=== PATIENT | female | born 1950 | race Caucasian/White ===

== ENCOUNTER 2020-01-09 07:08 | Outpatient (REF) | payer MEDICARE, SELFPAY ==
[2020-01-09 07:55] LABS: MANUAL DIFF FLAG NO
[2020-01-09 07:58] LABS: Basophils Percent Auto 0.4 % (0-2); Eosinophils Percent Auto 0.7 % (0-4); Hematocrit 35.3 % (37-47); Hemoglobin 10.6 g/dl (12.0-16.0); Imm Gran Abs Auto 0.02 X10*3/uL (0.00-0.03); Imm Gran Pct Auto 0.4 % (0.0-0.4); Lymphocytes Absolute Auto 1.2 X10*3/uL (1.2-4.9); Lymphocytes Percent Auto 21.4 % (20-40); Mean Corpuscular Hemoglobin 24.6 pg (27.0-33.0); Mean Corpuscular Volume 81.9 fL (80-98); Mean Platelet Volume 10.1 fL (9.4-12.3); Monocytes Absolute Auto 0.4 X10*3/uL (0.1-1.2); Monocytes Percent Auto 6.7 % (2-11); Neutrophils Percent Auto 70.4 % (45-73); Platelet Count 292 X10*3/uL (160-400); Red Blood Count 4.31 X10*6/uL (4.20-5.50); Red Cell Distribution Width 15.3 % (11.0-16.0); White Blood Count 5.7 X10*3/uL (4.8-10.8)
[2020-01-09 08:26] LABS: Alanine Aminotransferase 14 U/L (0-31); Albumin Level 4.2 g/dL (3.5-5.0); Alkaline Phosphatase 95 U/L (39-117); Anion Gap 11 (12-20); Aspartate Amino Transferase 17 U/L (5-31); Bilirubin Total 0.4 mg/dL (0.0-1.0); Blood Urea Nitrogen 19 mg/dL (9-16); Calcium 8.7 mg/dL (8.4-10.2); Carbon Dioxide 27 mmol/L (22-29); Chloride 107 mmol/L (96-108); Cholesterol 142 mg/dL; Estimated Glomerular Filt Rate > 60; Glucose Fasting 96 mg/dL (60-99); HDL Cholesterol 53 mg/dL; LDL Cholesterol Calculated 64 mg/dl; Potassium 4.6 mmol/l (3.3-5.1); Sodium 140 mmol/L (135-145); Total Protein 6.8 g/dL (6.5-8.0); Triglycerides 129 mg/dL
[2020-01-09 08:50] LABS: Thyroid Stimulating Hormone 3.03 uIU/mL (0.32-4.0); Vitamin D 25-OH Total 27.3 ng/mL (>30)
== END 2020-01-09 07:09 | disposition home or self-care (01) ==
LOC: HO.LAB 07:08
PROVIDERS: PCP Internal Medicine; Visit Provider Internal Medicine
DX: E78.5 Hyperlipidemia, unspecified (principal)
CPT/HCPCS: 36415; 80053; 80061; 82306; 84443; 85025

== ENCOUNTER → 2020-01-16 10:14 | Outpatient (BNVA) | payer MEDICARE, SELFPAY | PROVIDERS: PCP Internal Medicine; Referring Provider Internal Medicine; Visit Provider Internal Medicine Cardiovascular Disease | DX: I25.10 Atherosclerotic heart disease of native coronary artery without angina pectoris (principal); T82.09XD Other mechanical complication of heart valve prosthesis, subsequent encounter; Z79.82 Long term (current) use of aspirin; Z79.899 Other long term (current) drug therapy; Z95.1 Presence of aortocoronary bypass graft | CPT/HCPCS: 99212 ==

== ENCOUNTER 2020-04-16 06:50 | Outpatient (REF) | payer MEDICARE, SELFPAY ==
[2020-04-16 07:49] LABS: Cholesterol 139 mg/dL; HDL Cholesterol 50 mg/dL; LDL Cholesterol Calculated 64 mg/dl; Triglycerides 127 mg/dL
== END 2020-04-16 06:51 | disposition home or self-care (01) ==
LOC: HO.LAB 06:50
PROVIDERS: PCP Internal Medicine; Visit Provider Internal Medicine
DX: E11.9 Type 2 diabetes mellitus without complications (principal)
CPT/HCPCS: 36415; 80061

== ENCOUNTER 2020-05-06 09:34 | Outpatient (REF) | payer MEDICARE, SELFPAY ==
--- NOTE | ~2020-05-06 | XR_ITS ---
EXAMINATION: XR SHOULDER, RIGHT CLINICAL INFORMATION: Right shoulder pain. COMPARISON: None TECHNIQUE: AP external rotation, Grashey, scapular Y, and axillary views of the right shoulder. FINDINGS: There is loss of joint space right AC joint and glenohumeral joint with moderate periarticular spurring. No visible acute fracture or dislocation seen. The soft tissues are normal. XR/XR shoulder RT min 2V IMPRESSION: Moderate degenerative changes glenohumeral joint and right AC joint.
== END 2020-05-06 09:35 | disposition home or self-care (01) ==
LOC: HO.XRAY 09:34
PROVIDERS: PCP Internal Medicine; Visit Provider Internal Medicine
DX: M25.519 Pain in unspecified shoulder (principal)
CPT/HCPCS: 73030

== ENCOUNTER → 2020-07-02 08:19 | Outpatient (BNVA) | payer MEDICARE, SELFPAY | PROVIDERS: PCP Internal Medicine; Referring Provider Family Medicine Adult Medicine; Visit Provider Internal Medicine Cardiovascular Disease | DX: I25.10 Atherosclerotic heart disease of native coronary artery without angina pectoris (principal); Z95.2 Presence of prosthetic heart valve | CPT/HCPCS: 93005; 99212 ==

== ENCOUNTER 2020-07-20 09:42 | Day surgery (SDC) | payer MEDICARE, SELFPAY ==
[2020-07-13 13:50] VITALS: BMI 31.1
--- NOTE | 2020-07-16 08:48 | MHC.SHP ---
Pre-Procedural Eval Section A The patient is an INPATIENT: No The History & Physical has been completed within 30 days and I have reviewed it.: Yes Section B Chief Complaint: Cataract Left Eye Allergies: Allergies Allergy/AdvReac Type Severity Reaction Status Date / Time nitrofurantoin [Macrobid] Allergy Unknown headache Verified 07/15/20 14:29 Plan Diagnosis/Plan: Unchanged I have reviewed the history and physical and performed a pertinent physical examination on my patient. No changes have occurred unless specified.
--- NOTE | 2020-07-17 09:39 | HO.ANESPROP2 ---
Documented by User: Ella Reddyney 07/17/20 09:42 HPI - Anesthesia Eval Consult details Narrative: 70yo F for Left Cataract Extraction IOL Insertion PCP cleared No prev cataract on record [facility] Active Problems Active Problems: All Active Problems (Updated 07/15/20 @ 14:45 by Maximilian Bay MD) Preop exam for internal medicine (Acute) Shoulder pain, right (Acute) CAD (coronary artery disease) (Acute) S/P AVR (Acute) Prosthetic valve dysfunction (Acute) PVD (peripheral vascular disease) (Acute) HTN (hypertension) (Acute) Hyperlipidemia (Acute) Past Medical History Medical History Anemia Atherosclerotic heart disease CAD (coronary artery disease) Depression HTN (hypertension) Hyperlipidemia On beta tony at home Prosthetic valve dysfunction PVD (peripheral vascular disease) Family History Family History Father Depression Mother Depression Heart disease CHF (congestive heart failure) Paternal Grandmother Cancer Surgical History Surgical History H/O left wrist surgery Hx of CABG Hx of colonoscopy Hx of endoscopy S/P AVR Social History Social History Alcohol intake: never Smoking Status: Former smoker Tobacco Type: Cigarette Smoking Quit Date: 2007 Use of substances other than those prescribed or required for medical reasons: No Have you been hit, kicked, punched, or otherwise hurt by someone within the past year? If so, by whom?: No Are you DNR?: No Advance Directives: No Advance Directives Information Provided: No Advance Directives on File: No Recently lost weight without trying: No Eating poorly because of decreased appetite: No Nutrition Risks: No Nutritional Risk Meds Allergies Allergy/AdvReac Type Severity Reaction Status Date / Time nitrofurantoin [Macrobid] Allergy Unknown headache Verified 07/15/20 14:29 Home Medications Medication Instructions Recorded Confirmed Last Taken Type cyanocobalamin (vitamin B-12) 1,000 mcg PO DAILY 01/14/20 07/15/20 07/20/20 History 1,000 mcg sublingual tablet ezetimibe 10 mg tablet 10 mg PO DAILY 01/14/20 07/15/20 07/20/20 History metoprolol tartrate 50 mg tablet 50 mg PO BID 01/14/20 07/15/20 07/20/20 History aspirin 81 mg tablet,delayed 81 mg PO DAILY 01/16/20 07/15/20 07/20/20 History release Exam Exam Date and Time: July 17, 2020 0939 Height,Weight and Vital Signs: Height 5 ft 1 in Weight 74.843 kg Narrative Narrative: Per 06/2020 cardiology Prior history of bioprosthetic aortic valve with 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 Patient has done well. No interventions required. Will continue to monitor by echocardiogram on annual basis. Next echocardiogram in 5 months time. Continue low-dose aspirin therapy. Continue aggressive vascular risk factor modification. No interventions required. SBE prophylaxis as per ACC/aha guidelines. Assessment and Plan Assessment Anesthesia Assessment: Chart Reviewed Documented by User: Dorinda Rollins 07/20/20 10:59 [facility] Past Medical History Medical History Anemia Atherosclerotic heart disease CAD (coronary artery disease) Depression HTN (hypertension) Hyperlipidemia On beta tony at home Prosthetic valve dysfunction PVD (peripheral vascular disease) Family History Family History Father Depression Mother Depression Heart disease CHF (congestive heart failure) Paternal Grandmother Cancer Surgical History Surgical History H/O left wrist surgery Hx of CABG Hx of colonoscopy Hx of endoscopy S/P AVR Social History Social History Alcohol intake: never Smoking Status: Former smoker Tobacco Type: Cigarette Smoking Quit Date: 2007 Use of substances other than those prescribed or required for medical reasons: No Have you been hit, kicked, punched, or otherwise hurt by someone within the past year? If so, by whom?: No Are you DNR?: No Advance Directives: No Advance Directives Information Provided: No Advance Directives on File: No Recently lost weight without trying: No Eating poorly because of decreased appetite: No Nutrition Risks: No Nutritional Risk Meds Allergies Allergy/AdvReac Type Severity Reaction Status Date / Time nitrofurantoin [Macrobid] Allergy Unknown headache Verified 07/15/20 14:29 Home Medications Medication Instructions Recorded Confirmed Last Taken Type cyanocobalamin (vitamin B-12) 1,000 mcg PO DAILY 01/14/20 07/15/20 07/20/20 History 1,000 mcg sublingual tablet ezetimibe 10 mg tablet 10 mg PO DAILY 01/14/20 07/15/20 07/20/20 History metoprolol tartrate 50 mg tablet 50 mg PO BID 01/14/20 07/15/20 07/20/20 History aspirin 81 mg tablet,delayed 81 mg PO DAILY 01/16/20 07/15/20 07/20/20 History release Exam Airway Mallampati Class: II TM Dist: >3cm Neck ROM: Full Heart: RRR Lungs: CTA Assessment and Plan Assessment Anesthesia Assessment: Anesthesia Plan Discussed and Chart Reviewed Final Anesthetic Review NPO: Yes ASA Class: III Final Preanesthetic Review: Meds/Allgs Chart Reviewed, Consent Obtained/Reviewed and Anes Risks/Benef Reviewed Patient Risk: Intermediate Procedure Risk: Low Anesthetic Plan Anesthetic Plan: MAC: Disposition: Standard PACU
[2020-07-20 10:47] VITALS: BP 139/56; PULSE 66; RESP 18; TEMP 36.5; O2SAT 97
[2020-07-20] MEDS: Tetracaine HCl/PF 0.5% Oph Sol 4 ML DROPS 1 DROP EYE-LEFT (10:49)
[2020-07-20] MEDS: Lactated Ringers 500 ML 50 ML IV (10:49)
[2020-07-20] MEDS: Tropicamide 1 % Ophth Sol 3 ML BTL 1 DROP EYE-LEFT ×3 (10:50→10:58)
[2020-07-20] MEDS: Phenylephrine HCL 2.5% Oph SoL 2 ML BOTTLE 1 DROP EYE-LEFT ×3 (10:54→10:59)
--- NOTE | 2020-07-20 11:44 | HO.PNOPHT ---
Ophthalmology Procedure Procedure Date of Service: 07/20/20 Ophthalmology Viscoelastic: Healon Duet Dual Pack Pro Ophthalmology Lenses: TECNIS [id number] (20.5) Procedure Notes: PREOPERATIVE DIAGNOSIS: Decreased visual acuity left eye secondary to cataract POSTOPERATIVE DIAGNOSIS: Same PROCEDURE: Left cataract extraction with intraocular lens insertion SURGEON: Silvino Hutchinson M.D. ANESTHESIA: Topical/MAC ESTIMATED BLOOD LOSS: None COMPLICATIONS: None After obtaining informed consent, the patient was brought to the operation room suite and placed in the supine position. After adequate sedation per anesthesia, topical drops of Tetracaine were given to the left eye. The eye was then prepped and draped in the usual sterile fashion. The operating room microscope was then positioned over the operative eye and a lid speculum placed. A paracentesis was created. Viscoelastic was then instilled into the anterior chamber. A three plane incision was then created temporally, utilizing a 2.85 mm keratome. Capsulotomy forceps were then utilized to create a circular tear capsulotomy. Hydrodissection and hydrodelineation were carried out until adequate mobilization of the nucleus occurred. Phacoemulsification was then utilized to remove the dense central nucleus followed by removal of the cortical material utilizing the automated aspiration irrigation unit. Viscoat elastic was instilled into the posterior capsular bag followed by placement of a posterior chamber intraocular lens without difficulty. The residual Viscoat elastic was then removed utilizing the automated IA machine. The wound was check and found to be watertight. The patient tolerated the procedure well and the lid speculum was removed. Intracameral injection of Vigamox 0.1 mL followed by a subtenon injection of Kenalog-40 0.2 mL were administered. The patient will be seen in the a.m.
[2020-07-20 12:03] VITALS: BP 128/51; PULSE 67; RESP 16; TEMP 36.1; O2SAT 96
== END 2020-07-20 12:28 | disposition home or self-care (01) ==
LOC: HO.SSS 09:42
PROVIDERS: PCP Internal Medicine; Visit Provider Ophthalmology
PROC: (CPT 66985; principal; 2020-07-20 12:30)
DX: H25.12 Age-related nuclear cataract, left eye (principal); H54.7 Unspecified visual loss; H35.033 Hypertensive retinopathy, bilateral; D64.9 Anemia, unspecified; I25.10 Atherosclerotic heart disease of native coronary artery without angina pectoris; I10 Essential (primary) hypertension; Z79.899 Other long term (current) drug therapy; Z95.1 Presence of aortocoronary bypass graft; Z95.2 Presence of prosthetic heart valve; Z79.82 Long term (current) use of aspirin; Z87.891 Personal history of nicotine dependence
CPT/HCPCS: 66984; J2250; J3010; J3300; V2632

== ENCOUNTER 2020-08-03 08:41 | Day surgery (SDC) | payer MEDICARE, SELFPAY ==
[2020-07-13 13:57] VITALS: BMI 31.1
--- NOTE | 2020-07-29 16:21 | MHC.SHP ---
Pre-Procedural Eval Section A The patient is an INPATIENT: No The History & Physical has been completed within 30 days and I have reviewed it.: Yes Section B Chief Complaint: Right Eye Cataract Allergies: Allergies Allergy/AdvReac Type Severity Reaction Status Date / Time nitrofurantoin [Macrobid] Allergy Unknown headache Verified 07/15/20 14:29 Plan Diagnosis/Plan: Unchanged I have reviewed the history and physical and performed a pertinent physical examination on my patient. No changes have occurred unless specified.
--- NOTE | 2020-07-31 09:49 | P.CONAN_ITS ---
Documented by User: Ella Stephanie 07/31/20 09:50 HPI - Anesthesia Eval Consult details Narrative: 70yo F for Right Cataract Extraction IOL Insertion PCP Cleared Left eye 07/20: Fent 50, Midaz 2 PMFSH Active Problems Active Problems: All Active Problems (Updated 07/15/20 @ 14:45 by Maximilian Bay MD) Shoulder pain, right (Acute) Preop exam for internal medicine (Acute) CAD (coronary artery disease) (Acute) S/P AVR (Acute) Prosthetic valve dysfunction (Acute) PVD (peripheral vascular disease) (Acute) HTN (hypertension) (Acute) Hyperlipidemia (Acute) Past Medical History Medical History Anemia Atherosclerotic heart disease CAD (coronary artery disease) Depression HTN (hypertension) Hyperlipidemia On beta tony at home Prosthetic valve dysfunction PVD (peripheral vascular disease) Family History Family History Father Depression Mother Depression Heart disease CHF (congestive heart failure) Paternal Grandmother Cancer Surgical History Surgical History (Updated 07/30/20 @ 08:29 by More Baig) H/O left wrist surgery History of cataract extraction Hx of CABG Hx of colonoscopy Hx of endoscopy S/P AVR Social History Social History Alcohol intake: never Use of substances other than those prescribed or required for medical reasons: No Have you been hit, kicked, punched, or otherwise hurt by someone within the past year? If so, by whom?: No Are you DNR?: No Advance Directives: No Advance Directives Information Provided: No Advance Directives on File: No Recently lost weight without trying: No Eating poorly because of decreased appetite: No Nutrition Risks: No Nutritional Risk Meds Allergies Allergy/AdvReac Type Severity Reaction Status Date / Time nitrofurantoin [Macrobid] Allergy Unknown headache Verified 07/15/20 14:29 Home Medications Medication Instructions Recorded Confirmed Last Taken Type cyanocobalamin (vitamin B-12) 1,000 mcg PO DAILY 01/14/20 07/15/20 07/20/20 History 1,000 mcg sublingual tablet ezetimibe 10 mg tablet 10 mg PO DAILY 01/14/20 07/15/20 07/20/20 History metoprolol tartrate 50 mg tablet 50 mg PO BID 01/14/20 07/15/20 07/20/20 History aspirin 81 mg tablet,delayed 81 mg PO DAILY 01/16/20 07/15/20 07/20/20 History release Exam Exam Date and Time: July 31, 2020 0949 Height,Weight and Vital Signs: Height 5 ft 1 in Weight 74.843 kg Narrative Narrative: Per 06/2020 cardiology Prior history of bioprosthetic aortic valve with 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 Patient has done well. No interventions required. Will continue to monitor by echocardiogram on annual basis. Next echocardiogram in 5 months time. Continue low-dose aspirin therapy. Continue aggressive vascular risk factor modification. No interventions required. SBE prophylaxis as per ACC/aha guidelines. Assessment and Plan Assessment Anesthesia Assessment: Chart Reviewed Documented by User: Ashlyn Cutler 08/03/20 09:59 [facility] Past Medical History Medical History Anemia Atherosclerotic heart disease CAD (coronary artery disease) Depression HTN (hypertension) Hyperlipidemia On beta tony at home Prosthetic valve dysfunction PVD (peripheral vascular disease) Family History Family History Father Depression Mother Depression Heart disease CHF (congestive heart failure) Paternal Grandmother Cancer Surgical History Surgical History (Updated 07/30/20 @ 08:29 by More Baig) H/O left wrist surgery History of cataract extraction Hx of CABG Hx of colonoscopy Hx of endoscopy S/P AVR Social History Social History Alcohol intake: never Use of substances other than those prescribed or required for medical reasons: No Have you been hit, kicked, punched, or otherwise hurt by someone within the past year? If so, by whom?: No Are you DNR?: No Advance Directives: No Advance Directives Information Provided: No Advance Directives on File: No Recently lost weight without trying: No Eating poorly because of decreased appetite: No Nutrition Risks: No Nutritional Risk Meds Allergies Allergy/AdvReac Type Severity Reaction Status Date / Time nitrofurantoin [Macrobid] Allergy Unknown headache Verified 07/15/20 14:29 Home Medications Medication Instructions Recorded Confirmed Last Taken Type cyanocobalamin (vitamin B-12) 1,000 mcg PO DAILY 01/14/20 07/15/20 07/20/20 History 1,000 mcg sublingual tablet ezetimibe 10 mg tablet 10 mg PO DAILY 01/14/20 07/15/20 07/20/20 History metoprolol tartrate 50 mg tablet 50 mg PO BID 01/14/20 07/15/20 07/20/20 History aspirin 81 mg tablet,delayed 81 mg PO DAILY 01/16/20 07/15/20 07/20/20 History release Exam Airway Mallampati Class: II TM Dist: >3cm Neck ROM: Full Partial: Upper Heart: RRR Lungs: CTA Assessment and Plan Assessment Anesthesia Assessment: Anesthesia Plan Discussed and Chart Reviewed Final Anesthetic Review NPO: Yes ASA Class: II Final Preanesthetic Review: No Changes in Pt Med Stat and Consent Obtained/Reviewed Patient Risk: Intermediate Procedure Risk: Intermediate Anesthetic Plan Anesthetic Plan: MAC: Disposition: Standard PACU
[2020-08-03 09:04] VITALS: BP 128/49; PULSE 57; RESP 18; TEMP 36.6; O2SAT 96
[2020-08-03] MEDS: Tropicamide 1 % Ophth Sol 3 ML BTL 1 DROP EYE-RIGHT ×3 (09:08→09:09)
[2020-08-03] MEDS: Tetracaine HCl/PF 0.5% Oph Sol 4 ML DROPS 1 DROP EYE-RIGHT (09:08)
[2020-08-03] MEDS: Lactated Ringers 500 ML 50 ML IV (09:08)
[2020-08-03] MEDS: Phenylephrine HCL 2.5% Oph SoL 2 ML BOTTLE 1 DROP EYE-RIGHT ×3 (09:08→09:09)
--- NOTE | 2020-08-03 10:32 | HO.PNOPHT ---
Ophthalmology Procedure Procedure Date of Service: 08/03/20 Ophthalmology Viscoelastic: Healon Duet Dual Pack Pro Ophthalmology Lenses: TECNIS [id number] (20.5) Procedure Notes: PREOPERATIVE DIAGNOSIS: Decreased visual acuity right eye secondary to cataract POSTOPERATIVE DIAGNOSIS: Same PROCEDURE: Right cataract extraction with intraocular lens insertion SURGEON: Silvino Hutchinson M.D. ANESTHESIA: Topical/MAC ESTIMATED BLOOD LOSS: None COMPLICATIONS: None After obtaining informed consent, the patient was brought to the operating room suite and placed in the supine position. After adequate sedation per anesthesia, topical drops of Tetracaine were given to the right eye. The eye was then prepped and draped in the usual sterile fashion. The operating room microscope was then positioned over the operative eye and a lid speculum placed. A paracentesis was created. Viscoelastic was then instilled into the anterior chamber. A three plane incision was then created temporally, utilizing a 2.85 mm keratome. Capsulotomy forceps were then utilized to create a circular tear capsulotomy. Hydrodissection and hydrodelineation were carried out until adequate mobilization of the nucleus occurred. Phacoemulsification was then utilized to remove the dense central nucleus followed by removal of the cortical material utilizing the automated aspiration irrigation unit. Viscoelastic was instilled into the posterior capsular bag followed by placement of a posterior chamber intraocular lens without difficulty. The residual Viscoelastic was then removed utilizing the automated IA machine. The wound was checked and found to be watertight. The patient tolerated the procedure well and the lid speculum was removed. Intracameral injection of Vigamox 0.1 mL followed by a subtenon injection of Kenalog-40 0.2 mL were administered. The patient will be seen in the a.m.
[2020-08-03 10:50] VITALS: BP 107/38; PULSE 58; RESP 18; TEMP 36.2; O2SAT 96
== END 2020-08-03 10:59 | disposition home or self-care (01) ==
PROVIDERS: PCP Internal Medicine; Visit Provider Ophthalmology
PROC: (CPT 66985; principal; 2020-08-03 10:50)
DX: H25.11 Age-related nuclear cataract, right eye (principal); H35.033 Hypertensive retinopathy, bilateral; D64.9 Anemia, unspecified; I25.10 Atherosclerotic heart disease of native coronary artery without angina pectoris; I10 Essential (primary) hypertension; Z95.1 Presence of aortocoronary bypass graft; Z95.2 Presence of prosthetic heart valve; Z87.891 Personal history of nicotine dependence; Z79.82 Long term (current) use of aspirin; Z79.899 Other long term (current) drug therapy
CPT/HCPCS: 66984; J2250; J3010; J3300; V2632

== ENCOUNTER 2020-09-03 08:38 | Outpatient (REF) | payer MEDICARE, SELFPAY ==
--- NOTE | ~2020-09-03 | MM_ITS ---
EXAMINATION: MM SCREENING DIGITAL BREAST TOMOSYNTHESIS, BILATERAL CLINICAL INFORMATION: Screening. Asymptomatic. The lifetime risk of breast cancer based on the Tyrer-Cuzick Model is 3.4%. COMPARISON: Mammography: August 28, 2019 and studies dating back to June 20, 2009 TECHNIQUE: Digital breast tomosynthesis is performed in both the craniocaudal and mediolateral oblique views along with computer-aided detection (CAD). Synthesized 2D images are generated from the tomosynthesis. FINDINGS: There are scattered areas of fibroglandular density (ACR BI-RADS breast composition Category b). There are no significant masses, abnormal calcifications, or other abnormalities. MM/MM tomosynthesis screening BI IMPRESSION: There are no significant changes from prior study. ASSESSMENT: BI-RADS 1: Negative RECOMMENDATION: Routine annual mammography screening. This patient's information was entered into a reminder system with a target due date for their next mammogram.
== END 2020-09-03 08:39 | disposition home or self-care (01) ==
LOC: HO.MAMMO 08:38
PROVIDERS: Visit Provider Internal Medicine
DX: Z12.31 Encounter for screening mammogram for malignant neoplasm of breast (principal)
CPT/HCPCS: 77063; 77067

== ENCOUNTER 2020-10-26 14:11 | Outpatient (REF) | payer MEDICARE, SELFPAY ==
--- NOTE | ~2020-10-26 | US_ITS ---
EXAMINATION: NONINVASIVE ASSESSMENT OF THE ARTERIES OF BOTH LOWER EXTREMITIES INCLUDING PVR EXAM AND BILATERAL LOWER EXTREMITY DUPLEX CLINICAL INFORMATION: Peripheral vascular disease COMPARISON: Noninvasive evaluation 10/14/2019 TECHNIQUE: Ankle pressure measurements and ankle brachial indices were obtained of the lower extremity arterial system bilaterally in addition to duplex Doppler techniques with wave form analysis and measurement of velocities in the common femoral, profunda femoral, superficial femoral, popliteal, tibial and peroneal arteries. The study was performed only at rest. FINDINGS: RIGHT LEG 1. Right Ankle-Brachial Index: 1.12 >0.97-1.25 = normal - no significant arterial disease 0.75-0.96 = mild peripheral arterial disease 0.5-0.74 = moderate peripheral arterial disease <0.50 = severe peripheral arterial disease <0.30 = critical arterial disease 2. Segmental Pressures (mmHg): Ankle: PT 181, DP 157 3. PVR waveforms: Ankle: Normal 4. Direct Duplex: Common femoral artery: 183 cm/s, Multiphasic Profunda femoris artery: 361 cm/s, Multiphasic Superficial femoral artery (proximal): 172 cm/s, Multiphasic Superficial femoral artery (mid): 170 cm/s, Multiphasic Superficial femoral artery (distal): 163 cm/s, Multiphasic Popliteal artery: 126 cm/s, Multiphasic Mid posterior tibial artery: 121 cm/s, Multiphasic Peroneal artery: 61.7 cm/s, Multiphasic LEFT LE. Left Ankle-Brachial Index: 0.95 (higher of the DP/PT) >0.97-1.25 = normal - no significant arterial disease 0.75-0.96 = mild peripheral arterial disease 0.5-0.74 = moderate peripheral arterial disease <0.50 = severe peripheral arterial disease <0.30 = critical arterial disease 2. Segmental Pressures: Ankle: PT 154, DP 146 3. PVR waveforms: Ankle: Normal 4. Direct Duplex: Common femoral artery: 152 cm/s, Multiphasic Profunda femoris artery: 136 cm/s, Multiphasic Superficial femoral artery (proximal): 137 cm/s, Multiphasic Superficial femoral artery (mid): 111 cm/s, Multiphasic Superficial femoral artery (distal): 118 cm/s, Multiphasic Popliteal artery: 119 cm/s, Multiphasic Mid posterior tibial artery: 129 cm/s, Multiphasic Peroneal artery: 33.8 cm/s, Multiphasic US/US arterial duplex LE BI IMPRESSION: Normal ankle brachial indices, 1.12 on the right and 0.95 on the left. Normal PVR waveforms at the level the ankle bilaterally. Increased peak systolic velocity within the right profunda femoris artery suggesting moderate to severe stenosis. There is otherwise normal multiphasic flow throughout the visualized bilateral lower extremity arterial vasculature.
== END 2020-10-26 14:12 | disposition home or self-care (01) ==
LOC: HO.US 14:11
PROVIDERS: Visit Provider Surgery Vascular Surgery
DX: I73.9 Peripheral vascular disease, unspecified (principal)
CPT/HCPCS: 93923; 93925

== ENCOUNTER → 2020-11-10 14:02 | Outpatient (BNVA) | payer MEDICARE, SELFPAY | PROVIDERS: PCP Internal Medicine; Visit Provider Surgery Vascular Surgery | DX: I73.9 Peripheral vascular disease, unspecified (principal) | CPT/HCPCS: 99212 ==

== ENCOUNTER → 2020-12-01 08:29 | Outpatient (REF) | payer MEDICARE, SELFPAY ==
--- NOTE | 2020-12-01 08:34 | CA_ITS ---
Transthoracic Echocardiogram Patient (Last, First, Middle): Gloria Mustafa L Gender: Female Date of : 1950 Age: 70 Procedure Date: 12/01/2020 Procedure Type: Transthoracic Echocardiogram Location: OP Height: 157.48 cm Weight: 72.58 kg BSA: 1.74 m2 Heart Rate: bpm BP: 158 / 76 mmHg Strap Maker: CHANDRAKANT Referring MD: Sammy Paredes MD Symptoms: T82.09XA - Other mechanical complication of heart valve p... Study Quality: Fair ECG Rhythm: Sinus Conclusions: - The left ventricular systolic function is normal. The calculated ejection fraction is 60% by biplane method. - Probable patient-prosthesis mismatch of bioprosthetic aortic valve. - There is mild mitral annular calcification. Findings Left Ventricle Normal left ventricular cavity size. The left ventricular systolic function is normal. The calculated ejection fraction is 60% by biplane method. There is no evidence of regional wall motion abnormalities. E/E prime ratio is >15, consistent with elevated filling pressures. Evidence suggests grade I (mild) diastolic dysfunction. There is mild septal asymmetric hypertrophy. Right Ventricle Normal right ventricular cavity size and systolic function. Atria Both atria are normal in size. Aortic Valve The aortic valve was not well visualized. The peak aortic velocity is 2.96 m/s with a calculated peak gradient of 35 mmHg. The mean gradient is 19 mmHg. The aortic valve area is 1.62 cm2. There is no aortic valve regurgitation. By history, bioprosthetic aortic valve. Acceleration time 94ms. Overall, probable patient-prosthesis mismatch. Mitral Valve There is mild mitral annular calcification. There is mild mitral valve regurgitation. There is no mitral valve stenosis. Pulmonic Valve The pulmonic valve was not well visualized. Tricuspid Valve The tricuspid valve was not well visualized. There is mild tricuspid valve regurgitation. The pulmonary artery systolic pressure is normal. Great Vessels The asc aorta is normal in size. Venous The inferior vena cava is normal in size and collapses greater than 50% with inspiration. Pericardium/Pleural There is no evidence of pericardial effusion. Prior Study Comparison No significant change compared to prior study dated: 10/03/2019. Measurements 2D Linear Measurements IVSd: 1.30 0.6-0.9/0.6-1.0 cm LVIDd: 3.48 3.9-5.3/4.2-5.9 cm LVIDd Index: 2.00 2.4-3.2/2.2-3.1 cm/m2 LVIDs: 2.50 2.0-3.6 cm LVPWd: 1.03 0.7-1.1 cm LA Diam: 4.10 2.7-3.8/3.0-4.0 cm LAIDs Index: 2.36 1.5-2.3 cm/m2 LV Mass: 160.14 67-162/88-224 g LV Mass Index: 92.03 43-95/49-115 g/m2 LVOT Diam: 1.80 3.0+(-)1.3 cm 2D Systolic Function EF 4C: 58.80 >55% EF 2C: 59.10 >55% EF BiP: 60.30 >55% Mitral Valve MV Pk E: 1.04 MV PK A: 1.33 MV Decel Time: 335.00 E/A: 0.80 E'Lateral: 6.31 E'Medial: 4.79 E/E' Med: 21.70 E/E' Lat: 16.50 PHT: 98.00 MVA PHT: 2.24 Decel [place]: 3.09 Aortic Valve AoV Pk Uziel: 2.96 AoV Mn Uziel: 2.00 AoV VTI: 0.69 AoV Pk Grad: 35.00 Aov Mn Grad: 19.00 CATE Cont.VTI: 1.62 LVOT LVOT Pk Uziel: 1.90 LVOT Mn Uziel: 1.25 LVOT VTI: 0.44 LVOT Pk Grad: 14.00 LVOT Mn Grad: 8.00 LVOT Diam: 1.80 LVOT Area: 2.54 Diastolic Function MV Pk E: 1.04 MV Pk A: 1.33 E/A: 0.80 E'Medial: 4.79 E/E' Med: 21.70 E' Laterial: 6.31 E/E' Lat: 16.50 Right Ventricle TAPSE (mm): 1.94 Tricuspid Valve TR Pk Uziel: 2.43 TR Pk Grad: 24.00 RA Press: 3.00 RVSP: 27.00 Great Vessels Aorta Ao Asc: 3.00 2.1-3.4 cm Updated in Other Vendor System with Status of Final Tristan Gomez MD electronically signed on 12/03/2020 12:40:16 PM with status of Final
== END ==
LOC: HO.CARD 08:29
PROVIDERS: PCP Internal Medicine; Visit Provider Internal Medicine Cardiovascular Disease
DX: T82.09XD Other mechanical complication of heart valve prosthesis, subsequent encounter (principal)
CPT/HCPCS: 93306

== ENCOUNTER → 2020-12-29 12:38 | Outpatient (BNVA) | payer MEDICARE, SELFPAY | PROVIDERS: PCP Internal Medicine; Referring Provider Internal Medicine; Visit Provider Internal Medicine Cardiovascular Disease | DX: I25.10 Atherosclerotic heart disease of native coronary artery without angina pectoris (principal); T82.09XD Other mechanical complication of heart valve prosthesis, subsequent encounter; Z79.82 Long term (current) use of aspirin | CPT/HCPCS: 99212 ==

== ENCOUNTER 2021-08-24 11:07 | Outpatient (REF) | payer MEDICARE, SELFPAY ==
--- NOTE | ~2021-08-24 | XR_ITS ---
EXAMINATION: KNEE X-RAY CLINICAL INFORMATION: Pain COMPARISON: None TECHNIQUE: 2 views of each knee FINDINGS: Right: Bone alignment is normal. No fracture or dislocation is seen. There is a small sclerotic density in the medial tibial metaphysis. This may represent a bone island. The joint spaces are normal. There is a small osteophyte at the quadriceps tendon insertion to the patella. There is no joint effusion. There is evidence of atherosclerotic disease. Left: Bone alignment is normal. No fracture or dislocation is seen. The joint spaces are normal. There is no joint effusion. There is evidence of atherosclerotic disease. XR/XR knee LT 2V IMPRESSION: No significant arthritis. No joint effusion. Atherosclerotic disease.
--- NOTE | ~2021-08-24 | XR_ITS ---
EXAMINATION: KNEE X-RAY CLINICAL INFORMATION: Pain COMPARISON: None TECHNIQUE: 2 views of each knee FINDINGS: Right: Bone alignment is normal. No fracture or dislocation is seen. There is a small sclerotic density in the medial tibial metaphysis. This may represent a bone island. The joint spaces are normal. There is a small osteophyte at the quadriceps tendon insertion to the patella. There is no joint effusion. There is evidence of atherosclerotic disease. Left: Bone alignment is normal. No fracture or dislocation is seen. The joint spaces are normal. There is no joint effusion. There is evidence of atherosclerotic disease. XR/XR knee RT 2V IMPRESSION: No significant arthritis. No joint effusion. Atherosclerotic disease.
== END 2021-08-24 11:08 | disposition home or self-care (01) ==
LOC: HO.XRAY 11:07
PROVIDERS: Visit Provider Internal Medicine
DX: M25.561 Pain in right knee (principal); M25.562 Pain in left knee
CPT/HCPCS: 73560

== ENCOUNTER 2021-09-06 08:47 | Outpatient (REF) | payer MEDICARE, SELFPAY ==
--- NOTE | ~2021-09-06 | MM_ITS ---
EXAMINATION: MM SCREENING DIGITAL BREAST TOMOSYNTHESIS, BILATERAL CLINICAL INFORMATION: Screening. Asymptomatic. The lifetime risk of breast cancer based on the Tyrer-Cuzick Model is 3%. COMPARISON: Mammography: 09/03/2020, 08/28/2019, 06/09/2018, 05/27/2016 TECHNIQUE: Digital breast tomosynthesis is performed in both the craniocaudal and mediolateral oblique views along with computer-aided detection (CAD). Synthesized 2D images are generated from the tomosynthesis. Additional left view is provided. FINDINGS: There are scattered areas of fibroglandular density (ACR BI-RADS breast composition Category b). There are no significant masses, abnormal calcifications, or other abnormalities. Incidental low right axillary tail node again seen similar to 2017. The breast parenchymal pattern is similar to prior studies. MM/MM tomosynthesis screening BI IMPRESSION: No mammographic evidence of malignancy. ASSESSMENT: BI-RADS 2: Benign RECOMMENDATION: Routine annual mammography screening. This patient's information was entered into a reminder system with a target due date for their next mammogram.
== END 2021-09-06 08:48 | disposition home or self-care (01) ==
LOC: HO.MAMMO 08:47
PROVIDERS: PCP Internal Medicine; Visit Provider Internal Medicine
DX: Z12.31 Encounter for screening mammogram for malignant neoplasm of breast (principal)
CPT/HCPCS: 77063; 77067

== ENCOUNTER 2021-11-25 13:18 | Outpatient (REF) | payer MEDICARE, SELFPAY ==
--- NOTE | ~2021-11-25 | US_ITS ---
EXAMINATION: ANKLE-BRACHIAL INDICES SINGLE LEVEL PULSE VOLUME RECORDING ARTERIAL DUPLEX BILATERAL LEGS CLINICAL INFORMATION: Peripheral vascular disease COMPARISON: 10/26/2020 TECHNIQUE: Ankle-brachial indices and PVR at the ankle were obtained. Duplex Doppler of the bilateral lower extremity arterial systems was performed. FINDINGS: RIGHT: Ankle-brachial index: 1.18 PVR: Normal Common femoral: PSV 247 cm/s. Triphasic waveform. Deep femoral: PSV 258 cm/s. Biphasic waveform. Proximal superficial femoral: PSV 147 cm/s. Biphasic waveform. Mid superficial femoral: PSV 131 cm/s. Triphasic waveform. Distal superficial femoral: PSV 97 cm/s. Triphasic waveform. Popliteal: PSV 108 cm/s. Triphasic waveform. Posterior tibial: PSV 138 cm/s. Triphasic waveform. Peroneal: PSV 50 cm/s. Biphasic waveform. LEFT: Ankle-brachial index: 1.09 PVR: Normal Common femoral: PSV 172 cm/s. Triphasic waveform. Deep femoral: PSV 98 cm/s. Biphasic waveform. Proximal superficial femoral: PSV 156 cm/s. Triphasic waveform. Mid superficial femoral: PSV 119 cm/s. Triphasic waveform. Distal superficial femoral: PSV 105 cm/s. Triphasic waveform. Popliteal: PSV 96 cm/s. Triphasic waveform. Posterior tibial: PSV 116 cm/s. Triphasic waveform. Peroneal: PSV 56 cm/s. Biphasic waveform. US/US PRISCA complete IMPRESSION: No evidence of hemodynamically significant peripheral arterial disease by PRISCA and PVR criteria. On Doppler exam there is likely moderate disease involving the right common femoral, right deep femoral, and left deep femoral arteries.
--- NOTE | ~2021-11-25 | US_ITS ---
EXAMINATION: ANKLE-BRACHIAL INDICES SINGLE LEVEL PULSE VOLUME RECORDING ARTERIAL DUPLEX BILATERAL LEGS CLINICAL INFORMATION: Peripheral vascular disease COMPARISON: 10/26/2020 TECHNIQUE: Ankle-brachial indices and PVR at the ankle were obtained. Duplex Doppler of the bilateral lower extremity arterial systems was performed. FINDINGS: RIGHT: Ankle-brachial index: 1.18 PVR: Normal Common femoral: PSV 247 cm/s. Triphasic waveform. Deep femoral: PSV 258 cm/s. Biphasic waveform. Proximal superficial femoral: PSV 147 cm/s. Biphasic waveform. Mid superficial femoral: PSV 131 cm/s. Triphasic waveform. Distal superficial femoral: PSV 97 cm/s. Triphasic waveform. Popliteal: PSV 108 cm/s. Triphasic waveform. Posterior tibial: PSV 138 cm/s. Triphasic waveform. Peroneal: PSV 50 cm/s. Biphasic waveform. LEFT: Ankle-brachial index: 1.09 PVR: Normal Common femoral: PSV 172 cm/s. Triphasic waveform. Deep femoral: PSV 98 cm/s. Biphasic waveform. Proximal superficial femoral: PSV 156 cm/s. Triphasic waveform. Mid superficial femoral: PSV 119 cm/s. Triphasic waveform. Distal superficial femoral: PSV 105 cm/s. Triphasic waveform. Popliteal: PSV 96 cm/s. Triphasic waveform. Posterior tibial: PSV 116 cm/s. Triphasic waveform. Peroneal: PSV 56 cm/s. Biphasic waveform. US/US arterial duplex LE BI IMPRESSION: No evidence of hemodynamically significant peripheral arterial disease by PRISCA and PVR criteria. On Doppler exam there is likely moderate disease involving the right common femoral, right deep femoral, and left deep femoral arteries.
== END 2021-11-25 13:19 | disposition home or self-care (01) ==
LOC: HO.US 13:18
PROVIDERS: Visit Provider Surgery Vascular Surgery
DX: I73.9 Peripheral vascular disease, unspecified (principal)
CPT/HCPCS: 93923; 93925

== ENCOUNTER 2021-12-04 07:03 | Outpatient (REF) | payer MEDICARE, SELFPAY ==
[2021-12-04 07:24] LABS: MANUAL DIFF FLAG NO
[2021-12-04 08:25] LABS: Basophils Percent Auto 0.6 % (0-2); Eosinophils Absolute Auto 0.1 X10*3/uL (0.0-0.4); Eosinophils Percent Auto 1.4 % (0-4); Hematocrit 42.3 % (37.0-47.0); Hemoglobin 13.8 g/dl (12.0-16.0); Imm Gran Abs Auto 0.02 X10*3/uL (0.00-0.03); Imm Gran Pct Auto 0.3 % (0.0-0.4); Lymphocytes Absolute Auto 1.3 X10*3/uL (1.2-4.9); Lymphocytes Percent Auto 19.7 % (20-40); Mean Corpuscular HGB Conc 32.6 g/dl (31.0-35.0); Mean Corpuscular Hemoglobin 29.8 pg (27.0-33.0); Mean Corpuscular Volume 91.4 fL (80.0-98.0); Mean Platelet Volume 9.7 fL (9.4-12.3); Monocytes Absolute Auto 0.4 X10*3/uL (0.1-1.2); Monocytes Percent Auto 6.6 % (2-11); Neutrophils Absolute Auto 4.6 x10*3/uL (2.0-8.3); Neutrophils Percent Auto 71.4 % (45-73); Platelet Count 233 X10*3/uL (160-400); Red Blood Count 4.63 X10*6/uL (4.20-5.50); Red Cell Distribution Width 12.8 % (11.0-16.0); White Blood Count 6.5 X10*3/uL (4.8-10.8)
[2021-12-04 09:06] LABS: Alanine Aminotransferase 17 U/L (0-31); Albumin Level 4.2 g/dL (3.5-5.0); Alkaline Phosphatase 95 U/L (39-117); Anion Gap 14 (12-20); Aspartate Amino Transferase 18 U/L (5-31); Bilirubin Total 0.5 mg/dL (0.0-1.0); Blood Urea Nitrogen 28 mg/dL (9-16); Calcium 9.6 mg/dL (8.4-10.2); Carbon Dioxide 27 mmol/L (22-29); Chloride 106 mmol/L (96-108); Cholesterol 144 mg/dL; Estimated Glomerular Filt Rate > 60; Glucose Fasting 98 mg/dL (60-99); HDL Cholesterol 53 mg/dL; LDL Cholesterol Calculated 65 mg/dl; Potassium 4.6 mmol/L (3.3-5.1); Sodium 142 mmol/L (135-145); Total Protein 6.8 g/dL (6.5-8.0); Triglycerides 134 mg/dL
[2021-12-04 09:31] LABS: Thyroid Stimulating Hormone 3.32 uIU/mL (0.32-4.0)
== END 2021-12-04 07:04 | disposition home or self-care (01) ==
LOC: HO.LAB 07:03
PROVIDERS: Visit Provider Internal Medicine
DX: Z00.00 Encounter for general adult medical examination without abnormal findings (principal)
CPT/HCPCS: 36415; 80053; 80061; 84443; 85025

== ENCOUNTER → 2021-12-23 08:15 | Outpatient (REF) | payer MEDICARE, SELFPAY ==
--- NOTE | 2021-12-23 08:17 | CA_ITS ---
Transthoracic Echocardiogram Patient (Last, First, Middle): Gloria Mustafa L Gender: Female Date of : 1950 Age: 71 Procedure Date: 12/23/2021 Procedure Type: Transthoracic Echocardiogram Location: OP Height: 157.48 cm Weight: 72.58 kg BSA: 1.74 m2 Heart Rate: 57 bpm BP: 124 / 64 mmHg Backwinder: ESTHER Referring MD: Sammy Paredes MD Daub Color Mixer: Sammy Paredes MD Symptoms: T82.09XA - Other mechanical complication of heart valve p... Study Quality: Fair ECG Rhythm: Bradycardia Conclusions: - 1. Normal LV systolic function with impaired relaxation filling pattern next 2. Moderately dilated left atrium 3. 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 Severe mitral and calcification with mild mitral regurgitation 5. Normal RV systolic pressure 6. No gross pericardial effusion Findings Left Ventricle Normal left ventricular size, thickness, and systolic function. The visually estimated ejection fraction is between 60-65%. Spectral Doppler is indicative of an impaired relaxation filling pattern. There is mild septal asymmetric hypertrophy. Right Ventricle Normal right ventricular cavity size. There is mild to moderately decreased right ventricular systolic function. Atria The left atrium is moderately dilated. Interatrial shunt cannot be excluded. The right atrium is normal in size. Aortic Valve A bioprosthetic aortic valve is present. The mean gradient is 15 mmHg. Increased gradient across the bioprosthetic valve was suggestive of patient prosthesis mismatch. Unchanged from before Mitral Valve There is mild anterior and severe posterior mitral leaflet thickening. There is severe mitral annular calcification. There is mild mitral valve regurgitation. There is no mitral valve stenosis. Pulmonic Valve The pulmonic valve was not well visualized. Tricuspid Valve Likely normal tricuspid valve structure and function. There is mild tricuspid valve regurgitation. The right ventricular systolic pressure is normal. The right ventricular systolic pressure is 27 mmHg. Normal right atrial pressure. There is no evidence of pulmonary hypertension. Great Vessels All visible segments of the aorta are normal in size. The pulmonary artery was not well visualized. Venous The inferior vena cava is normal in size and collapses greater than 50% with inspiration. Pericardium/Pleural There is no evidence of pericardial effusion. Prior Study Comparison No significant change compared to prior study dated: 12/01/2020. Measurements 2D Linear Measurements IVSd: 1.32 0.6-0.9/0.6-1.0 cm LVIDd: 5.16 3.9-5.3/4.2-5.9 cm LVIDd Index: 2.97 2.4-3.2/2.2-3.1 cm/m2 LVIDs: 3.55 2.0-3.6 cm LVPWd: 0.80 0.7-1.1 cm LA Diam: 4.50 2.7-3.8/3.0-4.0 cm LAIDs Index: 2.59 1.5-2.3 cm/m2 LV Mass: 258.87 67-162/88-224 g LV Mass Index: 148.78 43-95/49-115 g/m2 LVOT Diam: 1.90 3.0+(-)1.3 cm 2D Systolic Function EF 4C: 62.10 >55% EF 2C: 66.30 >55% EF BiP: 65.50 >55% Mitral Valve MV VTI: 0.52 MV Pk Uziel: 1.58 MV Mn Uziel: 0.84 MV Pk Grad: 10.00 MV Mn Grad: 3.00 MV Pk E: 1.19 MV PK A: 1.35 MV Decel Time: 406.00 E/A: 0.90 E'Lateral: 4.20 E'Medial: 5.18 E/E' Med: 23.00 E/E' Lat: 28.30 PHT: 119.00 MVA PHT: 1.85 MVA Continuity: 1.83 Decel [place]: 2.92 Aortic Valve AoV Pk Uziel: 2.63 AoV Mn Uziel: 1.84 AoV VTI: 0.64 AoV Pk Grad: 28.00 Aov Mn Grad: 15.00 CATE Cont.VTI: 1.48 LVOT LVOT Pk Uziel: 1.24 LVOT Mn Uziel: 0.99 LVOT VTI: 0.33 LVOT Pk Grad: 6.00 LVOT Mn Grad: 4.00 LVOT Diam: 1.90 LVOT Area: 2.84 Diastolic Function MV Pk E: 1.19 MV Pk A: 1.35 E/A: 0.90 E'Medial: 5.18 E/E' Med: 23.00 E' Laterial: 4.20 E/E' Lat: 28.30 Right Ventricle TAPSE (mm): 12.10 TVS' Uziel: 6.80 Tricuspid Valve TR Pk Uziel: 2.46 TR Pk Grad: 24.00 RA Press: 3.00 RVSP: 27.00 Pulmonary Valve PV Pk Uziel: 1.07 Peak PV Grad: 5.00 Updated in Other Vendor System with Status of Final Sammy Paredes MD electronically signed on 12/24/2021 11:34:44 AM with status of Final
== END ==
LOC: HO.CARD 08:15
PROVIDERS: PCP Internal Medicine; Visit Provider Internal Medicine Cardiovascular Disease
DX: T82.09XA Other mechanical complication of heart valve prosthesis, initial encounter (principal)
CPT/HCPCS: 93306

== ENCOUNTER → 2022-01-03 09:01 | Outpatient (BNVA) | payer MEDICARE, SELFPAY | PROVIDERS: PCP Internal Medicine; Visit Provider Surgery Vascular Surgery | DX: I73.9 Peripheral vascular disease, unspecified (principal) | CPT/HCPCS: 99212 ==

== ENCOUNTER → 2022-01-04 08:23 | Outpatient (BNVA) | payer MEDICARE, SELFPAY | PROVIDERS: PCP Internal Medicine; Referring Provider Internal Medicine; Visit Provider Internal Medicine Cardiovascular Disease | DX: I25.10 Atherosclerotic heart disease of native coronary artery without angina pectoris (principal); T82.09XD Other mechanical complication of heart valve prosthesis, subsequent encounter | CPT/HCPCS: 93005; 99212 ==

== ENCOUNTER → 2022-02-10 10:20 | Outpatient (REF) | payer MEDICARE, SELFPAY ==
--- NOTE | ~2022-02-10 | NM_ITS ---
Lexiscan Myocardial perfusion study Indication: Coronary disease, assess for ischemia Technique: The patient was brought in for a Lexiscan perfusion study on 02/10/2022 and was injected 0.4 mg of Lexiscan intravenously. Within a minute of this injection 25 mCi of sestamibi was given intravenously. Images were obtained using the SPECT gamma camera interlaced with the gating device. Images were obtained in supine position. Resting perfusion study was performed on 02/14/2022. Patient was administered 25 mCi of sestamibi intravenously at rest. Images were then obtained in supine position. Images were processed with the software and compared side to side in short axis, horizontal long axis and vertical long axis views. Total DLP 82mGy-cm. Findings: Raw acquisition reviewed. The stress perfusion study showed no significant perfusion abnormality. Both uncorrected as well as CT attenuation corrected images were reviewed. The gated study shows normal LV systolic function with calculated LVEF of 58%. LV cavity is normal in size. The gated study shows normal wall thickening and contraction of segments. Resting study shows no significant perfusion abnormality. Gating at rest reveals normal wall motion with ejection fraction at 59%. The findings are consistent with no clear reversible or fixed perfusion defects. NM/NM parveen perf SPECT rest & str Impression: 1. Myocardial perfusion imaging study shows likely normal myocardial perfusion. 2. Gated LVEF is 58% during stress and 59% during rest. 3. Transient ischemic dilatation not present. EKG component of the test reported separately.
--- NOTE | 2022-02-10 10:23 | CA_ITS ---
Acquisition Time: 2022-02-10 12:10:59 Total Exercise Time: 00:03:01 Test Indications: Medications: Protocol: VENICE Max HR: 096 BPM 64% of Pred: 148 BPM Max BP: 182/082 mmHG Max Work Load: 4.6 METS Exercise stress test with exercise 3 min 1 sec of [place] protocol, with request to stop due to fatigue and moderate sob. Pt assisted to sitting position at her request. Once breathing improved, testing changed to a pharmacological stress test with Lexiscan injection, while kicking her legs, without anginal symptoms, with isolated PVCs, with normotensive response to injection, with EKG changes post injection that meet criteria for ischemia. In recovery she was treated with Aminophylline 75mg IVP to reverse Lexiscan. Nuclear images pending. Test reviewed with Dr Gomez Referred By: Sammy Paredes Overread By: AVELINO CARNEY
== END ==
LOC: HO.CARD 10:20
PROVIDERS: Visit Provider Internal Medicine Cardiovascular Disease
DX: I25.10 Atherosclerotic heart disease of native coronary artery without angina pectoris (principal)
CPT/HCPCS: 78452; 93017; A9500; J0280; J2785

== ENCOUNTER 2022-09-12 09:17 | Outpatient (REF) | payer MEDICARE, SELFPAY ==
--- NOTE | ~2022-09-12 | MM_ITS ---
EXAMINATION: MM SCREENING DIGITAL BREAST TOMOSYNTHESIS, BILATERAL CLINICAL INFORMATION: Screening. Asymptomatic. The lifetime risk of breast cancer based on the Tyrer-Cuzick Model is 2.9%. COMPARISON: Mammography: This study is compared with prior exams dating back to 2018. TECHNIQUE: Digital breast tomosynthesis is performed in both the craniocaudal and mediolateral oblique views along with computer-aided detection (CAD). Synthesized 2D images are generated from the tomosynthesis. FINDINGS: There are scattered areas of fibroglandular density (ACR BI-RADS breast composition Category b). There are no significant masses, abnormal calcifications, or other abnormalities. MM/MM tomosynthesis screening BI IMPRESSION: No mammographic evidence of malignancy. ASSESSMENT: BI-RADS BI-RADS 1 - Negative RECOMMENDATION: Routine annual mammography screening. 1 year F/U This examination should not preclude the clinical evaluation of a suspicious palpable abnormality. This patient's information was entered into a reminder system with a target due date for their next mammogram.
== END 2022-09-12 09:18 | disposition home or self-care (01) ==
LOC: HO.MAMMO 09:17
PROVIDERS: PCP Internal Medicine; Visit Provider Internal Medicine
DX: Z12.31 Encounter for screening mammogram for malignant neoplasm of breast (principal)
CPT/HCPCS: 77063; 77067

== ENCOUNTER → 2022-09-12 09:30 | Outpatient (BNV) | payer MEDICARE, SELFPAY | PROVIDERS: PCP Internal Medicine; Visit Provider Radiology Diagnostic Radiology | DX: Z12.31 Encounter for screening mammogram for malignant neoplasm of breast (principal) | CPT/HCPCS: 77063; 77067 ==

== ENCOUNTER 2022-11-15 08:48 | Outpatient (REF) | payer MEDICARE, SELFPAY ==
--- NOTE | ~2022-11-15 | US_ITS ---
EXAMINATION: ANKLE-BRACHIAL INDICES SINGLE LEVEL PULSE VOLUME RECORDING ARTERIAL DUPLEX BILATERAL LEGS CLINICAL INFORMATION: Peripheral vascular disease. COMPARISON: 11/25/2021. TECHNIQUE: Ankle-brachial indices and PVR at the ankle were obtained. Duplex Doppler of the bilateral lower extremity arterial systems was performed. FINDINGS: RIGHT: Ankle-brachial index: 1.08 PVR: Mildly abnormal Common femoral: PSV 175 cm/s. Triphasic waveform. Deep femoral: PSV 75 cm/s. Biphasic waveform. Proximal superficial femoral: PSV 140 cm/s. Biphasic waveform. Mid superficial femoral: PSV 120 cm/s. Biphasic waveform. Distal superficial femoral: PSV 98 cm/s. Biphasic waveform. Popliteal: PSV 113 cm/s. Triphasic waveform. Posterior tibial: PSV 122 cm/s. Biphasic waveform. Peroneal: PSV 62 cm/s. Biphasic waveform. LEFT: Ankle-brachial index: 1.05 PVR: Mildly abnormal Common femoral: PSV 137 cm/s. Biphasic waveform. Deep femoral: PSV 79 cm/s. Biphasic waveform. Proximal superficial femoral: PSV 122 cm/s. Biphasic waveform. Mid superficial femoral: PSV 82 cm/s. Biphasic waveform. Distal superficial femoral: PSV 118 cm/s. Biphasic waveform. Popliteal: PSV 111 cm/s. Triphasic waveform. Posterior tibial: PSV 101 cm/s. Triphasic waveform. Peroneal: PSV 64 cm/s. Biphasic waveform. US/US PRISCA complete IMPRESSION: No evidence of hemodynamically significant peripheral arterial disease.
--- NOTE | ~2022-11-15 | US_ITS ---
EXAMINATION: ANKLE-BRACHIAL INDICES SINGLE LEVEL PULSE VOLUME RECORDING ARTERIAL DUPLEX BILATERAL LEGS CLINICAL INFORMATION: Peripheral vascular disease. COMPARISON: 11/25/2021. TECHNIQUE: Ankle-brachial indices and PVR at the ankle were obtained. Duplex Doppler of the bilateral lower extremity arterial systems was performed. FINDINGS: RIGHT: Ankle-brachial index: 1.08 PVR: Mildly abnormal Common femoral: PSV 175 cm/s. Triphasic waveform. Deep femoral: PSV 75 cm/s. Biphasic waveform. Proximal superficial femoral: PSV 140 cm/s. Biphasic waveform. Mid superficial femoral: PSV 120 cm/s. Biphasic waveform. Distal superficial femoral: PSV 98 cm/s. Biphasic waveform. Popliteal: PSV 113 cm/s. Triphasic waveform. Posterior tibial: PSV 122 cm/s. Biphasic waveform. Peroneal: PSV 62 cm/s. Biphasic waveform. LEFT: Ankle-brachial index: 1.05 PVR: Mildly abnormal Common femoral: PSV 137 cm/s. Biphasic waveform. Deep femoral: PSV 79 cm/s. Biphasic waveform. Proximal superficial femoral: PSV 122 cm/s. Biphasic waveform. Mid superficial femoral: PSV 82 cm/s. Biphasic waveform. Distal superficial femoral: PSV 118 cm/s. Biphasic waveform. Popliteal: PSV 111 cm/s. Triphasic waveform. Posterior tibial: PSV 101 cm/s. Triphasic waveform. Peroneal: PSV 64 cm/s. Biphasic waveform. US/US arterial duplex LE BI IMPRESSION: No evidence of hemodynamically significant peripheral arterial disease.
== END 2022-11-15 08:49 | disposition home or self-care (01) ==
LOC: HO.US 08:48
PROVIDERS: PCP Internal Medicine; Visit Provider Surgery Vascular Surgery
DX: I70.213 Atherosclerosis of native arteries of extremities with intermittent claudication, bilateral legs (principal)
CPT/HCPCS: 93923; 93925

== ENCOUNTER → 2023-01-02 07:53 | Outpatient (REF) | payer MEDICARE, SELFPAY ==
--- NOTE | 2023-01-02 07:55 | CA_ITS ---
Transthoracic Echocardiogram Patient (Last, First, Middle): Gloria Mustafa L Gender: Female Date of : 1950 Age: 72 Procedure Date: 01/02/2023 Procedure Type: Transthoracic Echocardiogram Location: OP Height: 157.48 cm Weight: 68.04 kg BSA: 1.69 m2 Heart Rate: bpm BP: 131 / 70 mmHg Surface Supervisor: MIRTA Referring MD: Sammy Paredes MD Carpenter Assistant: Sammy Paredes MD Symptoms: T82.09XA - Other mechanical complication of heart valve prosthesis, init... Study Quality: Fair ECG Rhythm: normal sinus rhythm with PVCs Conclusions: - 1. Normal LV ejection fraction 60 65% with mild LVH with restrictive filling pattern 2. Moderately dilated left atrium 3. Severe mitral calcification with at least moderate mitral regurgitation next 4. Bioprosthetic aortic valve present with mean gradient of 15 mmHg suggestive mild patient prosthesis mismatch 5. Upper limits of normal RV systolic pressure 6. No gross pericardial effusion Findings Left Ventricle Normal left ventricular size and systolic function. There is mildly increased left ventricular wall thickness. The visually estimated ejection fraction is between 60-65%. Spectral Doppler is indicative of a restrictive filling pattern. Right Ventricle Normal right ventricular cavity size and systolic function. Atria The left atrium is moderately dilated. There is lipomatous hypertrophy of the interatrial septum. There is no evidence of interatrial shunt. The right atrium is mildly dilated. Aortic Valve A bioprosthetic aortic valve is present. The aortic valve was not well visualized. The mean gradient is 15 mmHg. There is no aortic valve regurgitation. the bioprosthetic valve is well seated without any abnormal rocking motion. Slightly elevated gradient suggestive patient prosthesis mismatch, unchanged from before Mitral Valve There is mild anterior and severe posterior mitral leaflet thickening. There is severe mitral annular calcification. There is moderate mitral valve regurgitation. There is no mitral valve stenosis. Pulmonic Valve The pulmonic valve is likely normal. Tricuspid Valve Normal tricuspid valve structure. There is mild tricuspid valve regurgitation. The right ventricular systolic pressure is 35 mmHg. Normal right atrial pressure. There is no evidence of pulmonary hypertension. Great Vessels The aorta was not well visualized. The pulmonary artery was not well visualized. Venous The inferior vena cava is normal in size and collapses greater than 50% with inspiration. Pericardium/Pleural There is no evidence of pericardial effusion. Measurements 2D Linear Measurements IVSd: 1.31 0.6-0.9/0.6-1.0 cm LVIDd: 3.61 3.9-5.3/4.2-5.9 cm LVIDd Index: 2.14 2.4-3.2/2.2-3.1 cm/m2 LVIDs: 2.59 2.0-3.6 cm LVPWd: 1.03 0.7-1.1 cm LA Diam: 4.10 2.7-3.8/3.0-4.0 cm LAIDs Index: 2.43 1.5-2.3 cm/m2 LV Mass: 170.14 67-162/88-224 g LV Mass Index: 100.68 43-95/49-115 g/m2 LVOT Diam: 1.90 3.0+(-)1.3 cm Mitral Valve MV VTI: 0.56 MV Pk Uziel: 2.03 MV Mn Uziel: 0.98 MV Pk Grad: 16.00 MV Mn Grad: 5.00 MV Pk E: 1.91 MV PK A: 1.33 MV Decel Time: 282.00 E/A: 1.40 E'Lateral: 5.55 E'Medial: 6.01 E/E' Med: 31.80 E/E' Lat: 34.40 PHT: 82.00 MVA PHT: 2.68 MVA Continuity: 1.52 Decel [place]: 6.85 Aortic Valve AoV Pk [place]: 2.54 AoV Mn Uziel: 1.75 AoV VTI: 0.53 AoV Pk Grad: 26.00 Aov Mn Grad: 15.00 CATE Cont.VTI: 1.59 LVOT LVOT Pk Uziel: 1.31 LVOT Mn Uziel: 0.95 LVOT VTI: 0.30 LVOT Pk Grad: 7.00 LVOT Mn Grad: 4.00 LVOT Diam: 1.90 LVOT Area: 2.84 Diastolic Function MV Pk E: 1.91 MV Pk A: 1.33 E/A: 1.40 E'Medial: 6.01 E/E' Med: 31.80 E' Laterial: 5.55 E/E' Lat: 34.40 Right Ventricle TAPSE (mm): 14.50 TVS' Uziel: 9.16 Tricuspid Valve TR Pk Uziel: 2.81 TR Pk Grad: 32.00 RA Press: 3.00 RVSP: 35.00 Updated in Other Vendor System with Status of Final Sammy Paredes MD electronically signed on 01/03/2023 11:57:39 AM with status of Final
== END ==
LOC: HO.CARD 07:53
PROVIDERS: PCP Internal Medicine; Visit Provider Internal Medicine Cardiovascular Disease
DX: T82.09XA Other mechanical complication of heart valve prosthesis, initial encounter (principal)
CPT/HCPCS: 93306

== ENCOUNTER 2023-01-05 08:47 | Outpatient (AMB) | payer MEDICARE, SELFPAY ==
[2023-01-05 09:06] VITALS: BMI 29.9
--- NOTE | 2023-01-05 09:06 | MHC.OFFVIS ---
Intake Vital Signs 01/05/23 09:06 Height 5 ft 1 in Weight 158 lb BMI 29.9 Intake Visit Reasons: fu arterial us Intake Note: 1 yr follow up s/p ARterial US 11/15/2022. Pt has Hx of Left Iliac stent 11/07/2018. Pt states she has bilateral LE cramping but the right LE is worse than the left, pt states its when shes off her feet. Pt states that she gets cramping during the night that wakes her out of her sleep and she has to get up and move around. Accompanied by: Self / Same As Patient Allergies nitrofurantoin [Macrobid] Allergy (Unknown, Verified 01/05/23 09:12) headache HPI fu arterial us HPI Details Very pleasant 72-year-old female presents for follow-up regarding peripheral vascular disease. She has had prior left iliac stenting back in October of 2018. She has since retired as a [employer] employee. She continues to be busy with her grand children. She reports that she has occasional cramping that occurs at night. She has no issues in terms of walking and reports that she can go easily 2-3 blocks with no difficulty. She now presents for follow-up with noninvasive arterial testing. Of note she is being followed by Cardiology and most recently has undergone an echo. REPLACED BY [facility] Medical History S/P angiogram of extremity (11/15/18) Anemia Depression Atherosclerotic heart disease On beta tony at home PVD (peripheral vascular disease) HTN (hypertension) CAD (coronary artery disease) Prosthetic valve dysfunction Hyperlipidemia Surgical History History of cataract extraction Hx of endoscopy Hx of colonoscopy S/P AVR Hx of CABG H/O left wrist surgery Family History Father Depression Mother Depression Heart disease CHF (congestive heart failure) Paternal Grandmother Cancer Social History Housing: House Alcohol intake: never Patient Tobacco Use Status: Former Tobacco user e-Cigarette/Vaping Use: Never Used Second Hand Smoke Exposure: Yes service: No Current occupational status: retired Cognitive needs: No Hearing needs: No Vision needs: Yes (Reading glasses) Review of Systems Const All systems reviewed & are unremarkable except as noted in HPI and below Reports no additional complaints ENT Reports Normal hearing present Card Denies chest pain, Denies chest pain at rest, Denies chest pain with activity and Denies pedal edema Resp Denies cough GI Denies abdominal pain Musc Denies abnormal gait, Denies muscle cramps and Denies radiating pain into limb Skin/Breast Denies skin ulcer and Denies wounds Neuro Reports Normal hearing present and Denies abnormal gait Psych Reports no additional complaints Physical Exam Vital Signs: BMI result Body Mass Index 29.9 Const General: cooperative, healthy appearing and comfortable Orientation/consciousness: oriented to person, oriented to place and oriented to time HEENT Head: Yes normal to inspection Neck Neck: Yes normal visual inspection Carotids: no bruits Chest Chest palpation & inspection: normal inspection of the chest Resp Effort & Inspection: normal respiratory effort and able to speak in complete sentences Auscultation: clear to auscultation bilaterally, no crackles, no rales, no rhonchi and no wheezes Cardio Other: Bilateral DP signals Rate: regular rate Rhythm: regular rhythm Heart sounds: S1 normal heart sound present and S2 normal heart sound present Bruits: no carotid bruits Peripheral pulses: Peripheral pulses 2+ throughout GI Inspection: Yes normal to inspection Skin Wounds: no wounds Hair: normal Neuro General: oriented to person, oriented to place and oriented to time Cranial nerves: Yes CN's II-XII intact bilaterally and Yes Normal hearing present Cognition (Neuro): normal cognition Motor exam (neuro): 5/5 motor strength present throughout Extrem Other: venous exam: No significant superficial varicosities or spider telangiectasias, minimal edema General: No clubbing, No cyanosis and No edema Psych Appearance: grossly normal Mental Status: mental status grossly normal Speech and movement: Normal speech and movement present Results Reviewed Results Reviewed: Noninvasive testing dated 11/15/2022 demonstrates PRISCA on the right of 1.08 and on the left of 1.05. No evidence of significant hemodynamic stenosis. Written report and images were reviewed. Assessment & Plan Assessment & Plan (1) PVD (peripheral vascular disease): Comment: 11/07/2018 - left iliac stent Code(s): I73.9 - Peripheral vascular disease, unspecified Plan: In short patient has stable claudication. I do believe the cramping may be more musculoskeletal in nature. I did review the pathophysiology of peripheral vascular disease with the patient. In addition we did discuss routine conservative measures including a healthy diet and the importance of exercise and ambulation. We did discuss risk factor modification. The patient will continue to to follow-up with surveillance follow-up in approximately 1 year. Thank you for allowing us to participate in this patient's care. If there are any questions or concerns please do not hesitate to contact us. Orders: Orders US arterial duplex LE BI 364 Days I73.9 - Peripheral vascular disease, unspecified Coding Level of Care Code Est Pt Level 4 (17642) Diagnoses PVD (peripheral vascular disease) I73.9
== END 2023-01-05 09:40 | disposition home or self-care (01) ==
PROVIDERS: PCP Internal Medicine; Visit Provider Surgery Vascular Surgery
DX: I73.9 Peripheral vascular disease, unspecified (principal)
CPT/HCPCS: 99213

== ENCOUNTER → 2023-01-05 08:47 | Outpatient (BNVA) | payer MEDICARE, SELFPAY | PROVIDERS: PCP Internal Medicine; Visit Provider Surgery Vascular Surgery | DX: I73.9 Peripheral vascular disease, unspecified (principal) | CPT/HCPCS: 99212 ==

== ENCOUNTER 2023-01-12 08:22 | Outpatient (AMB) | payer MEDICARE, SELFPAY ==
[2023-01-12 08:28] VITALS: BP 120/82; PULSE 63; BMI 29.6
--- NOTE | 2023-01-12 08:28 | MHC.OFFVIS ---
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 Patient says over the last couple weeks she has been having increasing symptoms of palpitations. She says when she exerts herself she feels rapid heart rate and some shortness of breath. However she also last night fell symptoms of rapid palpitations when she was laying down. She denies skipped heartbeats. However EKG today shows frequent PVCs in a trigeminal pattern, unifocal. Patient denies any exertional chest pain. No lightheadedness, syncope. No clear orthopnea, PND, leg edema. She is taking all her medications. Recent echocardiogram shows normal LV systolic function with severe mitral calcification with moderate mitral regurgitation and mild stenosis with patient prosthesis mismatch of the bioprosthetic aortic valve [facility] Medical History (Updated 01/12/23 @ 08:58 by Sammy Paredes MD) Mitral regurgitation S/P angiogram of extremity (11/15/18) Anemia Depression Atherosclerotic heart disease On beta tony at home PVD (peripheral vascular disease) HTN (hypertension) CAD (coronary artery disease) Prosthetic valve dysfunction Hyperlipidemia Surgical History History of cataract extraction Hx of endoscopy Hx of colonoscopy S/P AVR Hx of CABG H/O left wrist surgery Family History Father Depression Mother Depression Heart disease CHF (congestive heart failure) Paternal Grandmother Cancer Social History Housing: House Alcohol intake: never Patient Tobacco Use Status: Former Tobacco user e-Cigarette/Vaping Use: Never Used Second Hand Smoke Exposure: Yes service: No Current occupational status: retired Cognitive needs: No Hearing needs: No Vision needs: Yes (Reading glasses) Review of Systems Const Denies chills, Denies fatigue, Denies fever(s), Denies frequent falls, Denies weakness, Denies weight gain and Denies weight loss ENT Denies dizziness Card Denies chest pain, Denies leg edema, Denies lightheadedness, Denies palpitations, Denies dyspnea, Denies dyspnea on exertion, Denies orthopnea and Denies other (loss of consciousness) Resp Denies cough, Denies dyspnea and Denies dyspnea on exertion GI Denies hematochezia and Denies change in stool character Musc Denies abnormal gait, Denies muscle weakness, Denies numbness, Denies radiating pain into limb and Denies tingling Neuro Denies abnormal gait, Denies dizziness, Denies frequent falls, Denies numbness, Denies tingling and Denies weakness Endo Denies fatigue and Denies palpitations Physical Exam Vital Signs: Last Vital Signs Pulse 63 01/12/23 08:28 BP 120/82 01/12/23 08:28 BMI result Body Mass Index 29.6 Const General: cooperative, comfortable, no acute distress, alert and awake Nutritional Appearance: average body habitus Orientation/consciousness: patient oriented x3 Limitations: no limitations Neck Neck: Yes trachea midline, Yes supple and Yes no JVD Carotids: normal carotid upstroke and other (Transmitted murmur) Chest Chest palpation & inspection: normal inspection of the chest and other (Well-healed sternotomy scar) Resp Effort & Inspection: normal respiratory effort Auscultation: clear to auscultation bilaterally Cardio Jugular venous distension: no JVD Palpation: normal PMI Rate: regular rate Rhythm: regular rhythm Heart sounds: S1 normal heart sound present, S2 normal heart sound present and Murmur heart sound present systolic mid, decrescendo and crescendo GI Auscultation: normal bowel sounds Skin General skin exam: no rashes or lesions noted Neuro General: patient oriented x3 and no focal motor deficits Extrem General: Yes no clubbing, cyanosis or edema Psych Appearance: grossly normal Office Procedures EKG Details: EKG shows normal sinus rhythm with LVH with repolarization abnormality with frequent PVCs in a trigeminal pattern [id number], Complete Assessment & Plan Assessment & Plan (1) PVC (premature ventricular contraction): Code(s): I49.3 - Ventricular premature depolarization Plan: Patient noted to have frequent PVCs on today's EKG. However this should not give a symptoms of rapid palpitation. Concern would be presence of atrial fibrillation given underlying structural heart issues. Would suggest a 7 day Holter monitor to further assess for the same. If this shows suggests isolated PVCs but no significant high-frequency, would probably continue to treated with metoprolol. Will also suggest a test for myocardial ischemia given recent onset PVCs to make sure there is no issues with graft closure. This was discussed with her. Continue current medical therapy. Further treatment based on the finding. Should check for lipid panel as well as electrolytes and BNP (2) CAD (coronary artery disease): Code(s): I25.10 - Atherosclerotic heart disease of [place] coronary artery without angina pectoris Plan: CAD status post coronary artery bypass grafting. Continue current medical therapy including aspirin and high-intensity statin therapy. Continue aggressive blood pressure control. Continue ezetimibe therapy as well. Target goal LDL closer to 60 mg/dL. Continue maintain exercise as tolerated. Workup for myocardial ischemia as above given her recent symptoms (3) S/P AVR: Comment: 19 mm bioprosthetic aortic valve replacement with Trifecta bioprosthesis. Immediate postoperative mean gradient of 30 mm Hg consistent with patient prosthesis mismatch Code(s): Z95.2 - Presence of prosthetic heart valve Plan: Patient with bioprosthetic aortic valve replacement with patient prosthesis mismatch. Clinically has remained stable. Continue aspirin therapy for now. Continue aggressive vascular risk factor modifications above. Will follow annually by echocardiogram. SBE prophylaxis as per ACC/[place] guidelines. (4) Mitral regurgitation: Code(s): I34.0 - Nonrheumatic mitral (valve) insufficiency Plan: Patient significant mitral annular calcification and as a result secondary mitral regurgitation which appears to be only moderate. However she continues to have progressive symptoms may require further evaluation of the mitral valve and may require BUTCH. This was discussed with her. Follow up in the clinic in 6 months time, sooner p.r.n.. Thank you for allowing me to partake in the care Orders: Orders CA stress test Today I25.10 - Atherosclerotic heart disease of [place] coronary artery without angina pectoris, R06.02 - Shortness of breath ECG 7 day holter monitor Today I49.3 - Ventricular premature depolarization, R00.2 - Palpitations NM cardiolite stress test 2 Weeks I25.10 - Atherosclerotic heart disease of [place] coronary artery without angina pectoris, R07.9 - Chest pain, unspecified Coding Level of Care Code Est Pt Level 4 (62626) Diagnoses PVC (premature ventricular contraction) I49.3 CAD (coronary artery disease) I25.10 S/P AVR Z95.2 Mitral regurgitation I34.0 CPT Codes EKG - CPT: 50172-[id number], Complete ([id number])
== END 2023-01-12 09:01 | disposition home or self-care (01) ==
PROVIDERS: Visit Provider Internal Medicine Cardiovascular Disease
DX: I49.3 Ventricular premature depolarization (principal); I25.10 Atherosclerotic heart disease of native coronary artery without angina pectoris; Z95.2 Presence of prosthetic heart valve; I34.0 Nonrheumatic mitral (valve) insufficiency
CPT/HCPCS: 93010; 99214

== ENCOUNTER → 2023-01-12 08:22 | Outpatient (BNVA) | payer MEDICARE, SELFPAY | PROVIDERS: Visit Provider Internal Medicine Cardiovascular Disease | DX: I49.3 Ventricular premature depolarization (principal); I25.10 Atherosclerotic heart disease of native coronary artery without angina pectoris; I34.0 Nonrheumatic mitral (valve) insufficiency; Z95.2 Presence of prosthetic heart valve | CPT/HCPCS: 93005; 99212 ==

== ENCOUNTER 2023-01-18 08:32 | Outpatient (AMB) | payer MEDICARE, SELFPAY ==
[2023-01-18 08:42] VITALS: BP 140/80; PULSE 56; O2SAT 95; BMI 29.5
--- NOTE | 2023-01-18 08:42 | A.OFFPC_ITS ---
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 Marketing: Not Required per policy Accompanied by: Self / Same As Patient Allergies nitrofurantoin [Macrobid] Allergy (Unknown, Verified 01/18/23 08:42) headache Medication List - Last Reconciled 01/18/23 by Maximilian Bay MD aspirin (Adult Low Dose Aspirin) 81 mg PO DAILY atorvastatin 80 mg PO DAILY cyanocobalamin (vitamin B-12) 1,000 mcg PO DAILY ezetimibe 10 mg PO DAILY losartan 100 mg PO DAILY meloxicam 15 mg PO DAILY metoprolol tartrate 50 mg PO BID 90 days venlafaxine ER 150 mg PO DAILY 90 days Tobacco use date assessed: 01/18/23 Fall risk assessment: No Falls in past year Last assessed Fall Risk: 01/18/23 Dental Screening Dental Screen Date: 01/18/23 Did you have a dental visit in the last 12 months?: Yes Did you have a dental problem in the last 6 months where you did not have access to dental care?: No Was dental information given to patient?: Patient has dentist HPI PE HPI Details hyperlip and HTN; prosthetic heart vlve; sees cardiology [facility] Medical History Mitral regurgitation S/P angiogram of extremity (11/15/18) Anemia Depression Atherosclerotic heart disease On beta tony at home PVD (peripheral vascular disease) HTN (hypertension) CAD (coronary artery disease) Prosthetic valve dysfunction Hyperlipidemia Surgical History History of cataract extraction Hx of endoscopy Hx of colonoscopy S/P AVR Hx of CABG H/O left wrist surgery Family History Father Depression Mother Depression Heart disease CHF (congestive heart failure) Paternal Grandmother Cancer Housing: House Alcohol intake: never Patient Tobacco Use Status: Former Tobacco user e-Cigarette/Vaping Use: Never Used Second Hand Smoke Exposure: Yes service: No Current occupational status: retired Cognitive needs: No Hearing needs: No Vision needs: Yes (Reading glasses) Questionnaire PHQ-9 Over the last 2 weeks, how often have you been bothered by any of the following problems? 1. Little interest or pleasure in doing things: not at all 2. Feeling down, depressed, or hopeless: not at all 3. Trouble falling or staying asleep, or sleeping too much: not at all 4. Feeling tired or having little energy: not at all 5. Poor appetite or overeating: not at all 6. Feeling bad about yourself - or that you are a failure or have let yourself or your family down: not at all 7. Trouble concentrating on things, such as reading the newspaper or watching television: not at all 8. Moving or speaking so slowly that other people could have noticed. Or the opposite - being so fidgety or restless that you have been moving around a lot more than usual: not at all 9. Thoughts that you would be better off or of hurting yourself in some way: not at all Total score: 0 Depression Screening Interpretation: Negative Depression Screening Done: Yes 78668 - PHQ-9 Billing: Yes Source: Developed by Drs. Dwayne Damon, Anna Austin, Master Wilson and colleagues, with an educational wil from [employer]. Thrive Questionnaire Date Thrive assessed: 01/18/23 I am a: Patient What is your living situation today?: I have a steady place to live Within the past 12 months, did the food you bought not last and you didn't have the money to get more?: Never true Within the past 12 months, did you worry whether your food would run out before you got money to buy more?: Never true Do you have trouble paying for medicines?: No Do you have trouble getting transportation to medical appointments?: No Do you have trouble paying your heating and electricity bill?: No Do you have trouble taking care of your child, family member or friend?: No Do you have trouble with day-to-day activities such as bathing, preparing meals, shopping, managing finances, etc.?: No Are you currently unemployed and looking for a job?: No Are you interested in more education?: No Please select the resources that you would like help with: None AUDIT C Alcohol Use Questionnaire (AUDIT-C) 1. How often do you have a drink containing alcohol?: Never Total Score: 0 Score Reviewed/Action Taken: Yes JOSE D-7 AMB Questionnaire JOSE D-7 Date JOSE D - 7 assessed: 01/18/23 Feeling nervous, anxious, or on edge: 0 = Not at all Not being able to stop or control worryin = Not at all Worrying too much about different things: 0 = Not at all Trouble relaxin = Not at all Being so restless that it is hard to sit still: 0 = Not at all Becoming easily annoyed or irritable: 0 = Not at all Feeling afraid as if something awful might happen: 0 = Not at all Total JOSE D-7 score (0-4 normal; 5-9 mild; 10-14 moderate; 15-21 severe): 0 Source: Developed by Drs. Dwayne Damon, Anna Austin, Master Wilson and colleagues, with an educational wil from [employer]. JOSE D-7 Assessment Billing JOSE D-7 Assessment Tool: JOSE D-7 Assessment 79907 Review of Systems Const Denies chills, Denies fatigue, Denies headache(s) and Denies weight loss Eyes Denies change in vision, Denies diplopia and Denies eye pain ENT Denies vertigo, Denies dizziness, Denies headache(s) and Denies nasal discharge Card Denies chest pain, Denies rapid heart rate and Denies dyspnea on exertion Resp Denies chest congestion, Denies cough, Denies pain with cough and Denies dyspnea on exertion GI Denies abdominal pain, Denies hematochezia and Denies change in bowel habits Musc Denies myalgias, Denies arthralgias and Denies joint swelling Skin/Breast Denies lesions and Denies unusual bruising Neuro Denies vertigo, Denies dizziness, Denies headache(s) and Denies focal weakness Endo Denies fatigue Physical exam (Primary Care) Vital Signs: Last Vital Signs Pulse 56 01/18/23 08:42 BP 140/80 H 01/18/23 08:42 Pulse Ox 95 01/18/23 08:42 Oxygen Delivery Method Room Air 01/18/23 08:42 BMI result Body Mass Index 29.5 Tobacco/Smoking Status: Tobacco use Status Tobacco use date assessed 01/18/23 01/18/23 08:47 Patient Tobacco Use Status Former Tobacco user 01/18/23 08:47 e-Cigarette/Vaping Use Never Used 01/18/23 08:47 PHQ-9: PHQ-9 Score PHQ-9: Total score 0 01/18/23 08:47 Depression Screening Interpretation: Negative Thrive Assessment: Date of Thrive Assessment Date Thrive assessed 01/18/23 01/18/23 08:47 Advance Care Planning discussion: On file, no changes Forms completed: Health Care Proxy Const General: cooperative, healthy appearing and no acute distress Orientation/consciousness: oriented to person, oriented to place and oriented to time HENMT Head: Yes normal to inspection, Yes normocephalic and Yes atraumatic Mouth: Normal oral and palatal mucosa present and tongue normal Throat: Yes posterior oropharynx normal and Yes uvula midline Eyes General: appearance normal, both eyes and all related structures Neck Neck: Yes normal visual inspection, Yes full ROM and Yes no lymphadenopathy Thyroid: Thyroid normal Carotids: normal carotid upstroke Chest Chest palpation & inspection: normal inspection of the chest Resp Effort & Inspection: normal respiratory effort and able to speak in complete sentences Auscultation: clear to auscultation bilaterally Cardio Jugular venous distension: no JVD Palpation: normal PMI Rate: regular rate Rhythm: regular rhythm Heart sounds: S1 normal heart sound present and S2 normal heart sound present GI Inspection: Yes normal to inspection Palpation (GI): Soft to palpation and No hepatosplenomegaly present Auscultation: normal bowel sounds General: Yes no CVA tenderness Back/Spine/Pelvis Back: no CVA tenderness Skin General skin exam: no rashes or lesions noted Neuro General: oriented to person, oriented to place and oriented to time Extrem General: Yes normal to inspection and Yes full ROM Assessment and Plan Assessment & Plan (1) Physical exam: Code(s): Z00.00 - Encounter for general adult medical examination without abnormal findings Plan: stable (2) HTN (hypertension): Code(s): I10 - Essential (primary) hypertension Plan: stable; same rx (3) Hyperlipidemia: Code(s): E78.5 - Hyperlipidemia, unspecified Plan: stable; same rx Coding Level of Care Code Est Pt Prev Care >65y(75547) Diagnoses Physical exam Z00.00 HTN (hypertension) I10 Hyperlipidemia E78.5 Additional Codes JOSE D-7 Assessment Billing - JOSE D-7 Assessment Tool: JOSE D-7 Assessment 90544 ([id number]) Vital Signs *Quality* - Advance Care Planning discussion: On file, no changes ([id number])
== END 2023-01-18 09:09 | disposition home or self-care (01) ==
PROVIDERS: Visit Provider Internal Medicine
DX: Z00.00 Encounter for general adult medical examination without abnormal findings (principal); I10 Essential (primary) hypertension; E78.5 Hyperlipidemia, unspecified
CPT/HCPCS: 1123F; 99397

== ENCOUNTER 2023-01-24 06:57 | Outpatient (REF) | payer MEDICARE, SELFPAY ==
[2023-01-24 07:11] LABS: MANUAL DIFF FLAG NO
[2023-01-24 07:35] LABS: Basophils Absolute Auto 0.1 X10*3/uL (0.0-0.2); Basophils Percent Auto 0.6 % (0-2); Eosinophils Absolute Auto 0.2 X10*3/uL (0.0-0.4); Eosinophils Percent Auto 1.5 % (0-4); Hematocrit 42.3 % (37.0-47.0); Hemoglobin 13.1 g/dl (12.0-16.0); Imm Gran Abs Auto 0.04 X10*3/uL (0.00-0.03); Imm Gran Pct Auto 0.4 % (0.0-0.4); Lymphocytes Absolute Auto 1.2 X10*3/uL (1.2-4.9); Lymphocytes Percent Auto 12.2 % (20-40); Mean Corpuscular Hemoglobin 27.8 pg (27.0-33.0); Mean Corpuscular Volume 89.6 fL (80.0-98.0); Mean Platelet Volume 10.1 fL (9.4-12.3); Monocytes Absolute Auto 0.7 X10*3/uL (0.1-1.2); Monocytes Percent Auto 7.1 % (2-11); Neutrophils Absolute Auto 7.6 x10*3/uL (2.0-8.3); Neutrophils Percent Auto 78.2 % (45-73); Platelet Count 266 X10*3/uL (160-400); Red Blood Count 4.72 X10*6/uL (4.20-5.50); Red Cell Distribution Width 14.5 % (11.0-16.0); White Blood Count 9.7 X10*3/uL (4.8-10.8)
[2023-01-24 08:19] LABS: Alanine Aminotransferase 18 U/L (0-31); Albumin Level 4.1 g/dL (3.5-5.0); Alkaline Phosphatase 90 U/L (39-117); Aspartate Amino Transferase 19 U/L (5-31); Bilirubin Total 0.6 mg/dL (0.0-1.0); Blood Urea Nitrogen 25 mg/dL (9-16); Calcium 9.5 mg/dL (8.4-10.2); Cholesterol 116 mg/dL (<200); Estimated Glomerular Filt Rate > 60; Glucose Fasting 121 mg/dL (60-99); HDL Cholesterol 46 mg/dL (>40); LDL Cholesterol Calculated 53 mg/dL (<100); Total Protein 7.1 g/dL (6.5-8.0); Triglycerides 87 mg/dL (<150)
[2023-01-24 08:35] LABS: Thyroid Stimulating Hormone 2.72 uIU/mL (0.32-4.0)
[2023-01-24 08:46] LABS: Anion Gap 10 (12-20); Carbon Dioxide 27 mmol/L (22-29); Chloride 107 mmol/L (96-108); Potassium 4.7 mmol/L (3.3-5.1); Sodium 139 mmol/L (135-145)
== END 2023-01-24 06:58 | disposition home or self-care (01) ==
LOC: HO.LAB 06:57
PROVIDERS: PCP Internal Medicine; Visit Provider Internal Medicine
DX: E03.9 Hypothyroidism, unspecified (principal); N28.9 Disorder of kidney and ureter, unspecified; D64.9 Anemia, unspecified; E78.5 Hyperlipidemia, unspecified
CPT/HCPCS: 36415; 80053; 80061; 84443; 85025

== ENCOUNTER → 2023-03-03 08:56 | Outpatient (REF) | payer MEDICARE, SELFPAY ==
--- NOTE | ~2023-03-03 | NM_ITS ---
Lexiscan Myocardial perfusion study Indication: Chest pain, assess for coronary disease and ischemia Technique: The patient was brought in for a Lexiscan perfusion study on 03/03/2023 and was injected 0.4 mg of Lexiscan intravenously. Within a minute of this injection 25 mCi of sestamibi was given intravenously. Images were obtained using the SPECT gamma camera interlaced with the gating device. Images were obtained in supine position. Resting perfusion study was performed on 03/07/2023. Patient was administered 25 mCi of sestamibi intravenously at rest. Images were then obtained in supine position. Images were processed with the software and compared side to side in short axis, horizontal long axis and vertical long axis views. Total DLP 85mGy-cm. Findings: Raw acquisition reviewed. The stress perfusion study showed no significant perfusion abnormality. Both uncorrected as well as CT attenuation corrected images were reviewed. The gated study shows normal LV systolic function with calculated LVEF of 71%. LV cavity is normal in size. The gated study shows normal wall thickening and contraction of segments. Resting study shows no significant perfusion abnormality. Gating not performed due to PVCs. The findings are consistent with no clear reversible or fixed perfusion defects. NM/NM cardiolite stress test Impression: 1. Myocardial perfusion imaging study shows probably normal myocardial perfusion. 2. Gated LVEF is 71% during stress. EKG component of the test reported separately.
== END ==
LOC: HO.CARD 08:56
PROVIDERS: PCP Internal Medicine; Visit Provider Internal Medicine Cardiovascular Disease
DX: R07.9 Chest pain, unspecified (principal); R06.02 Shortness of breath; I25.10 Atherosclerotic heart disease of native coronary artery without angina pectoris
CPT/HCPCS: 78452; 93017; A9500; J0280; J2785

== ENCOUNTER → 2023-03-03 12:22 | Outpatient (BNV) | payer MEDICARE, SELFPAY | PROVIDERS: PCP Internal Medicine; Visit Provider Nurse Practitioner | DX: R07.9 Chest pain, unspecified (principal); R06.02 Shortness of breath | CPT/HCPCS: 78452; 93016; 93018 ==

== ENCOUNTER → 2023-03-07 08:33 | Outpatient (REF) | payer MEDICARE, SELFPAY ==
--- NOTE | 2023-03-07 08:35 | HM_ITS ---
Conclusion: 1. Patient was monitored for total period of 7 days 2. Baseline was normal sinus rhythm with average heart of 77 beats per minute 3. Very frequent PVCs noted with total burden of 37% 4. Frequent PACs noted with total burden of 1.6% with frequent SVT runs, longest lasting 21 beats and the fastest 158 beats per minute 5. No patient reported events MTDD
== END ==
LOC: HO.CARD 08:33
PROVIDERS: PCP Internal Medicine; Visit Provider Internal Medicine Cardiovascular Disease
DX: R00.2 Palpitations (principal); I49.3 Ventricular premature depolarization
CPT/HCPCS: 93242

== ENCOUNTER → 2023-03-07 08:35 | Outpatient (BNV) | payer MEDICARE, SELFPAY | PROVIDERS: PCP Internal Medicine; Visit Provider Internal Medicine Cardiovascular Disease | DX: I49.3 Ventricular premature depolarization (principal) | CPT/HCPCS: 93244 ==

== ENCOUNTER 2023-04-26 10:23 | Outpatient (AMB) | payer MEDICARE, SELFPAY ==
--- NOTE | 2023-04-26 10:27 | MHC.OFFWIV ---
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 Required: No Accompanied by: Self / Same As Patient Allergies nitrofurantoin [Macrobid] Allergy (Unknown, Verified 04/26/23 10:38) headache Medication List - Last Reconciled 04/26/23 by Magi Ho, LOCKSTITCH SLEEVE MAKER- aspirin (Adult Low Dose Aspirin) 81 mg PO DAILY atorvastatin 80 mg PO DAILY cyanocobalamin (vitamin B-12) 1,000 mcg PO DAILY ezetimibe 10 mg PO DAILY losartan 100 mg PO DAILY meloxicam 15 mg PO DAILY metoprolol tartrate 50 mg PO BID 90 days venlafaxine ER 150 mg PO DAILY Do you need a note to return to daycare/school/sports/work: No HPI HPI Comments History of Present Illness Details Sick with cold like sx for 1-2 weeks cough bad at night sore throat hoarse voice + runny nose mild L ear pain Denies fever, chills, travel UTD on flu vaccine Tried mucinex and Advil w/ mild relief. Short lived. FORMERLY [facility], [facility] Medical History Mitral regurgitation S/P angiogram of extremity (11/15/18) Anemia Depression Atherosclerotic heart disease On beta tony at home PVD (peripheral vascular disease) HTN (hypertension) CAD (coronary artery disease) Prosthetic valve dysfunction Hyperlipidemia Surgical History History of cataract extraction Hx of endoscopy Hx of colonoscopy S/P AVR Hx of CABG H/O left wrist surgery Family History Father Depression Mother Depression Heart disease CHF (congestive heart failure) Paternal Grandmother Cancer Social History Housing: House Alcohol intake: never Patient Tobacco Use Status: Former Tobacco user e-Cigarette/Vaping Use: Never Used Second Hand Smoke Exposure: Yes service: No Current occupational status: retired Cognitive needs: No Hearing needs: No Vision needs: Yes (Reading glasses) Review of Systems Const All systems reviewed & are unremarkable except as noted in HPI and below Physical Exam Const Other: Awake alert NAD Sclera and conjunctiva clear bilat TM intact mucoid effusion w bulging on L, similar on R but not as bad nares w/ thick mucoid dc bilat L>R, turbinates pale, + left max sinus tenderness w palp MMM, pharynx + PND , voice hoarse RRR, 2/6 systolic murmur (reports chronic) LS CTAB Assessment & Plan Assessment & Plan (1) Acute bacterial sinusitis: Code(s): J01.90 - Acute sinusitis, unspecified; B96.89 - Other specified bacterial agents as the cause of diseases classified elsewhere Plan: . Medications: New amoxicillin-pot clavulanate 875-125 mg 1 tab PO BID 7 days 14 tabs 0RF benzonatate 100 mg PO TID 10 days PRN 30 caps 1RF cough fluticasone propionate 50 mcg/actuation administer into each nostril 1 spray intranasal BID 16 grams 0RF Coding Level of Care Code Est Pt Level 3 (49648) Diagnoses Acute bacterial sinusitis J01.90; B96.89
[2023-04-26 10:28] VITALS: BP 154/92; PULSE 103; RESP 13; TEMP 36.2; O2SAT 97; BMI 29.9
[2023-04-26 10:42] VITALS: BP 136/72; PULSE 70
== END 2023-04-26 10:46 | disposition home or self-care (01) ==
PROVIDERS: PCP Internal Medicine; Visit Provider Nurse Practitioner Family
DX: J01.90 Acute sinusitis, unspecified (principal); B96.89 Other specified bacterial agents as the cause of diseases classified elsewhere
CPT/HCPCS: 99213

== ENCOUNTER 2023-05-03 09:38 | Outpatient (AMB) | payer MEDICARE, SELFPAY ==
--- NOTE | 2023-05-03 09:58 | AM.OFFWIN_ITS ---
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 All of her previously reported symptoms have improved with the exception of her ear complaint. PFSH Medical History Mitral regurgitation S/P angiogram of extremity (11/15/18) Anemia Depression Atherosclerotic heart disease On beta tony at home PVD (peripheral vascular disease) HTN (hypertension) CAD (coronary artery disease) Prosthetic valve dysfunction Hyperlipidemia Surgical History History of cataract extraction Hx of endoscopy Hx of colonoscopy S/P AVR Hx of CABG H/O left wrist surgery Family History Father Depression Mother Depression Heart disease CHF (congestive heart failure) Paternal Grandmother Cancer Social History Housing: House Alcohol intake: never Patient Tobacco Use Status: Former Tobacco user e-Cigarette/Vaping Use: Never Used Second Hand Smoke Exposure: Yes service: No Current occupational status: retired Cognitive needs: No Hearing needs: No Vision needs: Yes (Reading glasses) Physical Exam Vital Signs: Last Vital Signs Temp 97.3 F 05/03/23 09:59 Pulse 71 05/03/23 09:59 Resp 13 05/03/23 09:59 BP 138/64 05/03/23 09:59 Pulse Ox 95 05/03/23 09:59 Oxygen Delivery Method Room Air 05/03/23 09:59 BMI result Body Mass Index 30.0 Const Other: Review of Systems Const All systems reviewed & are unremarkable except as noted in HPI and below Physical Exam Const Other: Awake alert NAD Sclera and conjunctiva clear bilat TM intact bulging on R, mild bulging on left with resolving mucoid effusion nares clear MMM, pharynx within normal limits RRR, 2/6 systolic murmur (reports chronic) LS CTAB Assessment & Plan Assessment & Plan (1) Acute bacterial sinusitis: Code(s): J01.90 - Acute sinusitis, unspecified; B96.89 - Other specified bacterial agents as the cause of diseases classified elsewhere Plan: . (2) Eustachian tube dysfunction: Code(s): H69.90 - Unspecified Eustachian tube disorder, unspecified ear Qualifiers: Laterality: bilateral Qualified Code(s): H69.93 - Unspecified Eustachian tube disorder, bilateral Plan: . Plan THIS NOTE IS CONSTRUCTED USING VOICE RECOGNITION SOFTWARE. WHILE EVERY EFFORT HAS BEEN MADE TO ENSURE ACCURACY IN FEATHER TRIMMER, STILL ERRORS MAY HAVE BEEN INCLUDED SOMETIMES, THESE ERRORS MAY AFFECT THE CONTENT OR MEANING OF THE GIVEN SENTENCE . TOTAL TIME SPENT CARING FOR THE PATIENT TODAY WAS 30 MINUTES. THIS INCLUDES TIME SPENT BEFORE THE VISIT REVIEWING THE CHART, TIME SPENT DURING THE VISIT, AND TIME SPENT AFTER THE VISIT ON DOCUMENTATION Medications: New amoxicillin-pot clavulanate 875-125 mg 1 tab PO BID 6 tabs 0RF 3 days Patient Instructions: Cont to use flonase as directed 3 day course of antibiotic Do self insufflation several times per day to help your ear symptoms Educated on chronicity of ETD Coding Level of Care Code Est Pt Level 4 (92851) Diagnoses Acute bacterial sinusitis J01.90; B96.89 Dysfunction of both eustachian tubes H69.93 Laterality: bilateral
[2023-05-03 09:59] VITALS: BP 138/64; PULSE 71; RESP 13; TEMP 36.3; O2SAT 95
== END 2023-05-03 10:55 | disposition home or self-care (01) ==
PROVIDERS: PCP Internal Medicine; Visit Provider Nurse Practitioner Family
DX: J01.90 Acute sinusitis, unspecified (principal); B96.89 Other specified bacterial agents as the cause of diseases classified elsewhere; H69.93 Unspecified Eustachian tube disorder, bilateral
CPT/HCPCS: 99214

== ENCOUNTER 2023-07-01 09:34 | Emergency (ER) | payer MEDICARE, SELFPAY ==
--- NOTE | ~2023-07-01 | XR_ITS ---
EXAMINATION: XR SHOULDER, RIGHT CLINICAL INFORMATION: Pain COMPARISON: Previous x-ray from 2020 TECHNIQUE: Three views of the right shoulder. FINDINGS: Bone alignment is normal. No fracture or dislocation. Severe arthritis at the glenohumeral and acromioclavicular joints. Degenerative changes at the greater tuberosity. Cystic or erosive changes in the greater tuberosity new from prior exam. Soft tissues are unremarkable. XR/XR shoulder RT min 2V IMPRESSION: Severe degenerative changes. New cystic or erosive changes in the greater tuberosity compared to prior exam.
[2023-07-01 09:39] VITALS: BP 152/85; PULSE 76; RESP 18; TEMP 36.6; O2SAT 98; BMI 28.3
--- NOTE | 2023-07-01 09:43 | ED.EXTPRO ---
HPI - Extremity Problem General Chief complaint: Extremity Injury, Upper Stated complaint: R shoulder pain Time Seen by Provider: 07/01/23 09:42 Source: patient Mode of arrival: ambulatory Limitations: no limitations History of Present Illness HPI Narrative: 73 yo female with history of HTN, HLD, CAD, s/p aortic valve replacement, PVD who presents to the ER for evaluation of right shoulder pain that started yesterday after lifting trash bags of clothing into a donation bin. She reports the pain is in the entire shoulder and radiates to the upper arm. it is worse with movement of the RUE. she took tylenol at 3 am with improvement. no chest pain, abdominal pain, headache or neck pain. no numbness or tingling. MD Complaint: joint pain Onset (ago): day(s) (1) Pain Consistency: constant Location: right and upper extremity Severity scale (1-10): 6 Quality: aching and sharp Radiation: distal Relieving factors: immobilization and rest Exacerbating factors: range of motion and palpation Associated symptoms: denies other symptoms Related Data Home Medications ?Medication ?Instructions ?Recorded ?Confirmed cyanocobalamin (vitamin B-12) 1,000 mcg PO DAILY 01/14/20 01/18/23 1,000 mcg sublingual tablet aspirin 81 mg tablet,delayed 81 mg PO DAILY 01/16/20 01/18/23 release (Adult Low Dose Aspirin) Previous Rx's ?Medication ?Instructions ?Recorded ezetimibe 10 mg tablet 10 mg PO DAILY #90 tabs 11/23/22 meloxicam 15 mg tablet 15 mg PO DAILY #90 tabs 04/07/23 venlafaxine 150 mg 150 mg PO DAILY #90 caps 04/12/23 capsule,extended release 24 hr benzonatate 100 mg capsule 100 mg PO TID PRN cough 10 days 04/26/23 #30 caps fluticasone propionate 50 1 spray intranasal BID #16 grams 04/26/23 mcg/actuation nasal spray,suspension amoxicillin 875 mg-potassium 1 tab PO BID 3 days #6 tabs 05/03/23 clavulanate 125 mg tablet metoprolol tartrate 50 mg tablet 50 mg PO BID #180 tabs 05/19/23 atorvastatin 80 mg tablet 80 mg PO DAILY #90 tabs 06/08/23 losartan 100 mg tablet 100 mg PO DAILY #90 tabs 06/08/23 lidocaine 5 % topical patch 1 patch topical DAILY #15 ea 07/01/23 Allergies Allergy/AdvReac Type Severity Reaction Status Date / Time nitrofurantoin [Macrobid] Allergy Unknown headache Verified 07/01/23 09:40 Review of Systems Review of Systems: Yes all other systems are reviewed and are negative [facility] Past Medical History Medical History Mitral regurgitation S/P angiogram of extremity (11/15/18) Anemia Depression Atherosclerotic heart disease On beta tony at home PVD (peripheral vascular disease) HTN (hypertension) CAD (coronary artery disease) Prosthetic valve dysfunction Hyperlipidemia Surgical History History of cataract extraction Hx of endoscopy Hx of colonoscopy S/P AVR Hx of CABG H/O left wrist surgery Family History Family History Father Depression Mother Depression Heart disease CHF (congestive heart failure) Paternal Grandmother Cancer Social History Social History Housing: House Alcohol intake: never Patient Tobacco Use Status: Former Tobacco user Smoked in Last 30 Days: No e-Cigarette/Vaping Use: Never Used Second Hand Smoke Exposure: Yes Use of substances other than those prescribed or required for medical reasons: No Advance Directives: No Advance Directives Information Provided: Yes service: No Current occupational status: retired Cognitive needs: No Hearing needs: No Vision needs: Yes (Reading glasses) Physical Exam Vital Signs: Vital Signs: Last Vital Signs Temp 98 F 07/01/23 09:39 Pulse 76 07/01/23 09:39 Resp 18 07/01/23 09:39 BP 152/85 H 07/01/23 09:39 Pulse Ox 98 07/01/23 09:39 O2 Del Method Room Air 07/01/23 09:39 BMI result Body Mass Index 28.3 Appearance: Alert. Oriented X3. No acute distress. HEENT: normal inspection CVS: Normal heart rate and rhythm. Pulses normal. Respiratory: No respiratory distress. Skin: Skin warm and dry. Normal skin color. Normal skin turgor. No rashes. Extremities: normal inspection of the right shoulder. normal passive ROM with limited active ROM due to pain. +empty can test. tenderness of the AC joint. normal inspection and palpation of the right elbow, wrist. NV Intact distally. Neuro: Oriented X 3. No motor deficit. No sensory deficit. Medications Administered Discontinued Medications Generic Name Dose Route Start Last Admin Trade Name Hussain PRN Reason Stop Dose Admin Acetaminophen 975 mg 07/01/23 10:00 07/01/23 10:08 Acetaminophen 325 Mg Tablet PO 07/01/23 10:01 975 mg ONCE ONE Administration Medical Decision Making Medical Decision Making MDM Narrative: 73 yo female presenting for right shoulder pain after lifting a bag of clothing up over her head yesterday. normal passive ROM on exam. no deformity XR showing severe degenerative changes given tylenol discussed results and management - recommending ortho follow up. stable for d/c home Differential Diagnosis Differential Diagnoses: The differential diagnosis associated with the presentation includes osteoarthritis, bursitis, cervical radiculopathy, inflammatory arthritis, ligamentous injury Independent Interpretation I performed an independent interpretation of an: Plain X-Ray Interpretation: no acute fracture. agree w/ radiology read Radiology Impression Discussion of test interpretation with radiology: I have reviewed the radiologist's reading. Radiologist Impression: EXAMINATION: XR SHOULDER, RIGHT CLINICAL INFORMATION: Pain COMPARISON: Previous x-ray from 2020 TECHNIQUE: Three views of the right shoulder. FINDINGS: Bone alignment is normal. No fracture or dislocation. Severe arthritis at the glenohumeral and acromioclavicular joints. Degenerative changes at the greater tuberosity. Cystic or erosive changes in the greater tuberosity new from prior exam. Soft tissues are unremarkable. XR/XR shoulder RT min 2V IMPRESSION: Severe degenerative changes. New cystic or erosive changes in the greater tuberosity compared to prior exam. External Record Review External record reviewed: Outpatient record, Prior outpatient labs and Prior outpatient radiology Prescription Management I considered prescription management with: Pain Medication Chronic Conditions Patient?s care impacted by: Hypertension asymptomatic, elevated BP likely due to pain Critical Care Time Critical Care Time Critical Care Time: No Discharge Plan Discharge Clinical Impression: Right shoulder strain Qualifiers: Encounter type: initial encounter Qualified Code(s): S46.911A - Strain of unspecified muscle, fascia and tendon at shoulder and upper arm level, right arm, initial encounter Patient Disposition: Home, Self-Care Instructions: Shoulder Pain (ED) Additional Instructions: use ice to the area several times per day take tylenol every 6-8 hours continue your meloxicam use the prescribed patches as needed recommend following up with orthopedics if you have ongoing pain EXAMINATION: XR SHOULDER, RIGHT CLINICAL INFORMATION: Pain COMPARISON: Previous x-ray from 2020 TECHNIQUE: Three views of the right shoulder. FINDINGS: Bone alignment is normal. No fracture or dislocation. Severe arthritis at the glenohumeral and acromioclavicular joints. Degenerative changes at the greater tuberosity. Cystic or erosive changes in the greater tuberosity new from prior exam. Soft tissues are unremarkable. XR/XR shoulder RT min 2V IMPRESSION: Severe degenerative changes. New cystic or erosive changes in the greater tuberosity compared to prior exam. Prescriptions: New lidocaine 5 % adhesive patch,medicated 1 patch topical DAILY Qty: 15 0RF Rx Instructions: leave on most painful area for up to 12 hrs No Action ezetimibe 10 mg tablet 10 mg PO DAILY Qty: 90 3RF meloxicam 15 mg tablet 15 mg PO DAILY Qty: 90 8RF venlafaxine 150 mg capsule,extended release 24hr 150 mg PO DAILY Qty: 90 3RF metoprolol tartrate 50 mg tablet 50 mg PO BID Qty: 180 3RF atorvastatin 80 mg tablet 80 mg PO DAILY Qty: 90 8RF losartan 100 mg tablet 100 mg PO DAILY Qty: 90 8RF cyanocobalamin (vitamin B-12) 1,000 mcg tablet, sublingual 1,000 mcg PO DAILY amoxicillin-pot clavulanate 875-125 mg tablet 1 tab PO BID 3 Days Qty: 6 0RF benzonatate 100 mg capsule 100 mg PO TID PRN (Reason: cough) 10 Days Qty: 30 1RF fluticasone propionate 50 mcg/actuation spray,suspension 1 spray intranasal BID Qty: 16 0RF Rx Instructions: administer into each nostril aspirin [Adult Low Dose Aspirin] 81 mg tablet,delayed release (DR/EC) 81 mg PO DAILY Referrals: [facility] [Provider Group] (right shoulder OA) Maximilian Bay MD [Primary Care Provider] - Interventions: ED Discharge Assessment Last Done: 07/01/23 11:46 Print Language: Kazakh
[2023-07-01] MEDS: Acetaminophen 325 MG TABLET 975 MG PO (10:08)
[2023-07-01 11:46] VITALS: BP 175/73; PULSE 71; RESP 18; TEMP 36.2; O2SAT 97
== END 2023-07-01 11:47 | disposition home or self-care (01) ==
PROVIDERS: Emergency Provider Emergency Medicine; PCP Internal Medicine
DX: S46.911A Strain of unspecified muscle, fascia and tendon at shoulder and upper arm level, right arm, initial encounter (principal); X50.0XXA Overexertion from strenuous movement or load, initial encounter; I10 Essential (primary) hypertension; E78.5 Hyperlipidemia, unspecified; Z87.891 Personal history of nicotine dependence; Y93.E9 Activity, other interior property and clothing maintenance; Y92.89 Other specified places as the place of occurrence of the external cause; Y99.9 Unspecified external cause status
CPT/HCPCS: 73030; 99283; 99284

== ENCOUNTER 2023-07-05 09:25 | Outpatient (AMB) | payer MEDICARE, SELFPAY ==
[2023-07-05 09:37] VITALS: BP 120/80; PULSE 72; BMI 28.2
--- NOTE | 2023-07-05 09:37 | MHC.OFFVIS ---
Vital Signs 07/05/23 09:37 Height 5 ft 2 in Weight 154 lb 5.177 oz BMI 28.2 BP 120/80 Blood Pressure Location Lt brachial Position Sitting Pulse 72 Intake Visit Reasons: 6 mth fu Intake Note: 6 month follow-up with ekg feeling ok Tailing Hand Required: No Allergies nitrofurantoin [Macrobid] Allergy (Unknown, Verified 07/01/23 09:40) headache Medication List - Last Reconciled 07/05/23 by Sammy Paredes MD aspirin (Adult Low Dose Aspirin) 81 mg PO DAILY atorvastatin 80 mg PO DAILY benzonatate 100 mg PO TID PRN 10 days cyanocobalamin (vitamin B-12) 1,000 mcg PO DAILY ezetimibe 10 mg PO DAILY fluticasone propionate 50 mcg/actuation 1 spray intranasal BID lidocaine 5% 1 patch topical DAILY losartan 100 mg PO DAILY meloxicam 15 mg PO DAILY metoprolol tartrate 50 mg PO BID venlafaxine ER 150 mg PO DAILY HPI Comments Details: Gloria comes for follow-up. She has been doing well from cardiac perspective. Denies any cardiac symptoms. Denies any worsening shortness of breath, orthopnea, PND, leg edema. Denies any lightheadedness, syncope. No prolonged palpitation irregular heartbeat. No fluttering in her chest. No exertional chest pain. Takes all her medications regularly. [facility] Medical History Mitral regurgitation S/P angiogram of extremity (11/15/18) Anemia Depression Atherosclerotic heart disease On beta tony at home PVD (peripheral vascular disease) HTN (hypertension) CAD (coronary artery disease) Prosthetic valve dysfunction Hyperlipidemia Surgical History History of cataract extraction Hx of endoscopy Hx of colonoscopy S/P AVR Hx of CABG H/O left wrist surgery Family History Father Depression Mother Depression Heart disease CHF (congestive heart failure) Paternal Grandmother Cancer Social History Housing: House Alcohol intake: never Patient Tobacco Use Status: Former Tobacco user e-Cigarette/Vaping Use: Never Used Second Hand Smoke Exposure: Yes service: No Current occupational status: retired Cognitive needs: No Hearing needs: No Vision needs: Yes (Reading glasses) Review of Systems Const Denies chills, Denies fatigue, Denies fever(s), Denies frequent falls, Denies weakness, Denies weight gain and Denies weight loss ENT Denies dizziness Card Denies chest pain, Denies leg edema, Denies lightheadedness, Denies palpitations, Denies dyspnea, Denies dyspnea on exertion, Denies orthopnea and Denies other (loss of consciousness) Resp Denies cough, Denies dyspnea and Denies dyspnea on exertion GI Denies hematochezia and Denies change in stool character Musc Denies abnormal gait, Denies muscle weakness, Denies numbness, Denies radiating pain into limb and Denies tingling Neuro Denies abnormal gait, Denies dizziness, Denies frequent falls, Denies numbness, Denies tingling and Denies weakness Endo Denies fatigue and Denies palpitations Physical Exam Vital Signs: Last Vital Signs Pulse 72 07/05/23 09:37 BP 120/80 07/05/23 09:37 BMI result Body Mass Index 28.2 Const General: cooperative, comfortable, no acute distress, alert and awake Nutritional Appearance: average body habitus Orientation/consciousness: patient oriented x3 Limitations: no limitations Neck Neck: Yes trachea midline, Yes supple and Yes no JVD Carotids: normal carotid upstroke and other (Transmitted murmur) Chest Chest palpation & inspection: normal inspection of the chest and other (Well-healed sternotomy scar) Resp Effort & Inspection: normal respiratory effort Auscultation: clear to auscultation bilaterally Cardio Jugular venous distension: no JVD Palpation: normal PMI Rate: regular rate Rhythm: regular rhythm Heart sounds: S1 normal heart sound present, S2 normal heart sound present and Murmur heart sound present systolic mid, decrescendo and crescendo GI Auscultation: normal bowel sounds Skin General skin exam: no rashes or lesions noted Neuro General: patient oriented x3 and no focal motor deficits Extrem General: Yes no clubbing, cyanosis or edema Psych Appearance: grossly normal Office Procedures EKG Details: EKG shows normal sinus rhythm with voltage criteria for LVH otherwise normal EKG [id number], Complete Assessment & Plan Assessment & Plan (1) CAD (coronary artery disease): Code(s): I25.10 - Atherosclerotic heart disease of [place] coronary artery without angina pectoris Category: Medical Plan: CAD status post coronary artery bypass grafting in 2017 with myocardial perfusion imaging within normal limits. She has no significant symptoms at current point time. Continue low-dose aspirin therapy for life. Continue aggressive risk factor modification. Blood pressure is currently well optimized. Advised to monitor blood pressure at home maintain a log. Goal blood pressure less than 130/84. Continue aggressive lipid modification, currently on high-intensity statin and ezetimibe therapy. Target goal LDL closer to 60 mg/dL. Advised to maintain activity level as tolerated. Currently she says she is limited by left hip pain. Advised to consider consultation with orthopedic (2) S/P AVR: Comment: 19 mm bioprosthetic aortic valve replacement with Trifecta bioprosthesis. Immediate postoperative mean gradient of 30 mm Hg consistent with patient prosthesis mismatch Code(s): Z95.2 - Presence of prosthetic heart valve Category: Surgical Plan: Status post bioprosthetic aortic valve replacement with mild stenosis with patient prosthesis mismatch. Patient takes aspirin. SBE prophylaxis as per ACC/[place] guidelines. Continue aggressive vascular risk factor modification. Follow-up echocardiogram 6 months time. (3) Mitral regurgitation: Code(s): I34.0 - Nonrheumatic mitral (valve) insufficiency Category: Medical Plan: Mitral regurgitation related to calcific mitral valve disease. Will continue monitor by echocardiogram. No interventions required per se for the same. (4) Cardiac arrhythmia: Code(s): I49.9 - Cardiac arrhythmia, unspecified Category: Medical Plan: Frequent PVCs and PACs which are asymptomatic. No episodes of atrial fibrillation. Continue to monitor clinically. Currently on metoprolol therapy will be continue the same. Avoidance of stimulants was discussed. Follow up in the clinic in 6 months after echocardiogram. Thank you for allowing me to partake in her care Orders: Orders CA echo transthoracic complete 6 Months Z95.2 - Presence of prosthetic heart valve Coding Level of Care Code Est Pt Level 4 (45951) Diagnoses CAD (coronary artery disease) I25.10 S/P AVR Z95.2 Mitral regurgitation I34.0 Cardiac arrhythmia I49.9 CPT Codes EKG - CPT: [id number], Complete ([id number])
== END 2023-07-05 10:08 | disposition home or self-care (01) ==
PROVIDERS: PCP Internal Medicine; Visit Provider Internal Medicine Cardiovascular Disease
DX: I25.10 Atherosclerotic heart disease of native coronary artery without angina pectoris (principal); Z95.2 Presence of prosthetic heart valve; I34.0 Nonrheumatic mitral (valve) insufficiency; I49.9 Cardiac arrhythmia, unspecified
CPT/HCPCS: 93010; 99214

== ENCOUNTER → 2023-07-05 09:25 | Outpatient (BNVA) | payer MEDICARE, SELFPAY | PROVIDERS: PCP Internal Medicine; Visit Provider Internal Medicine Cardiovascular Disease | DX: I25.10 Atherosclerotic heart disease of native coronary artery without angina pectoris (principal); I34.0 Nonrheumatic mitral (valve) insufficiency; I49.9 Cardiac arrhythmia, unspecified; Z95.2 Presence of prosthetic heart valve | CPT/HCPCS: 93005; 99212 ==

== ENCOUNTER 2023-07-14 07:08 | Outpatient (REF) | payer MEDICARE, SELFPAY ==
[2023-07-14 08:38] LABS: Anion Gap 12 (12-20); Blood Urea Nitrogen 28 mg/dL (9-16); Calcium 9.9 mg/dL (8.4-10.2); Carbon Dioxide 27 mmol/L (22-29); Chloride 107 mmol/L (96-108); Cholesterol 144 mg/dL (<200); Estimated Glomerular Filt Rate > 60; Glucose Random 117 mg/dL (60-115); HDL Cholesterol 50 mg/dL (>40); LDL Cholesterol Calculated 67 mg/dL (<100); Potassium 4.3 mmol/L (3.3-5.1); Sodium 142 mmol/L (135-145); Triglycerides 135 mg/dL (<150)
== END 2023-07-14 07:09 | disposition home or self-care (01) ==
LOC: HO.LAB 07:08
PROVIDERS: Absent Provider Internal Medicine; PCP Internal Medicine; Visit Provider Internal Medicine Cardiovascular Disease
DX: I25.10 Atherosclerotic heart disease of native coronary artery without angina pectoris (principal); I49.3 Ventricular premature depolarization
CPT/HCPCS: 36415; 80048; 80061; 83735

== ENCOUNTER 2023-07-17 08:46 | Outpatient (REF) | payer MEDICARE, SELFPAY | END 2023-07-17 08:47 | disposition home or self-care (01) | LOC: HO.LAB 08:46 | PROVIDERS: PCP Internal Medicine; Visit Provider Urology | DX: R32 Unspecified urinary incontinence (principal); R39.15 Urgency of urination | CPT/HCPCS: 81003; 87086; 99202 ==

== ENCOUNTER 2023-07-17 08:46 | Outpatient (AMB) | payer MEDICARE, SELFPAY ==
--- NOTE | 2023-07-17 08:57 | A.OFFVIS_ITS ---
Intake Visit Reasons: Urgency of urination Intake Note: NEW Patient presents today to established treatment for Urgency of Urination: Meds- None Allergies to Antibiotic- Macrobid(nitrofurantoin) Blood Thinner- Aspirin Post Void Residual: 0mL Access Database Developer Required: No Accompanied by: Self / Same As Patient Allergies nitrofurantoin [Macrobid] Allergy (Unknown, Verified 07/17/23 08:59) headache Medication List - Last Reconciled 07/17/23 by Baltazar Chang MD aspirin (Adult Low Dose Aspirin) 81 mg PO DAILY atorvastatin 80 mg PO DAILY cyanocobalamin (vitamin B-12) 1,000 mcg PO DAILY ezetimibe 10 mg PO DAILY losartan 100 mg PO DAILY meloxicam 15 mg PO DAILY metoprolol tartrate 50 mg PO BID HPI Comments Details: Gloria is a 73-year-old female who is here as a new patient evaluation for lower urinary tract symptoms of urinary incontinence and urgency. The patient states that she has had occasional stress urinary incontinence associated with coughing for many years. However about 3-4 months ago she had an episode of urgency associated with urinary leakage. Since that episode she has had feeling of urgency as well as leakage not associated with a specific activity. She denies dysuria. I have discussed urinalysis is negative for leukocytes or blood. Protein is noted on today's urine specimen. I discussed surveillance urine culture. I have discussed trial of anticholinergic. Will prescribe VESIcare 5 mg daily. I have discussed evaluation with renal and bladder ultrasound. On follow-up if urinalysis notes persistent protein I will refer her to Nephrology. [facility] Medical History Mitral regurgitation S/P angiogram of extremity (11/15/18) Anemia Depression Atherosclerotic heart disease On beta tony at home PVD (peripheral vascular disease) HTN (hypertension) CAD (coronary artery disease) Prosthetic valve dysfunction Hyperlipidemia Surgical History History of cataract extraction Hx of endoscopy Hx of colonoscopy S/P AVR Hx of CABG H/O left wrist surgery Family History Father Depression Mother Depression Heart disease CHF (congestive heart failure) Paternal Grandmother Cancer Social History Housing: House Alcohol intake: never Patient Tobacco Use Status: Former Tobacco user e-Cigarette/Vaping Use: Never Used Second Hand Smoke Exposure: Yes service: No Current occupational status: retired Cognitive needs: No Hearing needs: No Vision needs: Yes (Reading glasses) Review of Systems Const All systems reviewed & are unremarkable except as noted in HPI and below Reports no additional complaints Eyes Reports no additional complaints ENT Reports no additional complaints Card Reports no additional complaints Resp Reports no additional complaints GI Reports no additional complaints Reports as per HPI Musc Reports no additional complaints Skin/Breast Reports system reviewed and no additional complaints, except as documented Neuro Reports no additional complaints Psych Reports no additional complaints Endo Reports no additional complaints Avtar/Lymph Reports no additional complaints Aller/Immun Reports no additional complaints Physical Exam Const General: cooperative, healthy appearing and no acute distress Orientation/consciousness: patient oriented x3 HEENT Head: Yes normal to inspection, Yes normocephalic and Yes atraumatic Eyes Conjunctivae: conjunctivae normal Neck Neck: Yes normal visual inspection and Yes trachea midline Chest Chest palpation & inspection: normal inspection of the chest Resp Effort & Inspection: normal respiratory effort Cardio Rate: regular rate GI Inspection: Yes normal to inspection Skin General skin exam: no rashes or lesions noted Neuro General: patient oriented x3 Extrem General: No edema Psych Appearance: grossly normal Results AMB Urinalysis, Automated UA Leukoctes 0 Jaime/uL Last Edit by NICOLLE Patterson on 07/17/23 09:25 UA Nitrite Negative Last Edit by NICOLLE Patterson on 07/17/23 09:25 UA Urobilinogen 0.2 mg/dL Last Edit by NICOLLE Patterson on 07/17/23 09:2 5 UA Protein 30 mg/dL Last Edit by NICOLLE Patterson on 07/17/23 09:25 1+ Grisel Enrique 07/17/23 09:25 UA pH 6.0 Last Edit by NICOLLE Patterson on 07/17/23 09:25 UA Blood 0 Jose J/uL Last Edit by NICOLLE Patterson on 07/17/23 09:25 UA Specific [place] 0 Last Edit by NICOLLE Patterson on 07/17/23 09:25 UA Ketone Negative Last Edit by NICOLLE Patterson on 07/17/23 09:25 UA Bilirubin 0 mg/dL Last Edit by NICOLLE Patterson on 07/17/23 09:25 UA Glucose 0 mg/dL Last Edit by NICOLLE Patterson on 07/17/23 09:25 Results Reviewed Results Reviewed: Laboratory Last Values Urine pH (Auto) 6.0 07/17/23 09:24 Specific [place] (Auto) 0 07/17/23 09:24 Urine Protein (Auto) 30 mg/dL 07/17/23 09:24 Glucose (UA)(Auto) 0 mg/dL 07/17/23 09:24 Urine Ketones (Auto) Negative 07/17/23 09:24 Urine Blood (Auto) 0 Jose J/uL 07/17/23 09:24 Urine Nitrite (Auto) Negative 07/17/23 09:24 Urine Bilirubin (Auto) 0 mg/dL 07/17/23 09:24 Urine Urobilinogen (Auto) 0.2 mg/dL 07/17/23 09:24 Leukocyte Esterase (Auto) 0 Jaime/uL 07/17/23 09:24 Assessment & Plan Assessment & Plan (1) Urinary incontinence: Code(s): R32 - Unspecified urinary incontinence Category: Medical (2) Urinary urgency: Code(s): R39.15 - Urgency of urination Category: Medical Plan Urine culture. Kidney and bladder ultrasound. VESIcare 5 mg daily. Follow-up in 10-12 weeks. Orders: Orders AMB Urinalysis Automated Today Z13.9 - Encounter for screening, unspecified AMB Post Void Residual by ultrasound Today N39.8 - Other specified disorders of urinary system US retroperitoneal comp Today R32 - Unspecified urinary incontinence, R39.15 - Urgency of urination Medications: New solifenacin (Vesicare) 5 mg PO DAILY 30 tabs 1RF Patient Instructions: The patient had an opportunity to ask questions regarding treatment plan. The patient expressed understanding and agreement with the above treatment plan. The patient is aware they should contact our office by phone for worsening of their current condition or the appearance of new symptoms. Compliance is encouraged with any medications and followup testing that is ordered. It is a privilege to be allowed the opportunity to participate in the urologic care of your patient. If you have any questions or concerns regarding treatment for the above conditions please do not hesitate to contact me. The office telephone contact is [phone]. This note is constructed in part using voice recognition software. While every effort has been made to ensure accuracy insurance processor errors may have been included. Yours sincerely, Baltazar Chang MD Coding Level of Care Code New Pt Level 4 (92777) Diagnoses Urinary incontinence R32 Urinary urgency R39.15
== END 2023-07-17 09:56 | disposition home or self-care (01) ==
PROVIDERS: PCP Internal Medicine; Visit Provider Urology
DX: R32 Unspecified urinary incontinence (principal); R39.15 Urgency of urination; Z13.9 Encounter for screening, unspecified
CPT/HCPCS: 99204

== ENCOUNTER 2023-07-19 08:20 | Outpatient (AMB) | payer MEDICARE, SELFPAY ==
--- NOTE | 2023-07-19 08:31 | MHC.PC.OV ---
Vital Signs 07/19/23 08:34 Height 5 ft 2 in Weight 156 lb 0.4 oz BMI 28.5 BP 148/72 H Blood Pressure Location Lt brachial Position Sitting Pulse 69 Pulse Source Pulse Oximeter Pulse Oximetry (%) 97 Oxygen Delivery Method Room Air Intake Visit Reasons: 6mth f/u Intake Note: Patient is here to follow up on CAD, HTN, HLD. Hardening Machine Operator Required: No Social Work Coordinator: Not Required per policy Accompanied by: Self / Same As Patient Allergies nitrofurantoin [Macrobid] Allergy (Unknown, Verified 07/19/23 08:33) headache Medication List - Last Reconciled 07/19/23 by Maximilian Bay MD aspirin (Adult Low Dose Aspirin) 81 mg PO DAILY atorvastatin 80 mg PO DAILY cyanocobalamin (vitamin B-12) 1,000 mcg PO DAILY ezetimibe 10 mg PO DAILY losartan 100 mg PO DAILY meloxicam 15 mg PO DAILY metoprolol tartrate 50 mg PO BID solifenacin (Vesicare) 5 mg PO DAILY Tobacco use date assessed: 07/19/23 Fall risk assessment: No Falls in past year Last assessed Fall Risk: 07/19/23 Dental Screening Dental Screen Date: 07/19/23 Did you have a dental visit in the last 12 months?: Yes Did you have a dental problem in the last 6 months where you did not have access to dental care?: No Was dental information given to patient?: Patient has dentist HPI 6mth f/u HPI Details HTN hyperlipidemia and right shoulder pain; pain worsel=; time for pt; has oa on xr PFSH Medical History Mitral regurgitation S/P angiogram of extremity (11/15/18) Anemia Depression Atherosclerotic heart disease On beta tony at home PVD (peripheral vascular disease) HTN (hypertension) CAD (coronary artery disease) Prosthetic valve dysfunction Hyperlipidemia Surgical History History of cataract extraction Hx of endoscopy Hx of colonoscopy S/P AVR Hx of CABG H/O left wrist surgery Family History (Updated 07/19/23 @ 08:31 by NICOLLE Fernandez) Father Depression Mother Depression Heart disease CHF (congestive heart failure) Paternal Grandmother Cancer Other Mental health disorder Social History Housing: House Alcohol intake: never Patient Tobacco Use Status: Former Tobacco user e-Cigarette/Vaping Use: Never Used Second Hand Smoke Exposure: Yes service: No Current occupational status: retired Cognitive needs: No Hearing needs: No Vision needs: Yes (Reading glasses) Questionnaire PHQ-9 Over the last 2 weeks, how often have you been bothered by any of the following problems? 1. Little interest or pleasure in doing things: not at all 2. Feeling down, depressed, or hopeless: not at all 3. Trouble falling or staying asleep, or sleeping too much: not at all 4. Feeling tired or having little energy: not at all 5. Poor appetite or overeating: not at all 6. Feeling bad about yourself - or that you are a failure or have let yourself or your family down: not at all 7. Trouble concentrating on things, such as reading the newspaper or watching television: not at all 8. Moving or speaking so slowly that other people could have noticed. Or the opposite - being so fidgety or restless that you have been moving around a lot more than usual: not at all 9. Thoughts that you would be better off or of hurting yourself in some way: not at all Total score: 0 Depression Screening Interpretation: Negative Depression Screening Done: Yes Source: Developed by Drs. Dwayne Damon, Anna Austin, Master Wilson and colleagues, with an educational wil from [employer]. Thrive Questionnaire Date Thrive assessed: 07/19/23 I am a: Patient What is your living situation today?: I have a steady place to live Within the past 12 months, did the food you bought not last and you didn't have the money to get more?: Never true Within the past 12 months, did you worry whether your food would run out before you got money to buy more?: Never true Do you have trouble paying for medicines?: No Do you have trouble getting transportation to medical appointments?: No Do you have trouble paying your heating and electricity bill?: No Do you have trouble taking care of your child, family member or friend?: No Do you have trouble with day-to-day activities such as bathing, preparing meals, shopping, managing finances, etc.?: No Are you currently unemployed and looking for a job?: No Are you interested in more education?: No Currently or been in a relationship where the following occur: no concerns reported THRIVE Score: 0 AUDIT C Alcohol Use Questionnaire (AUDIT-C) 1. How often do you have a drink containing alcohol?: Never Total Score: 0 JOSE D-7 AMB Questionnaire JOSE D-7 Date JOSE D - 7 assessed: 07/19/23 Feeling nervous, anxious, or on edge: 0 = Not at all Not being able to stop or control worryin = Not at all Worrying too much about different things: 0 = Not at all Trouble relaxin = Not at all Being so restless that it is hard to sit still: 0 = Not at all Becoming easily annoyed or irritable: 0 = Not at all Feeling afraid as if something awful might happen: 0 = Not at all Total JOSE D-7 score (0-4 normal; 5-9 mild; 10-14 moderate; 15-21 severe): 0 Source: Developed by Drs. Dwayne Damon, Anna Austin, Master Wilson and colleagues, with an educational wil from [employer]. Review of Systems Const Denies chills, Denies headache(s) and Denies weight loss ENT Denies headache(s) Card Denies chest pain, Denies syncope, Denies irregular heart rhythm and Denies dyspnea Resp Denies chest congestion, Denies cough and Denies dyspnea GI Denies abdominal pain, Denies change in stool character, Denies nausea and Denies vomiting Musc Denies deformity and Denies joint swelling Neuro Denies syncope and Denies headache(s) Physical exam (Primary Care) Vital Signs: Last Vital Signs Pulse 69 07/19/23 08:34 BP 148/72 H 07/19/23 08:34 Pulse Ox 97 07/19/23 08:34 Oxygen Delivery Method Room Air 07/19/23 08:34 BMI result Body Mass Index 28.5 Tobacco/Smoking Status: Tobacco use Status Tobacco use date assessed 07/19/23 07/19/23 08:34 Patient Tobacco Use Status Former Tobacco user 07/19/23 08:34 e-Cigarette/Vaping Use Never Used 07/19/23 08:34 PHQ-9: PHQ-9 Score PHQ-9: Total score 0 07/19/23 08:38 Depression Screening Interpretation: Negative Thrive Assessment: Date of Thrive Assessment Date Thrive assessed 07/19/23 07/19/23 08:34 Currently or been in a relationship where the following occur: no concerns reported Const General: cooperative, comfortable, no acute distress and alert Neck Neck: Yes no lymphadenopathy Thyroid: Thyroid normal Resp Effort & Inspection: normal respiratory effort Auscultation: clear to auscultation bilaterally Percussion: percussion normal Cardio Jugular venous distension: no JVD Palpation: normal PMI Rate: regular rate Rhythm: regular rhythm Heart sounds: S1 normal heart sound present and S2 normal heart sound present GI Inspection: Yes normal to inspection Palpation (GI): No hepatosplenomegaly present Skin General skin exam: no rashes or lesions noted Extrem General: Yes no clubbing, cyanosis or edema Assessment and Plan Assessment & Plan (1) HTN (hypertension): Code(s): I10 - Essential (primary) hypertension Plan: stable; same rx (2) Hyperlipidemia: Code(s): E78.5 - Hyperlipidemia, unspecified Plan: stable; same rx (3) Shoulder pain, right: Comment: 20 min reviewing chart evaluating patient and documenting Code(s): M25.511 - Pain in right shoulder Plan: pt Orders: Orders PT Evaluation and Treatment Today M25.511 - Pain in right shoulder Coding Level of Care Code Est Pt Level 4 (10385) Diagnoses HTN (hypertension) I10 Hyperlipidemia E78.5 Shoulder pain, right M25.511
[2023-07-19 08:34] VITALS: BP 148/72; PULSE 69; O2SAT 97; BMI 28.5
== END 2023-07-19 08:52 | disposition home or self-care (01) ==
PROVIDERS: PCP Internal Medicine; Visit Provider Internal Medicine
DX: I10 Essential (primary) hypertension (principal); E78.5 Hyperlipidemia, unspecified; M25.511 Pain in right shoulder
CPT/HCPCS: 99214

== ENCOUNTER 2023-08-09 10:38 | Outpatient (RCR) | payer MEDICARE, SELFPAY ==
--- NOTE | 2023-08-09 12:24 | MHC.PT.EP ---
[facility] [place] Office [place] [facility] [place] Office [address] Elida Amin [address] [phone] F: [phone] F: [phone] F: [phone] F: [phone] Physical Therapy Plan of Care Date of Evaluation: 08/09/23 Date of Surgery: N/A Diagnosis: right shoulder pain (RL) Assessment: pt is a 73 y/o female presenting to physical therapy w/ referring diagnosis of right shoulder pain. pt does have a localized bump to the anterior humerus. It is dense and does not seem consistent w/ bursitis. It seems more consistent w/ a cyst. Her range and strength have been slightly impacted on the R side. I do not feel PT will make any significant impacts on her bump but we can improve her function. Impairments include pain, decreased range of motion, decreased strength, impaired functional mobility, impaired postural awareness, and altered ambulation mechanics. pt is a good candidate for skilled PT due to age, potential remediation of impairments, typical disease/condition progression and prognosis, comorbidities, and motivation. pt would benefit from skilled PT intervention to provide a tailored strengthening and stretching exercise program, functional training, gait training, postural re-training, neuromuscular re-education, modalities as needed for pain, equipment safety demonstration. Frequency and Duration: The patient will be seen 1x/wk for 3 wks Short Term Goals: pt will be I w/ HEP to promote self-management of condition. Imaging Scheduler Goals: pt will improve R shoulder flexion and abduction AROM by 10 degrees to promote ease in reaching. pt will improve R shoulder internal and external strength by 1 MMT to promote ease in upper body ADLs. Treatment Plan: Modalities to reduce pain, spasms and effusion. Manual therapy to restore motion and function. Therapeutic exercise to improve strength and flexibility. Neuromuscular re-education for posture and balance. Therapeutic activities to return to functional activities of daily living. Electronically signed by: Ashlyn Oliva PT, DPT Please sign and return to therapist. Thank you for your referral.
--- NOTE | 2023-08-25 09:44 | MHC.PT.DC ---
[facility] [place] Office [place] Office [place] Office [address] Elida Amin 140 [facility] [phone] F: [phone] F: [phone] F: [phone] F: [phone] Physical Therapy Discharge Report Diagnosis: right shoulder pain (RL) Date of Surgery: N/A Date of Evaluation: 08/09/23 Date of Discharge: 08/25/23 Treatments to Date: 1 Cancellations to Date: 2 No Shows to Date: 0 Discharge Status: Patient Elected to Stop Visit Non-compliance Discharge Summary: By the time the patient was able to attend her physical therapy evaluation she was already noticing improvement in her pain. She did present with a bump localized to her superior shoulder that she felt has increased in size since she saw her referring provider. I encouraged her to follow-up to get that bump checked out. She cancelled the two follow-ups she scheduled and is being discharged at this time. Electronically signed by: Ashlyn Oliva PT, DPT Please sign and return to therapist. Thank you for your referral.
== END 2023-08-25 09:45 | disposition home or self-care (01) ==
LOC: HO.PT 10:38
PROVIDERS: PCP Internal Medicine; Visit Provider Internal Medicine
DX: M25.511 Pain in right shoulder (principal)
CPT/HCPCS: 97110; 97162

== ENCOUNTER 2023-08-25 10:11 | Outpatient (AMB) | payer MEDICARE, SELFPAY ==
[2023-08-25 10:15] VITALS: BP 140/68; PULSE 68; O2SAT 97; BMI 28.9
--- NOTE | 2023-08-25 10:15 | A.OFFPC_ITS ---
Vital Signs 08/25/23 10:15 Height 5 ft 2 in Weight 158 lb BMI 28.9 BP 140/68 H Blood Pressure Location Lt brachial Position Sitting Pulse 68 Pulse Source Pulse Oximeter Pulse Oximetry (%) 97 Oxygen Delivery Method Room Air Intake Visit Reasons: Shoulder Pain Chiller Technician Required: No Educational Recruiter: Not Required per policy Accompanied by: Self / Same As Patient Allergies nitrofurantoin [Macrobid] Allergy (Unknown, Verified 08/25/23 10:15) headache Medication List - Last Reconciled 08/25/23 by Maximilian Bay MD aspirin (Adult Low Dose Aspirin) 81 mg PO DAILY atorvastatin 80 mg PO DAILY cyanocobalamin (vitamin B-12) 1,000 mcg PO DAILY ezetimibe 10 mg PO DAILY losartan 100 mg PO DAILY meloxicam 15 mg PO DAILY metoprolol tartrate 50 mg PO BID solifenacin (Vesicare) 5 mg PO DAILY Tobacco use date assessed: 07/19/23 Fall risk assessment: No Falls in past year Last assessed Fall Risk: 08/25/23 Dental Screening Dental Screen Date: 07/19/23 HPI Shoulder Pain HPI Details severe OA right shoulder; pt w/o effect PFSH Medical History Mitral regurgitation S/P angiogram of extremity (11/15/18) Anemia Depression Atherosclerotic heart disease On beta tony at home PVD (peripheral vascular disease) HTN (hypertension) CAD (coronary artery disease) Prosthetic valve dysfunction Hyperlipidemia Surgical History History of cataract extraction Hx of endoscopy Hx of colonoscopy S/P AVR Hx of CABG H/O left wrist surgery Family History (Updated 07/19/23 @ 08:31 by NICOLLE Fernandez) Father Depression Mother Depression Heart disease CHF (congestive heart failure) Paternal Grandmother Cancer Other Mental health disorder Social History Housing: House Alcohol intake: never Patient Tobacco Use Status: Former Tobacco user e-Cigarette/Vaping Use: Never Used Second Hand Smoke Exposure: Yes service: No Current occupational status: retired Cognitive needs: No Hearing needs: No Vision needs: Yes (Reading glasses) Questionnaire Thrive Questionnaire Date Thrive assessed: 07/19/23 JOSE D-7 AMB Questionnaire JOSE D-7 Date JOSE D - 7 assessed: 07/19/23 Source: Developed by Drs. Dwayne Damon, Anna Austin, Master Wilson and colleagues, with an educational wil from [employer]. Review of Systems Const Denies chills, Denies headache(s) and Denies weight loss ENT Denies headache(s) Card Denies chest pain, Denies syncope, Denies irregular heart rhythm and Denies dyspnea Resp Denies chest congestion, Denies cough and Denies dyspnea GI Denies abdominal pain, Denies change in stool character, Denies nausea and Denies vomiting Musc Denies deformity and Denies joint swelling Neuro Denies syncope and Denies headache(s) Physical exam (Primary Care) Vital Signs: Last Vital Signs Pulse 68 08/25/23 10:15 BP 140/68 H 08/25/23 10:15 Pulse Ox 97 08/25/23 10:15 Oxygen Delivery Method Room Air 08/25/23 10:15 BMI result Body Mass Index 28.9 Tobacco/Smoking Status: Tobacco use Status Tobacco use date assessed 07/19/23 08/25/23 10:19 Patient Tobacco Use Status Former Tobacco user 08/25/23 10:19 e-Cigarette/Vaping Use Never Used 08/25/23 10:19 Thrive Assessment: Date of Thrive Assessment Date Thrive assessed 07/19/23 08/25/23 10:19 Const General: cooperative, comfortable, no acute distress and alert Neck Neck: Yes no lymphadenopathy Thyroid: Thyroid normal Resp Effort & Inspection: normal respiratory effort Auscultation: clear to auscultation bilaterally Percussion: percussion normal Cardio Jugular venous distension: no JVD Palpation: normal PMI Rate: regular rate Rhythm: regular rhythm Heart sounds: S1 normal heart sound present and S2 normal heart sound present GI Inspection: Yes normal to inspection Palpation (GI): No hepatosplenomegaly present Skin General skin exam: no rashes or lesions noted Extrem General: Yes no clubbing, cyanosis or edema Assessment and Plan Assessment & Plan (1) Shoulder arthritis: Code(s): M19.019 - Primary osteoarthritis, unspecified shoulder Plan: referred to ortho Orders: Referrals Orthopedics Referral M19.019 - Primary osteoarthritis, unspecified shoulder Coding Level of Care Code Est Pt Level 3 (81044) Diagnoses Shoulder arthritis M19.019
== END 2023-08-25 13:50 | disposition home or self-care (01) ==
PROVIDERS: PCP Internal Medicine; Visit Provider Internal Medicine
DX: M19.019 Primary osteoarthritis, unspecified shoulder (principal)
CPT/HCPCS: 99213

== ENCOUNTER 2023-09-07 09:00 | Outpatient (AMB) | payer MEDICARE, SELFPAY ==
--- NOTE | 2023-09-07 09:28 | MHC.PC.OV ---
Vital Signs 09/07/23 09:33 Weight 159 lb BP 152/64 H Blood Pressure Location Lt brachial Position Sitting Respiration 16 Pulse 71 Pulse Source Pulse Oximeter Temp 97.8 F Temp Source Temporal Artery Scan Pulse Oximetry (%) 97 Oxygen Delivery Method Room Air Intake Visit Reasons: Est / Left side head / ear stuffy Intake Note: patient here c/o stuffy head and ears and pain on her left side of the face. Lawn Specialist Required: No Is last menstrual period known: No Post menopausal: No Patient : No Allergies nitrofurantoin [Macrobid] Allergy (Unknown, Verified 09/07/23 09:44) headache Medication List - Last Reconciled 09/07/23 by Magi Ho, COMMERCIAL ACCOUNT EXECUTIVE- aspirin (Adult Low Dose Aspirin) 81 mg PO DAILY atorvastatin 80 mg PO DAILY cyanocobalamin (vitamin B-12) 1,000 mcg PO DAILY ezetimibe 10 mg PO DAILY losartan 100 mg PO DAILY meloxicam 15 mg PO DAILY metoprolol tartrate 50 mg PO BID Tobacco use date assessed: 07/19/23 Dental Screening Dental Screen Date: 07/19/23 HPI HPI Comments History of Present Illness Details Here today for complaints the left side of her face feeling clogged up. She reports that her left ear feels clogged and she feels like she has sinus congestion on the left side. This started about 1 week ago. denies allergy sx or URI sx prior to this Last AB for sinusitis was March - Augmentin. We will she reports that her symptoms improved she does admit that the hearing has not returned to normal since this time. She denies a history of recurrent sinusitis. Awake alert NAD Sclera and conjunctiva clear bilat Nares patent, turbinates within normal limits, no sinus tenderness with palpation bilat TM intact bilat, trace fluid behind R TM, Left TM bulging w/ loss of landmarks, cloudy, no erythema MMM, pharynx WNL This note is constructed using voice recognition software. While every effort has been made to ensure accuracy in truck driver rubbish collector, still errors may have been included Sometimes, these errors may affect the content or meaning of the given sentence . [facility] Medical History Mitral regurgitation S/P angiogram of extremity (11/15/18) Anemia Depression Atherosclerotic heart disease On beta tony at home PVD (peripheral vascular disease) HTN (hypertension) CAD (coronary artery disease) Prosthetic valve dysfunction Hyperlipidemia Surgical History History of cataract extraction Hx of endoscopy Hx of colonoscopy S/P AVR Hx of CABG H/O left wrist surgery Family History (Updated 07/19/23 @ 08:31 by NICOLLE Fernandez) Father Depression Mother Depression Heart disease CHF (congestive heart failure) Paternal Grandmother Cancer Other Mental health disorder Social History Housing: House Alcohol intake: never Patient Tobacco Use Status: Former Tobacco user e-Cigarette/Vaping Use: Never Used Second Hand Smoke Exposure: Yes Patient : No service: No Current occupational status: retired Cognitive needs: No Hearing needs: No Vision needs: Yes (Reading glasses) Questionnaire Thrive Questionnaire Date Thrive assessed: 07/19/23 JOSE D-7 AMB Questionnaire JOSE D-7 Date JOSE D - 7 assessed: 07/19/23 Source: Developed by Drs. Dwayne Damon, Anna Austin, Master Wilson and colleagues, with an educational wil from [employer]. Physical exam (Primary Care) Vital Signs: Last Vital Signs Temp 97.8 F 09/07/23 09:33 Pulse 71 09/07/23 09:33 Resp 16 09/07/23 09:33 BP 152/64 H 09/07/23 09:33 Pulse Ox 97 09/07/23 09:33 Oxygen Delivery Method Room Air 09/07/23 09:33 Tobacco/Smoking Status: Tobacco use Status Tobacco use date assessed 07/19/23 09/07/23 09:30 Patient Tobacco Use Status Former Tobacco user 09/07/23 09:30 e-Cigarette/Vaping Use Never Used 09/07/23 09:30 Thrive Assessment: Date of Thrive Assessment Date Thrive assessed 07/19/23 09/07/23 09:30 Assessment and Plan Assessment & Plan (1) Eustachian tube dysfunction: Code(s): H69.90 - Unspecified Eustachian tube disorder, unspecified ear Qualifiers: Laterality: left Qualified Code(s): H69.92 - Unspecified Eustachian tube disorder, left ear Medications: New fluticasone propionate 50 mcg/actuation administer into each nostril 1 spray intranasal BID 16 grams 3RF Patient Instructions: Conservative management. Offered and declined a referral to ear nose and throat today. Use nasal spray as directed in one week try self insufflation if pressure on left side of face does not improve, if you have worsening pain in the left ear, fever or chills please return as at that time you may brittani antibiotics. Coding Level of Care Code Est Pt Level 3 (91055) Diagnoses Dysfunction of left eustachian tube H69.92 Laterality: left
[2023-09-07 09:33] VITALS: BP 152/64; PULSE 71; RESP 16; TEMP 36.6; O2SAT 97
== END 2023-09-07 09:57 | disposition home or self-care (01) ==
PROVIDERS: PCP Internal Medicine; Visit Provider Nurse Practitioner Family
DX: H69.92 Unspecified Eustachian tube disorder, left ear (principal)
CPT/HCPCS: 99213

== ENCOUNTER 2023-09-18 07:29 | Outpatient (REF) | payer MEDICARE, SELFPAY | END 2023-09-18 07:30 | disposition home or self-care (01) | LOC: HO.MAMMO 07:29 | PROVIDERS: PCP Internal Medicine; Visit Provider Internal Medicine | DX: Z12.31 Encounter for screening mammogram for malignant neoplasm of breast (principal) | CPT/HCPCS: 77063; 77067 ==

== ENCOUNTER → 2023-09-18 07:45 | Outpatient (BNV) | payer MEDICARE, SELFPAY | PROVIDERS: PCP Internal Medicine; Visit Provider Radiology Diagnostic Radiology | DX: Z12.31 Encounter for screening mammogram for malignant neoplasm of breast (principal) | CPT/HCPCS: 77063; 77067 ==

== ENCOUNTER 2023-09-21 09:50 | Outpatient (REF) | payer MEDICARE, SELFPAY ==
--- NOTE | ~2023-09-21 | US_ITS ---
EXAMINATION: US RETROPERITONEAL COMPLETE (RENAL) CLINICAL INFORMATION: Unspecified urinary incontinence. COMPARISON: Ultrasound abdomen complete 05/15/2019. CT abdomen pelvis 02/25/2019. TECHNIQUE: Real-time imaging of the kidneys and bladder. FINDINGS: RIGHT KIDNEY: 10.4 x 4.6 x 3.6 cm (SAG x AP x TRV). The kidney is normal in size, contour, and echogenicity. Renal cortical thickness is normal. No hydronephrosis. Right renal cystic focus measuring up to 1.0 cm, simple appearing, not requiring follow-up. Right renal calculi measuring up to 3 mm. Mild right renal pelvic fullness. LEFT KIDNEY: 8.9 x 4.4 x 3.5 cm (SAG x AP x TRV). The kidney is normal in size, contour, and echogenicity. Renal cortical thickness is normal. No renal calculi or hydronephrosis. Left renal cystic focus with septations in the lower pole measuring up to 9 mm. Mild left renal pelvic fullness. BLADDER: Well distended and normal. Bilateral ureteral jets are demonstrated. Prevoid bladder volume is 215.1 mL. Postvoid bladder not visualized. US/US retroperitoneal comp IMPRESSION: 1. Right-sided nephrolithiasis measuring up to 3 mm with mild right renal pelvic fullness. 2. Right renal cystic focus measuring up to 1.0 cm, simple appearing, not requiring follow-up. 3. Left renal cystic focus with septations in the lower pole measuring up to 9 mm. 4. Mild left renal pelvic fullness. 5. Postvoid bladder volume not visualized with visualization of the bilateral ureteral jets.
== END 2023-09-21 09:51 | disposition home or self-care (01) ==
LOC: HO.US 09:50
PROVIDERS: PCP Internal Medicine; Visit Provider Urology
DX: R32 Unspecified urinary incontinence (principal); R39.15 Urgency of urination
CPT/HCPCS: 76770

== ENCOUNTER 2023-09-25 08:51 | Outpatient (AMB) | payer MEDICARE, SELFPAY ==
--- NOTE | 2023-09-25 08:57 | MHC.OFFVIS ---
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 Patient reports that she has had ongoing right shoulder pain for about 3-4 months now. She explains that she went to throw some bags of clothing into the donation bins and later that night her pain onset in the shoulder. Pain is felt all the time, worsening with above the head movements, reaching and lifting. Denies numbness and tingling. No previous treatments. At this time she is taking Tylenol and Topical application of Aspercreme which both help but only temporarily. 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 Patient reports that she has had ongoing right shoulder pain for about 3-4 months now. She explains that she went to throw some bags of clothing into the donation bins and later that night her pain onset in the shoulder. Pain is felt all the time, worsening with above the head movements, reaching and lifting. Denies numbness and tingling. No previous treatments. At this time she is taking Tylenol and Topical application of Aspercreme which both help but only temporarily. She states prior to this injury she had no pain. She does feel it is improving however and the pain is tolerable at this point. [facility] Medical History Mitral regurgitation S/P angiogram of extremity (11/15/18) Anemia Depression Atherosclerotic heart disease On beta tony at home PVD (peripheral vascular disease) HTN (hypertension) CAD (coronary artery disease) Prosthetic valve dysfunction Hyperlipidemia Surgical History History of cataract extraction Hx of endoscopy Hx of colonoscopy S/P AVR Hx of CABG H/O left wrist surgery Family History Father Depression Mother Depression Heart disease CHF (congestive heart failure) Paternal Grandmother Cancer Other Mental health disorder Social History Housing: House Alcohol intake: never Patient Tobacco Use Status: Former Tobacco user e-Cigarette/Vaping Use: Never Used Second Hand Smoke Exposure: Yes service: No Current occupational status: retired Cognitive needs: No Hearing needs: No Vision needs: Yes (Reading glasses) Physical Exam Vital Signs: BMI result Body Mass Index 28.9 Extrem Other: 4-/5 empty can Positive lift-off Full passive and active range of motion Negative impingement Assessment & Plan Assessment & Plan (1) Internal derangement of right shoulder: Code(s): M24.811 - Other specific joint derangements of right shoulder, not elsewhere classified Category: Medical Plan: This is a 73-year-old woman with internal derangement of the right shoulder. She was active and healthy prior to her lifting injury. She did do physical therapy which was not helpful. I recommend MRI to assess. We did discuss the surgical options. She is uninterested in arthroplasty and I suspect that this is a acute on chronic injury. She is amenable to getting an MRI but pretty apprehensive about surgery. We will continue this conversation after the MRI. Coding Level of Care Code New Pt Level 4 (62745) Diagnoses Internal derangement of right shoulder M24.811
[2023-09-25 08:58] VITALS: BMI 28.9
== END 2023-09-25 11:10 | disposition home or self-care (01) ==
PROVIDERS: PCP Internal Medicine; Visit Provider Orthopaedic Surgery
DX: M24.811 Other specific joint derangements of right shoulder, not elsewhere classified (principal)
CPT/HCPCS: 99203

== ENCOUNTER → 2023-09-25 08:51 | Outpatient (BNVA) | payer MEDICARE, SELFPAY | PROVIDERS: PCP Internal Medicine; Visit Provider Orthopaedic Surgery | DX: M19.011 Primary osteoarthritis, right shoulder (principal); M24.811 Other specific joint derangements of right shoulder, not elsewhere classified | CPT/HCPCS: 99202 ==

== ENCOUNTER 2023-10-02 09:08 | Outpatient (AMB) | payer MEDICARE, SELFPAY ==
--- NOTE | 2023-10-02 09:12 | A.OFFVIS_ITS ---
Intake Visit Reasons: 10w/US(US 09/20) Intake Note: Patient presents today to FOR 10W/US Meds- VITAMIN B-12 Allergies to Antibiotic- Macrobid(nitrofurantoin) Blood Thinner- Aspirin Post Void Residual: 0mL TODAY'S PVR: 0ML'S Reliability Technician Required: No Accompanied by: Self / Same As Patient Allergies nitrofurantoin [Macrobid] Allergy (Unknown, Verified 10/02/23 09:15) headache Medication List - Last Reconciled 10/02/23 by Baltazar Chang MD aspirin (Adult Low Dose Aspirin) 81 mg PO DAILY atorvastatin 80 mg PO DAILY cyanocobalamin (vitamin B-12) 1,000 mcg PO DAILY ezetimibe 10 mg PO DAILY fluticasone propionate 50 mcg/actuation 1 spray intranasal BID losartan 100 mg PO DAILY meloxicam 15 mg PO DAILY metoprolol tartrate 50 mg PO BID solifenacin (Vesicare) 5 mg PO DAILY HPI Comments Details: 10/02/23--Gloria is a 73-year-old female who is here in FU for lower urinary tract symptoms of urinary incontinence and urgency. States vesicare is helping. Reviewed renal US 09/21/23--Right- renal stone 3 mm. Right renal cystic focus measuring up to 1.0 cm, simple appearing, Left renal cystic focus with septations in the lower pole -9 mm. Monitor kidneys, right renal stone, left septated cyst. UA-proteinuria. Review of chart: 07/17/23--Gloria is a 73-year-old female who is here as a new patient evaluation for lower urinary tract symptoms of urinary incontinence and urgency. The patient states that she has had occasional stress urinary incontinence associated with coughing for many years. However about 3-4 months ago she had an episode of urgency associated with urinary leakage. Since that episode she has had feeling of urgency as well as leakage not associated with a specific activity. She denies dysuria. I have discussed urinalysis is negative for leukocytes or blood. Protein is noted on today's urine specimen. I discussed surveillance urine culture. I have discussed trial of anticholinergic. Will prescribe VESIcare 5 mg daily. I have discussed evaluation with renal and bladder ultrasound. On follow-up if urinalysis notes persistent protein I will refer her to Nephrology. PFS Medical History Mitral regurgitation S/P angiogram of extremity (11/15/18) Anemia Depression Atherosclerotic heart disease On beta tony at home PVD (peripheral vascular disease) HTN (hypertension) CAD (coronary artery disease) Prosthetic valve dysfunction Hyperlipidemia Surgical History History of cataract extraction Hx of endoscopy Hx of colonoscopy S/P AVR Hx of CABG H/O left wrist surgery Family History Father Depression Mother Depression Heart disease CHF (congestive heart failure) Paternal Grandmother Cancer Other Mental health disorder Social History Housing: House Alcohol intake: never Patient Tobacco Use Status: Former Tobacco user e-Cigarette/Vaping Use: Never Used Second Hand Smoke Exposure: Yes service: No Current occupational status: retired Cognitive needs: No Hearing needs: No Vision needs: Yes (Reading glasses) Review of Systems Const All systems reviewed & are unremarkable except as noted in HPI and below Reports no additional complaints Eyes Reports no additional complaints ENT Reports no additional complaints Card Reports no additional complaints Resp Reports no additional complaints GI Reports no additional complaints Reports as per HPI Musc Reports no additional complaints Skin/Breast Reports system reviewed and no additional complaints, except as documented Neuro Reports no additional complaints Psych Reports no additional complaints Endo Reports no additional complaints Avtar/Lymph Reports no additional complaints Aller/Immun Reports no additional complaints Office Procedures Post Void Residual Post Residual Void Post Void Residual (PVR): 0 [id number] Void Residual by ultrasound Results AMB Urinalysis, Automated UA Leukoctes 70 Jaime/uL Last Edit by LAURA Rudd on 10/02/23 09:48 UA Nitrite Negative Last Edit by LAURA Rudd on 10/02/23 09:48 UA Urobilinogen 0.2 mg/dL Last Edit by LAURA Rudd on 10/02/23 09:4 8 UA Protein 15 mg/dL Last Edit by LAURA Rudd on 10/02/23 09:48 UA pH 6.0 Last Edit by LAURA Rudd on 10/02/23 09:48 UA Blood 0 Jose J/uL Last Edit by LAURA Rudd on 10/02/23 09:48 UA Specific [place] 1.015 Last Edit by LAURA Rudd on 10/02/23 09: 48 UA Ketone Negative Last Edit by LAURA Rudd on 10/02/23 09:48 UA Bilirubin 0 mg/dL Last Edit by LAURA Rudd on 10/02/23 09:48 UA Glucose 0 mg/dL Last Edit by LAURA Rudd on 10/02/23 09:48 Results Reviewed Results Reviewed: Laboratory Last Values Urine pH (Auto) 6.0 10/02/23 09:47 Specific [place] (Auto) 1.015 10/02/23 09:47 Urine Protein (Auto) 15 mg/dL 10/02/23 09:47 Glucose (UA)(Auto) 0 mg/dL 10/02/23 09:47 Urine Ketones (Auto) Negative 10/02/23 09:47 Urine Blood (Auto) 0 Jose J/uL 10/02/23 09:47 Urine Nitrite (Auto) Negative 10/02/23 09:47 Urine Bilirubin (Auto) 0 mg/dL 10/02/23 09:47 Urine Urobilinogen (Auto) 0.2 mg/dL 10/02/23 09:47 Leukocyte Esterase (Auto) 70 Jaime/uL 10/02/23 09:47 Date of Service: 09/21/23 US RETROPERITONEAL COMPLETE (RENAL) CLINICAL INFORMATION: Unspecified urinary incontinence. COMPARISON: Ultrasound abdomen complete 05/15/2019. CT abdomen pelvis 02/25/2019. TECHNIQUE: Real-time imaging of the kidneys and bladder. FINDINGS: RIGHT KIDNEY: 10.4 x 4.6 x 3.6 cm (SAG x AP x TRV). The kidney is normal in size, contour, and echogenicity. Renal cortical thickness is normal. No hydronephrosis. Right renal cystic focus measuring up to 1.0 cm, simple appearing, not requiring follow-up. Right renal calculi measuring up to 3 mm. Mild right renal pelvic fullness. LEFT KIDNEY: 8.9 x 4.4 x 3.5 cm (SAG x AP x TRV). The kidney is normal in size, contour, and echogenicity. Renal cortical thickness is normal. No renal calculi or hydronephrosis. Left renal cystic focus with septations in the lower pole measuring up to 9 mm. Mild left renal pelvic fullness. BLADDER: Well distended and normal. Bilateral ureteral jets are demonstrated. Prevoid bladder volume is 215.1 mL. Postvoid bladder not visualized. IMPRESSION: 1. Right-sided nephrolithiasis measuring up to 3 mm with mild right renal pelvic fullness. 2. Right renal cystic focus measuring up to 1.0 cm, simple appearing, not requiring follow-up. 3. Left renal cystic focus with septations in the lower pole measuring up to 9 mm. 4. Mild left renal pelvic fullness. 5. Postvoid bladder volume not visualized with visualization of the bilateral ureteral jets. Assessment & Plan Assessment & Plan (1) Urinary incontinence: Code(s): R32 - Unspecified urinary incontinence Category: Medical (2) Urinary urgency: Code(s): R39.15 - Urgency of urination Category: Medical (3) Proteinuria: Code(s): R80.9 - Proteinuria, unspecified Category: Medical (4) OAB (overactive bladder): Code(s): N32.81 - Overactive bladder Category: Medical Plan Monitor kidneys, right renal stone, left septated cyst. proteinuria - refer to nephrology cont vesicare Orders: Orders AMB Urinalysis Automated 10/02/23 Z13.9 - Encounter for screening, unspecified Referrals Nephrology Referral R80.9 - Proteinuria, unspecified Medications: Refilled solifenacin (Vesicare) 5 mg PO DAILY 90 tabs 3RF Patient Instructions: The patient had an opportunity to ask questions regarding treatment plan. The patient expressed understanding and agreement with the above treatment plan. The patient is aware they should contact our office by phone for worsening of their current condition or the appearance of new symptoms. Compliance is encouraged with any medications and followup testing that is ordered. It is a privilege to be allowed the opportunity to participate in the urologic care of your patient. If you have any questions or concerns regarding treatment for the above conditions please do not hesitate to contact me. The office telephone contact is [phone]. This note is constructed in part using voice recognition software. While every effort has been made to ensure accuracy knurling machine operator errors may have been included. Yours sincerely, Baltazar Chang MD Coding Level of Care Code Est Pt Level 4 (21862) Diagnoses Urinary incontinence R32 Urinary urgency R39.15 Proteinuria R80.9 OAB (overactive bladder) N32.81 CPT Codes Post Residual Void - PVR CPT Code: 91809-[id number] Void Residual by ultrasound ([id number])
== END 2023-10-02 10:21 | disposition home or self-care (01) ==
PROVIDERS: PCP Internal Medicine; Visit Provider Urology
DX: R32 Unspecified urinary incontinence (principal); R39.15 Urgency of urination; R80.9 Proteinuria, unspecified; N32.81 Overactive bladder
CPT/HCPCS: 99214

== ENCOUNTER → 2023-10-02 09:08 | Outpatient (BNVA) | payer MEDICARE, SELFPAY | PROVIDERS: PCP Internal Medicine; Visit Provider Urology | DX: R32 Unspecified urinary incontinence (principal); R39.15 Urgency of urination; R80.9 Proteinuria, unspecified; N32.81 Overactive bladder | CPT/HCPCS: 51798; 81003; 99212 ==

== ENCOUNTER 2023-11-05 08:40 | Outpatient (REF) | payer MEDICARE, SELFPAY ==
--- NOTE | ~2023-11-05 | MR_ITS ---
EXAMINATION: MR SHOULDER WITHOUT CONTRAST, RIGHT CLINICAL INFORMATION: Right shoulder pain with right hand numbness. COMPARISON: Right shoulder radiographs dated 07/01/2023. TECHNIQUE: MRI of the shoulder without contrast was performed on a high-field scanner. FINDINGS: Evaluation limited secondary to patient motion. ROTATOR CUFF: Complete, full-thickness tear of the supraspinatus tendon extending through the majority of the infraspinatus tendon. There are a few irregular posterior infraspinatus tendon fibers remaining intact. Overall tearing measures up to 4.2 x 4.9 cm (AP x ML) with the torn tendon fibers retracted to the glenohumeral articulation. Severe subscapularis tendinosis with a near-complete full-thickness tear measuring up to 3.4 cm in ML dimension. There are a few thin, irregular inferior tendon fibers remaining intact. Moderate supraspinatus, infraspinatus, and subscapularis muscle atrophy. BICEPS: Absence of the proximal long head biceps tendon, likely indicating a complete tear and tendon retraction. CORACOACROMIAL ARCH: The undersurface of the acromion is curved with subacromial spurring. Severe acromioclavicular osteoarthritis with prominent bony remodeling and subchondral cystic change. Large, complex synovial recess versus ganglion cyst superior to the acromioclavicular joint measuring up to 3.4 x 2.9 x 3.1 cm. LABRUM/CAPSULE: Diffuse heterogeneity throughout the superior and posterosuperior labrum, consistent with complex tearing. Intact inferior joint capsule. GLENOHUMERAL JOINT/MARROW: Superior subluxation of the humeral head related to the rotator cuff tendon tears. Diffuse glenohumeral articular cartilage signal heterogeneity and surface irregularity with marginal osteophytes. [id number] joint effusion. MR/MR shoulder RT wo con IMPRESSION: 1. Complete, full-thickness tear of the supraspinatus tendon extending through the majority of the infraspinatus tendon with a few irregular posterior infraspinatus tendon fibers remaining intact. The torn tendon fibers are retracted to the glenohumeral articulation. Severe subscapularis tendinosis with a near-complete full-thickness tear measuring 3.4 cm in ML dimension. Moderate supraspinatus, infraspinatus, and subscapularis muscle atrophy. 2. Complete tear and retraction of the proximal long head biceps tendon. 3. Severe acromioclavicular osteoarthritis with prominent bony remodeling and subchondral cystic change. Large, complex synovial recess versus ganglion cyst superior to the joint measuring up to 3.4 cm. 4. Superior subluxation of the humeral head related to the rotator cuff tendon tears. Moderate glenohumeral osteoarthritis and [id number] joint effusion. 5. Diffuse complex tearing of the superior and posterosuperior labrum. Electronically signed by: Barney Arnett MD 11/07/2023 03:10 PM EDT
== END 2023-11-05 08:41 | disposition home or self-care (01) ==
LOC: HO.MRI 08:40
PROVIDERS: PCP Internal Medicine; Visit Provider Orthopaedic Surgery
DX: M24.811 Other specific joint derangements of right shoulder, not elsewhere classified (principal)
CPT/HCPCS: 73221

== ENCOUNTER 2023-11-20 08:32 | Outpatient (AMB) | payer MEDICARE, SELFPAY ==
--- NOTE | 2023-11-20 08:46 | A.OFFVIS_ITS ---
Intake Visit Reasons: OV- MRI review Intake Note: Gloria is a 73 year old right hand dominant female who presents today for an MRI follow up of her right shoulder. Patient reports that she is feeling ok, some days are good some are more painful . IMPRESSION: 1. Complete, full-thickness tear of the supraspinatus tendon extending through the majority of the infraspinatus tendon with a few irregular posterior infraspinatus tendon fibers remaining intact. The torn tendon fibers are retracted to the glenohumeral articulation. Severe subscapularis tendinosis with a near-complete full-thickness tear measuring 3.4 cm in ML dimension. Moderate supraspinatus, infraspinatus, and subscapularis muscle atrophy. 2. Complete tear and retraction of the proximal long head biceps tendon. 3. Severe acromioclavicular osteoarthritis with prominent bony remodeling and subchondral cystic change. Large, complex synovial recess versus ganglion cyst superior to the joint measuring up to 3.4 cm. 4. Superior subluxation of the humeral head related to the rotator cuff tendon tears. Moderate glenohumeral osteoarthritis and [id number] joint effusion. 5. Diffuse complex tearing of the superior and posterosuperior labrum. Allergies nitrofurantoin [Macrobid] Allergy (Unknown, Verified 10/02/23 09:15) headache HPI HPI OV- MRI review: Details: Gloria is a 73 year old right hand dominant female who presents today for an MRI follow up of her right shoulder. Patient reports that she is feeling ok, some days are good some are more painful . She feels that most of the time her pain is minimal. [facility] Medical History Mitral regurgitation S/P angiogram of extremity (11/15/18) Anemia Depression Atherosclerotic heart disease On beta tony at home PVD (peripheral vascular disease) HTN (hypertension) CAD (coronary artery disease) Prosthetic valve dysfunction Hyperlipidemia Surgical History History of cataract extraction Hx of endoscopy Hx of colonoscopy S/P AVR Hx of CABG H/O left wrist surgery Family History Father Depression Mother Depression Heart disease CHF (congestive heart failure) Paternal Grandmother Cancer Other Mental health disorder Social History Housing: House Alcohol intake: never Patient Tobacco Use Status: Former Tobacco user e-Cigarette/Vaping Use: Never Used Second Hand Smoke Exposure: Yes service: No Current occupational status: retired Cognitive needs: No Hearing needs: No Vision needs: Yes (Reading glasses) Physical Exam Extrem Other: She is able to get her hand to the back of her head comfortably. She has full overhead glenohumeral combined abduction. External rotation to 20 degrees. Positive lift-off. Results Reviewed Results Reviewed: IMPRESSION: 1. Complete, full-thickness tear of the supraspinatus tendon extending through the majority of the infraspinatus tendon with a few irregular posterior infraspinatus tendon fibers remaining intact. The torn tendon fibers are retracted to the glenohumeral articulation. Severe subscapularis tendinosis with a near-complete full-thickness tear measuring 3.4 cm in ML dimension. Moderate supraspinatus, infraspinatus, and subscapularis muscle atrophy. 2. Complete tear and retraction of the proximal long head biceps tendon. 3. Severe acromioclavicular osteoarthritis with prominent bony remodeling and subchondral cystic change. Large, complex synovial recess versus ganglion cyst superior to the joint measuring up to 3.4 cm. 4. Superior subluxation of the humeral head related to the rotator cuff tendon tears. Moderate glenohumeral osteoarthritis and [id number] joint effusion. 5. Diffuse complex tearing of the superior and posterosuperior labrum. Assessment & Plan Assessment & Plan (1) Rotator cuff arthropathy of right shoulder: Code(s): M12.811 - Other specific arthropathies, not elsewhere classified, right shoulder Category: Medical Plan: This is a 73-year-old woman with right rotator cuff arthropathy. Overall she is only mildly affected. Her motion is good. She does not do any heavy lifting. We did discuss treatment options. Given her medical comorbidities and her lack of pain I do not recommend surgery at this time. I suspect it is unlikely that she will ever be a surgical candidate given her coronary artery disease and status post aortic valve replacement with peripheral vascular disease. If her pain worsens she will return to see me for injections. (2) CAD (coronary artery disease): Code(s): I25.10 - Atherosclerotic heart disease of [place] coronary artery without angina pectoris Category: Medical Plan: (3) S/P AVR: Comment: 19 mm bioprosthetic aortic valve replacement with Trifecta bioprosthesis. Immediate postoperative mean gradient of 30 mm Hg consistent with patient prosthesis mismatch Code(s): Z95.2 - Presence of prosthetic heart valve Category: Surgical Plan: Coding Level of Care Code Est Pt Level 4 (25775) Diagnoses Rotator cuff arthropathy of right shoulder M12.811 CAD (coronary artery disease) I25.10 S/P AVR Z95.2
== END 2023-11-20 10:51 | disposition home or self-care (01) ==
PROVIDERS: PCP Internal Medicine; Visit Provider Orthopaedic Surgery
DX: M12.811 Other specific arthropathies, not elsewhere classified, right shoulder (principal); I25.10 Atherosclerotic heart disease of native coronary artery without angina pectoris; Z95.2 Presence of prosthetic heart valve
CPT/HCPCS: 99213

== ENCOUNTER → 2023-11-20 08:32 | Outpatient (BNVA) | payer MEDICARE, SELFPAY | PROVIDERS: PCP Internal Medicine; Visit Provider Orthopaedic Surgery | DX: M12.811 Other specific arthropathies, not elsewhere classified, right shoulder (principal); I25.10 Atherosclerotic heart disease of native coronary artery without angina pectoris; I10 Essential (primary) hypertension; Z95.2 Presence of prosthetic heart valve | CPT/HCPCS: 99212 ==

== ENCOUNTER → 2024-01-05 08:03 | Outpatient (REF) | payer MEDICARE, SELFPAY ==
--- NOTE | 2024-01-05 08:05 | CA_ITS ---
Transthoracic Echocardiogram Patient (Last, First, Middle): Gloria Mustafa L Gender: Female Date of : 1950 Age: 73 Procedure Date: 01/05/2024 Procedure Type: Transthoracic Echocardiogram Location: OP Height: 157.48 cm Weight: 70.31 kg BSA: 1.72 m2 Heart Rate: bpm BP: 150 / 70 mmHg Commercial Portfolio Manager: TO Referring MD: Sammy Paredes MD Symptoms: Z95.2 - Presence of prosthetic heart valve Study Quality: Fair Conclusions: - 1.Severe stenosis of bioprosthetic aortic valve 2. Normal LV ejection fraction with LVEF of 60-65% with moderate LVH with severe asymmetric basal septal hypertrophy with impaired relaxation filling pattern next 3. Moderately dilated left atrium 4. Calcific mitral valve changes noted with mild mitral regurgitation 5. Normal RV systolic pressure 6. No gross pericardial effusion Findings Left Ventricle Normal left ventricular size and systolic function. There is moderately increased left ventricular wall thickness. The visually estimated ejection fraction is between 60-65%. Spectral Doppler is indicative of an impaired relaxation filling pattern. There is severe septal asymmetric hypertrophy. Right Ventricle Normal right ventricular cavity size and systolic function. Atria The left atrium is moderately dilated. There is no evidence of interatrial shunt. The right atrium is normal in size. Aortic Valve A bioprosthetic aortic valve is present. The prosthetic aortic valve appears to be functioning abnormally. Echo findings are consistent with stenosis of the aortic valve prosthesis. The aortic valve was not well visualized. The peak aortic gradient is 74 mmHg.The mean gradient is 42 mmHg. The aortic valve area is 0.94 cm2. There is no aortic valve regurgitation. Mitral Valve There is moderate anterior and severe posterior mitral leaflet thickening. There is moderate mitral annular calcification. There is mild mitral valve regurgitation. Pulmonic Valve The pulmonic valve is likely normal. There is trace pulmonic valve regurgitation. Tricuspid Valve Normal tricuspid valve structure. There is mild tricuspid valve regurgitation. The right ventricular systolic pressure is normal. The right ventricular systolic pressure is 19 mmHg. Normal right atrial pressure. There is no evidence of pulmonary hypertension. Great Vessels All visible segments of the aorta are normal in size. The pulmonary artery was not well visualized. There is no dilatation of the ascending aorta measuring 2.90 cm. Venous The inferior vena cava is normal in size and collapses greater than 50% with inspiration. Pericardium/Pleural There is no evidence of pericardial effusion. Prior Study Comparison Significant changes compared to prior study dated: 01/05/2024. severe stenosis of bioprosthetic valve noted Measurements 2D Linear Measurements IVSd: 1.87 0.6-0.9/0.6-1.0 cm LVIDd: 3.19 3.9-5.3/4.2-5.9 cm LVIDd Index: 1.85 2.4-3.2/2.2-3.1 cm/m2 LVIDs: 2.27 2.0-3.6 cm LVPWd: 0.92 0.7-1.1 cm LA Diam: 4.00 2.7-3.8/3.0-4.0 cm LAIDs Index: 2.33 1.5-2.3 cm/m2 LV Mass: 188.53 67-162/88-224 g LV Mass Index: 109.61 43-95/49-115 g/m2 LVOT Diam: 1.80 3.0+(-)1.3 cm Mitral Valve MV VTI: 0.54 MV Pk Uziel: 1.56 MV Mn Uziel: 0.88 MV Pk Grad: 10.00 MV Mn Grad: 4.00 MV Pk E: 1.28 MV PK A: 1.43 MV Decel Time: 378.00 E/A: 0.90 E'Lateral: 3.26 E'Medial: 2.94 E/E' Med: 43.50 E/E' Lat: 39.30 PHT: 111.00 MVA PHT: 1.98 MVA Continuity: 1.76 Decel [place]: 3.39 Aortic Valve AoV Pk Uziel: 4.29 AoV Mn Uziel: 3.02 AoV VTI: 1.00 AoV Pk Grad: 74.00 Aov Mn Grad: 42.00 CATE Cont.VTI: 0.94 LVOT LVOT Pk Uziel: 1.44 LVOT Mn Uziel: 0.99 LVOT VTI: 0.37 LVOT Pk Grad: 8.00 LVOT Mn Grad: 5.00 LVOT Diam: 1.80 LVOT Area: 2.54 Diastolic Function MV Pk E: 1.28 MV Pk A: 1.43 E/A: 0.90 E'Medial: 2.94 E/E' Med: 43.50 E' Laterial: 3.26 E/E' Lat: 39.30 Right Ventricle TAPSE (mm): 16.50 TVS' Uziel: 7.02 Tricuspid Valve TR Pk Uziel: 2.00 TR Pk Grad: 16.00 RA Press: 3.00 RVSP: 19.00 Great Vessels Aorta Ao Asc: 2.90 2.1-3.4 cm Updated in Other Vendor System with Status of Final Sammy Paredse MD electronically signed on 01/06/2024 11:33:32 AM with status of Final
== END ==
LOC: HO.CARD 08:03
PROVIDERS: PCP Internal Medicine; Visit Provider Internal Medicine Cardiovascular Disease
DX: Z95.2 Presence of prosthetic heart valve (principal)
CPT/HCPCS: 93306

== ENCOUNTER → 2024-01-05 08:05 | Outpatient (BNV) | payer MEDICARE, SELFPAY | PROVIDERS: PCP Internal Medicine; Visit Provider Internal Medicine Cardiovascular Disease | DX: T82.857A Stenosis of other cardiac prosthetic devices, implants and grafts, initial encounter (principal); I34.0 Nonrheumatic mitral (valve) insufficiency; I34.81 Nonrheumatic mitral (valve) annulus calcification; I36.1 Nonrheumatic tricuspid (valve) insufficiency | CPT/HCPCS: 93306 ==

== ENCOUNTER 2024-01-19 08:19 | Outpatient (AMB) | payer MEDICARE, SELFPAY ==
--- NOTE | 2024-01-19 08:23 | MHC.PC.OV ---
Vital Signs 01/19/24 08:24 Height 5 ft 2 in Weight 160 lb BMI 29.3 BP 112/62 Blood Pressure Location Lt brachial Position Sitting Pulse 56 Pulse Source Pulse Oximeter Pulse Oximetry (%) 98 Oxygen Delivery Method Room Air Intake Visit Reasons: 6 mo f/u Intake Note: Patient is here to follow up on CAD, HTN, HLD. Front Window Cashier Required: No Home Health Billing Specialist: Not Required per policy Accompanied by: Self / Same As Patient Allergies nitrofurantoin [Macrobid] Allergy (Unknown, Verified 01/19/24 08:24) headache Medication List - Last Reconciled 01/19/24 by Maximilian Bay MD aspirin (Adult Low Dose Aspirin) 81 mg PO DAILY atorvastatin 80 mg PO DAILY cyanocobalamin (vitamin B-12) 1,000 mcg PO DAILY ezetimibe 10 mg PO DAILY fluticasone propionate 50 mcg/actuation 1 spray intranasal BID losartan 100 mg PO DAILY meloxicam 15 mg PO DAILY metoprolol tartrate 50 mg PO BID solifenacin (Vesicare) 5 mg PO DAILY Tobacco use date assessed: 01/19/24 Fall risk assessment: No Falls in past year Last assessed Fall Risk: 01/19/24 Dental Screening Dental Screen Date: 07/19/23 HPI 6 mo f/u HPI Details hyperlipidemia on rx; doing well; due for labs [facility] Medical History Mitral regurgitation S/P angiogram of extremity (11/15/18) Anemia Depression Atherosclerotic heart disease On beta tony at home PVD (peripheral vascular disease) HTN (hypertension) CAD (coronary artery disease) Prosthetic valve dysfunction Hyperlipidemia Surgical History History of cataract extraction Hx of endoscopy Hx of colonoscopy S/P AVR Hx of CABG H/O left wrist surgery Family History Father Depression Mother Depression Heart disease CHF (congestive heart failure) Paternal Grandmother Cancer Other Mental health disorder Social History Housing: House Alcohol intake: never Patient Tobacco Use Status: Former Tobacco user e-Cigarette/Vaping Use: Never Used Second Hand Smoke Exposure: Yes service: No Current occupational status: retired Cognitive needs: No Hearing needs: No Vision needs: Yes (Reading glasses) Questionnaire Thrive Questionnaire Date Thrive assessed: 07/19/23 JOSE D-7 AMB Questionnaire JOSE D-7 Date JOSE D - 7 assessed: 07/19/23 Source: Developed by Drs. Dwayne Damon, Anna Austin, Master Wilson and colleagues, with an educational wil from [employer]. Review of Systems Const Denies chills, Denies headache(s) and Denies weight loss ENT Denies headache(s) Card Denies chest pain, Denies syncope, Denies irregular heart rhythm and Denies dyspnea Resp Denies chest congestion, Denies cough and Denies dyspnea GI Denies abdominal pain, Denies change in stool character, Denies nausea and Denies vomiting Musc Denies deformity and Denies joint swelling Neuro Denies syncope and Denies headache(s) Physical exam (Primary Care) Vital Signs: Last Vital Signs Pulse 56 01/19/24 08:24 BP 112/62 01/19/24 08:24 Pulse Ox 98 01/19/24 08:24 Oxygen Delivery Method Room Air 01/19/24 08:24 BMI result Body Mass Index 29.3 Tobacco/Smoking Status: Tobacco use Status Tobacco use date assessed 01/19/24 01/19/24 08:28 Patient Tobacco Use Status Former Tobacco user 01/19/24 08:28 e-Cigarette/Vaping Use Never Used 01/19/24 08:28 Thrive Assessment: Date of Thrive Assessment Date Thrive assessed 07/19/23 01/19/24 08:28 Const General: cooperative, comfortable, no acute distress and alert Neck Neck: Yes no lymphadenopathy Thyroid: Thyroid normal Resp Effort & Inspection: normal respiratory effort Auscultation: clear to auscultation bilaterally Percussion: percussion normal Cardio Jugular venous distension: no JVD Palpation: normal PMI Rate: regular rate Rhythm: regular rhythm Heart sounds: S1 normal heart sound present and S2 normal heart sound present GI Inspection: Yes normal to inspection Palpation (GI): No hepatosplenomegaly present Skin General skin exam: no rashes or lesions noted Extrem General: Yes no clubbing, cyanosis or edema Coding Level of Care Code Est Pt Level 3 (92222) Diagnoses Hyperlipidemia E78.5 Assessment & Plan Assessment & Plan (1) Hyperlipidemia: Code(s): E78.5 - Hyperlipidemia, unspecified Category: Medical Plan: stable; do labs; same rx Orders: Orders Comprehensive [place]. Panel Fast Today Z13.9 - Encounter for screening, unspecified Lipid Panel Today Z13.220 - Encounter for screening for lipoid disorders Thyroid Stimulating Hormone Today Z13.29 - Encounter for screening for other suspected endocrine disorder Complete Blood Count Auto Diff Today Z13.0 - Encounter for screening for diseases of the blood and blood-forming organs and certain disorders involving the immune mechanism
[2024-01-19 08:24] VITALS: BP 112/62; PULSE 56; O2SAT 98; BMI 29.3
== END 2024-01-19 14:01 | disposition home or self-care (01) ==
PROVIDERS: PCP Internal Medicine; Visit Provider Internal Medicine
DX: E78.5 Hyperlipidemia, unspecified (principal)

== ENCOUNTER → 2024-01-19 08:19 | Outpatient (BNVA) | payer MEDICARE, SELFPAY | PROVIDERS: PCP Internal Medicine; Visit Provider Internal Medicine | DX: E78.5 Hyperlipidemia, unspecified (principal) | CPT/HCPCS: 99212 ==

== ENCOUNTER 2024-01-23 08:20 | Outpatient (AMB) | payer MEDICARE, SELFPAY ==
[2024-01-23 08:29] VITALS: BP 120/80; PULSE 56; BMI 28.6
--- NOTE | 2024-01-23 08:29 | MHC.OFFVIS ---
Vital Signs 01/23/24 08:29 Height 5 ft 2 in Weight 156 lb 8.451 oz BMI 28.6 BP 120/80 Blood Pressure Location Lt brachial Position Sitting Pulse 56 Intake Visit Reasons: 6m follow up/echo Intake Note: 6 month follow-up after echo feeling good Allergies nitrofurantoin [Macrobid] Allergy (Unknown, Verified 01/19/24 08:24) headache Medication List - Last Reconciled 01/23/24 by Sammy Paredes MD aspirin (Adult Low Dose Aspirin) 81 mg PO DAILY atorvastatin 80 mg PO DAILY cyanocobalamin (vitamin B-12) 1,000 mcg PO DAILY ezetimibe 10 mg PO DAILY fluticasone propionate 50 mcg/actuation 1 spray intranasal BID losartan 100 mg PO DAILY meloxicam 15 mg PO DAILY metoprolol tartrate 50 mg PO BID solifenacin (Vesicare) 5 mg PO DAILY HPI Comments Details: Gloria comes for follow-up. She has no new symptoms at current point time with exertion. Denies any exertional chest pain, lightheadedness, shortness of breath. However she says she can not walk long distances because of the hip pain related to her sciatica. She denies any orthopnea, PND, leg edema. No lightheadedness, syncope. Recent echocardiogram shows severe stenosis of the bioprosthetic aortic valve with mean gradient of 42 mm Hg with moderate LVH and normal LV ejection fraction with normal RV systolic pressure. [facility] Medical History Mitral regurgitation S/P angiogram of extremity (11/15/18) Anemia Depression Atherosclerotic heart disease On beta tony at home PVD (peripheral vascular disease) HTN (hypertension) CAD (coronary artery disease) Prosthetic valve dysfunction Hyperlipidemia Surgical History History of cataract extraction Hx of endoscopy Hx of colonoscopy S/P AVR Hx of CABG H/O left wrist surgery Family History Father Depression Mother Depression Heart disease CHF (congestive heart failure) Paternal Grandmother Cancer Other Mental health disorder Social History Housing: House Alcohol intake: never Patient Tobacco Use Status: Former Tobacco user e-Cigarette/Vaping Use: Never Used Second Hand Smoke Exposure: Yes service: No Current occupational status: retired Cognitive needs: No Hearing needs: No Vision needs: Yes (Reading glasses) Review of Systems Const Denies chills, Denies fatigue, Denies fever(s), Denies frequent falls, Denies weakness, Denies weight gain and Denies weight loss ENT Denies dizziness Card Denies chest pain, Denies leg edema, Denies lightheadedness, Denies palpitations, Denies dyspnea, Denies dyspnea on exertion, Denies orthopnea and Denies other (loss of consciousness) Resp Denies cough, Denies dyspnea and Denies dyspnea on exertion GI Denies hematochezia and Denies change in stool character Musc Denies abnormal gait, Denies muscle weakness, Denies numbness, Denies radiating pain into limb and Denies tingling Neuro Denies abnormal gait, Denies dizziness, Denies frequent falls, Denies numbness, Denies tingling and Denies weakness Endo Denies fatigue and Denies palpitations Physical Exam Vital Signs: Last Vital Signs Pulse 56 01/23/24 08:29 BP 120/80 01/23/24 08:29 BMI result Body Mass Index 28.6 Const General: cooperative, comfortable, no acute distress, alert and awake Nutritional Appearance: average body habitus Orientation/consciousness: patient oriented x3 Limitations: no limitations Neck Neck: Yes trachea midline, Yes supple and Yes no JVD Carotids: normal carotid upstroke and other (Transmitted murmur) Chest Chest palpation & inspection: normal inspection of the chest and other (Well-healed sternotomy scar) Resp Effort & Inspection: normal respiratory effort Auscultation: clear to auscultation bilaterally Cardio Jugular venous distension: no JVD Palpation: normal PMI Rate: regular rate Rhythm: regular rhythm Heart sounds: S1 normal heart sound present, S2 normal heart sound present (Soft) and Murmur heart sound present systolic late, decrescendo and crescendo GI Auscultation: normal bowel sounds Skin General skin exam: no rashes or lesions noted Neuro General: patient oriented x3 and no focal motor deficits Extrem General: Yes no clubbing, cyanosis or edema Psych Appearance: grossly normal Assessment & Plan Assessment & Plan (1) Prosthetic valve dysfunction: Code(s): T82.09XA - Other mechanical complication of heart valve prosthesis, initial encounter Category: Medical Plan: Prosthetic valve dysfunction with recent echocardiogram suggestive of severe stenosis of the bioprosthetic valve with mean gradient of 42 mm Hg. This is suggestive of degeneration of her bioprosthetic valve. She has no obvious symptoms although a symptoms may be mass due to her reduced exercise capacity. I suggest her to undergo treadmill stress test to evaluate for hemodynamic response to exercise. If she has significant limitation exercise capacity or abnormal blood pressure response or abnormal EKG changes may need sooner aortic valve replacement, with consideration for transcatheter aortic valve replacement with valve in valve procedure. This will need to be discussed further. If she does well with stress test that will follow-up with 6 months of echocardiogram. Cardinal symptoms associated with severe aortic stenosis were discussed. She understands. Continue low-dose aspirin therapy. Continue SBE prophylaxis as per ACC/[place] guidelines. (2) CAD (coronary artery disease): Code(s): I25.10 - Atherosclerotic heart disease of [place] coronary artery without angina pectoris Category: Medical Plan: CAD status post coronary artery bypass grafting with no recurrent symptoms suggestive of angina at current point time. Continue low-dose aspirin therapy. Continue high-intensity statin therapy with ezetimibe with target goal LDL closer to 60 mg/dL. Continue aggressive blood pressure control which is currently well optimized. Importance of good blood pressure control was discussed. Advised to call me with any new symptoms. Will follow up in the clinic in 6 months time, sooner p.r.n.. Thank you for allowing me to partake in his care Orders: Orders CA stress test Today T82.09XA - Other mechanical complication of heart valve prosthesis, initial encounter CA echo transthoracic complete 6 Months T82.09XA - Other mechanical complication of heart valve prosthesis, initial encounter Coding Level of Care Code Est Pt Level 4 (16119) Complex EM visit Add On G2211 Diagnoses Prosthetic valve dysfunction T82.09XA CAD (coronary artery disease) I25.10
== END 2024-01-23 08:45 | disposition home or self-care (01) ==
PROVIDERS: PCP Internal Medicine; Visit Provider Internal Medicine Cardiovascular Disease
DX: T82.09XA Other mechanical complication of heart valve prosthesis, initial encounter (principal); I25.10 Atherosclerotic heart disease of native coronary artery without angina pectoris
CPT/HCPCS: 99214; G2211

== ENCOUNTER → 2024-01-23 08:20 | Outpatient (BNVA) | payer MEDICARE, SELFPAY | PROVIDERS: PCP Internal Medicine; Visit Provider Internal Medicine Cardiovascular Disease | DX: T82.09XA Other mechanical complication of heart valve prosthesis, initial encounter (principal); I25.10 Atherosclerotic heart disease of native coronary artery without angina pectoris; I10 Essential (primary) hypertension | CPT/HCPCS: 99212 ==

== ENCOUNTER → 2024-02-05 07:35 | Outpatient (REF) | payer MEDICARE, SELFPAY ==
--- NOTE | 2024-02-05 07:38 | CA_ITS ---
Acquisition Time: 2024-02-05 08:05:24 Total Exercise Time: 00:03:00 Test Indications: SEVERE AORTIC STENOSIS Medications: ASA ATORVASTATIN EZITIMIBE FLONASE LOSARTAN MELOXICAM METOPROLOL Protocol: VENICE Max HR: 125 BPM 85% of Pred: 146 BPM Max BP: 152/084 mmHG Max Work Load: 4.6 METS Exercise stress test with exercise 3 mins of [place] Protocol, achieving 85% MPHR, with moderate SOB and requested to stop, no chest discomfort, with isolated PVC, with normotensive response to exercise. With baseline ST abnormality lead II then ST depression inferiorly in exercise and recovery equivocal for ischemia. In recovery, breathing back to baseline. Test reviewed with Dr. Paredes. Referred By: Sammy Paredes Overread By: AVELINO CARNEY
== END ==
LOC: HO.CARD 07:35
PROVIDERS: PCP Internal Medicine; Visit Provider Internal Medicine Cardiovascular Disease
DX: T82.09XA Other mechanical complication of heart valve prosthesis, initial encounter (principal)
CPT/HCPCS: 93017

== ENCOUNTER → 2024-02-05 07:38 | Outpatient (BNV) | payer MEDICARE, SELFPAY | PROVIDERS: PCP Internal Medicine; Visit Provider Nurse Practitioner Family | DX: R06.02 Shortness of breath (principal); I49.3 Ventricular premature depolarization | CPT/HCPCS: 93016; 93018 ==

== ENCOUNTER 2024-02-19 07:33 | Outpatient (REF) | payer MEDICARE, SELFPAY ==
[2024-02-19 07:45] LABS: MANUAL DIFF FLAG NO
[2024-02-19 08:24] LABS: Basophils Percent Auto 0.5 % (0-2); Eosinophils Absolute Auto 0.1 X10*3/uL (0.0-0.4); Eosinophils Percent Auto 1.2 % (0-4); Hematocrit 40.6 % (37.0-47.0); Hemoglobin 13.1 g/dl (12.0-16.0); Imm Gran Abs Auto 0.03 X10*3/uL (0.00-0.03); Imm Gran Pct Auto 0.4 % (0.0-0.4); Lymphocytes Absolute Auto 1.3 X10*3/uL (1.2-4.9); Lymphocytes Percent Auto 16.5 % (20-40); Mean Corpuscular HGB Conc 32.3 g/dl (31.0-35.0); Mean Corpuscular Hemoglobin 28.7 pg (27.0-33.0); Mean Platelet Volume 9.7 fL (9.4-12.3); Monocytes Absolute Auto 0.5 X10*3/uL (0.1-1.2); Monocytes Percent Auto 6.9 % (2-11); Neutrophils Absolute Auto 5.6 x10*3/uL (2.0-8.3); Neutrophils Percent Auto 74.5 % (45-73); Platelet Count 217 X10*3/uL (160-400); Red Blood Count 4.56 X10*6/uL (4.20-5.50); Red Cell Distribution Width 13.9 % (11.0-16.0); White Blood Count 7.6 X10*3/uL (4.8-10.8)
[2024-02-19 08:33] LABS: INTERNATIONAL NORM RATIO 0.9 (0.9-1.1)
[2024-02-19 09:05] LABS: Alanine Aminotransferase 21 U/L (0-31); Alkaline Phosphatase 97 U/L (39-117); Anion Gap 9 (12-20); Aspartate Amino Transferase 25 U/L (5-31); Bilirubin Total 0.4 mg/dL (0.0-1.0); Blood Urea Nitrogen 23 mg/dL (9-16); Calcium 8.8 mg/dL (8.4-10.2); Carbon Dioxide 27 mmol/L (22-29); Chloride 109 mmol/L (96-108); Cholesterol 131 mg/dL (<200); Estimated Glomerular Filt Rate > 60; Glucose Fasting 101 mg/dL (60-99); Glucose Random 101 mg/dL (60-115); HDL Cholesterol 49 mg/dL (>40); LDL Cholesterol Calculated 59 mg/dL (<100); Potassium 4.2 mmol/L (3.3-5.1); Sodium 141 mmol/L (135-145); Total Protein 6.7 g/dL (6.5-8.0); Triglycerides 117 mg/dL (<150)
[2024-02-19 09:11] LABS: Thyroid Stimulating Hormone 2.17 uIU/mL (0.32-4.0)
== END 2024-02-19 07:34 | disposition home or self-care (01) ==
LOC: HO.LAB 07:33
PROVIDERS: Internal Medicine Cardiovascular Disease; PCP Internal Medicine; Visit Provider Internal Medicine
DX: T82.09XA Other mechanical complication of heart valve prosthesis, initial encounter (principal); I25.10 Atherosclerotic heart disease of native coronary artery without angina pectoris; Z95.2 Presence of prosthetic heart valve; Z13.220 Encounter for screening for lipoid disorders; Z13.0 Encounter for screening for diseases of the blood and blood-forming organs and certain disorders involving the immune mechanism; Z13.29 Encounter for screening for other suspected endocrine disorder
CPT/HCPCS: 36415; 80048; 80053; 80061; 84443; 85025; 85027; 85610

== ENCOUNTER 2024-02-27 13:28 | Outpatient (AMB) | payer MEDICARE, SELFPAY ==
--- NOTE | 2024-02-27 13:33 | A.OFFPC_ITS ---
Vital Signs 02/27/24 13:34 Height 5 ft 2 in Weight 159 lb 8 oz BMI 29.2 BP 130/76 Blood Pressure Location Lt brachial Position Sitting Intake Visit Reasons: Annual Exam Intake Note: Patient is here today for a physical. Medical Clinic Manager Required: No Photographic Editor: Not Required per policy Accompanied by: Self / Same As Patient Allergies nitrofurantoin [Macrobid] Allergy (Unknown, Verified 02/27/24 13:34) headache Medication List - Last Reconciled 02/29/24 by Maximilian Bay MD aspirin (Adult Low Dose Aspirin) 81 mg PO DAILY atorvastatin 80 mg PO DAILY cyanocobalamin (vitamin B-12) 1,000 mcg PO DAILY ezetimibe 10 mg PO DAILY fluticasone propionate 50 mcg/actuation 1 spray intranasal BID losartan 100 mg PO DAILY meloxicam 15 mg PO DAILY metoprolol tartrate 50 mg PO BID solifenacin (Vesicare) 5 mg PO DAILY Tobacco use date assessed: 02/27/24 Fall risk assessment: No Falls in past year Last assessed Fall Risk: 02/27/24 Dental Screening Dental Screen Date: 07/19/23 HPI Annual Exam HPI Details Hyperlipidmia on rx; [facility] History Mitral regurgitation S/P angiogram of extremity (11/15/18) Anemia Depression Atherosclerotic heart disease On beta tony at home PVD (peripheral vascular disease) HTN (hypertension) CAD (coronary artery disease) Prosthetic valve dysfunction Hyperlipidemia Surgical History History of cataract extraction Hx of endoscopy Hx of colonoscopy S/P AVR Hx of CABG H/O left wrist surgery Family History Father Depression Mother Depression Heart disease CHF (congestive heart failure) Paternal Grandmother Cancer Other Mental health disorder Social History Housing: House Alcohol intake: never Patient Tobacco Use Status: Former Tobacco user e-Cigarette/Vaping Use: Never Used Second Hand Smoke Exposure: Yes service: No Current occupational status: retired Cognitive needs: No Hearing needs: No Vision needs: Yes (Reading glasses) Questionnaire PHQ-9 Over the last 2 weeks, how often have you been bothered by any of the following problems? 1. Little interest or pleasure in doing things: not at all 2. Feeling down, depressed, or hopeless: not at all 3. Trouble falling or staying asleep, or sleeping too much: not at all 4. Feeling tired or having little energy: not at all 5. Poor appetite or overeating: not at all 6. Feeling bad about yourself - or that you are a failure or have let yourself or your family down: not at all 7. Trouble concentrating on things, such as reading the newspaper or watching television: not at all 8. Moving or speaking so slowly that other people could have noticed. Or the opposite - being so fidgety or restless that you have been moving around a lot more than usual: not at all 9. Thoughts that you would be better off or of hurting yourself in some way: not at all Total score: 0 Depression Screening Interpretation: Negative Depression Screening Done: Yes 48352 - PHQ-9 Billing: Yes Source: Developed by Drs. Dwayne Damon, Anna Austin, Master Wilson and colleagues, with an educational wil from [employer]. Thrive Questionnaire Date Thrive assessed: 02/27/24 I am a: Patient What is your living situation today?: I have a steady place to live Within the past 12 months, did the food you bought not last and you didn't have the money to get more?: Sometimes True Within the past 12 months, did you worry whether your food would run out before you got money to buy more?: Sometimes True Do you have trouble paying for medicines?: No Do you have trouble getting transportation to medical appointments?: No Do you have trouble paying your heating and electricity bill?: No Do you have trouble taking care of your child, family member or friend?: No Do you have trouble with day-to-day activities such as bathing, preparing meals, shopping, managing finances, etc.?: No Are you currently unemployed and looking for a job?: No Are you interested in more education?: No Please select the resources that you would like help with: None Currently or been in a relationship where the following occur: No concerns reported THRIVE Score: 2 AUDIT C Alcohol Use Questionnaire (AUDIT-C) 1. How often do you have a drink containing alcohol?: Never Total Score: 0 JOSE D-7 AMB Questionnaire JOSE D-7 Date JOSE D - 7 assessed: 02/27/24 Feeling nervous, anxious, or on edge: 0 = Not at all Not being able to stop or control worryin = Not at all Worrying too much about different things: 0 = Not at all Trouble relaxin = Not at all Being so restless that it is hard to sit still: 0 = Not at all Becoming easily annoyed or irritable: 0 = Not at all Feeling afraid as if something awful might happen: 0 = Not at all Total JOSE D-7 score (0-4 normal; 5-9 mild; 10-14 moderate; 15-21 severe): 0 Source: Developed by Drs. Dwayne Damon, Anna Austin, Master Wilson and colleagues, with an educational wil from [employer]. JOSE D-7 Assessment Billing JOSE D-7 Assessment Tool: JOSE D-7 Assessment 17525 Review of Systems Const Denies chills, Denies fatigue, Denies headache(s) and Denies weight loss Eyes Denies change in vision, Denies diplopia and Denies eye pain ENT Denies vertigo, Denies dizziness, Denies headache(s) and Denies nasal discharge Card Denies chest pain, Denies rapid heart rate and Denies dyspnea on exertion Resp Denies chest congestion, Denies cough, Denies pain with cough and Denies dyspnea on exertion GI Denies abdominal pain, Denies hematochezia and Denies change in bowel habits Musc Denies myalgias, Denies arthralgias and Denies joint swelling Skin/Breast Denies lesions and Denies unusual bruising Neuro Denies vertigo, Denies dizziness, Denies headache(s) and Denies focal weakness Endo Denies fatigue Physical exam (Primary Care) Vital Signs: Last Vital Signs BP 130/76 02/27/24 13:34 BMI result Body Mass Index 29.2 Tobacco/Smoking Status: Tobacco use Status Tobacco use date assessed 02/27/24 02/27/24 13:38 Patient Tobacco Use Status Former Tobacco user 02/27/24 13:38 e-Cigarette/Vaping Use Never Used 02/27/24 13:38 PHQ-9: PHQ-9 Score PHQ-9: Total score 0 02/27/24 13:38 Depression Screening Interpretation: Negative Thrive Assessment: Date of Thrive Assessment Date Thrive assessed 02/27/24 02/27/24 13:38 Currently or been in a relationship where the following occur: No concerns reported Const General: cooperative, healthy appearing and no acute distress Orientation/consciousness: oriented to person, oriented to place and oriented to time HENMT Head: Yes normal to inspection, Yes normocephalic and Yes atraumatic Mouth: Normal oral and palatal mucosa present and tongue normal Throat: Yes posterior oropharynx normal and Yes uvula midline Eyes General: appearance normal, both eyes and all related structures Neck Neck: Yes normal visual inspection, Yes full ROM and Yes no lymphadenopathy Thyroid: Thyroid normal Carotids: normal carotid upstroke Chest Chest palpation & inspection: normal inspection of the chest Resp Effort & Inspection: normal respiratory effort and able to speak in complete sentences Auscultation: clear to auscultation bilaterally Cardio Jugular venous distension: no JVD Palpation: normal PMI Rate: regular rate Rhythm: regular rhythm Heart sounds: S1 normal heart sound present and S2 normal heart sound present GI Inspection: Yes normal to inspection Palpation (GI): Soft to palpation and No hepatosplenomegaly present Auscultation: normal bowel sounds General: Yes no CVA tenderness Back/Spine/Pelvis Back: no CVA tenderness Skin General skin exam: no rashes or lesions noted Neuro General: oriented to person, oriented to place and oriented to time Extrem General: Yes normal to inspection and Yes full ROM Coding Level of Care Code Est Pt Prev Care >65y(89013) Diagnoses Physical exam Z00. Hyperlipidemia E78.5 Additional Codes PHQ-9 - 21326 - PHQ-9 Billing: Yes ([id number]) JOSE D-7 Assessment Billing - JOSE D-7 Assessment Tool: JOSE D-7 Assessment 87600 ([id number]) Assessment & Plan Assessment & Plan (1) Physical exam: Code(s): Z00.00 - Encounter for general adult medical examination without abnormal findings Category: Medical Plan: stable; do labs (2) Hyperlipidemia: Code(s): E78.5 - Hyperlipidemia, unspecified Category: Medical Plan: stable; same rx
[2024-02-27 13:34] VITALS: BP 130/76; BMI 29.2
== END 2024-02-27 13:52 | disposition home or self-care (01) ==
PROVIDERS: PCP Internal Medicine; Visit Provider Internal Medicine
DX: Z00.00 Encounter for general adult medical examination without abnormal findings (principal); E78.5 Hyperlipidemia, unspecified

== ENCOUNTER → 2024-02-27 13:28 | Outpatient (BNVA) | payer MEDICARE, SELFPAY | PROVIDERS: PCP Internal Medicine; Visit Provider Internal Medicine | DX: Z00.00 Encounter for general adult medical examination without abnormal findings (principal); E78.5 Hyperlipidemia, unspecified; I10 Essential (primary) hypertension | CPT/HCPCS: 96127; 99397 ==

== ENCOUNTER → 2024-03-05 23:59 | Outpatient (BNV) | payer MEDICARE, SELFPAY | PROVIDERS: PCP Internal Medicine; Visit Provider Internal Medicine Cardiovascular Disease | DX: I42.9 Cardiomyopathy, unspecified (principal); I50.20 Unspecified systolic (congestive) heart failure | CPT/HCPCS: 92937; 92978; 93461; 93566; 99152 ==

== ENCOUNTER 2024-03-19 08:14 | Outpatient (AMB) | payer MEDICARE, SELFPAY ==
--- OUTSIDE RECORDS SUMMARY | 2024-03-19 08:18 | XMS_ITS | Continuity of Care Document ---
Author Organization [facility] Madalyn veronica Address [address] [place], [place] [address] [address]- Care Team Providers Care Mogul Operator Name Role Phone Phu SALDANA, Maximilian Neri Primary Care Physician [place] [facility]): [place] 03/18/24 [facility] [address] [place] [address] Drive [address] [place] [address]- Attending Physician: Torres Hayward MD Referring Physician: Erika Guaman MD Encounter Type: Office Visit Allergies, Adverse Reactions, Alerts Substance Criticality Severity Reaction Reaction Severity Status Macrobid Active Medications acetaminophen 325 mg oral tablet 975 mg, By Mouth, Every 6 hours, Refills 0, Maintenance, 06/24/16 10:51:22 AM EDT Start Date: 06/24/16 Status: Ordered Repeat number: 1 aspirin 81 mg oral delayed release tablet 81 mg, By Mouth, Daily, Refills 0, Maintenance, 06/24/16 10:51:35 AM EDT Start Date: 06/24/16 Status: Ordered Repeat number: 1 atorvastatin 80 mg oral tablet 1 tablet = 80 mg, By Mouth, Daily, # 90 tablet, 0 Refills, Maintenance, 03/01/24 3:21:00 PM EST, Tablet, Partial fill upon patient request if the prescription is for a schedule II opioid drug. Start Date: 03/01/24 Status: Ordered Quantity: 90.0 Unit: tablet Repeat number: 1 docusate sodium 100 mg oral capsule 100 mg, 1, capsule, By Mouth, 2 times a day, Refills 0, Maintenance, 06/24/16 10:51:40 AM EDT Start Date: 06/24/16 Status: Ordered Repeat number: 1 ezetimibe 10 mg oral tablet TAKE 1 TABLET BY MOUTH EVERY DAY Start Date: 03/01/24 Status: Ordered Repeat number: 1 losartan 100 mg oral tablet 1 tablet = 100 mg, By Mouth, Daily, # 30 tablet, 0 Refills, Maintenance, 03/01/24 3:21:00 PM EST, Tablet, Partial fill upon patient request if the prescription is for a schedule II opioid drug. Start Date: 03/01/24 Status: Ordered Quantity: 30.0 Unit: tablet Repeat number: 1 meloxicam 15 mg oral tablet TAKE 1 TABLET BY MOUTH EVERY DAY Start Date: 03/01/24 Status: Ordered Repeat number: 1 metoprolol 50 mg oral tablet 50 mg, By Mouth, 2 times a day, # 60 tablet, Refills 2, Tot. Refills 2, Maintenance, 07/07/16 9:01:37 AM EDT, Route to Pharmacy Electronically, [facility]/pharmacy #[id number] Start Date: 07/07/16 Status: Ordered Quantity: 60.0 Unit: tablet Repeat number: 3 ticagrelor 90 mg oral tablet 1 tablet = 90 mg, By Mouth, 2 times a day, # 180 tablet, 3 Refills, Maintenance, 03/05/24 12:26:00 PMEST, Tablet, [facility], Partial fill upon patient request if the prescription is fora schedule II opioid drug., 157, cm, 03/05/24 9:11:00 EST, Height, 72.4, kg, 03/05/24 9:11:00 EST, Dry Weight Start Date: 03/05/24 Status: Ordered Quantity: 180.0 Unit: tablet Repeat number: 4 Vital Signs Most recent to oldest [Reference Range]: 1 Height 157 cm (03/11/24 9:02 AM) Weight 70.4 kg (03/11/24 9:02 AM) Oxygen Saturation [94-100 %] 99 % (03/11/24 9:02 AM) Pulse Rate [55-90 bpm] 71 bpm (03/11/24 9:02 AM) Body Mass Index [18.5-24.99 kg/m2] 28.56 kg/m2 *H* (03/11/24 9:02 AM) Blood Pressure [90-138/55-84 mm Hg] 124/ 80mm Hg (03/11/24 9:02 AM) Respiratory Rate [16-30 br/min] 14 br/mi n *L* (03/11/24 9:02 AM) Temperature [96.8-100.4 DegF] 97 DegF (03/11/24 9:02 AM) Mode of Delivery (Oxygen) Room air (03/11/24 9:02 AM) Blood pressure sites Arm, left (03/11/24 9:02 AM) Temperature Route Oral (03/11/24 9:02 AM) Weight Obtained Via Standing scale (03/11/24 9:02 AM) Social History Social History Type Response Smoking Status Former smoker; Tobac co user in household: No entered on: 07/07/16 Sex Sex Representation Female (finding) Cardiac surgery Outpatient Note * Mainor SALDANA, Torres Bynum: MODIFY, PERFORM Event Display: Cardiac Surgery Note Office Authored Date: [id number] Patient: ??MARCIO GONAZLEZ ? Age:??73 Years?Sex:??Female?:??1950?? 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 Chief Complaint TAVR She has noted increased fatigue recently.?? She currently experiences becoming winded after climbing two flights of stairs. History of Present Illness This 73 year old female with CAD and aortic stenosis??is nearly 8 years s/p an AVR and a 4 vessel CABG in May of 2016. She has since done well. For the past several??months she has been noticing she is increasingly fatigued with exercise.?? She also has dyspnea after climbing two flights of stairs.?? There has been no history of chest pain, dizziness, lightheadedness, of syncope. A recent echocardiogram showed critical stenosis??of the 19 mm Trifecta aortic prosthesis with a peak gradient of 74 mmHg and a mean gradient of 42 mmHg. The calculated CATE was 0.94 cm2 with a valve index of 0.55 cm2/m2.?? The LV function is preserved. A cardiac catheterization showed an LVEDp of 12 mmHg and a PA pressure of 41/16 mmHg. The mean aortic gradient was 31 mmHg.?? The cardiac output was?? 4.7 lit/min with a cardiac index of 2.7 lit/min/m2. The CATE was again 0.94 cm2. The ARENAS, and the SVGs to the RCA and PLVBr are widely patent. The SVG to the ramus intermedius was severely stenosed. She underwent a??PCI and successful??placement of a RADHA of the bypass graft to the ramus.?? The TAVR protocol CT scans are scheduled. Review of Systems She is currently taking BID Brillinta for the recent RADHA to the SVG??supplying the ramus. Physical Exam Vitals & Measurements T:??97?F?? HR:??71??(Peripheral)?? RR:??14?? BP:??124/80?? SpO2:??99%?? HT:??157??cm?? WT:??70.4??kg?? BMI:??28.56? General: Alert, pleasant ? HEENT: EOM full.?? Sclera non icteric ? Neck: Supple. No masses. No bruits. No JVD ? Chest: Lung are clear to auscultation ? CV: Right radial pulse 2+ and regular. Grade IV/ systolic harsh systolic murmur radiating toboth carotids. ?Extrem: No edema. No cyanosis ? Neuro: No focal deficits ? Assessment/Plan She has developed Class 2 symptoms of dyspnea and increasing fatigue in the setting of progressive stenosis of the bioprosthetic aortic valve.?? The calculated STS mortality for an isolated redo AVR is 3.4 % but in the presence of patent bypass grafts this is an underestimation. We would therefore,pending the results of the upcoming TAVR protocol chest, abdominal and pelvic CT scans she may be an acceptable candidate for a valve in valve TAVR.?? In order to avoid a second open heart procedure she would prefer a valve in valve TAVR. Total Time Spent 60 minutes Problem List/Past Medical History Ongoing No qualifying data Medications acetaminophen 325 mg oral tablet, 975 mg, By Mouth, Every 6 hours aspirin 81 mg oral delayed release tablet, 81 mg, By Mouth, Daily atorvastatin 80 mg oral tablet, 80 mg= 1 tablet, By Mouth, Daily docusate sodium 100 mg oral capsule, 100 mg= 1 capsule, By Mouth, 2 times a day ezetimibe 10 mg oral tablet losartan 100 mg oral tablet, 100 mg= 1 tablet, By Mouth, Daily meloxicam 15 mg oral tablet metoprolol 50 mg oral tablet, 50 mg, By Mouth, 2 times a day, 2 refills ticagrelor 90 mg oral tablet, 90 mg= 1 tablet, By Mouth, 2 times a day, 3 refills Allergies Macrobid Social History Tobacco Former smoker, Tobacco user in household: No. * Ashlyn Menon MA: PERFORM, SIGN, VERIFY Event Display: Cardiac Surgery Note Office Authored Date: Patient: MARCIO GONZALEZ Age: 73 years Sex: Female : 1950 Associated Diagnoses: None Author: Ashlyn Menon MA TAVR Program Functional Assessment Test The KCCQ12 questionnaire was documented separately from this series of tests. A walk and vice president of sales tests were performed on this patient with the following results: Walk Test- Five-meter Gait Speed #1 - 7.13sec #2 - 9.37sec #3 - 7.55sec Equals = 24.06sec Average = 8.02sec Average Adult Starch Treating Assistant Strength (kg) Right: #1 - _kg #2 - _kg #3 - _kg Equals = _kg Average = _kg Graded Classification: _ Left: #1 - _kg #2 - _kg #3 - _kg Equals = _kg Average = _kg Graded Classification: _ * Ashlyn Menon MA: PERFORM, SIGN, VERIFY Event Display: Cardiac Surgery Note Office Authored Date: Patient: MARCIO GONZALEZ Age: 73 years Sex: Female : 1950 Associated Diagnoses: None Author: Ashlyn Menon MA [place] Cardiomyopathy Questionnaire (KCCQ-12) The following questions refer to your heart failure and how it may affect your life. Please read and complete the following questions. There is no right or wrong answers. Please elie the answer that best applies to you. 1. Heart failure affects different people in different ways. Some feel shortness of breath while others feel fatigue. Please indicate how much you are limited by heart failure (shortness of breath orfatigue) in your ability to do the following activities over the past 2 weeks. a. Showering/bathing: Extremely Limited (_) 1 Quite a bit limited (_) 2 Moderately Limited (x) 3 Slightly Limited (_) 4 Not at all Limited (_) 5 Limited for other reasons or did not do the activity (_) 6 b. Walking 1 block on level ground: Extremely Limited (_) 1 Quite a bit limited (_) 2 Moderately Limited (x) 3 Slightly Limited (_) 4 Not at all Limited (_) 5 Limited for other reasons or did not do the activity (_) 6 c. Hurrying or jogging (as if to catch a bus): Extremely Limited (_) 1 Quite a bit limited (x) 2 Moderately Limited (_) 3 Slightly Limited (_) 4 Not at all Limited (_) 5 Limited for other reasons or did not do the activity (_) 6 2. Over the past 2 weeks, how many times did you have swelling in your feet, ankles or legs when you woke up in the morning? Every Morning (_) 1 3 or more times per week but not every day (_) 2 1-2 times per week (_) 3 Less than once a week (_) 4 Never over the past 2 weeks (x) 5 3. Over the past 2 weeks, on average, how many times has fatigue limited your ability to do what you wanted? All of the time (_) 1 Several Times per day (_) 2 At least once a day (_) 3 3 or more times per week but not every day (_) 4 1-2 times per week (x) 5 Less than once a week (_) 6 Never over the past 2 weeks (_) 7 4. Over the past 2 weeks, on average, how many times has shortness of breath limited your ability to do what you wanted? All of the time (_) 1 Several Times per day (_) 2 At least once a day (_) 3 3 or more times per week but not every day (_) 4 1-2 times per week (x) 5 Less than once a week (_) 6 Never over the past 2 weeks (_) 7 5. Over the past 2 weeks, on average, how many times have you been forced to sleep sitting up in a chair or with at least 3 pillows to prop you up because of shortness of breath? Every night (_) 1 3 or more times per week but not every day (_) 2 1-2 times per week (_) 3 Less than once a week (_) 4 Never over the past 2 weeks (x) 5 6. Over the past 2 weeks, how much has your heart failure limited your enjoyment of life? It has extremely limited my enjoyment of life (_) 1 It has limited my enjoyment of life quite a bit (_) 2 It has moderately limited my enjoyment of life (_) 3 It has slightly limited my enjoyment of life (x) 4 It has not limited my enjoyment of life at all (_) 5 7. If you had to spend the rest of your life with your heart failure the way it is right now, how would you feel about this? Not at all satisfied (_) 1 Mostly dissatisfied (_) 2 Somewhat satisfied (x) 3 Mostly satisfied (_) 4 Completely satisfied (_) 5 8. How much does your heart failure affect your lifestyle? Please indicate how your heart failure may have limited your participation in the following activities over the past 2 weeks. a. Hobbies, recreational activities: Severely Limited (_) 1 Limited quite a bit (_) 2 Moderately Limited (_) 3 Slightly Limited (x) 4 Did not limit at all (_) 5 Does not apply or did not do for other reasons (_) 6 b. 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 Visiting family or friends out of your home: Severely Limited (_) 1 Limited quite a bit (_) 2 Moderately Limited (_) 3 Slightly Limited (x) 4 Did not limit at all (_) 5 Does not apply or did not do for other reasons (_) 6 Total Score: 47 Patient Care team information Care Team Personnel Name: Gala Braden RN Position: [facility] RN Member Role: Primary Care Nurse Name: Jayashree Rincon NP Position: [facility] PCO Associate Professional Member Role: Primary Care Nurse Address: [address] [place] [phone]- [place] Telecom: Name: Phu SALDANA, Maximilian Neri Position: Reference Physician Member Role: PCP Address: [address] [place] [phone] [place] Telecom: Care Team Related Persons Name: RITO RODGERS Insurance Providers Guarantor name: MARCIO GONZALEZ Health Plan Information #: 1 Payer: [employer] Member Number: [id number] Policy Number: NA Group Number: NA Health Plan Information #: 2 Payer: [employer] O Member Number: [id number] Policy Number: NA Group Number: NA
--- OUTSIDE RECORDS SUMMARY | 2024-03-19 08:18 | XMS_ITS | Continuity of Care Document ---
Author Organization [facility] Madalyn veronica Address [address] [place], [place] [address]p[place] [address]- Care Team Providers Care Admissions Consultant Name Role Phone Phu SALDANA, Maximilian Neri Primary Care Physician [place] [facility] [place](s[place] 02/15/24 - 03/16/24 [facility] [address] [place] [address] Drive [address] [place] [address]- Encounter Type: Triage Allergies, Adverse Reactions, Alerts Substance Criticality Severity [...] 9:01:37 AM EDT, Route to Pharmacy Electronically, [facility]/pharmacy #[id number] Start Date: 07/07/16 Status: Ordered Quantity: 60.0 Unit: tablet Repeat number: 3 ticagrelor 90 mg oral tablet 1 tablet = 90 mg, By Mouth, 2 times a day, # 180 tablet, 3 Refills, Maintenance, 03/05/24 12:26:00 PMEST, Tablet, [facility], Partial fill upon patient request if the prescription is fora schedule II opioid drug., 157, cm, 03/05/24 9:11:00 EST, Height, 72.4, kg, 03/05/24 9:11:00 EST, Dry Weight Start Date: 03/05/24 Status: Ordered Quantity: 180.0 Unit: tablet Repeat number: 4 Social History Social History Type Response Smoking Status Former smoker; Tobac co user in household: No entered on: 07/07/16 Sex Sex Representation Female (finding) Patient Care team information Care Team Personnel Name: Sampson LANGFORD, Gala Position: [facility] RN Member Role: Primary Care Nurse Name: Sergey THOMAS, Jayashree Simmons Position: [facility] PCO Associate Professional Member Role: Primary Care Nurse Address: [address] [place] [phone]- [place] Telecom: Name: Maximilian Bay MD Position: Reference Physician Member Role: PCP Address: [address] [place] [phone]- Telecom: Care Team Related Persons Name: RITO RODGERS Insurance Providers Guarantor name: [facility] Health Plan Information #: 1 Payer: [employer] HMO Member Number: NA Policy Number: NA Group Number: NA
[2024-03-19 08:28] VITALS: BP 138/80; PULSE 61; BMI 29.2
--- NOTE | 2024-03-19 08:28 | A.OFFVIS_ITS ---
Vital Signs 03/19/24 08:28 Height 5 ft 2 in Weight 159 lb 9.835 oz BMI 29.2 BP 138/80 Blood Pressure Location Lt brachial Position Sitting Pulse 61 Pulse Source Pulse Oximeter Intake Visit Reasons: Follow up post cardiac cath Steam Meter Reader Required: No Allergies nitrofurantoin [Macrobid] Allergy (Unknown, Verified 03/19/24 08:32) headache Medication List - Last Reconciled 03/19/24 by Alexa Hooper ORACLE ADF DEVELOPER-C aspirin (Adult Low Dose Aspirin) 81 mg PO DAILY atorvastatin 80 mg PO DAILY cyanocobalamin (vitamin B-12) 1,000 mcg PO DAILY ezetimibe 10 mg PO DAILY fluticasone propionate 50 mcg/actuation 1 spray intranasal BID losartan 100 mg PO DAILY meloxicam 15 mg PO DAILY metoprolol tartrate 50 mg PO BID solifenacin (Vesicare) 5 mg PO DAILY ticagrelor (Brilinta) 90 mg PO BID HPI HPI Follow up post cardiac cath: Details: Gloria is a 73-year-old female past medical history of hypertension, hyperlipidemia, peripheral vascular disease, CAD, prior Coronary artery bypass grafting, 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 Today she reports that she is scheduled to undergo a CT scan of the chest as part of TAVR evaluation. She has already met with Dr. Guaman and is expecting a call from him after the CT scan is reviewed. She does not have a date for TAVR yet. She does notice some shortness of breath with exertion. No PND, orthopnea or edema. No chest discomfort at rest or with activity. No lightheadedness, presyncope, syncope, falls. A right groin cath site is feeling good. She has been doing only light physical activity. Taking all meds as directed. [facility] Medical History (Updated 03/19/24 @ 13:00 by Alexa Hooper, ORACLE ADF DEVELOPER-C) Mitral regurgitation S/P angiogram of extremity (11/15/18) Anemia Depression Atherosclerotic heart disease On beta tony at home PVD (peripheral vascular disease) HTN (hypertension) CAD (coronary artery disease) Prosthetic valve dysfunction Hyperlipidemia Surgical History (Updated 03/19/24 @ 15:28 by Alexa Hooper, MARTHA-C) History of cataract extraction Hx of endoscopy Hx of colonoscopy S/P AVR Hx of CABG H/O left wrist surgery Family History Father Depression Mother Depression Heart disease CHF (congestive heart failure) Paternal Grandmother Cancer Other Mental health disorder Social History Housing: House Alcohol intake: never Patient Tobacco Use Status: Former Tobacco user e-Cigarette/Vaping Use: Never Used Second Hand Smoke Exposure: Yes service: No Current occupational status: retired Cognitive needs: No Hearing needs: No Vision needs: Yes (Reading glasses) Review of Systems Const All systems reviewed & are unremarkable except as noted in HPI and below Card Denies chest pain, Denies chest pain at rest, Denies chest pain with activity, Denies syncope, Denies rapid heart rate, Denies leg edema, Reports dyspnea, Reports dyspnea on exertion and Denies orthopnea Resp Reports dyspnea and Reports dyspnea on exertion GI Denies no additional complaints Denies no additional complaints Musc Details: right groin cath site feeling well Neuro Denies syncope Physical Exam Vital Signs: Last Vital Signs Pulse 61 03/19/24 08:28 BP 138/80 03/19/24 08:28 BMI result Body Mass Index 29.2 Const General: cooperative, healthy appearing, comfortable and no acute distress Orientation/consciousness: patient oriented x3 Neck Neck: Yes normal visual inspection and Yes no JVD Resp Effort & Inspection: normal respiratory effort Auscultation: clear to auscultation bilaterally, no rales, no rhonchi and no wheezes Cardio Rate: regular rate Rhythm: regular rhythm Heart sounds: S1 normal heart sound present, S2 normal heart sound present and no rubs Peripheral pulses: Peripheral pulses 2+ throughout Neuro General: patient oriented x3 Extrem Other: right femoral cath site with palpable nodule at site, easily palpable femoral pulse, no bruit General: Yes normal to inspection, No no pedal edema and No calf tenderness Psych Appearance: grossly normal Mental Status: mental status grossly normal Speech and movement: Normal speech and movement present Assessment & Plan Assessment & Plan (1) Prosthetic valve dysfunction: Code(s): T82.09XA - Other mechanical complication of heart valve prosthesis, initial encounter Category: Medical Plan: History of bioprosthetic aortic valve. Recent echo is showing severe stenosis of the bioprosthetic aortic valve. An exercise stress test done 02/05/2024 to assess for symptoms showed exercise 3 minutes, moderate shortness of breath and request to stop. A cardiac catheterization was done on 03/05/2024, details as below, with RADHA placed to the ostium of the SVG graft to the ramus intermedius. She was seen by Dr. Guaman as part of TAVR evaluation. She is going to be having a CT scan of the chest soon. She then expects Dr. Guaman to call her regarding the plan for valve replacement. Cardinal signs of severe reviewed with her. She does have some shortness of breath with exertion. She has no chest discomfort and no lightheadedness. Continue light activity only as tolerated. Emergency care if ever needed for symptoms. No medication changes made. Cardiology follow-up 3 months, sooner if needed. Anticipate valve replacement to be done by that time. (2) S/P cardiac cath: Comment: 03/05/2024, severe left main stenosis, 75%, lad diffuse disease in the proximal segment with patent ARENAS to LAD, left circumflex 99% ostial vein graft stenosis to the ramus, proximal circumflex 50% stenosis, RCA proximal 100% stenosis, ALIGNMENT TECHNICIAN - vein graft aorta right to the distal RCA patent, vein graft from the aorta right to the 1st RLP patent -RADHA from the osium of SVG graft to the ramus intermedius Code(s): Z98.890 - Other specified postprocedural states Category: Surgical Plan: Right groin cath site healing well. Palpable right femoral pulse and no bruit audible. (3) S/P AVR: Comment: 19 mm bioprosthetic aortic valve replacement with Trifecta bioprosthesis. Immediate postoperative mean gradient of 30 mm Hg consistent with patient prosthesis mismatch, 2017 Code(s): Z95.2 - Presence of prosthetic heart valve Category: Surgical Plan: As above (4) Aortic stenosis: Code(s): I35.0 - Nonrheumatic aortic (valve) stenosis Category: Medical Plan: Bioprosthetic valve now has severe (5) CAD (coronary artery disease): Code(s): I25.10 - Atherosclerotic heart disease of [place] coronary artery without angina pectoris Category: Medical Plan: History of CAD with 4 vessel Coronary artery bypass grafting. Cardiac catheterization as above. New stent placed to the ostium of the SVG graft to the ramus. No reports of chest discomfort. Continue aspirin indefinitely. Continue Brilinta uninterrupted for at least 1 year post stent. Continue high- dose atorvastatin with ideal LDL goal less than 70. Continue metoprolol. (6) Hx of CABG: Comment: 06/15/2016 CABG x [address] Martin - [facility] [place] 05/2016. ARENAS to LAD and SVG to OM1, RCA and RPLV Code(s): Z95.1 - Presence of aortocoronary bypass graft Category: Surgical Plan: As above Plan Time spent on chart review, documentation, interview and assessment Medications: New ticagrelor (Brilinta) 90 mg PO BID 180 tabs 3RF 90 days Coding Level of Care Code Est Pt Level 4 (71610) Complex EM visit Add On G2211 Diagnoses Prosthetic valve dysfunction T82.09XA S/P cardiac cath Z98.890 S/P AVR Z95.2 Aortic stenosis I35.0 CAD (coronary artery disease) I25.10 Hx of CABG Z95.1 Time Spent (min) 30
== END 2024-03-19 09:10 | disposition home or self-care (01) ==
PROVIDERS: PCP Internal Medicine; Visit Provider Nurse Practitioner Family
DX: T82.09XA Other mechanical complication of heart valve prosthesis, initial encounter (principal); Z98.890 Other specified postprocedural states; Z95.2 Presence of prosthetic heart valve; I35.0 Nonrheumatic aortic (valve) stenosis; I25.10 Atherosclerotic heart disease of native coronary artery without angina pectoris; Z95.1 Presence of aortocoronary bypass graft
CPT/HCPCS: 99214; G2211

== ENCOUNTER → 2024-03-19 08:14 | Outpatient (BNVA) | payer MEDICARE, SELFPAY | PROVIDERS: PCP Internal Medicine; Visit Provider Nurse Practitioner Family | DX: I10 Essential (primary) hypertension (principal); I73.9 Peripheral vascular disease, unspecified; I25.10 Atherosclerotic heart disease of native coronary artery without angina pectoris; I35.0 Nonrheumatic aortic (valve) stenosis; E78.5 Hyperlipidemia, unspecified; T82.09XA Other mechanical complication of heart valve prosthesis, initial encounter; Z95.1 Presence of aortocoronary bypass graft; Z98.890 Other specified postprocedural states | CPT/HCPCS: 99212 ==

== ENCOUNTER 2024-05-09 11:23 | Outpatient (AMB) | payer MEDICARE, SELFPAY ==
--- NOTE | 2024-05-09 11:32 | MHC.PC.OV ---
Vital Signs 05/09/24 11:33 Height 5 ft 2 in Weight 152 lb 2 oz BMI 27.8 BP 112/72 Blood Pressure Location Lt brachial Position Sitting Pulse 62 Pulse Source Pulse Oximeter Temp 97.3 F Temp Source Temporal Artery Scan Pulse Oximetry (%) 100 Oxygen Delivery Method Room Air Intake Visit Reasons: 3 month f/u Intake Note: Patient is here to follow up on CAD, HTN, HLD. Employee Training Specialist Required: No Employee Health Rn: Not Required per policy Accompanied by: Self / Same As Patient Allergies nitrofurantoin [Macrobid] Allergy (Unknown, Verified 05/09/24 11:33) headache Medication List - Last Reconciled 05/09/24 by Maximilian Bay MD aspirin (Adult Low Dose Aspirin) 81 mg PO DAILY atorvastatin 80 mg PO DAILY cyanocobalamin (vitamin B-12) 1,000 mcg PO DAILY ezetimibe 10 mg PO DAILY fluticasone propionate 50 mcg/actuation 1 spray intranasal BID losartan 100 mg PO DAILY meloxicam 15 mg PO DAILY metoprolol tartrate 50 mg PO BID solifenacin (Vesicare) 5 mg PO DAILY ticagrelor (Brilinta) 90 mg PO BID 90 days Tobacco use date assessed: 05/09/24 Fall risk assessment: No Falls in past year Last assessed Fall Risk: 05/09/24 Dental Screening Dental Screen Date: 05/09/24 Did you have a dental visit in the last 12 months?: Yes Did you have a dental problem in the last 6 months where you did not have access to dental care?: No Was dental information given to patient?: Patient has dentist HPI 3 month f/u HPI Details Afib and recent AV replacement; doing well; sees cardiology [facility] Medical History (Updated 03/19/24 @ 13:00 by KEYA Kline) Mitral regurgitation S/P angiogram of extremity (11/15/18) Anemia Depression Atherosclerotic heart disease On beta tony at home PVD (peripheral vascular disease) HTN (hypertension) CAD (coronary artery disease) Prosthetic valve dysfunction Hyperlipidemia Surgical History (Updated 05/09/24 @ 12:29 by Maximilian Bay MD) History of heart artery stent History of aortic valve replacement History of cataract extraction Hx of endoscopy Hx of colonoscopy S/P AVR Hx of CABG H/O left wrist surgery Family History Father Depression Mother Depression Heart disease CHF (congestive heart failure) Paternal Grandmother Cancer Other Mental health disorder Social History Housing: House Alcohol intake: never Patient Tobacco Use Status: Former Tobacco user e-Cigarette/Vaping Use: Never Used Second Hand Smoke Exposure: Yes service: No Current occupational status: retired Cognitive needs: No Hearing needs: No Vision needs: Yes (Reading glasses) Questionnaire PHQ-9 Over the last 2 weeks, how often have you been bothered by any of the following problems? 1. Little interest or pleasure in doing things: not at all 2. Feeling down, depressed, or hopeless: not at all 3. Trouble falling or staying asleep, or sleeping too much: not at all 4. Feeling tired or having little energy: not at all 5. Poor appetite or overeating: not at all 6. Feeling bad about yourself - or that you are a failure or have let yourself or your family down: not at all 7. Trouble concentrating on things, such as reading the newspaper or watching television: not at all 8. Moving or speaking so slowly that other people could have noticed. Or the opposite - being so fidgety or restless that you have been moving around a lot more than usual: not at all 9. Thoughts that you would be better off or of hurting yourself in some way: not at all Total score: 0 Depression Screening Interpretation: Negative Depression Screening Done: Yes Source: Developed by Drs. Dwayne Damon, Anna Austin, Master Wilson and colleagues, with an educational wil from [employer]. Thrive Questionnaire Date Thrive assessed: 05/09/24 I am a: Patient What is your living situation today?: I have a steady place to live Within the past 12 months, did the food you bought not last and you didn't have the money to get more?: Sometimes True Within the past 12 months, did you worry whether your food would run out before you got money to buy more?: Sometimes True Do you have trouble paying for medicines?: No Do you have trouble getting transportation to medical appointments?: No Do you have trouble paying your heating and electricity bill?: No Do you have trouble taking care of your child, family member or friend?: No Do you have trouble with day-to-day activities such as bathing, preparing meals, shopping, managing finances, etc.?: No Are you currently unemployed and looking for a job?: No Are you interested in more education?: No Please select the resources that you would like help with: None Currently or been in a relationship where the following occur: No concerns reported THRIVE Score: 2 AUDIT C Alcohol Use Questionnaire (AUDIT-C) 2. How many drinks containing alcohol do you have on a typical day when you are drinking?: 1 or 2 3. How often do you have six or more drinks on one occasion?: Never Total Score: 0 JOSE D-7 AMB Questionnaire JOSE D-7 Date JOSE D - 7 assessed: 05/09/24 Feeling nervous, anxious, or on edge: 0 = Not at all Not being able to stop or control worryin = Not at all Worrying too much about different things: 0 = Not at all Trouble relaxin = Not at all Being so restless that it is hard to sit still: 0 = Not at all Becoming easily annoyed or irritable: 0 = Not at all Feeling afraid as if something awful might happen: 0 = Not at all Total JOSE D-7 score (0-4 normal; 5-9 mild; 10-14 moderate; 15-21 severe): 0 Source: Developed by Drs. Dwayne Damon, Anna Austin, Master Wilson and colleagues, with an educational wil from [employer]. Review of Systems Const Denies chills, Denies headache(s) and Denies weight loss ENT Denies headache(s) Card Denies chest pain, Denies syncope, Denies irregular heart rhythm and Denies dyspnea Resp Denies chest congestion, Denies cough and Denies dyspnea GI Denies abdominal pain, Denies change in stool character, Denies nausea and Denies vomiting Musc Denies deformity and Denies joint swelling Neuro Denies syncope and Denies headache(s) Physical exam (Primary Care) Vital Signs: Last Vital Signs Temp 97.3 F 05/09/24 11:33 Pulse 62 05/09/24 11:33 BP 112/72 05/09/24 11:33 Pulse Ox 100 05/09/24 11:33 Oxygen Delivery Method Room Air 05/09/24 11:33 BMI result Body Mass Index 27.8 Tobacco/Smoking Status: Tobacco use Status Tobacco use date assessed 05/09/24 05/09/24 11:39 Patient Tobacco Use Status Former Tobacco user 05/09/24 11:39 e-Cigarette/Vaping Use Never Used 05/09/24 11:39 PHQ-9: PHQ-9 Score PHQ-9: Total score 0 05/09/24 11:39 Depression Screening Interpretation: Negative Thrive Assessment: Date of Thrive Assessment Date Thrive assessed 05/09/24 05/09/24 11:39 Currently or been in a relationship where the following occur: No concerns reported Const General: cooperative, comfortable, no acute distress and alert Neck Neck: Yes no lymphadenopathy Thyroid: Thyroid normal Resp Effort & Inspection: normal respiratory effort Auscultation: clear to auscultation bilaterally Percussion: percussion normal Cardio Jugular venous distension: no JVD Palpation: normal PMI Rate: regular rate Rhythm: regular rhythm Heart sounds: S1 normal heart sound present and S2 normal heart sound present GI Inspection: Yes normal to inspection Palpation (GI): No hepatosplenomegaly present Skin General skin exam: no rashes or lesions noted Extrem General: Yes no clubbing, cyanosis or edema Coding Level of Care Code Est Pt Level 3 (92445) Diagnoses Aortic valve replaced Z95.2 Assessment & Plan Assessment & Plan (1) Aortic valve replaced: Code(s): Z95.2 - Presence of prosthetic heart valve Category: Surgical Plan: as per cardiology
[2024-05-09 11:33] VITALS: BP 112/72; PULSE 62; TEMP 36.3; O2SAT 100; BMI 27.8
--- OUTSIDE RECORDS SUMMARY | 2024-05-09 14:44 | XMS_ITS | Continuity of Care Document ---
Author Organization [facility] Cardiac Madalyn veronica Address [address] [place] [phone]- Care Team Providers Care Turbine Attendant Name Role Phone Maximilian Bay MD Primary Care Physician Encounter [facility] [place] [place] Date(s): 03/11/24 - 04/10/24 [facility]iac Surgery [address] [place] [address] Drive [address] [place] [address]- Attending Physician: Micah eD La Cruz Admitting Physician: AdmtrMicah Referring Physician: Admtr ArArchana Encounter Type: Triage Allergies, Adverse Reactions, Alerts [...] 9:01:37 AM EDT, Route to Pharmacy Electronically, [facility]/pharmacy #[id number] Start Date: 07/07/16 Status: Ordered Quantity: 60.0 Unit: tablet Repeat number: 3 ticagrelor 90 mg oral tablet 1 tablet = 90 mg, By Mouth, 2 times a day, # 180 tablet, 3 Refills, Maintenance, 03/05/24 12:26:00 PMEST, Tablet, [facility], Partial fill upon patient [...] on: 07/07/16 Sex Sex Representation Female (finding) Cardiology * Event Display: Cardiology Office Note, Non-BH Authored Date: * Event Display: Non Cardiovascular Results Authored Date: Cardiac surgery Outpatient Note * Bronwyn Mccloud: PERFORM Event Display: Cardiac Surgery Note Office Authored Date: Patient called at this time, doing well post op, pain well controlled. Patient sleeping well at this time. Appetite is fair. Patient denies weight gain or swelling. Patient VNA coming into the house as scheduled, patient left [facility] on monday and was set up with VNA services upon dc from the facility. Patient with no medication issues at this time. Patient aware of post-op appointment in the cardiac surgery office. All questions answered and patient aware to call this office with any questionsor concerns. Patient Care team information Care Team Personnel Name: Gala Braden RN Position: [facility] RN Member Role: Primary Care Nurse Name: Jayashree Rincon NP Position: [facility] PCO Associate Professional Member Role: Primary Care Nurse Address: [address] [place] [id number]- Telecom: Name: Phu SALDANA, Maximilian Neri Position: Reference Physician Member Role: PCP Address: [address] [place] [phone] [place] Telecom: Care Team Related Persons Name: RITO RODGERS Insurance Providers Guarantor name: [facility] Breach Security Plan Information #: 1 Payer: [employer] HMO Member Number: NA Policy Number: NA Group Number: NA
--- OUTSIDE RECORDS SUMMARY | 2024-05-09 14:44 | XMS_ITS | Continuity of Care Document ---
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 Name Role Phone Maxmiilian Bay MD Primary Care Physician Encounter [facility] [place] Date(s): 04/18/24 - 04/19/[address] [address]- Discharge Disposition: A-D/C Home Attending Physician: Jayden Solis MD Admitting Physician: Jayden Solis MD Referring Physician: Rowena SALDANA [facility] Encounter Type: Disch IP Allergies, Adverse Reactions, Alerts Substance Criticality Severity [...] Quantity: 90.0 Unit: tablet Repeat number: 1 ezetimibe 10 mg oral [...] Quantity: 30.0 Unit: tablet Repeat number: 1 losartan 50 mg oral tablet 100 mg, Tablet, By Mouth, 04/19/24 9:00:00 AM EST Start Date: 04/19/24 Stop Date: 04/19/24 Status: Completed Repeat number: 1 meloxicam 15 mg oral tablet TAKE 1 TABLET BY MOUTH EVERY DAY Start Date: 03/01/24 Status: Ordered Repeat number: 1 metoprolol 50 mg oral tablet 50 mg, By Mouth, 2 times a day, # 60 tablet, Refills 2, Tot. Refills 2, Maintenance, 07/07/16 9:01:37 AM EDT, Route to Pharmacy Electronically, [facility]/pharmacy #[id number] Start Date: 07/07/16 Status: Ordered Quantity: 60.0 Unit: tablet Repeat number: 3 metoprolol 50 mg oral tablet 50 mg, Tablet, By Mouth, Once, STAT, 04/19/24 12:40:00 PM EST, Stop date 04/19/24 2:12:18 PM EST Notes: Product selected is IR - ensure this selection was intended Start Date: 04/19/24 Stop Date: 04/19/24 Status: Completed Repeat number: 1 ticagrelor 90 mg oral tablet 1 tablet = 90 mg, By Mouth, 2 times a day, # 180 tablet, 3 Refills, Maintenance, 03/05/24 12:26:00 PMEST, Tablet, [facility], Partial fill upon patient request if the prescription is fora schedule II opioid drug., 157, cm, 03/05/24 9:11:00 EST, Height, 72.4, kg, 03/05/24 9:11:00 EST, Dry Weight Start Date: 03/05/24 Status: Ordered Quantity: 180.0 Unit: tablet Repeat number: 4 Results Radiology Reports * Exam Date Time Procedure Performing Provider Status 04/19/24 5:52 AM Chest Portable Jessica Magdaleno; Auth (Verified) Notes: (Chest Portable) Reason For Exam: S/P TAVR;Postop RESULT: Chest Portable Chest Portable Reason: Postop; S P TAVR; Clinical Question(s): Other:; Cardiac Tamponade COMPARISON: Multiple priors, most recent 04/18/2024. CT TAVR 03/26/2024 FINDINGS: LINES AND TUBES: None. LUNGS AND PLEURA: Clear lungs. Normal pulmonary vascularity. No pleural effusion. No pneumothorax. HEART, MEDIASTINUM AND NAKIA: Heart is normal in size. Status post TAVR. Normal mediastinal and hilar contour. BONES AND SOFT TISSUES: No acute abnormality. Status post median sternotomy. IMPRESSION: Status post TAVR. No acute abnormality. Normal sized cardiomediastinal silhouette. I have personally reviewed the images and I agree with this report. WSN: [id number] Ordering Physician: Chapin Hanna Dictated By: Nan Ellis DO Dictated Date/Time: 04/19/24 12:57 p Reviewed By: Juan Joyner MD, V Signed By: Juan Joyner MD, V Signed Date/Time: 04/19/24 1:02 pm Transcribed By: AMINAH Transcribed Date/Time: 04/19/24 11:47 am * Exam Date Time Procedure Performing Provider Status 04/18/24 4:02 PM Chest Portable Joanna Boone (Verified) Notes: (Chest Portable) Reason For Exam: S/P TAVR;Postop RESULT: Chest Portable Chest Portable Reason: S/P TAVR; COMPARISON: Multiple priors most recent 06/24/2016. FINDINGS: LINES AND TUBES: Overlying EKG leads. LUNGS AND PLEURA: Clear lungs. Normal pulmonary vascularity. No pleural effusion. No pneumothorax. HEART, MEDIASTINUM AND NAKIA: Heart is upper limit normal in size with probable post-CABG changes and interval TAVR changes. The device is not well visualized on the provided radiograph. Normal mediastinal contour. BONES AND SOFT TISSUES: No acute abnormality. Multiple sternal wires remain intact. IMPRESSION: Post TAVR changes. No acute abnormality. WSN: [id number] Ordering Physician: Chapin Hanna Dictated By: Rodriguez Gonzalez MD Dictated Date/Time: 04/18/24 4:46 pm Reviewed By: Rodriguez Gonzalez MD Signed By: Rodriguez Gonzalez MD Signed Date/Time: 04/18/24 4:46 pm Transcribed By: AMINAH Transcribed Date/Time: 04/18/24 4:43 pm Vital Signs Most recent to oldest [Reference Range]: 1 2 3 Height 158 cm (04/19/24 11:33 AM) 158 cm (04/19/24 8:15 AM) 158 cm (04/19/24 4:25 AM) Weight 69.2 kg (04/19/24 6:30 AM) 69.2 kg (04/19/24 4:30 AM) 72.2 kg (04/18/24 10:30 AM) Oxygen Saturation [94-100 %] 99 % (04/19/24 11:33 AM) 99 % (04/19/24 8:15 AM) 99 % (04/19/24 4:25 AM) Pulse Rate [55-90 bpm] 124 bpm *H* (04/19/24 2:11 PM) 94 bpm *H* (04/19/24 11:33 AM) 103 bpm *H* (04/19/24 8:15 AM) Body Mass Index [18.5-24.99 kg/m2] 28.92 kg/m2 *H* (04/18/24 10:30 AM) Blood Pressure [90-138/55-84 mm Hg] 154/64mm Hg *H* (04/19/24 2:11 PM) 154/64mm Hg *H* (04/19/24 11:33 AM) 157/65mm Hg *H* (04/19/24 8:31 AM) Respiratory Rate [16-30 br/min] 18 br/min (04/19/24 11:33 AM) 18 br/min (04/19/24 8:15 AM) 20 br/min (04/19/24 4:25 AM) Temperature [96.8-100.4 DegF] 97.6 DegF (04/19/24 11:33 AM) 98.6 DegF (04/19/24 8:15 AM) 98.2 DegF (04/19/24 4:25 AM) Liters per Minute 2 L/min (04/18/24 5:15 PM) 2 L/min (04/18/24 4:15 PM) 2 L/min (04/18/24 4:00 PM) Mode of Delivery (Oxygen) Room air (04/19/24 11:33 AM) Room air (04/19/24 8:15 AM) Room air (04/19/24 4:25 AM) Blood pressure sites Arm, right (04/19/24 11:33 AM) Arm, right (04/19/24 8:15 AM) Arm, right (04/19/24 4:25 AM) Temperature Route Oral (04/19/24 11:33 AM) Oral (04/19/24 8:15 AM) Oral (04/19/24 4:25 AM) Weight Obtained Via Bed scale (04/19/24 4:30 AM) Standing scale (04/18/24 10:30 AM) Social History Social History Type Response Smoking Status Former smoker; Tobac co user in household: No entered on: 07/07/16 Sex Sex Representation Female (finding) Note * Event Display: Hemodynamic Procedure Report Authored Date: * Rhonda Curtis: PERFORM, SIGN, VERIFY Event Display: Cardiac Rehab Note Authored Date: Patient: MARCIO GONZALEZ Age: 73 years Sex: Female : 1950 Associated Diagnoses: None Author: Rhonda Curtis Pt seen on Cardiac Surgery Rounds. See CV note for plan of care. * Ángel Cee: VERIFY, PERFORM, SIGN Event Display: Cardiac Rehab Note Authored Date: Patient: MARCIO GONZALEZ Age: 73 years Sex: Female : 1950 Associated Diagnoses: None Author: Ángel Cee Diagnosis Cardiac Rehab Diagnosis: S/P TAVR. Pre-exercise Vitals Vital Signs: 98 HR, 157/60 BP Supine, 97% RA SaO2. Vital Signs Comment: Reviewed in CIS, RN informed of Vital Sign changes. Pre-exercise Physical Examination Neurologic: alert & oriented. Cardiovascular: heart rate regular. Lungs: Normal I:E, Cough no. Activity Symptoms with Cardiac Rehab Symptoms: No exertional symptoms. Activity Transfers: independent. Ambulate: independent. Patient Education Education: Patient alone, Written material included, Post procedure guidelines. Education topic Teachback comprehension 75% Topic: Pathophysiology, Medication education, Role of exercise, Home activity guidelines/limits. Reinforcement needed: Medication education. Recommendation and Plan Outpatient follow up recommended: [facility], in 3 weeks. Cardiac Rehab: Will sign off at this time. Recommendation comment: RN notified of plan. * Lonnie Gibbs RN: PERFORM Event Display: Discharge/Transfer Note Hospital Authored Date: [id number] Nursing Discharge Note Entered On: 04/19/2024 15:39 EST Performed On: 04/19/2024 15:38 EST by Lonnie Gibbs RN Nursing Discharge Note 2 Discharge Time : 04/19/2024 15:38 EST Discharge Level of Care at Discharge : Home/Longterm/Foster Care Patient Left Unit Via : Wheelchair Patient Accompanied Off Unit with : Responsible adult DC Instructions Provided & Signed by Pt : Yes Patient Understands D/C Instructions : Yes Patient Instructions Discharge Signed : Yes Did Pt have Specialty Bed or Wound Vac : No Lonnie Gibbs RN - 04/19/2024 15:39 EST * Jazmin THOMAS, Yanelis Grijalva: MODIFY, MODIFY, PERFORM, MODIFY Event Display: Discharge/Transfer Note Hospital Authored Date: [id number] Patient: ??MARCIO GONZALEZ ? Age:??73 Years?Sex:??Female?:??1950?? Patient Information Discharge Location: Primary Care Physician: Maximilian Bay MD Admit Date/Time: 04/18/2024 10:22 Discharge Disposition Discharge Disposition: Home: No Services Discharge Diagnosis Aortic stenosis (I35.0) _ Discharge Medications Acetaminophen (acetaminophen 325 mg oral tablet)??975 Milligram By Mouth Every 6 hours Aspirin (aspirin 81 mg oral delayed release tablet)??81 Milligram By Mouth Daily Atorvastatin (atorvastatin 80 mg oral tablet)??1 tab(s) 80 Milligram By Mouth Daily Ezetimibe (ezetimibe 10 mg oral tablet)??TAKE 1 TABLET BY MOUTH EVERY DAY Losartan (losartan 100 mg oral tablet)??1 tab(s) 100 Milligram By Mouth Daily Meloxicam (meloxicam 15 mg oral tablet)??TAKE 1 TABLET BY MOUTH EVERY DAY Metoprolol (metoprolol 50 mg oral tablet)??50 Milligram By Mouth 2 times a day Ticagrelor (ticagrelor 90 mg oral tablet)??1 tab(s) 90 Milligram By Mouth 2 times a day ? Future Appointments Monday 10:45 AM EDT ?? With: [place] THOMAS, Gomez Cazares Where: [facility] [address] [place] [id number]- Status: Pending Hospital Course The patient is a??73 year old female with CAD and aortic stenosis is nearly 8 years s/p an AVR and a 4 vessel CABG in May of 2016. She has since done well. For the past several months she has been noticing she is increasingly fatigued with exercise. She also has dyspnea after climbing two flightsof stairs. There has been no history of chest pain, dizziness, lightheadedness, of syncope. A recent echocardiogram showed critical stenosis of the 19 mm Trifecta aortic prosthesis with a peak gradient of 74 mmHg and a mean gradient of 42 mmHg. The calculated CATE was 0.94 cm2 with a valve index of 0.55 cm2/m2. The LV function is preserved. A cardiac catheterization showed an LVEDp of 12 mmHg and a PA pressure of 41/16 mmHg. The mean aortic gradient was 31 mmHg. The cardiac output was 4.7 lit/min with a cardiac index of 2.7 lit/min/m2. The CATE was again 0.94 cm2. The ARENAS, and the SVGs to the RCA and PLVBr are widely patent. The SVG to the ramus intermedius was severely stenosed. She underwent a PCI and successful placement of a RADHA of the bypass graft to the ramus.??The patient was brought to the operating room for a valve in valve TAVR procedure. She is now s/p TAVR. Objective ?? CARDIAC SURGEON: Will CARDIOLOGY INTERVENTIONALIST:??Sabianism ? Neurologic Intact, alert, oriented. Pain controlled. ? Cardiology HTN HLD Hx of CABG Critical Continue home antihypertensives as hemodynamics allow. Echo showed There is a bioprosthetic valve in the aortic position (23mm Medtronic TAVR).??The transaortic gradients are elevated at least partially due to increased??flow. The acceleration time is short. What is believed to be the mean??transaortic gradient is in the 22 mmHg range. (16 on immediatepost procedure ECHO). The obstructive index could??not be estimated due to LVOT obstruction. No significant paravalvular or valvular leak detected within the limits of the study. EKG with Left ventricular hypertrophy with repolarization abnormality. Prolonged QT. Discharged??with noncontinuous cardiac monitoring x2 weeks ? Pulmonary Tolerating room air well. CXR showed Clear lungs. Normal pulmonary vascularity.??No pleural effusion. No pneumothorax. ? Gastrointestinal Tolerating cardiac diet? Renal Baseline creatinine 0.8 ?? Genitourinary Voiding without issues. ? Integument Bilateral groins soft, no hematomas, dressing clean and intact. ? Hematology?? Antiplatelet plan -??Aspirin 81mg PO daily and??Brilinta ? Infectious Disease No ss infection. Afebrile. Perioperative antibiotics.? Patient will follow up in TAVR clinic as scheduled. Patient will have a follow up echo as scheduled. Patient will need to have a??CBC and??BMP drawn one week post discharge at any [facility] laboratory.? Resume all prior therapies and medications as prescribed by outpatient teams . Physical Exam General Appearance: No acute distress. Neurologic: Alert, oriented, nonfocal. Cardiac: Rate and rhythm regular. S1, S2 heard.?? Extremities: Trace edema bilaterally. Vascular: Palpable radial, pedal pulses bilaterally.? Respiratory: Lung sounds clear with diminished bases bilaterally. No crackles, wheezing. Respiratory effort is unlabored.?? Gastrointestinal: Abdomen is soft, nontender, nondistended. +Bowel sounds in all 4 quadrants. Integumentary: Groin access sites nontender, dressings clean and dry, no significant hematoma. Musculoskeletal: RYAN independently. Pending Results BUN ordered on 04/19/2024 CBC w/ Differential ordered on 04/19/2024 Creatinine ordered on 04/19/2024 Electrolytes ordered on 04/19/2024 Magnesium Level ordered on 04/19/2024 RBCs for Surgery ordered on 04/18/2024 Type and Screen ordered on 04/19/2024 XR Chest Portable ordered on 04/19/2024 Patient Education Titles Web[employer] Ignite Patient Education - TAVR Discharge Instructions?? Follow-Up Appointments Added Follow Up ?Time Frame ?Comments Maximilian Bay MD?4 to 5 weeks?You will need to call your primary care provider to schedule a follow up appointment.?? labs?Within one week?CBC and BMP in 1 week post discharge [facility] will call you with an appointement for Cardiac Rehab. ECHO?05/28/2024 11:00 Patient Instructions Patient will follow up in TAVR clinic as scheduled. Patient will have a follow up echo as scheduled. Patient will need to have a??CBC and??BMP drawn one week post discharge at any [facility] laboratory.?? 40??minutes spent on discharge * Bernie LANGFORD, Lonnie: PERFORM Event Display: Patient Education/Instruction Authored Date: [id number] Inpatient Adult Discharge Instructions. [address] [address] Name: MARCIO GONZALEZ : 1950?? Visit: 04/18/2024 10:22?? Current Date: 04/19/2024 14:05 ?? Account: [id number]?? Inpatient Adult Discharge Instructions We would like to thank you for allowing us to assist you with your healthcare needs. The following includes patient education materials and information regarding your injury/illness. Our entire staffstrives to provide an excellent experience for our patients and their families. PLEASE ENSURE YOU FOLLOW-UP PER THE INSTRUCTIONS BELOW! ?? YOUR OPINION IS IMPORTANT TO US! Please complete the survey you may receive by mail or email. Your feedback will be used to make improvements to the healthcare experiences of our patients and their families. Surveys are administered by [employer]. ?? If further treatment with your primary care physician or another doctor is recommended, it is important for you to keep the appointment. Call your primary care physician or return to the Emergency Department immediately if your condition worsens, fails to improve, or new symptoms develop. If you need to find a doctor, you can call [facility] trakkies Research Link for a referral at [phone] or toll free at [phone] ([phone]) or log in to [email or web address].. ?? [facility], in keeping with [facility] guidance, no longer requires face masks for staff, patientsor visitors in most situations. Similiar to time spent indoors at other locations, there is the chance that you were exposed to repiratory viruses during your time with us (such as flu or COVID-19). If you develop symptoms concerning for a viral respiratory infection, please seek testing (and treatment if indicated) from your medical provider or home test kit. ?? You can view and manage your care through the patient portal or by using a health care lucy of your choosing. [employer] is a website that allows you to securely view your medical information including your hospital discharge summary, office visit summaries, medications and follow-up visits. You can also request appointments, renew medications, and request access to your medical information using a health care lucy of your choosing, or just ask a question. You can enroll at [email or web address] or register during your next office visit. You have been discharged from [facility], Patient Care Unit: M6??. If you have any questions regarding these instructions, including results of studies pending, afteryou leave, please call us and we will be happy to assist you 19/09. [facility] Your Care Team Attending Physician Jayden Solis MD?? Consulting Providers Jayden Solis MD?? Discharging Providers Jazmni THOMAS, Yanelis Grijalva Your Diagnosis Aortic stenosis Tests Performed Below is a partial list of the tests performed during your hospitalization. You may have had other tests and procedures not included in this list. Please discuss all test results with your provider. BUN CBC w/ Differential Creatinine Electrolytes GLUCOSE POC Hgb + Hct Magnesium Level POC Hemochron ACT-LR Potassium Level ProBNP XR Chest Portable B Type Natriuretic Peptide (NT-proBNP) (ProBNP)?? BUN?? CBC w/ Differential?? Creatinine?? Electrolytes?? Glucose POC?? Hgb + Hct?? Magnesium Level?? POC ACT-LR (POC Hemochron ACT-LR)?? Potassium Level?? RBCs for Surgery?? Type and Screen?? Chest Portable (XR Chest Portable)?? Primary Care Provider Phu SALDANA, Maximilian Neri? Advance Directive Health Care Proxy on File Yes - Health Care Proxy Discharge Vitals Temperature: 97.6 DegF Height: 158 cm Pulse Rate:??94 bpm??High Weight: 69.2 kg Respiratory Rate: 18 br/min Body Mass Index:??28.92 kg/m2??High Systolic Blood Pressure:??154 mm Hg??High Body surface area: 1.78 Diastolic Blood Pressure: 64 mm Hg ?? Oxygen Saturation: 99 % ?? Studies Pending All studies ordered during this hospital stay have been completed unless listed below. Please discuss all pending results with your provider listed above in these instructions. ?? BUN?? CBC w/ Differential?? Creatinine?? Electrolytes?? Magnesium Level?? RBCs for Surgery?? Type and Screen?? What to do next Instructions From Your Doctor Patient will follow up in TAVR clinic as scheduled. Patient will have a follow up echo as scheduled. Patient will need to have a??CBC and??BMP drawn one week post discharge at any [facility] laboratory.? Orders?? in place then DC, ??04/19/24 14:01:00 EST?? Scheduled Follow-Up Appointments Monday 10:45 AM EDT ?? With: [place] THOMAS, Gomez Cazares Where: [facility] [address] [place] [address]- Status: Pending You Need to Schedule the Following Appointments Follow Up with??ECHO When:??05/28/2024 11:00 AM EDT Where: [address] [place] [address], 1st [place] [address]- [phone] Follow Up with??Maximilian Bay MD When:??Within 4 to 5 weeks Why: You will need to call your primary care provider to schedule a follow up appointment.?? Where: [address] [place] [address]- Business (1) Follow Up with??labs When:??Within Within one week Why: CBC and BMP in 1 week post discharge Follow Up with??[facility] Why: [facility] will call you with an appointement for Cardiac Rehab. Where: [address] [place] [address] x [phone] Discharge Medications JONATHONViraWHITLEYGEMINIMARCIO :1950 Visit Date:04/18/2024 Medications: Please continue your medications until treatment is completed or stopped by your provider. Medications not listed below should be discontinued. Discuss any questions related to medications with your provider. What How Much When Instructions Next Dose Unchanged Acetaminophen (acetaminophen 325 mg oral tablet) 975 Milligram Oral Every 6 hours resume your home regimen Unchanged Aspirin (aspirin 81 mg oral delayed release tablet) 81 Milligram Oral Daily tomorrow in am Unchanged Atorvastatin (atorvastatin 80 mg oral tablet) 1 tab(s) Oral Daily tomorrow in am Unchanged Ezetimibe (ezetimibe 10 mg oral tablet) TAKE 1 TABLET BY MOUTH EVERY DAY ?? resume your home regimen Unchanged Losartan (losartan 100 mg oral tablet) 1 tab(s) Oral Daily tomorrow in am Unchanged Meloxicam (meloxicam 15 mg oral tablet) TAKE 1 TABLET BY MOUTH EVERY DAY ?? resume your home regimen Unchanged Metoprolol (metoprolol 50 mg oral tablet) 50 Milligram Oral Twice a day tonight at 10 pm Unchanged Ticagrelor (ticagrelor 90 mg oral tablet) 1 tab(s) Oral Twice a day tonight at 9 pm Prescription Given During Visit No new medications prescribed at time of discharge.?? Laboratory Results Below is a partial list of the most recent Laboratory test results done prior to this discharge. You may have had other tests and procedures not included in this list. Please discuss all test resultswith your provider. RBC Available - RE (04/18/2024) RBC Unit ID - [id number] (04/18/2024) BUN (04/19/2024) ???BUN - 23 mg/dL CBC w/ Differential (04/19/2024) ???WBC - 9.3 k/mm3???RBC - 3.71 m/mm3???Hgb - 10.4 Gm/dL???Hct - 32.5 %???MCV - 87.6 femtoliters???MCH - 28.0 pg???MCHC - 32.0 Gm/dL???Platelet Count - 236 k/mm3???RDW-SD - 44.1 femtoliters???MPV - 10.4 femtoliters???Nucleated RBC (Automated) - 0.0 #/100 WBC'S???Abs. NRBC - 0.0 k/mm3???Abs. Neut - 8.5 k/mm3???Abs. Lymph - 0.5 k/mm3???Abs. [place] - 0.3 k/mm3???Abs. Eo - 0.0 k/mm3???Abs. Baso - 0.0 k/mm3???Neut % - 91.1 %???Lymph % - 4.8 %???[place] % - 3.5 %???Eos % - 0.0 %???Baso % - 0.2 %???Imm Gran - 0.4 %???Abs. Imm Gran - 0.0 k/mm3 Creatinine (04/19/2024) ???Creatinine-Blood - 0.75 mg/dL???Estimated GFR Creatinine - 83 ML/MIN/1.73 M2 Electrolytes (04/19/2024) ???Sodium - 135 mmol/L???Potassium - 4.3 mmol/L???Chloride - 104 mmol/L???Bicarbonate Level - 18 mmol/L???Anion Gap - 13 mmol/L GLUCOSE POC (04/18/2024) ???Glucose, POC - 102 mg/dL Hgb + Hct (04/18/2024) ???Hgb - 10.8 Gm/dL???Hct - 33.8 % Magnesium Level (04/19/2024) ???Magnesium - 1.9 mg/dL POC Hemochron ACT-LR (04/18/2024) ???POC ACT-LR - 273.0 seconds Potassium Level (04/18/2024) ???Potassium - 4.2 mmol/L ProBNP (04/18/2024) ???Nt-Probnp - 1218 pg/mL You will be contacted within 72 hours with your results. Allergies (NKA means No Known Allergies) Macrobid Problems No qualifying data available Education Materials Below is the list of Educational Leaflet Providered with your Discharge Instructions. [employer] Ignite Patient Education - TAVR Discharge Instructions?? Valuables and Belongings I fully understand and agree that [facility] accepts no responsibility for all my personal property including clothing, toilet articles, radios, jewelry, dentures, hearing aids, rings, money, or any other property that is in my possession or is brought to me after admission. I understand certain valuables may be placed in a hospital safe for a short period of time. I understand that the hospital is not liable for loss or damage due to accident, fire, or other natural occurrence while said property is in the safe. I accept full responsibility for any personal property that I keep with me, and will not hold the hospital responsible in case of loss or disappearance. I acknowledge that i have been encouraged to send valuables and belongings home. ?? Review of Valuable and Belonging List: With patient Date for Pt to Sign Valuables/Belongings: 04/18/24 11:21:00 ?? Valuables & Belongings ?? Clothes Electronic devices Jewelry Monetary Items Personal devices Miscellaneous Medications (Valuables) Valuables at Bedside Jacket, Pants, Undergarments Cell phone Watch Other: ID insurance card Dentures, partial plate, Glasses Other: book, hair brush, $ 5.00 ?? Valuables Sent Home ? Valuables Sent to Security ? Valuables Sent to Locker ? Other Discharge Information ? Case Management Discharge Plan?? Discharge Plan?? Discharge Rx Program: Discharge Prescription Program ?? Pulmonary Rehab Status?? Pulmonary Rehab Discharge Status?? Respiratory Rate: 18 br/min ? Cardiac Rehab Assessment?? Cardiac Rehab Inpatient Assessment?? Comments-Education: s/p TAVR, post op and home activity guidelines Comments-Smoking Cessation: na Comments-Exercise Activity: progressive activity as tolerated Comments-Nutrition: per RD Comments-Stress Management: healthy coping techniques Comments-Lipids: diet, exercise, medication per MD Comments-Other plan of care: Encourage Phase 2 Common Emergency Awareness Tips IS IT A STROKE? Act FAST and Check for these signs: FACE Does the face look uneven? ARM Does one arm drift down? SPEECH Does their speech sound strange? TIME Call at any sign of stroke ?? Heart Attack Signs Chest discomfort: Most heart attacks involve discomfort in the center of the chest and lasts more than a few minutes, or goes away and comes back. It can feel like uncomfortable pressure, squeezing, fullness or pain. Discomfort in upper body: Symptoms can include pain or discomfort in one or both arms, back, neck, jaw or stomach. Shortness of breath: With or without discomfort. Other signs: Breaking out in a cold sweat, nausea, or lightheaded. Remember, MINUTES DO MATTER. If you experience any of these heart attack warning signs, call to get immediate medical attention! ?? Smoking can increase your chances of developing chronic health problems and can cause harmful effects to other family members in your house. If you smoke, you are strongly encouraged to quit. Please call [facility] trakkies Research Link at [phone] or 9-126-797-Theracos ([phone]) or log in to [email or web address] for referrals to smoking cessation programs. ?? 816 Suicide & Crisis Lifeline is available 19/09 if you or someone you know needs to find a reason to keep living. By calling 585 you'll be connected to a skilled, trained counselor at a crisis center in your area. INPATIENT DISCHARGE INSTRUCTIONS SIGNATURE PAGE MARCIO GONZALEZ Location:[facility] Registration Date and Time:04/18/2024 10:22 EST Primary Care Physician: Phu SALDANA, Maximilian Neri, Attending Physician: Will SALDANA, [facility], I MARCIO GONZALEZ, have received the above patient education materials/instructions and have verbalized understanding. If ambulance or transport services are being used I further acknowledge being given a choice of service. ?? If you need to contact me, please call me at this number: . Patient/Clinical Neuropsychologist Name: Patient/Clinical Neuropsychologist Signature: Relationship to Patient: Witness Name/Signature: Date: * Ángel Cee: PERFORM, SIGN, VERIFY Event Display: Patient Education Handout Authored Date: [id number] * Yanelis Wu NP: PERFORM Event Display: Patient Education Leaflets Authored Date: [id number] TAVR Discharge Instructions ?? 298 TAVR Discharge Instructions Call 911 if: ??? If you develop a new onset of confusion, weakness or tingling on one side, numbness, slurred speech or difficulty speaking, loss of vision ??? If you develop numbness, tingling, loss of sensation, and/or coolness to your arms or legs. ??? If you develop chest pain or discomfort that is not relieved with rest. ??? If uncontrolled bleeding occurs, hold pressure to the site and call 911. ?? Call your corrosion control fitter office if you experience any of the following: ??? Temperature of 101 or greater, chills, sweating ??? Any bleeding or swelling at the incision site or if a hard lump forms. ??? Any signs of infection at incision site including drainage, redness or tenderness, odor, or the edges of your procedure site are pulling apart or opening. ??? If you experience any new rash, cough, dizziness, or leg cramps. ??? Changes in breathing, chest pain, abnormal pain, dizziness, change in pulse, pulse rate or palpitations, nausea, vomiting. ??? You gain 2 pounds in one day or 5 pounds in 1 week. ?? Follow up: A follow up appointment should be made with your doctor. Follow up care is important; it is strongly encouraged for you to keep your appointment. You may have more than one appointment including one with the nutrient management specialist who performed your procedure and your corrosion control fitter. ??? Follow up appointments are generally scheduled at 2 weeks for an incision check, either with your primary corrosion control fitter or a member of our heart valve team. ??? Additional follow ups occur with the nutrient management specialist who performed your procedure within 4 to 6 weeks and then again at 1 year. ??? o An EKG, echocardiogram, and labs will also be obtained before these two follow up visits If you do not have an appointment scheduled already in your discharge packet, please call and make an appointment when you get home. If you have any questions, please call the office of the nutrient management specialist who performed your procedure. ?? Valve identification card: You will receive a permanent card in the mail in 8-10 weeks. This identification card should be carried with you at all times. ?? If you go home with a 28 day monitor after your procedure: ??? The monitor will be applied to you prior to your discharge. ??? Each monitor is good for 14 days, a new monitor will be sent to your home address on file at day 12 ??? If you have any specific questions or concerns in regard to your monitor, please call the company: [employer] Clark: ?? Bathing: ??? You can take a shower using a mild soap after you are discharged from the hospital. ??? Avoid soaking in water such as tub baths, swimming pools or hot tubs until you are cleared by your doctor to do so. ?? Incision Care: ??? Look at your procedure site every day until it is completely healed. o Check your procedure site daily for redness, odor, or drainage/bleeding. o You may have a small bump where the catheter was put in, if the bump gets larger, please notify your corrosion control fitter. o You may see bruising at the procedure sites but this is normal. ??? It is important to keep incision sites clean and dry. o Avoid usi ng any perfumed soaps, lotions, creams, oils or ointments as these may irritate the site and could put you at risk for infection. ?? Activity: ??? Review the written materials given to you by the Cardiac Rehabilitation staff for your specificexercise program. ??? No heavy lifting over 10 pounds (gallon of milk) for 1 week. ??? Gradually increase your activity. Remember to alternate periods of activity with periods of rest. ??? It is important to continue to do the coughing and deep breathing exercises to help prevent breathing complications. ??? Take your temperature every day for the next 3-5 days. ??? Weigh yourself at the same time every morning. ?? Cardiac Rehabilitation: Cardiac rehabilitation is an outpatient medically supervised exercise program. Participating in a cardiac rehabilitation program is highly encouraged, as this is essential to your recovery process. ??? Cardiac rehabilitation typically starts 2 to 3 weeks after discharge. ??? If attending [facility]???s program, you should leave the hospital with an orientation appointment already arranged. A cardiac rehab facility other than [facility] may require a referral from your corrosion control fitter. ?? Driving: ??? You should not drive for 2-3 days after you are discharged from the hospital. ?? Dental Cleaning/Procedures post TAVR ??? You will need an antibiotic prior to future dental cleanings and procedures to prevent against bacteria from attaching to your new heart valve (This is calledinfective endocarditis). ??? If you have developed any signs and/or symptoms of endocarditis pleasecall your corrosion control fitter. ??? Symptoms of endocarditis include : ?? o Flu-like symptoms, such as fever, chills, night sweats tiredness, muscle and joint aches, and headache. o Trouble breathing, cough,nausea and vomiting. o Swelling of the feet, legs, and belly. ?? * Event Display: Hemodynamic Procedure Report Authored Date: History and physical note * Torres Hayward MD: PERFORM Torres Hayward MD: PERFORM Event Display: History and Physical Hospital Authored Date: Patient: ??MARCIO GONZALEZ ? Age:??73 Years?Sex:??Female?:??1950? SURGICAL HISTORY AND PHYSICAL ?? DATE:?? 04/18/2024 ? Bobbin Painter:?? Sammy Paredes M.D. ?? 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 ?? Chief Complaint TAVR She has noted increased fatigue recently.?? She currently experiences becoming winded after climbing two flights of stairs. ?? History of Present Illness This 73 year [...] The TAVR protocol CT scans are scheduled. ?? Review of Systems She is currently taking BID Brillinta for the recent RADHA to the SVG??supplying the ramus. ?? Physical Exam ?Vitals & Measurements ?T:??97?F?? HR:??71??(Peripheral)?? RR:??14?? BP:??124/80?? SpO2:??99%?HT:??157??cm?? WT:??70.4??kg?? BMI:??28.56? General: Alert, pleasant ? HEENT: EOM full.?? Sclera non icteric ? Neck: Supple. No masses. No bruits. No JVD ? Chest: Lung are clear to auscultation ? CV: Right radial pulse 2+ and regular. Grade IV/ systolic harsh systolic murmur radiating toboth carotids. ?Extremities: No edema. No cyanosis ? Neuro: No [...] would prefer a valve in valve TAVR. ?? Torres Hayward M.D.? Problem List/Past Medical History Ongoing ?No qualifying data ?? Medications ??acetaminophen 325 mg oral tablet, 975 mg, By Mouth, Every 6 hours ??aspirin 81 mg oral delayed release tablet, 81 mg, By Mouth, Daily ??atorvastatin 80 mg oral tablet, 80 mg= 1 tablet, By Mouth, Daily ??docusate sodium 100 mg oral capsule, 100 mg= 1 capsule, By Mouth, 2 times a day ??ezetimibe 10 mg oral tablet ??losartan 100 mg oral tablet, 100 mg= 1 tablet, By Mouth, Daily ??meloxicam 15 mg oral tablet ??metoprolol 50 mg oral tablet, 50 mg, By Mouth, 2 times a day, 2 refills ??ticagrelor 90 mg oral tablet, 90 mg= 1 tablet, By Mouth, 2 times a day, 3 refills ?? Allergies Macrobid ?? Social History Tobacco ??Former smoker, Tobacco user in household: No. EKG study * Event Display: ECG 12-Lead Authored Date: Please click on pdf link to open report * Event Display: ECG 12-Lead Authored Date: Ventricular Rate: 97 BPM Atrial Rate: 97 BPM P-R Interval: 164 ms QRS Duration: 78 ms Q-T Interval: 386 ms QTC Calculation(Bazett): 490 ms P [place]: 64 degrees R [place]: -30 degrees T [place]: 71 degrees Sinus rhythm with occasional Premature ventricular complexes Possible Left atrial enlargement Left axis deviation Left ventricular hypertrophy ( R in aVL , Tristan product , Romhilt-Epstein ) Cannot rule out Septal infarct , age undetermined QTcB > 480 msec Abnormal ECG When compared with ECG of 18-Apr-2024 17:10, Premature ventricular complexes are now Present Minimal criteria for Septal infarct are now Present Confirmed by Trey Avila ([id number]) on 04/19/2024 12:41:55 PM [place]: Trey Avila * Event Display: ECG 12-Lead Authored Date: [id number] Please click on pdf link to open report * Event Display: ECG 12-Lead Authored Date: [id number] Ventricular Rate: 99 BPM Atrial Rate: 99 BPM P-R Interval: 178 ms QRS Duration: 88 ms Q-T Interval: 402 ms QTC Calculation(Bazett): 515 ms P [place]: 79 degrees R [place]: -33 degrees T [place]: 98 degrees Critical Test Result: Long QTc Normal sinus rhythm Right atrial enlargement Left axis deviation Left ventricular hypertrophy with repolarization abnormality Prolonged QT Abnormal ECG When compared with ECG of 18-Apr-2024 15:32, No significant change was found Confirmed by Trey Avila ([id number]) on 04/18/2024 5:22:13 PM [place]: Trey Avila * Event Display: ECG 12-Lead Authored Date: [id number] Please click on pdf link to open report * Event Display: ECG 12-Lead Authored Date: [id number] Ventricular Rate: 91 BPM Atrial Rate: 91 BPM P-R Interval: 182 ms QRS Duration: 88 ms Q-T Interval: 424 ms QTC Calculation(Bazett): 521 ms P [place]: 78 degrees R [place]: -31 degrees T [place]: 90 degrees Critical Test Result: Long QTc Normal sinus rhythm Right atrial enlargement Left axis deviation Left ventricular hypertrophy with repolarization abnormality Prolonged QT Abnormal ECG When compared with ECG of 18-Apr-2024 10:58, ST no longer elevated in Anterior leads QT has lengthened Confirmed by SARITA BOYLE MD ([id number]) on 04/18/2024 4:08:55 PM [place]: SARITA BOYLE MD Heart * Event Display: Echocardiogram - Complete Authored Date: [id number] Transthoracic Echocardiography Report (TTE) Patient Demographics Patient Name MARCIO GONZALEZ Date of Study 04/19/2024 Corporate Gender Female Facility Race .[id number] Ethnicity Date of 1950 Height: 62.2 inches Age 73 year(s) Weight: 158.73 pounds Accession Number [id number] BSA: 1.74 m2 Room Number [id number] BMI: 28.84 kg/m2 Referring Agueda Hernandez MD Physician Physician Ssis Ssrs Developer Maximiliano Shahid Indications S/P aortic valve replacement (AVR). Clinical History Coronary artery disease. Aortic stenosis AVR CABG x4 23mm Medtronic TAVR Study Data Type of Study TTE procedure:Echo Complete-Doppler, Colorflow, M-Mode. Study Date04/19/2024 Start Time: 09:00 AM Study Location[place] [facility] [place] Study Status: Echo lab Patient Status: Routine Technical Quality: Technically difficult due to rib artifact. Blood Pressure:144/84 mmHg EKG: Sinus tachycardia Allergies - Other allergy:(macrobid). 2D Measurements LV Diastolic Dimension: 3.6 cm LV Systolic Dimension: 2.3 cm LV Septum Diastolic: 1.7 cm LV PW Diastolic: 1.1 cm AO Root Dimension: 2.2 cm LA ESV (BP):51 ml LA ESV Index: 29 ml/m2 LVOT: 1.8 cm Ascending Aorta:2.5 cm Doppler Measurements AV Peak Velocity: 407 cm/s AV Peak Gradient: 66.26 mmHg AV Mean Gradient: 39 mmHg AV VTI:54.1 cm TR Velocity:261 cm/s TR Gradient:27.25 mmHg Cardiac Anatomy Left Ventricle/Interventricular Septum The left ventricular size is normal. There is moderate septal hypertrophy. There is mild concentric left ventricular hypertrophy. The LV systolic function is vigorous . The left ventricular ejection fraction is 75 %. There are no definite regional wall motion abnormalities. There is left ventricular outflow tract obstruction. Peak gradient is 120 mmHg. Unable to assess diastolic function due to severe mitral annulus calcification . Left Atrium/Interatrial Septum The left atrium is mildly dilated. Aortic Valve There is a bioprosthetic valve in the aortic position (23mm Medtronic TAVR). The transaortic gradients are elevated at least partially due to increased flow. The acceleration time is short. What is believed to be the mean transaortic gradient is in the 22 mmHg range. The obstructive index could not be estimated due to LVOT obstruction. No significant paravalvular or valvular leak detected within the limits of the study. Mitral Valve There is severe mitral annular calcification. The mitral valve appears mildly to moderately thickened. There is systolic anterior motion of the anterior leaflet . There is mild to moderate mitral regurgitation. Aorta The ascending aorta and aortic root are normal in size. Right Ventricle The right ventricle is normal in size and function. Right Atrium The right atrium is normal in size. Pulmonic Valve The pulmonic valve is poorly visualized. Tricuspid Valve The tricuspid valve is normal in structure and function. There is trace regurgitation. Pumonary Artery The pulmonary artery systolic pressure estimation is within normal limits. Venous Structures The inferior vena cava appears normal. Pericardium/Extracardiac There is no significant pericardial effusion. Summary The left ventricular size is normal. There is moderate septal hypertrophy. There is mild concentric left ventricular hypertrophy. The LV systolic function is vigorous . The left ventricular ejection fraction is 75 %. There are no definite regional wall motion abnormalities. There is left ventricular outflow tract obstruction. Peak gradient is 120 mmHg. Unable to assess diastolic function due to severe mitral annulus calcification . There is a bioprosthetic valve in the aortic position (23mm Medtronic TAVR). The transaortic gradients are elevated at least partially due to increased flow. The acceleration time is short. What is believed to be the mean transaortic gradient is in the 22 mmHg range. The obstructive index could not be estimated due to LVOT obstruction. No significant paravalvular or valvular leak detected within the limits of the study. There is severe mitral annular calcification. The mitral valve appears mildly to moderately thickened. There is systolic anterior motion of the anterior leaflet . There is mild to moderate mitral regurgitation. The right ventricle is normal in size and function. Comparison Comparison is made to the study of April 18, 2024. Prior study was limited. Signature * Event Display: Echocardiogram - Complete Authored Date: [id number] * Event Display: Echocardiogram - Complete Authored Date: [id number] Transthoracic Echocardiography Report (TTE) Patient Demographics Patient Name MARCIO GONZALEZ Date of Study 04/18/2024 Corporate Gender Female Facility Race .[id number] Ethnicity Date of 1950 Height: 61.81 inches Age 73 year(s) Weight: 154.32 pounds Accession Number [id number] BSA: 1.71 m2 Room Number [id number] BMI: 28.4 kg/m2 Referring Erika Guaman MD Interpreting Mayra Tijerina MD Physician Physician Ssis Ssrs Developer Amelia Crawford Indications Aortic stenosis. Additional Indications:23mm medtronic TAVR Clinical History CAD s/p CABG x4 AVR (2017) Study Data Type of Study TTE procedure:Echo 2D Limited or Follow-up, Doppler Follow-up or Limited. Study Date04/18/2024 Start Time: 02:21 PM Study Location[place] [facility] [place] Study Status: clinical lab technologist Patient Status: Routine due to patient supine. Blood Pressure:111/79 mmHg EKG: Normal sinus rhythm HR: 85 bpm Allergies - Other allergy:(macrobid). 2D Measurements LVOT Stroke Volume: 100.32 ml LVOT: 1.9 cm Stroke Volume Index58.67 ml/m2 Cardiac Index:4.99 l/min/m2 Doppler Measurements AV Peak Velocity: 310 cm/s AV Peak Gradient: 38.44 mmHg AV Mean Gradient: 16.2 mmHg AV VTI:56.7 cm LVOT Peak Velocity: 153 cm/s LVOT VTI35.4 cm AV Area (Continuity):1.77 cm2 Cardiac Anatomy Aortic Valve s/p TAVR. Trace to mild regurgitation. Mean Pg is 16 mmHg. Mitral Valve Mild regurgitation. Summary Limited echo. s/p TAVR. Trace to mild regurgitation. Mean Pg is 16 mmHg. Signature * Event Display: Echocardiogram - Complete Authored Date: Cardiology * Event Display: Cardiac Rhythm Strips Authored Date: Hospital Progress note * Surinder LANGFORD, Farrah: PERFORM, SIGN, VERIFY Event Display: Progress Note Hospital Authored Date: [id number] Patient: MARCIO GONZALEZ Age: 73 years Sex: Female : 1950 Associated Diagnoses: None Author: Surinder LANGFORD, Farrah Findings Narrative/Incidental Pt is alert and oriented x 4. NS on the monitor 70s - 80s. Post op day 1 from a TAVR. Bedrest until9:30pm tonight. +2 radial pulses and DSD on femoral artery. Recieved zofran post procedure and heldfor additional dose because of prolonged QTC of 551. Right pupil is dilated and fixed at basline. Ancef was given at 1:30pm and next dose should be given around 9:30pm. XR and ECHO was done. No further intervention is needed at this time and plan of care is ongoing. . Patient Care team information Care Team Personnel Name: Gala Braden RN Position: [facility] RN Member Role: Primary Care Nurse Name: Jayashree Rincon NP Position: [facility] PCO Associate Professional Member Role: Primary Care Nurse Address: [address] [place] [id number] [place] Tele[employer]: Name: Phu SALDANA, Maximilian Neri Position: Reference Physician Member Role: PCP Address: [address] [place] [id number]- Tele[employer]: Name: Alice Weber RN Position: S RN Member Role: Primary Care Nurse Care Team Related Persons Name: RITO RODGERS Insurance Providers Guarantor name: MARCIO GONZALEZ [facility] Plan Information #: 1 Payer: [employer] [facility] Member Number: [id number] Policy Number: NA Group Number: [facility] Plan Information #: 2 Payer: [employer] [facility] [place] Member Number: [id number] Policy Number: NA Group Number: NA
== END 2024-05-09 11:49 | disposition home or self-care (01) ==
LOC: HO.HMCH 11:24
PROVIDERS: PCP Internal Medicine; Visit Provider Internal Medicine
DX: Z95.2 Presence of prosthetic heart valve (principal)

== ENCOUNTER → 2024-05-09 11:23 | Outpatient (BNVA) | payer MEDICARE, SELFPAY | PROVIDERS: PCP Internal Medicine; Visit Provider Internal Medicine | DX: Z95.2 Presence of prosthetic heart valve (principal) | CPT/HCPCS: 99212 ==

== ENCOUNTER → 2024-05-28 10:57 | Outpatient (REF) | payer MEDICARE, SELFPAY ==
--- NOTE | 2024-05-28 11:01 | CA_ITS ---
Transthoracic Echocardiogram Patient (Last, First, Middle): Gloria Mustafa L Gender: Female Date of : 1950 Age: 73 Procedure Date: 05/28/2024 Procedure Type: Transthoracic Echocardiogram Location: OP Height: 157. cm Weight: 68.04 kg BSA: 1.69 m2 Heart Rate: bpm BP: 160 / 70 mmHg Lot Porter: LOLY Referring MD: Sammy Paredes MD Symptoms: T82.09XA - Other mechanical complication of heart valve prosthesis, init... Study Quality: Adequate ECG Rhythm: Sinus Conclusions: - The left ventricular systolic function is hyperdynamic. The visually estimated ejection fraction is >70%. - A bioprosthetic aortic valve is present. The prosthetic aortic valve appears to be functioning normally. - Severe mitral annular calcification with possible calcific mitral stenosis. There is mild to moderate mitral valve regurgitation. Findings Left Ventricle Normal left ventricular cavity size. There is severely increased left ventricular wall thickness. The left ventricular systolic function is hyperdynamic. The visually estimated ejection fraction is >70%. There is no evidence of regional wall motion abnormalities. Evidence suggests grade I (mild) diastolic dysfunction. Right Ventricle Mildly increased right ventricular cavity size. There is mild to moderately decreased right ventricular systolic function. Atria The left atrium is moderately dilated. The right atrium is normal in size. Aortic Valve A bioprosthetic aortic valve is present. The prosthetic aortic valve appears to be functioning normally. The mean gradient is 21 mmHg. The aortic valve area is 1.24 cm2. There is no aortic valve regurgitation. Mitral Valve There is severe mitral annular calcification. There is mild to moderate mitral valve regurgitation. Possible mitral stenosis. Pulmonic Valve The pulmonic valve is likely normal. Tricuspid Valve There is trace tricuspid valve regurgitation. There is no evidence of pulmonary hypertension. Great Vessels The asc aorta is normal in size. Venous The inferior vena cava is normal in size and collapses greater than 50% with inspiration. Pericardium/Pleural There is no evidence of pericardial effusion. Prior Study Comparison Changes noted compared to prior study dated: 01/05/2024. s/p TAVR. Measurements 2D Linear Measurements IVSd: 1.44 0.6-0.9/0.6-1.0 cm LVIDd: 3.90 3.9-5.3/4.2-5.9 cm LVIDd Index: 2.31 2.4-3.2/2.2-3.1 cm/m2 LVIDs: 2.48 2.0-3.6 cm LVPWd: 1.57 0.7-1.1 cm Ao Root: 2.40 2.1-3.5 cm LA Diam: 4.50 2.7-3.8/3.0-4.0 cm LAIDs Index: 2.66 1.5-2.3 cm/m2 LV Mass: 281.45 67-162/88-224 g LV Mass Index: 166.54 43-95/49-115 g/m2 LVOT Diam: 1.70 3.0+(-)1.3 cm 2D Systolic Function EF 4C: 61.90 >55% EF 2C: 67.00 >55% EF BiP: 64.00 >55% Mitral Valve MV VTI: 0.60 MV Pk Uziel: 1.71 MV Mn Uziel: 1.05 MV Pk Grad: 12.00 MV Mn Grad: 5.00 MV Pk E: 1.35 MV PK A: 1.53 MV Decel Time: 451.00 E/A: 0.90 E'Lateral: 4.03 E'Medial: 3.37 E/E' Med: 40.10 E/E' Lat: 33.50 PHT: 132.00 MVA PHT: 1.67 MVA Continuity: 1.42 Decel [place]: 3.00 MR VTI: 2.13 Aortic Valve AoV Pk Uziel: 3.12 AoV Mn Uziel: 2.12 AoV VTI: 0.69 AoV Pk Grad: 39.00 Aov Mn Grad: 21.00 CATE Cont.VTI: 1.24 LVOT LVOT Pk Uziel: 1.47 LVOT Mn Uziel: 1.09 LVOT VTI: 0.38 LVOT Pk Grad: 9.00 LVOT Mn Grad: 5.00 LVOT Diam: 1.70 LVOT Area: 2.27 Diastolic Function MV Pk E: 1.35 MV Pk A: 1.53 E/A: 0.90 E'Medial: 3.37 E/E' Med: 40.10 E' Laterial: 4.03 E/E' Lat: 33.50 Right Ventricle TAPSE (mm): 13.00 TVS' Uziel: 7.00 Tricuspid Valve TR Pk Uziel: 2.25 TR Pk Grad: 20.00 RA Press: 3.00 RVSP: 23.00 Great Vessels Aorta Ao Root-2D: 2.40 2.0-3.7 cm Ao Asc: 2.60 2.1-3.4 cm Pulmonary Valve PV Pk Uziel: 1.25 Peak PV Grad: 6.00 Updated in Other Vendor System with Status of Final Tristan Gomez MD electronically signed on 05/30/2024 11:42:25 AM with status of Final
== END ==
LOC: HO.CARD 10:57
PROVIDERS: PCP Internal Medicine; Visit Provider Internal Medicine Cardiovascular Disease
DX: T82.09XA Other mechanical complication of heart valve prosthesis, initial encounter (principal)
CPT/HCPCS: 93306

== ENCOUNTER → 2024-05-28 11:01 | Outpatient (BNV) | payer MEDICARE, SELFPAY | PROVIDERS: PCP Internal Medicine; Visit Provider Internal Medicine | DX: I34.0 Nonrheumatic mitral (valve) insufficiency (principal); I34.81 Nonrheumatic mitral (valve) annulus calcification; I51.89 Other ill-defined heart diseases; Z95.3 Presence of xenogenic heart valve | CPT/HCPCS: 93306 ==

== ENCOUNTER 2024-06-17 12:41 | Inpatient (IN) | payer MEDICARE, SELFPAY ==
[2024-06-17] VITALS (7 sets, daily range): BP systolic 108–137; BP diastolic 38–65; PULSE 66–85; RESP 18–22; TEMP 36–36.6; O2SAT 97–100; BMI 26.5; BMI 27.4
--- NOTE | 2024-06-17 13:05 | ED_ITS ---
HPI - General Adult General Chief complaint: Dizziness Stated complaint: lightheaded Time Seen by Provider: 06/17/24 13:13 Related Data Home Medications ?Medication ?Instructions ?Recorded ?Confirmed cyanocobalamin (vitamin B-12) 1,000 mcg PO DAILY 01/14/20 06/17/24 1,000 mcg sublingual tablet aspirin 81 mg tablet,delayed 81 mg PO DAILY 01/16/20 06/17/24 release (Adult Low Dose Aspirin) Previous Rx's ?Medication ?Instructions ?Recorded atorvastatin 80 mg tablet 80 mg PO DAILY #90 tabs 06/08/23 losartan 100 mg tablet 100 mg PO DAILY #90 tabs 06/08/23 solifenacin 5 mg tablet (Vesicare) 5 mg PO DAILY #90 tabs 10/02/23 ezetimibe 10 mg tablet 10 mg PO DAILY #90 tabs 11/10/23 ticagrelor 90 mg tablet (Brilinta) 90 mg PO BID 90 days #180 tabs 03/19/24 metoprolol tartrate 50 mg tablet 50 mg PO BID #180 tabs 03/26/24 meloxicam 15 mg tablet 15 mg PO DAILY #90 tabs 05/08/24 venlafaxine 150 mg 150 mg PO DAILY #90 caps 06/12/24 capsule,extended release 24 hr Allergies Allergy/AdvReac Type Severity Reaction Status Date / Time nitrofurantoin [Macrobid] Allergy Unknown headache Verified 06/17/24 13:10 [facility] Past Medical History Medical History Mitral regurgitation S/P angiogram of extremity (11/15/18) Anemia Depression Atherosclerotic heart disease PVD (peripheral vascular disease) HTN (hypertension) CAD (coronary artery disease) Prosthetic valve dysfunction Hyperlipidemia Surgical History History of heart artery stent History of aortic valve replacement History of cataract extraction Hx of endoscopy Hx of colonoscopy S/P AVR Hx of CABG H/O left wrist surgery Family History Family History Father Depression Mother Depression Heart disease CHF (congestive heart failure) Paternal Grandmother Cancer Other Mental health disorder Social History Social History Household Members: None Housing: House Are you a primary foster care case manager to a significant other at home: No Do you presently have visiting nurse or other home services: No Alcohol intake: never Patient Tobacco Use Status: Former Tobacco user e-Cigarette/Vaping Use: Never Used Second Hand Smoke Exposure: Yes Use of substances other than those prescribed or required for medical reasons: No Currently Displaying Signs/Symptoms of Drug Intoxication Withdrawal: No Have you been hit, kicked, punched, or otherwise hurt by someone within the past year? If so, by whom?: No Are you DNR?: No Advance Directives: Yes Advance Directives Information Provided: No Advance Directives on File: No Advance Directives Date on File: 06/17/24 Do you have a plan to hurt others: No Plan Recently lost weight without trying: Yes How much weight loss: 2-13 pounds Eating poorly because of decreased appetite: No Nutrition screen score: 3 Nutrition Risks: No Nutritional Risk Patient : No : No Poor oral hygiene: Yes service: No Current occupational status: retired Cognitive needs: No Hearing needs: No Vision needs: Yes (Reading glasses) Physical Exam ED Vital Signs: BMI result Body Mass Index 26.5 Course Course Course Narrative: This is a rapid medical exam performed by Deniz Moran NP: Additional HPI, ROS, PE not included below will be deferred to primary provider. Patient is a 74-year-old female pmhx of aortic valve replacement, CABG, mitral regurgitation, CAD, PVD, HTN, HLD presenting to the ED with complaint of dizziness, lightheadedness since the beginning of the week. Daughter reports last week patient had GI sxs, n/v/d, began to feel better Monday, then worse again early this week. She was unsure if sxs were related to her Brilinta so she cut dose from BID to daily. BPs labile in triage. Denies hematochezia, melena, hematemesis. Plan: EKG, labs, viral panel Medications Administered Generic Name Dose Route Start Last Admin Trade Name Freq PRN Reason Stop Dose Admin Acetaminophen 650 mg 06/17/24 15:36 06/18/24 11:41 Acetaminophen 325 Mg Tablet PO 650 mg Q6H PRN Administration Pain, Mild 1-3,fever,headache Ceftriaxone Sodium 1 gm 06/18/24 12:00 06/19/24 11:41 Ceftriaxone Sodium 1 Gm Vial IVPUSH 1 gm Q24H ARLEY Administration Lactated Ringer's 1,000 mls @ 80 mls/hr 06/19/24 13:00 06/19/24 13:03 Lr IVCONT 80 mls/hr .[id number] ARLEY Administration Losartan Potassium 100 mg 06/18/24 16:15 06/19/24 08:44 Losartan Potassium 50 Mg Tablet PO 100 mg DAILY ARLEY Administration Protocol Metoprolol Tartrate 50 mg 06/18/24 21:00 06/19/24 08:45 Metoprolol Tartrate 50 Mg Tablet PO 50 mg BID ARLEY Administration Protocol Omeprazole 40 mg 06/19/24 14:00 06/19/24 15:17 Omeprazole 40 Mg Capsule.Dr PO 40 mg DAILY@0630 ARLEY Administration Ondansetron HCl 4 mg 06/17/24 15:36 06/19/24 12:31 Ondansetron Hcl 4 Mg/2 Ml Vial IVPUSH 4 mg Q8H PRN Administration Nausea and Vomiting Sodium Chloride 3 ml 06/17/24 16:00 06/19/24 15:17 0.9 % Sodium Chloride Flush 3 Ml Syringe IVFLUSH 3 ml QSHIFT ARLEY Administration Ticagrelor 90 mg 06/17/24 21:00 06/19/24 08:45 Ticagrelor 90 Mg Tablet PO 90 mg BID ARLEY Administration Venlafaxine HCl 150 mg 06/19/24 09:00 06/19/24 08:45 Venlafaxine Hcl Er 150 Mg Cap.Er.24h PO 150 mg DAILY ARLEY Administration Discontinued Medications Generic Name Dose Route Start Last Admin Trade Name Freq PRN Reason Stop Dose Admin Lactated Ringer's 1,000 mls @ 999 mls/hr 06/17/24 13:30 06/17/24 15:27 Lr IV 06/17/24 14:30 Infused .Q1H1M ARLEY Infusion Lactated Ringer's 1,000 mls @ 80 mls/hr 06/17/24 16:00 06/18/24 16:46 Lr IVCONT Infused .[id number] ARLEY Infusion Iron Sucrose 100 mg/ Sodium 55 mls @ 220 mls/hr 06/18/24 11:15 06/18/24 14:06 Chloride IV 06/19/24 09:14 Not Given DAILY ARLEY Iron Sucrose 100 mg/ Sodium 55 mls @ 220 mls/hr 06/18/24 17:00 06/19/24 16:44 Chloride IV 06/19/24 17:14 220 mls/hr Q24H ARLEY Administration Polyethylene Glycol/Electrolytes 4,000 ml 06/18/24 14:45 06/18/24 16:14 Peg 3350/Na Sulf,Bicarb,Cl/Kcl 4,000 Ml Soln.Recon PO 06/18/24 14:46 4,000 ml ONCE ONE Administration Medical Decision Making Lab Data 06/19/24 08:18 06/19/24 08:18 Labs: Lab Results 06/17/24 06/17/24 06/17/24 Range/Units 13:25 13:49 14:46 WBC 14.5 H (4.8-10.8) X10*3/uL RBC 4.15 L (4.20-5.50) X10*6/uL Hgb 9.8 L D (12.0-16.0) g/dl Hct 32.2 L D (37.0-47.0) % MCV 77.6 L (80.0-98.0) fL MCH 23.6 L (27.0-33.0) pg MCHC 30.4 L (31.0-35.0) g/dl RDW 14.2 (11.0-16.0) % Plt Count 372 D (160-400) X10*3/uL MPV 10.0 (9.4-12.3) fL Immature Gran % (Auto) 0.4 (0.0-0.4) % Neut % (Auto) 82.1 H (45-73) % Lymph % (Auto) 9.7 L (20-40) % [place] % (Auto) 7.0 (2-11) % Eos % (Auto) 0.3 (0-4) % Baso % (Auto) 0.5 (0-2) % Lymph # (Auto) 1.4 (1.2-4.9) X10*3/uL [place] # (Auto) 1.0 (0.1-1.2) X10*3/uL Eos # (Auto) 0.1 (0.0-0.4) X10*3/uL Baso # (Auto) 0.1 (0.0-0.2) X10*3/uL Abs Immat Gran (auto) 0.06 H (0.00-0.03) X10*3/uL Absolute Neuts (auto) 11.9 H (2.0-8.3) x10*3/uL Absolute Nucleated RBC 0.000 (0.0-0.012) X10*3/uL Nucleated RBC % (auto) 0.0 (0.0-0.2) /100WBC PT 11.3 (10.9-12.4) SEC INR 1.0 (0.9-1.1) Sodium 137 (135-145) mmol/L Potassium 4.4 (3.3-5.1) mmol/L Chloride 105 (96-108) mmol/L Carbon Dioxide 20 L (22-29) mmol/L Anion Gap 16 (12-20) BUN 34 H (9-16) mg/dL Creatinine 1.45 H (0.5-1.4) mg/dL Estim Creat Clear Calc 29.8 Estimated GFR 35 Random Glucose 106 (60-115) mg/dL Calcium 9.7 D (8.4-10.2) mg/dL Magnesium 2.0 (1.6-2.6) mg/dL Total Bilirubin 0.6 (0.0-1.0) mg/dL AST 27 (5-31) U/L ALT 17 (0-31) U/L Alkaline Phosphatase 122 H (39-117) U/L Troponin I High Sens 121.1 H* (<3.5-17.0) ng/L Total Protein 7.5 (6.5-8.0) g/dL Albumin 4.5 (3.5-5.0) g/dL Lipase 46 (8-78) U/L Urine Color Urine Appearance Urine pH (5.0-9.0) Ur Specific [place] (1.005-1.025) Urine Protein (Neg-Trace) mg/dL Urine Glucose (UA) (Negative) mg/dL Urine Ketones (Negative) mg/dL Urine Blood (Negative) Urine Nitrite (Negative) Ur Leukocyte Esterase (Negative) Urine RBC (0-2) /HPF Urine WBC (0-5) /HPF Ur Squamous Epith Cells (0-2) /HPF Urine Bacteria (None Seen) Hyaline Casts (0-2) /LPF Stool Occult Blood POSITIVE (NEGATIVE) Influenza Type A (PCR) NEGATIVE (Negative) Influenza Type B (PCR) NEGATIVE (Negative) RSV RNA Qual (PCR) NEGATIVE (Negative) SARS-CoV-2 RNA (RT-PCR) NEGATIVE (Negative) 06/17/24 Range/Units 15:30 WBC (4.8-10.8) X10*3/uL RBC (4.20-5.50) X10*6/uL Hgb (12.0-16.0) g/dl Hct (37.0-47.0) % MCV (80.0-98.0) fL MCH (27.0-33.0) pg MCHC (31.0-35.0) g/dl RDW (11.0-16.0) % Plt Count (160-400) X10*3/uL MPV (9.4-12.3) fL Immature Gran % (Auto) (0.0-0.4) % Neut % (Auto) (45-73) % Lymph % (Auto) (20-40) % [place] % (Auto) (2-11) % Eos % (Auto) (0-4) % Baso % (Auto) (0-2) % Lymph # (Auto) (1.2-4.9) X10*3/uL [place] # (Auto) (0.1-1.2) X10*3/uL Eos # (Auto) (0.0-0.4) X10*3/uL Baso # (Auto) (0.0-0.2) X10*3/uL Abs Immat Gran (auto) (0.00-0.03) X10*3/uL Absolute Neuts (auto) (2.0-8.3) x10*3/uL Absolute Nucleated RBC (0.0-0.012) X10*3/uL Nucleated RBC % (auto) (0.0-0.2) /100WBC PT (10.9-12.4) SEC INR (0.9-1.1) Sodium (135-145) mmol/L Potassium (3.3-5.1) mmol/L Chloride (96-108) mmol/L Carbon Dioxide (22-29) mmol/L Anion Gap (12-20) BUN (9-16) mg/dL Creatinine (0.5-1.4) mg/dL Estim Creat Clear Calc Estimated GFR Random Glucose (60-115) mg/dL Calcium (8.4-10.2) mg/dL Magnesium (1.6-2.6) mg/dL Total Bilirubin (0.0-1.0) mg/dL AST (5-31) U/L ALT (0-31) U/L Alkaline Phosphatase (39-117) U/L Troponin I High Sens (<3.5-17.0) ng/L Total Protein (6.5-8.0) g/dL Albumin (3.5-5.0) g/dL Lipase (8-78) U/L Urine Color Yellow Urine Appearance Clear Urine pH 6.5 (5.0-9.0) Ur Specific [place] 1.010 (1.005-1.025) Urine Protein Negative (Neg-Trace) mg/dL Urine Glucose (UA) Negative (Negative) mg/dL Urine Ketones Negative (Negative) mg/dL Urine Blood Negative (Negative) Urine Nitrite Positive H (Negative) Ur Leukocyte Esterase Trace H (Negative) Urine RBC 0-2 (0-2) /HPF Urine WBC 0-5 (0-5) /HPF Ur Squamous Epith Cells 0-2 (0-2) /HPF Urine Bacteria 4+ (None Seen) Hyaline Casts 0-2 (0-2) /LPF Stool Occult Blood (NEGATIVE) Influenza Type A (PCR) (Negative) Influenza Type B (PCR) (Negative) RSV RNA Qual (PCR) (Negative) SARS-CoV-2 RNA (RT-PCR) (Negative) Discharge Plan Discharge Clinical Impression: KATHRYN (acute kidney injury), Elevated troponin level, Anemia Patient Disposition: Admitted As Inpatient Interventions: Admission Worksheet (ED) Last Done: 06/17/24 18:23 Discharge Date/Time: 06/17/24 20:50
--- NOTE | 2024-06-17 13:13 | ECG_ITS ---
Test Reason : HYPOTENSIVE Blood Pressure : */* mmHG Vent. Rate : 64 BPM Atrial Rate : 64 BPM P-R Int : 178 ms QRS Dur : 88 ms QT Int : 452 ms P-R-T Axes : 64 -26 99 degrees QTcB Int : 466 ms Normal sinus rhythm Possible Left atrial enlargement Left ventricular hypertrophy with repolarization abnormality ( R in aVL , Tristan product , Romhilt-Epstein ) Abnormal ECG When compared with ECG of 11-Feb-2010 12:46, LVH present Referred By: Maria M Moran Electronically Signed By: KOLE CARRION
--- NOTE | 2024-06-17 13:24 | ED.GENADULT ---
HPI - General Adult General Chief complaint: Dizziness Stated complaint: lightheaded Time Seen by Provider: 06/17/24 13:13 Source: patient Mode of arrival: ambulatory Limitations: no limitations History of Present Illness HPI narrative: This is 74 years old the patient presented to the emergency room with 2 weeks' history of generalized weakness dizziness. Denies any fever chills. She has a history of coronary artery disease she has a history of valve replacement. The symtoms are present for the last 2 weeks Onset (ago): week(s) (2) Radiation: non-radiation Severity: moderate Pain Consistency: constant Relieving factors: none Exacerbating factors: none Related Data Home Medications ?Medication ?Instructions ?Recorded ?Confirmed cyanocobalamin (vitamin B-12) 1,000 mcg PO DAILY 01/14/20 05/09/24 1,000 mcg sublingual tablet aspirin 81 mg tablet,delayed 81 mg PO DAILY 01/16/20 05/09/24 release (Adult Low Dose Aspirin) Previous Rx's ?Medication ?Instructions ?Recorded atorvastatin 80 mg tablet 80 mg PO DAILY #90 tabs 06/08/23 losartan 100 mg tablet 100 mg PO DAILY #90 tabs 06/08/23 fluticasone propionate 50 1 spray intranasal BID #16 grams 09/07/23 mcg/actuation nasal spray,suspension solifenacin 5 mg tablet (Vesicare) 5 mg PO DAILY #90 tabs 10/02/23 ezetimibe 10 mg tablet 10 mg PO DAILY #90 tabs 11/10/23 ticagrelor 90 mg tablet (Brilinta) 90 mg PO BID 90 days #180 tabs 03/19/24 metoprolol tartrate 50 mg tablet 50 mg PO BID #180 tabs 03/26/24 meloxicam 15 mg tablet 15 mg PO DAILY #90 tabs 05/08/24 venlafaxine 150 mg 150 mg PO DAILY #90 caps 06/12/24 capsule,extended release 24 hr Allergies Allergy/AdvReac Type Severity Reaction Status Date / Time nitrofurantoin [Macrobid] Allergy Unknown headache Verified 06/17/24 13:10 Review of Systems Constitutional: Constitutional: Reports no additional constitutional complaints ENT: Reports system reviewed and no additional complaints, except as documented [facility] Past Medical History Attestation statement: The following information was validated with the patient. [facility] Narrative: CAD, aortic valve replacement Medical History (Updated 06/17/24 @ 15:45 by Joseph Sosa MD) Mitral regurgitation S/P angiogram of extremity (11/15/18) Anemia Depression Atherosclerotic heart disease PVD (peripheral vascular disease) HTN (hypertension) CAD (coronary artery disease) Prosthetic valve dysfunction Hyperlipidemia Surgical History History of heart artery stent History of aortic valve replacement History of cataract extraction Hx of endoscopy Hx of colonoscopy S/P AVR Hx of CABG H/O left wrist surgery Family History Family History Father Depression Mother Depression Heart disease CHF (congestive heart failure) Paternal Grandmother Cancer Other Mental health disorder Social History Social History Housing: House Alcohol intake: never Patient Tobacco Use Status: Former Tobacco user e-Cigarette/Vaping Use: Never Used Second Hand Smoke Exposure: Yes Advance Directives: Yes Advance Directives Information Provided: No Advance Directives on File: No service: No Current occupational status: retired Cognitive needs: No Hearing needs: No Vision needs: Yes (Reading glasses) Physical Exam ED Vital Signs: Vital Signs - 24 hr 06/17/24 13:05 06/17/24 13:52 06/17/24 13:52 Temperature 97.9 F Pulse Rate 66 66 73 Respiratory Rate 18 Blood Pressure 108/59 L 122/52 L 130/41 L Pulse Oximetry 100 Oxygen Delivery Method Room Air 06/17/24 13:54 Temperature Pulse Rate 74 Respiratory Rate Blood Pressure 120/38 L Pulse Oximetry Oxygen Delivery Method BMI result Body Mass Index 26.5 Not acute distress comfortable in the stretcher Const General: cooperative Nutritional Appearance: well nourished Orientation/consciousness: patient oriented x3 Limitations: no limitations HENMT Head: Yes normal to inspection Face and sinus: Yes normal facial exam Mouth: Normal oral and palatal mucosa present Neck Neck: Yes normal visual inspection Chest Chest palpation & inspection: normal inspection of the chest Resp Effort & Inspection: normal respiratory effort Auscultation: clear to auscultation bilaterally Cardio Jugular venous distension: no JVD Rate: regular rate Rhythm: regular rhythm GI Inspection: Yes normal to inspection Palpation (GI): Soft to palpation Skin General skin exam: no rashes or lesions noted Lesions: no lesions Rashes: no rashes Neuro General: patient oriented x3 Cranial nerves: Yes CN's II-XII intact bilaterally Course Reevaluation(s) Reevaluation #1: Workup completed and the patient is anemic which is new, also she has an elevated high sensitive troponin, also she has evidence of KATHRYN it is very reasonable to admit the patient for IV hydration and serial troponin it workup for anemia, she is symptomatic with the above Time: 15:46 Medications Administered Discontinued Medications Generic Name Dose Route Start Last Admin Trade Name Freq PRN Reason Stop Dose Admin Lactated Ringer's 1,000 mls @ 999 mls/hr 06/17/24 13:30 06/17/24 15:27 Lr IV 06/17/24 14:30 Infused .Q1H1M ARLEY Infusion Medical Decision Making Medical Decision Making [facility] Narrative: Patient presented to the emergency department with generalized weakness malaise we will obtain blood work electrocardiogram Differential Diagnosis Differential Diagnoses: The differential diagnosis associated with the presentation includes Differential diagnosis anemia/electrolytes abnormality urinary tract infection cardiac ischemia Admission/Observation Consideration of admission/observation: Escalation of care including admission/observation considered Lab Data [facility] Lab Attestation statement: I reviewed the patient's lab results. 06/17/24 13:25 06/17/24 13:25 Labs: Lab Results 06/17/24 06/17/24 06/17/24 Range/Units 13:25 13:49 14:46 WBC 14.5 H (4.8-10.8) X10*3/uL RBC 4.15 L (4.20-5.50) X10*6/uL Hgb 9.8 L D (12.0-16.0) g/dl Hct 32.2 L D (37.0-47.0) % MCV 77.6 L (80.0-98.0) fL MCH 23.6 L (27.0-33.0) pg MCHC 30.4 L (31.0-35.0) g/dl RDW 14.2 (11.0-16.0) % Plt Count 372 D (160-400) X10*3/uL MPV 10.0 (9.4-12.3) fL Immature Gran % (Auto) 0.4 (0.0-0.4) % Neut % (Auto) 82.1 H (45-73) % Lymph % (Auto) 9.7 L (20-40) % [place] % (Auto) 7.0 (2-11) % Eos % (Auto) 0.3 (0-4) % Baso % (Auto) 0.5 (0-2) % Lymph # (Auto) 1.4 (1.2-4.9) X10*3/uL [place] # (Auto) 1.0 (0.1-1.2) X10*3/uL Eos # (Auto) 0.1 (0.0-0.4) X10*3/uL Baso # (Auto) 0.1 (0.0-0.2) X10*3/uL Abs Immat Gran (auto) 0.06 H (0.00-0.03) X10*3/uL Absolute Neuts (auto) 11.9 H (2.0-8.3) x10*3/uL Absolute Nucleated RBC 0.000 (0.0-0.012) X10*3/uL Nucleated RBC % (auto) 0.0 (0.0-0.2) /100WBC PT 11.3 (10.9-12.4) SEC INR 1.0 (0.9-1.1) Sodium 137 (135-145) mmol/L Potassium 4.4 (3.3-5.1) mmol/L Chloride 105 (96-108) mmol/L Carbon Dioxide 20 L (22-29) mmol/L Anion Gap 16 (12-20) BUN 34 H (9-16) mg/dL Creatinine 1.45 H (0.5-1.4) mg/dL Estim Creat Clear Calc 29.8 Estimated GFR 35 Random Glucose 106 (60-115) mg/dL Calcium 9.7 D (8.4-10.2) mg/dL Magnesium 2.0 (1.6-2.6) mg/dL Total Bilirubin 0.6 (0.0-1.0) mg/dL AST 27 (5-31) U/L ALT 17 (0-31) U/L Alkaline Phosphatase 122 H (39-117) U/L Troponin I High Sens 121.1 H* (<3.5-17.0) ng/L Total Protein 7.5 (6.5-8.0) g/dL Albumin 4.5 (3.5-5.0) g/dL Lipase 46 (8-78) U/L Stool Occult Blood POSITIVE (NEGATIVE) Influenza Type A (PCR) NEGATIVE (Negative) Influenza Type B (PCR) NEGATIVE (Negative) RSV RNA Qual (PCR) NEGATIVE (Negative) SARS-CoV-2 RNA (RT-PCR) NEGATIVE (Negative) Independent Interpretation I performed an independent interpretation of an: EKG Interpretation: Normal sinus rhythm [address]-T changes normal EKG Independent Historian Clinical information obtained from an independent historian. History obtained from or confirmed by: Other (daughter) External Record Review External record reviewed: Inpatient record Discharge Plan Discharge Clinical Impression: KATHRYN (acute kidney injury), Elevated troponin level Anemia Qualifiers: Anemia type: unspecified type Qualified Code(s): D64.9 - Anemia, unspecified Patient Disposition: Admitted As Inpatient Print Language: Vietnamese
[2024-06-17 13:28] LABS: MANUAL DIFF FLAG NO
[2024-06-17 13:33] LABS: Basophils Absolute Auto 0.1 X10*3/uL (0.0-0.2); Basophils Percent Auto 0.5 % (0-2); Eosinophils Absolute Auto 0.1 X10*3/uL (0.0-0.4); Eosinophils Percent Auto 0.3 % (0-4); Hematocrit 32.2 % (37.0-47.0); Hemoglobin 9.8 g/dl (12.0-16.0); Imm Gran Abs Auto 0.06 X10*3/uL (0.00-0.03); Imm Gran Pct Auto 0.4 % (0.0-0.4); Lymphocytes Absolute Auto 1.4 X10*3/uL (1.2-4.9); Lymphocytes Percent Auto 9.7 % (20-40); Mean Corpuscular HGB Conc 30.4 g/dl (31.0-35.0); Mean Corpuscular Hemoglobin 23.6 pg (27.0-33.0); Mean Corpuscular Volume 77.6 fL (80.0-98.0); Neutrophils Absolute Auto 11.9 x10*3/uL (2.0-8.3); Neutrophils Percent Auto 82.1 % (45-73); Platelet Count 372 X10*3/uL (160-400); Red Blood Count 4.15 X10*6/uL (4.20-5.50); Red Cell Distribution Width 14.2 % (11.0-16.0); White Blood Count 14.5 X10*3/uL (4.8-10.8)
[2024-06-17 13:46] LABS: Alanine Aminotransferase 17 U/L (0-31); Albumin Level 4.5 g/dL (3.5-5.0); Anion Gap 16 (12-20); Aspartate Amino Transferase 27 U/L (5-31); Bilirubin Total 0.6 mg/dL (0.0-1.0); Blood Urea Nitrogen 34 mg/dL (9-16); Calcium 9.7 mg/dL (8.4-10.2); Carbon Dioxide 20 mmol/L (22-29); Chloride 105 mmol/L (96-108); Creatinine Clr Calc Pharmacy 29.8; Estimated Glomerular Filt Rate 35; Glucose Random 106 mg/dL (60-115); Lipase 46 U/L (8-78); Potassium 4.4 mmol/L (3.3-5.1); Sodium 137 mmol/L (135-145); Total Protein 7.5 g/dL (6.5-8.0)
[2024-06-17 13:53] LABS: Alkaline Phosphatase 122 U/L (39-117)
[2024-06-17 13:56] LABS: Troponin-I High Sensitivity 121.1 ng/L (<3.5-17.0)
[2024-06-17] MEDS: Lactated Ringers 1,000 ML 999 ML IV (13:58)
[2024-06-17 14:00] LABS: Prothrombin Time 11.3 SEC (10.9-12.4)
[2024-06-17 14:33] LABS: Influenza A PCR NEGATIVE (Negative); Influenza B PCR NEGATIVE (Negative); Resp Syncy Virus RNA Qual PCR NEGATIVE (Negative); SARS COV2 PCR INHOUSE NEGATIVE (Negative)
[2024-06-17 14:55] LABS: OBS Int Ctl Valid YES; OBS1 POSITIVE (NEGATIVE)
[2024-06-17 15:37] LABS: Appearance Urine Clear; Color Urine Yellow; Glucose Urine UA Negative (Negative); Leukocyte Esterase Urine Trace (Negative); Nitrite Urine Positive (Negative); PH 6.5 (5.0-9.0); UMIC TRIGGER UACC YES; Urine Blood Negative (Negative); Urine Ketones Negative (Negative); Urine Protein Negative (Neg-Trace)
[2024-06-17 15:39] LABS: Bacteria Urine 4+ (None Seen); Hyaline Casts Urine 0-2 /LPF (0-2); RBC Urine 0-2 /HPF (0-2); Squamous Epithelial Cell Urine 0-2 /HPF (0-2); UACC Culture Trigger YES; WBC Urine 0-5 /HPF (0-5)
--- NOTE | 2024-06-17 15:42 | PM.IMHP ---
History of Present Illness Date of Service: 06/17/24 Chief Complaint: weakness 74-year-old woman presented to the ER with complaints of weakness, dizziness. She reported that approximately 1 week ago she developed a GI illness with nausea and vomiting. She reported a poor appetite and decreased intake. She was reported at that time she developed dizziness and weakness. She denied any diarrhea, fever, chills, chest pain, shortness of breath. She has a history of recent TAVR and stent placement in March of 2024 and has been on aspirin and Brilinta. Her troponin was noted to be elevated however EKG did not show acute ischemic changes and she had no complaints of chest pain. Leukocytosis 14.5, hemoglobin 9.8, hematocrit 32.2, creatinine 1.45, troponin 121.1, stool occult positive, negative flu, RSV and COVID., stable vital signs. Plan will be to admit patient for further management and treatment of acute kidney injury and anemia. Review of Systems Review of Systems: Denies any recent fever chills or decrease in appetite respiratory denies any shortness of breath or cough cardiovascular denied chest pain gastrointestinal See HPI genitourinary denies any dysuria frequency or hematuria musculoskeletal denies any joint pain or swelling neuropsych denies any weakness or seizures all other systems reviewed are negative [facility] Medical History (Updated 06/17/24 @ 15:45 by Joseph Sosa MD) Mitral regurgitation S/P angiogram of extremity (11/15/18) Anemia Depression Atherosclerotic heart disease PVD (peripheral vascular disease) HTN (hypertension) CAD (coronary artery disease) Prosthetic valve dysfunction Hyperlipidemia Family History Father Depression Mother Depression Heart disease CHF (congestive heart failure) Paternal Grandmother Cancer Other Mental health disorder Surgical History History of heart artery stent History of aortic valve replacement History of cataract extraction Hx of endoscopy Hx of colonoscopy S/P AVR Hx of CABG H/O left wrist surgery Social History Housing: House Alcohol intake: never Patient Tobacco Use Status: Former Tobacco user e-Cigarette/Vaping Use: Never Used Second Hand Smoke Exposure: Yes Advance Directives: Yes Advance Directives Information Provided: No Advance Directives on File: No service: No Current occupational status: retired Cognitive needs: No Hearing needs: No Vision needs: Yes (Reading glasses) Meds Allergies Allergy/AdvReac Type Severity Reaction Status Date / Time nitrofurantoin [Macrobid] Allergy Unknown headache Verified 06/17/24 13:10 Active Medications: Current Medications Acetaminophen (Acetaminophen 325 Mg Tablet) 650 mg PO Q6H PRN PRN Reason: Pain, Mild 1-3,fever,headache Calcium Carbonate (Calcium Carbonate 750 Mg Tab.Chew) 750 mg PO Q4H PRN PRN Reason: Heartburn Magnesium Hydroxide (Milk Of Magnesia 30 Ml Oral.Susp) 30 ml PO DAILY PRN PRN Reason: Constipation Melatonin (Melatonin 3 Mg Tablet) 6 mg PO BEDTIME PRN PRN Reason: Insomnia Ondansetron HCl (Ondansetron Hcl 4 Mg/2 Ml Vial) 4 mg IVPUSH Q8H PRN PRN Reason: Nausea and Vomiting Sodium Chloride (0.9 % Sodium Chloride Flush 3 Ml Syringe) [facility] Medications ?Medication ?Instructions ?Recorded ?Confirmed ?Last Taken ?Type cyanocobalamin (vitamin B-12) 1,000 mcg PO DAILY 01/14/20 05/09/24 07/20/20 History 1,000 mcg sublingual tablet aspirin 81 mg tablet,delayed 81 mg PO DAILY 01/16/20 05/09/24 07/20/20 History release (Adult Low Dose Aspirin) Physical Exam Vital Signs and Narrative: Vital Signs: Last Vital Signs Temp 97.9 F 06/17/24 13:05 Pulse 74 06/17/24 13:54 Resp 18 06/17/24 13:05 BP 120/38 L 06/17/24 13:54 Pulse Ox 100 06/17/24 13:05 O2 Del Method Room Air 06/17/24 13:05 BMI result Body Mass Index 26.5 Appearing in no acute distress head is normocephalic atraumatic eyes pupils are PERRLA sclera is anicteric mouth throat mucous membranes are intact and moist neck is supple no lymphadenopathy, no JVD noted lung sounds are clear to auscultation heart regular rate rhythm, clear S1, S2 positive bowel sounds, abdomen is soft, nontender neuro patient is alert x3, no focal deficits Results Labs 06/17/24 13:25 06/17/24 13:25 Labs: Laboratory Results - last 24 hr 06/17/24 06/17/24 06/17/24 13:25 13:49 14:46 MCV 77.6 L MCH 23.6 L MCHC 30.4 L RDW 14.2 Plt Count 372 D MPV 10.0 Immature Gran % (Auto) 0.4 Neut % (Auto) 82.1 H Lymph % (Auto) 9.7 L [place] % (Auto) 7.0 Eos % (Auto) 0.3 Baso % (Auto) 0.5 Lymph # (Auto) 1.4 [place] # (Auto) 1.0 Eos # (Auto) 0.1 Baso # (Auto) 0.1 Abs Immat Gran (auto) 0.06 H Absolute Neuts (auto) 11.9 H Absolute Nucleated RBC 0.000 Nucleated RBC % (auto) 0.0 PT 11.3 INR 1.0 Anion Gap 16 Estim Creat Clear Calc 29.8 Estimated GFR 35 Random Glucose 106 Calcium 9.7 D Magnesium 2.0 Total Bilirubin 0.6 AST 27 ALT 17 Alkaline Phosphatase 122 H Total Protein 7.5 Albumin 4.5 Lipase 46 Stool Occult Blood POSITIVE Influenza Type A (PCR) NEGATIVE Influenza Type B (PCR) NEGATIVE RSV RNA Qual (PCR) NEGATIVE SARS-CoV-2 RNA (RT-PCR) NEGATIVE Assessment and Plan (1) KATHRYN (acute kidney injury): Status: Acute Plan 74 year old women admitted with KATHRYN, dehydration and elevated troponin. Recent GI illness KATHRYN Likely secondary to recent gastric viral illness with vomiting and poor appetite Continue IV fluids Avoid nephrotoxins Check BNP in the morning Dizziness likely secondary to dehydration continue IV fluids and monitor BP ua pending check RPP Elevated troponin no chest pain initial troponin 121.1 no ischemic changes on EKG recent valve placement and stent repeat this evening Microcytic anemia Patient denies any obvious bleeding Stool occult positive On aspirin and Brilinta status post TAVR and stent check iron studies GI consultation Leukocytosis likely reactive, recent GI illness no obvious infection noted Hypertension Stable blood pressure hold BP meds in light of KATHRYN and dehydration TAVR/stent placement 03/2024 Continue aspirin and Brilinta History of coronary artery disease Continue statin and beta-tony DVT prophylaxis, continue aspirin and Brilinta for now Full code Quality Stroke Does the patient have a stroke diagnosis?: No VTE Prior VTE?: No VTE Risk Level:: Medical - moderate - high VTE Device Contraindication: N/A - Device Ordered VTE Drug Contraindication: Treatment Not Indicated
[2024-06-17] MEDS: Lactated Ringers 1,000 ML 80 ML IVCONT (16:38)
[2024-06-17 16:47] LABS: Troponin-I High Sensitivity 111.5 ng/L (<3.5-17.0)
--- NOTE | 2024-06-17 17:12 | PHA.MEDREC ---
Pharmacy Consult ? Medication Reconciliation Pharmacy has completed the medication reconciliation. Spoke to patient at bedside, she had a list in her wallet. Does not use flonase anymore, all medications taken this morning
[2024-06-17] MEDS: Ticagrelor 90 MG TABLET PO (22:24)
[2024-06-18] VITALS (15 sets, daily range): BP systolic 119–190; BP diastolic 60–98; PULSE 57–98; RESP 15–18; TEMP 36–38.3; O2SAT 96–100
[2024-06-18] MEDS: 0.9 % Sodium Chloride Flush 3 ML SYRINGE IVFLUSH ×3 (00:30→20:01)
[2024-06-18] MEDS: Lactated Ringers 1,000 ML 80 ML IVCONT (04:55)
[2024-06-18 07:47] LABS: Hematocrit 25.9 % (37.0-47.0); Hemoglobin 7.9 g/dl (12.0-16.0); Mean Corpuscular HGB Conc 30.5 g/dl (31.0-35.0); Mean Corpuscular Hemoglobin 23.6 pg (27.0-33.0); Mean Corpuscular Volume 77.3 fL (80.0-98.0); Mean Platelet Volume 10.6 fL (9.4-12.3); Platelet Count 255 X10*3/uL (160-400); Red Blood Count 3.35 X10*6/uL (4.20-5.50); Red Cell Distribution Width 14.3 % (11.0-16.0); White Blood Count 8.4 X10*3/uL (4.8-10.8)
[2024-06-18 07:58] LABS: Alanine Aminotransferase 15 U/L (0-31); Albumin Level 3.8 g/dL (3.5-5.0); Alkaline Phosphatase 90 U/L (39-117); Anion Gap 12 (12-20); Aspartate Amino Transferase 23 U/L (5-31); Bilirubin Total 0.4 mg/dL (0.0-1.0); Blood Urea Nitrogen 27 mg/dL (9-16); Calcium 9.1 mg/dL (8.4-10.2); Carbon Dioxide 24 mmol/L (22-29); Chloride 109 mmol/L (96-108); Creatinine Clr Calc Pharmacy 45.2; Estimated Glomerular Filt Rate 56; Glucose Random 98 mg/dL (60-115); Potassium 4.7 mmol/L (3.3-5.1); Sodium 140 mmol/L (135-145); Total Protein 6.1 g/dL (6.5-8.0)
[2024-06-18 08:00] LABS: Iron 15 mcg/dL (30-160); Percent Iron Saturation 4 % (15-50); Total Iron Binding Capacity 336 mcg/dL (228-428); Unsaturated Iron Binding 321 ug/dL
[2024-06-18 08:54] LABS: Adenovirus PCR Not Detected (Not Detect.); Bordetella parapertussis PCR Not Detected (Not Detect.); Bordetella pertussis PCR Not Detected (Not Detect.); Chlamydia pneumoniae PCR Not Detected (Not Detect.); Coronavirus 229E PCR Not Detected (Not Detect.); Coronavirus HKU1 PCR Not Detected (Not Detect.); Coronavirus NL63 PCR Not Detected (Not Detect.); Coronavirus OC43 PCR Not Detected (Not Detect.); Human metapneumovirus PCR Not Detected (Not Detect.); Influenza A PCR Not Detected (Not Detect.); Influenza B PCR Not Detected (Not Detect.); Mycoplasma pneumoniae PCR Not Detected (Not Detect.); Parainfluenza 1 PCR Not Detected (Not Detect.); Parainfluenza 2 PCR Not Detected (Not Detect.); Parainfluenza 3 PCR Not Detected (Not Detect.); Parainfluenza 4 PCR Not Detected (Not Detect.); RSV PCR Not Detected (Not Detect.); Rhino/Enterovirus PCR Not Detected (Not Detect.)
--- NOTE | 2024-06-18 08:57 | MHC.CM.PN ---
CM met with Patient at bedside and addressed IMM with her, providing Patient with the original and a copy has been placed on the chart. Patient lives alone in a house and she is functionally independent. Home/self care pending Cardiology Consult is Patient's goal and CM has initiated and will follow for dc planning. PCP was Dr. Maximilian Bay; her new Provider is JOSE M Squires, who her first appointment with is in July 2024.Patient's Daughter will transport to home at time of dc.
[2024-06-18 09:12] LABS: SARS-CoV-2 PCR Not Detected (Not Detect.)
[2024-06-18 09:13] LABS: Influenza A H1 PCR Not Detected (Not Detect.); Influenza A H1-2009 PCR Not Detected (Not Detect.); Influenza A H3 PCR Not Detected (Not Detect.)
[2024-06-18] MEDS: Ticagrelor 90 MG TABLET PO ×2 (09:14→20:00)
--- NOTE | 2024-06-18 10:56 | HO.PM.IMPN ---
Subjective Subjective Date of Service: 06/18/24 Review of Systems Follow up anemia, KATHRYN, dehydration feeling better today but with fever low HH today requiring blood tx Physical Exam Vital Signs: Vital Signs: Last Vital Signs Temp 100.9 F H 06/18/24 10:47 Pulse 98 06/18/24 10:47 Resp 15 06/18/24 10:47 BP 137/60 06/18/24 10:47 Pulse Ox 97 06/18/24 10:47 O2 Del Method Room Air 06/18/24 10:47 BMI result Body Mass Index 27.4 Appearing in no acute distress lung sounds are clear to auscultation heart regular rate rhythm, clear S1, S2 positive bowel sounds, abdomen is soft, nontender neuro patient is alert x3, no focal deficits Objective Data Active Medications Acetaminophen (Acetaminophen 325 Mg Tablet) 650 mg PO Q6H PRN PRN Reason: Pain, Mild 1-3,fever,headache Calcium Carbonate (Calcium Carbonate 750 Mg Tab.Chew) 750 mg PO Q4H PRN PRN Reason: Heartburn Lactated Ringer's (Lr) 1,000 mls @ 80 mls/hr IVCONT .[id number] [facility] Last Admin: 06/18/24 04:55 Dose: 80 mls/hr Documented By: ROS Magnesium Hydroxide (Milk Of Magnesia 30 Ml Oral.Susp) 30 ml PO DAILY PRN PRN Reason: Constipation Melatonin (Melatonin 3 Mg Tablet) 6 mg PO BEDTIME PRN PRN Reason: Insomnia Ondansetron HCl (Ondansetron Hcl 4 Mg/2 Ml Vial) 4 mg IVPUSH Q8H PRN PRN Reason: Nausea and Vomiting Sodium Chloride (0.9 % Sodium Chloride Flush 3 Ml Syringe) 3 ml IVFLUSH QSHIFT [facility] Last Admin: 06/18/24 09:14 Dose: Not Given Documented By: JOSIAH Non-Admin Reason: IV Running Ticagrelor (Ticagrelor 90 Mg Tablet) 90 mg PO BID [facility] Last Admin: 06/18/24 09:14 Dose: 90 mg Documented By: JOSIAH Labs 06/18/24 07:08 06/18/24 07:08 Labs: Laboratory Results - last 24 hr 06/17/24 06/17/24 06/17/24 13:25 13:49 14:46 MCV 77.6 L MCH 23.6 L MCHC 30.4 L RDW 14.2 Plt Count 372 D MPV 10.0 Immature Gran % (Auto) 0.4 Neut % (Auto) 82.1 H Lymph % (Auto) 9.7 L [place] % (Auto) 7.0 Eos % (Auto) 0.3 Baso % (Auto) 0.5 Lymph # (Auto) 1.4 [place] # (Auto) 1.0 Eos # (Auto) 0.1 Baso # (Auto) 0.1 Abs Immat Gran (auto) 0.06 H Absolute Neuts (auto) 11.9 H Absolute Nucleated RBC 0.000 Nucleated RBC % (auto) 0.0 PT 11.3 INR 1.0 Anion Gap 16 Estim Creat Clear Calc 29.8 Estimated GFR 35 Random Glucose 106 Calcium 9.7 D Magnesium 2.0 Iron TIBC % Saturation Unsat Iron Binding Total Bilirubin 0.6 AST 27 ALT 17 Alkaline Phosphatase 122 H Total Protein 7.5 Albumin 4.5 Lipase 46 Urine Color Urine Appearance Urine pH Ur Specific [place] Urine Protein Urine Glucose (UA) Urine Ketones Urine Blood Urine Nitrite Ur Leukocyte Esterase Urine RBC Urine WBC Ur Squamous Epith Cells Urine Bacteria Hyaline Casts Stool Occult Blood POSITIVE Respiratory Panel [place] Adenovirus (Rapid PCR) B.pert (TEM-PCR) B.parapertussis DNA PCR C. pneumoniae DNA (PCR) Coronavirus OC43 (PCR) Coronavirus HKU1 (PCR) Coronavirus 229E (PCR) Coronavirus NL63 (PCR) Human Metapneumovir PCR Influenza A (RT-PCR) Influenza A (H1) PCR Influ A (H1/09) PCR Influenza A (H3) PCR Influenza Type A (PCR) NEGATIVE Influenza B (RT-PCR) Influenza Type B (PCR) NEGATIVE M. pneumoniae (PCR) Parainfluenza 1 (PCR) Parainfluenza 2 (PCR) Parainfluenza 3 (PCR) Parainfluenza 4 (PCR) RSV (PCR) RSV RNA Qual (PCR) NEGATIVE Entero/Rhino (PCR) SARS-CoV-2 RNA (RT-PCR) NEGATIVE 06/17/24 06/17/24 06/18/24 15:30 17:28 07:08 MCV 77.3 L MCH 23.6 L MCHC 30.5 L RDW 14.3 Plt Count 255 D MPV 10.6 Immature Gran % (Auto) Neut % (Auto) Lymph % (Auto) [place] % (Auto) Eos % (Auto) Baso % (Auto) Lymph # (Auto) [place] # (Auto) Eos # (Auto) Baso # (Auto) Abs Immat Gran (auto) Absolute Neuts (auto) Absolute Nucleated RBC 0.000 Nucleated RBC % (auto) 0.0 PT INR Anion Gap 12 Estim Creat Clear Calc 45.2 Estimated GFR 56 Random Glucose 98 Calcium 9.1 D Magnesium Iron 15 L TIBC 336 % Saturation 4 L Unsat Iron Binding 321 Total Bilirubin 0.4 AST 23 ALT 15 Alkaline Phosphatase 90 Total Protein 6.1 L Albumin 3.8 Lipase Urine Color Yellow Urine Appearance Clear Urine pH 6.5 Ur Specific [place] 1.010 Urine Protein Negative Urine Glucose (UA) Negative Urine Ketones Negative Urine Blood Negative Urine Nitrite Positive H Ur Leukocyte Esterase Trace H Urine RBC 0-2 Urine WBC 0-5 Ur Squamous Epith Cells 0-2 Urine Bacteria 4+ Hyaline Casts 0-2 Stool Occult Blood Respiratory Panel [place] See Note Adenovirus (Rapid PCR) Not Detected B.pert (TEM-PCR) Not Detected B.parapertussis DNA PCR Not Detected C. pneumoniae DNA (PCR) Not Detected Coronavirus OC43 (PCR) Not Detected Coronavirus HKU1 (PCR) Not Detected Coronavirus 229E (PCR) Not Detected Coronavirus NL63 (PCR) Not Detected Human Metapneumovir PCR Not Detected Influenza A (RT-PCR) Not Detected Influenza A (H1) PCR Not Detected Influ A (H1/09) PCR Not Detected Influenza A (H3) PCR Not Detected Influenza Type A (PCR) Influenza B (RT-PCR) Not Detected Influenza Type B (PCR) M. pneumoniae (PCR) Not Detected Parainfluenza 1 (PCR) Not Detected Parainfluenza 2 (PCR) Not Detected Parainfluenza 3 (PCR) Not Detected Parainfluenza 4 (PCR) Not Detected RSV (PCR) Not Detected RSV RNA Qual (PCR) Entero/Rhino (PCR) Not Detected SARS-CoV-2 RNA (RT-PCR) Not Detected Microbiology Microbiology Results: Microbiology 06/17/24 Unknown Urine Culture - Preliminary Urine clean catch - Clean Catch Midstream Gram negative koko Assessment and Plan (1) KATHRYN (acute kidney injury): Status: Acute Plan 74 year old women admitted with KATHRYN, dehydration and elevated troponin. Recent GI illness Acute iron def anemia with acute blood loss Patient denies any obvious bleeding Stool occult positive HH today 7.9/25.9 On aspirin and Brilinta status post TAVR and stent iron 15/% 4, IV iron x2 2 units PRBC ordered GI consultation pending GNR UTI Rocephin follow final cx KATHRYN. Resolved Likely secondary to recent gastric viral illness with vomiting and poor appetite Continue IV fluids Avoid nephrotoxins Dizziness. Resolved likely secondary to dehydration continue IV fluids and monitor BP negative RPP Elevated troponin no chest pain trops flat no ischemic changes on EKG recent valve placement and stent Leukocytosis. Resolved likely reactive, recent GI illness, UTI no obvious infection noted Hypertension Stable blood pressure hold BP meds in light of KATHRYN and dehydration TAVR/stent placement 03/2024 Continue aspirin and Brilinta History of coronary artery disease Continue statin and beta-tony DVT prophylaxis, continue aspirin and Brilinta for now Full code Quality Stroke Does the patient have a stroke diagnosis?: No VTE Prior VTE?: No VTE Risk Level:: Medical - moderate - high VTE Device Contraindication: N/A - Device Ordered VTE Drug Contraindication: Treatment Not Indicated
[2024-06-18] MEDS: Acetaminophen 325 MG TABLET 650 MG PO (11:41)
[2024-06-18] MEDS: cefTRIAXone sodium 1 GM VIAL IVPUSH (11:42)
--- NOTE | 2024-06-18 14:38 | MHC.SHP ---
Pre-Procedural Eval Section A - 24 Hr Update-Section A only Date of Service: 06/18/24 The patient is an INPATIENT: Yes Changes since office visit: No Cold of Flu in the past 2 weeks, No New Medical Problems, No Changes in Medication and No Patient answered all questions The patient has been examined within 24 hours of the surgical procedure. The History & Physical has been completed within 30 days and I have reviewed it.: Yes Section B - Complete if H&P > 30 days Chief Complaint: hernan, elevated troponin Allergies: Allergies Allergy/AdvReac Type Severity Reaction Status Date / Time nitrofurantoin [Macrobid] Allergy Unknown headache Verified 06/17/24 13:10 Plan I have reviewed the history and physical and performed a pertinent physical examination on my patient. No changes have occurred unless specified. Time Spent With Patient Time: Total time managing care of this patient today ____ minutes.
--- NOTE | 2024-06-18 15:49 | CONS_ITS ---
DATE OF SERVICE: 06/18/2024 REFERRING PHYSICIAN: Sobia Mena NP REASON FOR CONSULTATION: Iron-deficiency anemia and Hemoccult-positive stools. HISTORY OF PRESENT ILLNESS: The patient is a pleasant 74-year-old woman, who was admitted to the hospital after presenting to the emergency room with complaints of weakness and dizziness. She reports GI symptoms with nausea, vomiting, anorexia, and weakness about 1 week prior to admission. There was no hematemesis or melena. After her upper GI symptoms resolve, she continued to have a feeling of weakness and dizziness and presented to the emergency room where she was evaluated and found to be significantly anemic. Stool occult blood testing was positive, but there was no reported melena or hematochezia. Initial hematocrit was 32.2, which dropped to 25.9 this morning without any active bleeding. She did receive approximately 3 L of IV fluids and is 2.3 L fluid balance positive. She is currently receiving 2 units of packed red blood cells. She has a history of TAVR and coronary artery disease and recently had stenting and valve replacement surgery in March. Prior to that, she had had a bypass many years ago. She denies any abdominal pain, chronic upper GI symptoms, melena, or hematochezia. Last colonoscopy at our institution was on 05/12, which showed a colon polyp, diverticulosis, and internal hemorrhoids. Pathology on the polyp was a tubular adenoma. Endoscopy at the same time showed nonspecific villous changes in the duodenum and was negative for H pylori. PAST MEDICAL HISTORY: 1. Coronary artery disease with history of bypass surgery and stent placement. 2. Valvular heart disease with TAVR. She has been maintained on aspirin and Brilinta. 3. Peripheral vascular disease. 4. Depression. 5. Hypertension. 6. Hyperlipidemia. CURRENT MEDICATIONS: Her current medication list is reviewed in the chart. ALLERGIES: NITROFURANTOIN. FAMILY HISTORY: This is reviewed with the patient and is noncontributory. There is no GI malignancy. SOCIAL HISTORY: There is no current tobacco, alcohol, or substance abuse. REVIEW OF SYSTEMS: SKIN: No pruritus. HEENT: Negative. CARDIOPULMONARY: No shortness of breath or chest pain. GASTROINTESTINAL: As above. GENITOURINARY: Negative. NEUROPSYCHIATRIC: Negative. PHYSICAL EXAMINATION: GENERAL: Shows a pleasant female, in no acute distress. VITAL SIGNS: Stable. SKIN: Anicteric. HEENT: Shows no scleral icterus. NECK: Without lymphadenopathy or thyromegaly. LUNGS: Clear. HEART: Shows regular rate and rhythm. S1, S2. No murmur was appreciated. ABDOMEN: Soft without focal mass or tenderness. Bowel sounds are present. No organomegaly is noted. EXTREMITIES: Without edema. LABORATORY DATA: Reviewed. IMPRESSION: Iron-deficiency anemia and Hemoccult-positive stools. This appears to have developed since she was started on dual antiplatelet therapy. Her last hematocrit prior to her valve replacement from January was normal. I have recommended further evaluation with upper endoscopy and colonoscopy because of her anemia, Hemoccult-positive stools, and prior history of colon polyps. I have discussed risks and benefits of the procedure with her. She understands these and agrees to proceed. Her Brilinta cannot be stopped because of her recent stent placement and her aspirin has been temporarily held. MD ROSALIA Mendez/BERT / [phone]
[2024-06-18] MEDS: PEG 3350/Na Sulf,Bicarb,Cl/KCL 4,000 ML SOLN.RECON 4000 ML PO (16:14)
[2024-06-18 16:56] LABS: Urine Hemoglobin Negative
[2024-06-18] MEDS: Losartan Potassium 50 MG TABLET 100 MG PO (17:05)
[2024-06-18] MEDS: Iron Sucrose Complex 100 MG in 0.9 % Sodium Chloride 50 ML 220 MG IV (17:17)
--- NOTE | 2024-06-18 17:28 | HO.WOUND ---
Wound consult: Attempted Arrival to bedside patient was having a telephone conversation and requested she not be interrupted. Will attempt assessment at future date and time.
--- NOTE | 2024-06-18 19:47 | PC.NURSE ---
after 15 VS check, pt was found to be hypertensive and slightly diaphoretic. lungs clear with no signs of edema, no reports of SOB. provider notified. transfusion held until providers response. per provider continue transfusion. spoke with tylor andrew via phone regarding blood. informed blood bank provider stated to continue transfusion at this time.
[2024-06-18] MEDS: Metoprolol Tartrate 50 MG TABLET PO (20:00)
[2024-06-19] VITALS (9 sets, daily range): BP systolic 103–169; BP diastolic 44–71; PULSE 60–83; RESP 15–20; TEMP 36.2–36.7; O2SAT 95–100
--- NOTE | 2024-06-19 08:04 | P.PNIM_ITS ---
Subjective Subjective Date of Service: 06/19/24 Interval History: Seen and examined this morning Interval history: Currently NPO for EGD and colonoscopy planned for today. The patient did complete prep and states that she had yellow watery output. No nausea or vomiting. She did receive 2 units packed red blood cells yesterday as well as an iron transfusion and H/H has significantly 11.4/3 4.7%. Denies any ongoing bleeding. Otherwise has no complaints Review of Systems Review of Systems: Yes all other systems are reviewed and are negative Physical Exam 2 Vital Signs: Vital Signs: Last Vital Signs Temp 97.7 F 06/19/24 07:43 Pulse 78 06/19/24 07:43 Resp 16 06/19/24 07:43 BP 141/62 H 06/19/24 07:43 Pulse Ox 98 06/19/24 07:43 O2 Del Method Room Air 06/19/24 07:43 BMI result Body Mass Index 27.4 Constitutional - Awake and Alert, No apparent distress Eyes - PERRLA, EOMI Cardiovascular - S1S2, RRR, No edema Respiratory - Normal lung expansion, Normal respiratory effort, No respiratory distress, CTA bilaterally Gastrointestinal - NT / ND; +BS; No rebound or guarding Extremities - no calf tenderness bilaterally, no swelling Skin - Warm/Dry Neurological - Alert & oriented x3 Psychological - Appropriate affect Objective Data Active Medications Acetaminophen (Acetaminophen 325 Mg Tablet) 650 mg PO Q6H PRN PRN Reason: Pain, Mild 1-3,fever,headache Last Admin: 06/18/24 11:41 Dose: 650 mg Documented By: JOSIAH Calcium Carbonate (Calcium Carbonate 750 Mg Tab.Chew) 750 mg PO Q4H PRN PRN Reason: Heartburn Ceftriaxone Sodium (Ceftriaxone Sodium 1 Gm Vial) 1 gm IVPUSH Q24H [facility] Last Admin: 06/18/24 11:42 Dose: 1 gm Documented By: JOSIAH Iron Sucrose 100 mg/ Sodium (Chloride) 55 mls @ 220 mls/hr IV Q24H [facility] Stop: 06/19/24 17:14 Last Infusion: 06/18/24 18:00 Dose: Infused Documented By: JOSIAH Losartan Potassium (Losartan Potassium 50 Mg Tablet) 100 mg PO DAILY [facility]; Protocol Last Admin: 06/18/24 17:05 Dose: 100 mg Documented By: HO.RICCIAV Magnesium Hydroxide (Milk Of Magnesia 30 Ml Oral.Susp) 30 ml PO DAILY PRN PRN Reason: Constipation Melatonin (Melatonin 3 Mg Tablet) 6 mg PO BEDTIME PRN PRN Reason: Insomnia Metoprolol Tartrate (Metoprolol Tartrate 50 Mg Tablet) 50 mg PO BID [facility]; Protocol Last Admin: 06/18/24 20:00 Dose: 50 mg Documented By: ROS Ondansetron HCl (Ondansetron Hcl 4 Mg/2 Ml Vial) 4 mg IVPUSH Q8H PRN PRN Reason: Nausea and Vomiting Sodium Chloride (0.9 % Sodium Chloride Flush 3 Ml Syringe) 3 ml IVFLUSH QSHIFT [facility] Last Admin: 06/18/24 20:01 Dose: 3 ml Documented By: ROS Ticagrelor (Ticagrelor 90 Mg Tablet) 90 mg PO BID [facility] Last Admin: 06/18/24 20:00 Dose: 90 mg Documented By: ROS Venlafaxine HCl (Venlafaxine Hcl Er 150 Mg Cap.Er.24h) 150 mg PO DAILY [facility] Labs 06/19/24 08:18 06/19/24 08:18 Labs: Laboratory Results - last 24 hr 06/17/24 06/18/24 06/18/24 17:28 11:25 13:30 Urine Hemoglobin Negative Respiratory Panel [place] See Note Adenovirus (Rapid PCR) Not Detected B.pert (TEM-PCR) Not Detected B.parapertussis DNA PCR Not Detected C. pneumoniae DNA (PCR) Not Detected Coronavirus OC43 (PCR) Not Detected Coronavirus HKU1 (PCR) Not Detected Coronavirus 229E (PCR) Not Detected Coronavirus NL63 (PCR) Not Detected Human Metapneumovir PCR Not Detected Influenza A (RT-PCR) Not Detected Influenza A (H1) PCR Not Detected Influ A (H1/09) PCR Not Detected Influenza A (H3) PCR Not Detected Influenza B (RT-PCR) Not Detected M. pneumoniae (PCR) Not Detected Parainfluenza 1 (PCR) Not Detected Parainfluenza 2 (PCR) Not Detected Parainfluenza 3 (PCR) Not Detected Parainfluenza 4 (PCR) Not Detected RSV (PCR) Not Detected Entero/Rhino (PCR) Not Detected SARS-CoV-2 RNA (RT-PCR) Not Detected Blood Type O Positive Antibody Screen NEGATIVE Crossmatch See Detail Post-Tx Rxn DARIN Result 06/18/24 13:50 Urine Hemoglobin Respiratory Panel [place] Adenovirus (Rapid PCR) B.pert (TEM-PCR) B.parapertussis DNA PCR C. pneumoniae DNA (PCR) Coronavirus OC43 (PCR) Coronavirus HKU1 (PCR) Coronavirus 229E (PCR) Coronavirus NL63 (PCR) Human Metapneumovir PCR Influenza A (RT-PCR) Influenza A (H1) PCR Influ A (H1/09) PCR Influenza A (H3) PCR Influenza B (RT-PCR) M. pneumoniae (PCR) Parainfluenza 1 (PCR) Parainfluenza 2 (PCR) Parainfluenza 3 (PCR) Parainfluenza 4 (PCR) RSV (PCR) Entero/Rhino (PCR) SARS-CoV-2 RNA (RT-PCR) Blood Type Antibody Screen Crossmatch Post-Tx Rxn DARIN Result TNP Microbiology Microbiology Results: Microbiology 06/17/24 Unknown Urine Culture - Final Urine clean catch - Clean Catch Midstream Klebsiella pneumoniae Assessment and Plan (1) KATHRYN (acute kidney injury): Status: Acute (2) Anemia: Status: Acute Plan 74 year old women admitted with KATHRYN, dehydration and elevated troponin. Recent GI illness Acute iron def anemia with acute blood loss Patient denies any obvious bleeding Stool occult positive HH today 7.9/25.9. Received 2 units packed red blood cells and iron infusion (06/19) with improvement in H/H to 11.4/34.7% On aspirin and Brilinta status post TAVR and stent. Aspirin on hold iron 15/% 4, IV iron x2 (complete 06/19) GI input appreciated. Plan for colonoscopy and EGD today 06/19. Completed prep Follow H/H Klebsiella UTI Sensitive to Rocephin (06/18) KATHRYN. Resolved Likely secondary to recent gastric viral illness with vomiting and poor appetite Continue IV fluids Avoid nephrotoxins Dizziness. Resolved likely secondary to dehydration continue IV fluids and monitor BP negative RPP Elevated troponin no chest pain trops flat no ischemic changes on EKG recent valve placement and stent Sirs criteria Leukocytosis likely reactive, recent GI illness, UTI Tachycardia likely related to dehydration/hypovolemia No sepsis/severe sepsis Hypertension Stable blood pressure Losartan was on hold due to KATHRYN but now resumed. Continue metoprolol TAVR/stent placement 03/2024 Continue Brilinta. ASA on hold due to suspected GI bleed History of coronary artery disease Continue statin and beta-tony DVT prophylaxis, continue aspirin and Brilinta for now Full code Patient requires ongoing inpatient stay due to acute iron-deficiency anemia requiring transfusion as well as IV iron infusions related to probable GI bleed which will require close monitoring of hemodynamics, expert consultation, as well as colonoscopy/endoscopy Quality Stroke Does the patient have a stroke diagnosis?: No VTE Prior VTE?: No VTE Risk Level:: Medical - moderate - high VTE Device Contraindication: N/A - Device Ordered VTE Drug Contraindication: Treatment Not Indicated
[2024-06-19 08:27] LABS: MANUAL DIFF FLAG NO
[2024-06-19 08:30] LABS: Basophils Absolute Auto 0.1 X10*3/uL (0.0-0.2); Basophils Percent Auto 0.6 % (0-2); Eosinophils Absolute Auto 0.1 X10*3/uL (0.0-0.4); Eosinophils Percent Auto 1.6 % (0-4); Hematocrit 34.7 % (37.0-47.0); Hemoglobin 11.4 g/dl (12.0-16.0); Imm Gran Abs Auto 0.04 X10*3/uL (0.00-0.03); Imm Gran Pct Auto 0.4 % (0.0-0.4); Lymphocytes Absolute Auto 1.2 X10*3/uL (1.2-4.9); Lymphocytes Percent Auto 13.8 % (20-40); Mean Corpuscular HGB Conc 32.9 g/dl (31.0-35.0); Mean Platelet Volume 10.2 fL (9.4-12.3); Monocytes Absolute Auto 0.7 X10*3/uL (0.1-1.2); Monocytes Percent Auto 7.9 % (2-11); Neutrophils Absolute Auto 6.8 x10*3/uL (2.0-8.3); Neutrophils Percent Auto 75.7 % (45-73); Platelet Count 261 X10*3/uL (160-400); Red Blood Count 4.39 X10*6/uL (4.20-5.50); Red Cell Distribution Width 15.3 % (11.0-16.0); White Blood Count 8.9 X10*3/uL (4.8-10.8)
--- NOTE | 2024-06-19 08:30 | MHC.CM.PN ---
EMR REVIEWED, PLAN FOR COLONOSCOPY LATER TODAY, PT RECEIVED 1 OF 2 BAGS IV IRON REPLACEMENT, NO PLAN FOR DC TODAY, ANTIC PT WILL RETURN HOME TOMORROW HOME SELF-CARE PT HAS NOT SEEN NEW PCP YET, CM WILL CONT TO FOLLOW DC NEEDS.
[2024-06-19 08:44] LABS: Anion Gap 13 (12-20); Blood Urea Nitrogen 15 mg/dL (9-16); Calcium 9.2 mg/dL (8.4-10.2); Carbon Dioxide 22 mmol/L (22-29); Chloride 111 mmol/L (96-108); Creatinine Clr Calc Pharmacy 55.5; Estimated Glomerular Filt Rate > 60; Glucose Random 104 mg/dL (60-115); Potassium 4.3 mmol/L (3.3-5.1); Sodium 142 mmol/L (135-145)
[2024-06-19] MEDS: Losartan Potassium 50 MG TABLET 100 MG PO (08:44)
[2024-06-19] MEDS: Venlafaxine HCl ER 150 MG CAP.ER.24H PO (08:45)
[2024-06-19] MEDS: Ticagrelor 90 MG TABLET PO ×2 (08:45→20:10)
[2024-06-19] MEDS: Metoprolol Tartrate 50 MG TABLET PO ×2 (08:45→20:10)
[2024-06-19] MEDS: 0.9 % Sodium Chloride Flush 3 ML SYRINGE IVFLUSH ×3 (08:46→20:12)
[2024-06-19] MEDS: cefTRIAXone sodium 1 GM VIAL IVPUSH (11:41)
[2024-06-19] MEDS: ondansetron HCL 4 MG/2 ML VIAL IVPUSH (12:31)
--- NOTE | 2024-06-19 12:55 | HO.ANESPROP2 ---
ON LICENSE OF [facility] Active Problems Active Problems: All Active Problems Anemia (Acute) Elevated troponin level (Acute) KATHRYN (acute kidney injury) (Acute) Aortic valve replaced (Acute) S/P cardiac cath (Acute) Hx of CABG (Acute) Aortic stenosis (Acute) Rotator cuff arthropathy of right shoulder (Acute) OAB (overactive bladder) (Acute) Proteinuria (Acute) Internal derangement of right shoulder (Acute) Eustachian tube dysfunction (Acute) Shoulder arthritis (Acute) Urinary urgency (Acute) Urinary incontinence (Acute) Cardiac arrhythmia (Acute) Mitral regurgitation (Acute) Physical exam (Acute) Knee pain (Acute) Effusion, right knee (Acute) Right knee sprain (Acute) Encounter for initial annual wellness visit (AWV) in Medicare patient (Acute) Shoulder pain, right (Acute) Preop exam for internal medicine (Acute) CAD (coronary artery disease) (Acute) S/P AVR (Acute) Prosthetic valve dysfunction (Acute) PVD (peripheral vascular disease) (Acute) HTN (hypertension) (Acute) Hyperlipidemia (Acute) Past Medical History Medical History Mitral regurgitation S/P angiogram of extremity (11/15/18) Anemia Depression Atherosclerotic heart disease PVD (peripheral vascular disease) HTN (hypertension) CAD (coronary artery disease) Prosthetic valve dysfunction Hyperlipidemia Family History Family History Father Depression Mother Depression Heart disease CHF (congestive heart failure) Paternal Grandmother Cancer Other Mental health disorder Family history of problems with anesthesia: No Surgical History Surgical History History of heart artery stent History of aortic valve replacement History of cataract extraction Hx of endoscopy Hx of colonoscopy S/P AVR Hx of CABG H/O left wrist surgery History of Problems with Anesthesia: No Social History Social History Household Members: None Housing: House Do you presently have visiting nurse or other home services: No Alcohol intake: never Patient Tobacco Use Status: Former Tobacco user e-Cigarette/Vaping Use: Never Used Second Hand Smoke Exposure: Yes Use of substances other than those prescribed or required for medical reasons: No Currently Displaying Signs/Symptoms of Drug Intoxication Withdrawal: No Advance Directives: Yes Advance Directives Information Provided: No Advance Directives on File: No Advance Directives Date on File: 06/17/24 Do you have a plan to hurt others: No Plan Recently lost weight without trying: Yes How much weight loss: 2-13 pounds Eating poorly because of decreased appetite: No Nutrition screen score: 3 Nutrition Risks: No Nutritional Risk Patient : No : No service: No Current occupational status: retired Cognitive needs: No Hearing needs: No Vision needs: Yes (Reading glasses) Meds Allergies Allergy/AdvReac Type Severity Reaction Status Date / Time nitrofurantoin [Macrobid] Allergy Unknown headache Verified 06/17/24 13:10 Active Medications: Current Medications Acetaminophen (Acetaminophen 325 Mg Tablet) 650 mg PO Q6H PRN PRN Reason: Pain, Mild 1-3,fever,headache Last Admin: 06/18/24 11:41 Dose: 650 mg Calcium Carbonate (Calcium Carbonate 750 Mg Tab.Chew) 750 mg PO Q4H PRN PRN Reason: Heartburn Ceftriaxone Sodium (Ceftriaxone Sodium 1 Gm Vial) 1 gm IVPUSH Q24H [facility] Last Admin: 06/19/24 11:41 Dose: 1 gm Iron Sucrose 100 mg/ Sodium (Chloride) 55 mls @ 220 mls/hr IV Q24H [facility] Stop: 06/19/24 17:14 Last Infusion: 06/18/24 18:00 Dose: Infused Losartan Potassium (Losartan Potassium 50 Mg Tablet) 100 mg PO DAILY [facility]; Protocol Last Admin: 06/19/24 08:44 Dose: 100 mg Magnesium Hydroxide (Milk Of Magnesia 30 Ml Oral.Susp) 30 ml PO DAILY PRN PRN Reason: Constipation Melatonin (Melatonin 3 Mg Tablet) 6 mg PO BEDTIME PRN PRN Reason: Insomnia Metoprolol Tartrate (Metoprolol Tartrate 50 Mg Tablet) 50 mg PO BID [facility]; Protocol Last Admin: 06/19/24 08:45 Dose: 50 mg Ondansetron HCl (Ondansetron Hcl 4 Mg/2 Ml Vial) 4 mg IVPUSH Q8H PRN PRN Reason: Nausea and Vomiting Last Admin: 06/19/24 12:31 Dose: 4 mg Sodium Chloride (0.9 % Sodium Chloride Flush 3 Ml Syringe) [facility] Last Admin: 06/19/24 08:46 Dose: 3 ml Ticagrelor (Ticagrelor 90 Mg Tablet) 90 mg PO BID [facility] Last Admin: 06/19/24 08:45 Dose: 90 mg Venlafaxine HCl (Venlafaxine Hcl Er 150 Mg Cap.Er.24h) 150 mg PO DAILY [facility] Last Admin: 06/19/24 08:45 Dose: 150 mg Home Medications ?Medication ?Instructions ?Recorded ?Confirmed ?Last Taken ?Type cyanocobalamin (vitamin B-12) 1,000 mcg PO DAILY 01/14/20 06/17/24 06/17/24 History 1,000 mcg sublingual tablet aspirin 81 mg tablet,delayed 81 mg PO DAILY 01/16/20 06/17/24 06/17/24 History release (Adult Low Dose Aspirin) Exam Height,Weight and Vital Signs: Height 5 ft 2 in Weight 67.9 kg Last Vital Signs Temp 97.4 F 06/19/24 11:06 Pulse 60 06/19/24 11:06 Resp 20 06/19/24 11:06 BP 135/71 06/19/24 11:06 Pulse Ox 98 06/19/24 11:06 O2 Del Method Room Air 06/19/24 07:43 Pertinent Lab Results Pertinent Lab Results: Laboratory Tests 06/17/24 06/17/24 06/17/24 13:25 13:49 14:46 WBC 14.5 H RBC 4.15 L Hgb 9.8 L D Hct 32.2 L D MCV 77.6 L MCH 23.6 L MCHC 30.4 L RDW 14.2 Plt Count 372 D MPV 10.0 Immature Gran % (Auto) 0.4 Neut % (Auto) 82.1 H Lymph % (Auto) 9.7 L Maries % (Auto) 7.0 Eos % (Auto) 0.3 Baso % (Auto) 0.5 Lymph # (Auto) 1.4 Maries # (Auto) 1.0 Eos # (Auto) 0.1 Baso # (Auto) 0.1 Abs Immat Gran (auto) 0.06 H Absolute Neuts (auto) 11.9 H Absolute Nucleated RBC 0.000 Nucleated RBC % (auto) 0.0 PT 11.3 INR 1.0 Sodium 137 Potassium 4.4 Chloride 105 Carbon Dioxide 20 L Anion Gap 16 BUN 34 H Creatinine 1.45 H Estim Creat Clear Calc 29.8 Estimated GFR 35 Random Glucose 106 Calcium 9.7 D Magnesium 2.0 Iron TIBC % Saturation Unsat Iron Binding Total Bilirubin 0.6 AST 27 ALT 17 Alkaline Phosphatase 122 H Troponin I High Sens 121.1 H* Total Protein 7.5 Albumin 4.5 Lipase 46 Urine Color Urine Appearance Urine pH Ur Specific [place] Urine Protein Urine Glucose (UA) Urine Ketones Urine Hemoglobin Urine Blood Urine Nitrite Ur Leukocyte Esterase Urine RBC Urine WBC Ur Squamous Epith Cells Urine Bacteria Hyaline Casts Stool Occult Blood POSITIVE Respiratory Panel [place] Adenovirus (Rapid PCR) B.pert (TEM-PCR) B.parapertussis DNA PCR C. pneumoniae DNA (PCR) Coronavirus OC43 (PCR) Coronavirus HKU1 (PCR) Coronavirus 229E (PCR) Coronavirus NL63 (PCR) Human Metapneumovir PCR Influenza A (RT-PCR) Influenza A (H1) PCR Influ A (H1/09) PCR Influenza A (H3) PCR Influenza Type A (PCR) NEGATIVE Influenza B (RT-PCR) Influenza Type B (PCR) NEGATIVE M. pneumoniae (PCR) Parainfluenza 1 (PCR) Parainfluenza 2 (PCR) Parainfluenza 3 (PCR) Parainfluenza 4 (PCR) RSV (PCR) RSV RNA Qual (PCR) NEGATIVE Entero/Rhino (PCR) SARS-CoV-2 RNA (RT-PCR) NEGATIVE Blood Type Antibody Screen Crossmatch Post-Tx Rxn DARIN Result 06/17/24 06/17/24 06/17/24 15:30 16:06 17:28 WBC RBC Hgb Hct MCV MCH MCHC RDW Plt Count MPV Immature Gran % (Auto) Neut % (Auto) Lymph % (Auto) Maries % (Auto) Eos % (Auto) Baso % (Auto) Lymph # (Auto) Maries # (Auto) Eos # (Auto) Baso # (Auto) Abs Immat Gran (auto) Absolute Neuts (auto) Absolute Nucleated RBC Nucleated RBC % (auto) PT INR Sodium Potassium Chloride Carbon Dioxide Anion Gap BUN Creatinine Estim Creat Clear Calc Estimated GFR Random Glucose Calcium Magnesium Iron TIBC % Saturation Unsat Iron Binding Total Bilirubin AST ALT Alkaline Phosphatase Troponin I High Sens 111.5 H* Total Protein Albumin Lipase Urine Color Yellow Urine Appearance Clear Urine pH 6.5 Ur Specific [place] 1.010 Urine Protein Negative Urine Glucose (UA) Negative Urine Ketones Negative Urine Hemoglobin Urine Blood Negative Urine Nitrite Positive H Ur Leukocyte Esterase Trace H Urine RBC 0-2 Urine WBC 0-5 Ur Squamous Epith Cells 0-2 Urine Bacteria 4+ Hyaline Casts 0-2 Stool Occult Blood Respiratory Panel [place] See Note Adenovirus (Rapid PCR) Not Detected B.pert (TEM-PCR) Not Detected B.parapertussis DNA PCR Not Detected C. pneumoniae DNA (PCR) Not Detected Coronavirus OC43 (PCR) Not Detected Coronavirus HKU1 (PCR) Not Detected Coronavirus 229E (PCR) Not Detected Coronavirus NL63 (PCR) Not Detected Human Metapneumovir PCR Not Detected Influenza A (RT-PCR) Not Detected Influenza A (H1) PCR Not Detected Influ A (H1/09) PCR Not Detected Influenza A (H3) PCR Not Detected Influenza Type A (PCR) Influenza B (RT-PCR) Not Detected Influenza Type B (PCR) M. pneumoniae (PCR) Not Detected Parainfluenza 1 (PCR) Not Detected Parainfluenza 2 (PCR) Not Detected Parainfluenza 3 (PCR) Not Detected Parainfluenza 4 (PCR) Not Detected RSV (PCR) Not Detected RSV RNA Qual (PCR) Entero/Rhino (PCR) Not Detected SARS-CoV-2 RNA (RT-PCR) Not Detected Blood Type Antibody Screen Crossmatch Post-Tx Rxn DARIN Result 06/18/24 06/18/24 06/18/24 07:08 11:25 13:30 WBC 8.4 RBC 3.35 L Hgb 7.9 L Hct 25.9 L MCV 77.3 L MCH 23.6 L MCHC 30.5 L RDW 14.3 Plt Count 255 D MPV 10.6 Immature Gran % (Auto) Neut % (Auto) Lymph % (Auto) Maries % (Auto) Eos % (Auto) Baso % (Auto) Lymph # (Auto) Maries # (Auto) Eos # (Auto) Baso # (Auto) Abs Immat Gran (auto) Absolute Neuts (auto) Absolute Nucleated RBC 0.000 Nucleated RBC % (auto) 0.0 PT INR Sodium 140 Potassium 4.7 Chloride 109 H Carbon Dioxide 24 Anion Gap 12 BUN 27 H Creatinine 0.97 Estim Creat Clear Calc 45.2 Estimated GFR 56 Random Glucose 98 Calcium 9.1 D Magnesium Iron 15 L TIBC 336 % Saturation 4 L Unsat Iron Binding 321 Total Bilirubin 0.4 AST 23 ALT 15 Alkaline Phosphatase 90 Troponin I High Sens Total Protein 6.1 L Albumin 3.8 Lipase Urine Color Urine Appearance Urine pH Ur Specific [place] Urine Protein Urine Glucose (UA) Urine Ketones Urine Hemoglobin Negative Urine Blood Urine Nitrite Ur Leukocyte Esterase Urine RBC Urine WBC Ur Squamous Epith Cells Urine Bacteria Hyaline Casts Stool Occult Blood Respiratory Panel [place] Adenovirus (Rapid PCR) B.pert (TEM-PCR) B.parapertussis DNA PCR C. pneumoniae DNA (PCR) Coronavirus OC43 (PCR) Coronavirus HKU1 (PCR) Coronavirus 229E (PCR) Coronavirus NL63 (PCR) Human Metapneumovir PCR Influenza A (RT-PCR) Influenza A (H1) PCR Influ A (H1/09) PCR Influenza A (H3) PCR Influenza Type A (PCR) Influenza B (RT-PCR) Influenza Type B (PCR) M. pneumoniae (PCR) Parainfluenza 1 (PCR) Parainfluenza 2 (PCR) Parainfluenza 3 (PCR) Parainfluenza 4 (PCR) RSV (PCR) RSV RNA Qual (PCR) Entero/Rhino (PCR) SARS-CoV-2 RNA (RT-PCR) Blood Type O Positive Antibody Screen NEGATIVE Crossmatch See Detail Post-Tx Rxn DARIN Result 06/18/24 06/19/24 13:50 08:18 WBC 8.9 RBC 4.39 D Hgb 11.4 L D Hct 34.7 L D MCV 79.0 L MCH 26.0 L MCHC 32.9 RDW 15.3 Plt Count 261 MPV 10.2 Immature Gran % (Auto) 0.4 Neut % (Auto) 75.7 H Lymph % (Auto) 13.8 L Maries % (Auto) 7.9 Eos % (Auto) 1.6 Baso % (Auto) 0.6 Lymph # (Auto) 1.2 Maries # (Auto) 0.7 Eos # (Auto) 0.1 Baso # (Auto) 0.1 Abs Immat Gran (auto) 0.04 H Absolute Neuts (auto) 6.8 Absolute Nucleated RBC 0.000 Nucleated RBC % (auto) 0.0 PT INR Sodium 142 Potassium 4.3 Chloride 111 H Carbon Dioxide 22 Anion Gap 13 BUN 15 Creatinine 0.79 Estim Creat Clear Calc 55.5 Estimated GFR > 60 Random Glucose 104 Calcium 9.2 Magnesium Iron TIBC % Saturation Unsat Iron Binding Total Bilirubin AST ALT Alkaline Phosphatase Troponin I High Sens Total Protein Albumin Lipase Urine Color Urine Appearance Urine pH Ur Specific [place] Urine Protein Urine Glucose (UA) Urine Ketones Urine Hemoglobin Urine Blood Urine Nitrite Ur Leukocyte Esterase Urine RBC Urine WBC Ur Squamous Epith Cells Urine Bacteria Hyaline Casts Stool Occult Blood Respiratory Panel [place] Adenovirus (Rapid PCR) B.pert (TEM-PCR) B.parapertussis DNA PCR C. pneumoniae DNA (PCR) Coronavirus OC43 (PCR) Coronavirus HKU1 (PCR) Coronavirus 229E (PCR) Coronavirus NL63 (PCR) Human Metapneumovir PCR Influenza A (RT-PCR) Influenza A (H1) PCR Influ A (H1/) PCR Influenza A (H3) PCR Influenza Type A (PCR) Influenza B (RT-PCR) Influenza Type B (PCR) M. pneumoniae (PCR) Parainfluenza 1 (PCR) Parainfluenza 2 (PCR) Parainfluenza 3 (PCR) Parainfluenza 4 (PCR) RSV (PCR) RSV RNA Qual (PCR) Entero/Rhino (PCR) SARS-CoV-2 RNA (RT-PCR) Blood Type Antibody Screen Crossmatch Post-Tx Rxn DARIN Result TNP Airway Mallampati Class: II (missing multiple teeth on top and on bottom) TM Dist: >3cm Neck ROM: Full Heart: rrr Lungs: cta Assessment and Plan Assessment Anesthesia Assessment: Anesthesia Plan Discussed and Chart Reviewed Final Anesthetic Review Family History of Problems with Anesthesia: No History of Problems with Anesthesia: No NPO: Yes ASA Class: III Final Preanesthetic Review: No Changes in Pt Med Stat, Meds/Allgs Chart Reviewed and Consent Obtained/Reviewed Patient Risk: Intermediate Procedure Risk: Intermediate Anesthetic Plan Anesthetic Plan: MAC: Disposition: Standard PACU
[2024-06-19] MEDS: Lactated Ringers 1,000 ML 80 ML IVCONT (13:03)
--- NOTE | 2024-06-19 14:00 | PM.EVENT ---
Event Note Date of Service: 06/19/24 Event Note: EGD/Colon dictated EGD shows erosive gastritis bxd normal colonoscopy Rec start omeprazole 40 mg daily fu bx results hold asa x1 week if ok with cardiology Time Spent With Patient Time: Total time managing care of this patient today ____ minutes.
[2024-06-19] MEDS: Omeprazole 40 MG CAPSULE.DR PO (15:17)
--- NOTE | 2024-06-19 16:01 | OP_ITS ---
DATE OF SERVICE: 06/19/2024 SURGEON: Tha Jaquez MD INDICATIONS: Iron deficiency anemia and Hemoccult-positive stools. PREOPERATIVE DIAGNOSIS: POSTOPERATIVE DIAGNOSIS: PROCEDURE PERFORMED: Upper endoscopy with biopsy, colonoscopy to the terminal ileum. ESTIMATED BLOOD LOSS: COMPLICATIONS: ANESTHESIA: Monitored anesthesia care. ASSISTANTS: SPECIMENS: DESCRIPTION OF PROCEDURE: A history and physical was performed. The risks and benefits of the procedure were explained to the patient and informed consent was obtained. The patient was placed in the left lateral decubitus position. The Olympus video gastroscope was introduced into the esophagus, stomach, and duodenum. Examination was performed and the scope was removed. She was repositioned for colonoscopy. A digital rectal exam was performed and was found to be normal. The Olympus pediatric video colonoscope was introduced into the rectum and advanced to the cecum. The cecum was identified by transillumination, palpation, and identification of ileocecal valve. Examination was performed and the scope was removed. She tolerated both procedures well and was returned to recovery area in stable condition. FINDINGS: Upper endoscopy, esophagus: The esophagus was normal. There was no esophagitis. Stomach: The stomach showed erosive gastritis with multiple less than 5 mm erosions in the body and antrum. Biopsies were obtained from the antrum. Duodenum: The bulb and 2nd portion were normal. Colonoscopy: The terminal ileum was examined and appeared normal. The visualized colonic mucosa was within normal limits without evidence of masses or ulcers. No polyps were identified. The quality of the prep was good. Retroflexed examination showed moderate-sized internal hemorrhoids. IMPRESSION: 1. Erosive gastritis. 2. Normal colonoscopy. RECOMMENDATIONS: 1. Begin omeprazole 40 mg daily. 2. Hold aspirin for 1 to 2 weeks, pending Cardiology recommendations. 3. Continue Brilinta. 4. Follow up the biopsy results. MD ROSALIA Mendez/BERT / [phone]
[2024-06-19] MEDS: Iron Sucrose Complex 100 MG in 0.9 % Sodium Chloride 50 ML 220 MG IV (16:44)
--- NOTE | 2024-06-19 16:54 | HO.WOUND ---
Wound Consult: Initial 74yr old? female admitted to [facility] on 06/17/24- See progress notes and H&P for detailed history.? Wound consult placed for redness to coccyx.? Patient agreeable to assessment and photo documentation.? Patient reports tenderness since being in bed this admission. Sacrum / Coccyx - Of note the patient has a prominent coccyx Etiology: ?Redness ?Present on Admission Wound Bed: intact redness remains blanchable throughout - there is mirrored hyperpigmentation noted - no evidence of MASD at this time. denies incontinence Edges: ? well defined Laine wound: ? No Induration, Fluctuance or Warmth noted Pain: tenderness reported Goals of Treatment: ?Off load and protect from friction with foam dressing Recommendations: 1. Turn and Reposition every 2 hours and as needed for patient comfort.? Use pillows or wedges to support off loading positions. 2. Off Load all bony prominences with use of pillows and heel boots if needed.? Apply Preventative foams where needed. ? 3. Monitor for incontinence and moisture control, use barrier creams when needed for prevention and treatment. 4. Provide adequate and supplemental nutrition.? 5. Order low air loss mattress. 6. When applicable maintain blood glucose levels per Providers order. Sacrum / Coccyx - Off Load pressure with frequent repositions. Apply waffle cushion to chair when up to recliner. Apply skin prep to sacral area, cover with foam dressing peel back and assess Q shift and change every 3 days. Re-consult wound care Nurse for wound deterioration or wound changes.
[2024-06-20 03:19] VITALS: BP 140/70; PULSE 83; RESP 18; TEMP 36.2; O2SAT 97
[2024-06-20] MEDS: Omeprazole 40 MG CAPSULE.DR PO (05:50)
[2024-06-20 07:03] LABS: MANUAL DIFF FLAG NO
[2024-06-20 07:24] LABS: Anion Gap 14 (12-20); Blood Urea Nitrogen 16 mg/dL (9-16); Calcium 9.5 mg/dL (8.4-10.2); Carbon Dioxide 22 mmol/L (22-29); Chloride 107 mmol/L (96-108); Creatinine Clr Calc Pharmacy 45.2; Estimated Glomerular Filt Rate 56; Glucose Random 89 mg/dL (60-115); Iron 160 mcg/dL (30-160); Percent Iron Saturation 44 % (15-50); Potassium 4.2 mmol/L (3.3-5.1); Sodium 139 mmol/L (135-145); Total Iron Binding Capacity 366 mcg/dL (228-428); Unsaturated Iron Binding 206 ug/dL
[2024-06-20 07:25] LABS: Basophils Percent Auto 0.4 % (0-2); Eosinophils Absolute Auto 0.1 X10*3/uL (0.0-0.4); Eosinophils Percent Auto 1.4 % (0-4); Hematocrit 34.1 % (37.0-47.0); Imm Gran Abs Auto 0.05 X10*3/uL (0.00-0.03); Imm Gran Pct Auto 0.5 % (0.0-0.4); Lymphocytes Absolute Auto 1.1 X10*3/uL (1.2-4.9); Lymphocytes Percent Auto 11.3 % (20-40); Mean Corpuscular HGB Conc 32.3 g/dl (31.0-35.0); Mean Corpuscular Hemoglobin 25.9 pg (27.0-33.0); Mean Corpuscular Volume 80.4 fL (80.0-98.0); Mean Platelet Volume 10.2 fL (9.4-12.3); Monocytes Absolute Auto 0.7 X10*3/uL (0.1-1.2); Monocytes Percent Auto 7.5 % (2-11); Neutrophils Absolute Auto 7.4 x10*3/uL (2.0-8.3); Neutrophils Percent Auto 78.9 % (45-73); Platelet Count 253 X10*3/uL (160-400); Red Blood Count 4.24 X10*6/uL (4.20-5.50); Red Cell Distribution Width 15.7 % (11.0-16.0); White Blood Count 9.4 X10*3/uL (4.8-10.8)
[2024-06-20 07:31] VITALS: BP 140/54; PULSE 81; RESP 16; TEMP 36.3; O2SAT 98
[2024-06-20] MEDS: Losartan Potassium 50 MG TABLET 100 MG PO (08:06)
[2024-06-20] MEDS: Metoprolol Tartrate 50 MG TABLET PO (08:07)
[2024-06-20] MEDS: 0.9 % Sodium Chloride Flush 3 ML SYRINGE IVFLUSH (08:07)
[2024-06-20] MEDS: Ticagrelor 90 MG TABLET PO (08:07)
[2024-06-20] MEDS: Venlafaxine HCl ER 150 MG CAP.ER.24H PO (08:07)
--- NOTE | 2024-06-20 08:13 | HO.POSTANES ---
Post Anesthesia Evaluation Post Anesthesia Evaluation Date of Service: 06/20/24 Vital Signs: Vital Signs Temp Pulse Resp BP Pulse Ox O2 Del Method 06/20/24 07:31 97.3 F 81 16 140/54 H 98 Room Air 06/20/24 03:19 97.1 F 83 18 140/70 H 97 Room Air 06/19/24 23:34 97.3 F 61 18 146/65 H 97 Room Air Anesthesia: Monitored Mental Status: Awake Pain Control: Satisfactory Nausea/Vomiting: None Hydration: Adequate Anesthesia-Related Issues: No Anes. Related Issues
--- NOTE | 2024-06-20 11:06 | PM.DS ---
DS: Providers Provider Date of Service: 06/20/24 Date of admission: 06/17/24 15:37 Date of discharge: 06/20/24 Primary care physician: Francesca Squires PA-C Consults: 06/17/24 15:54 Consult to Gastroenterology Routine Consulting Provider: Tha Jaquez Reason for consultation: anemia, on asa and brilinta 06/17/24 23:31 Consult to Wound Care Routine Reason for consultation: Redness to coccyx Attending physician on discharge: Riccardo Ramos Discharging clinician: Funmi Hamilton DS: Diagnosis Discharge Diagnosis (1) KATHRYN (acute kidney injury): Status: Acute (2) Anemia: Status: Acute DS: Summary Hospital Course Hospital Course: From H&P on the day of admission 74-year-old woman presented to the ER with complaints of weakness, dizziness. She reported that approximately 1 week ago she developed a GI illness with nausea and vomiting. She reported a poor appetite and decreased intake. She was reported at that time she developed dizziness and weakness. She denied any diarrhea, fever, chills, chest pain, shortness of breath. She has a history of recent TAVR and stent placement in March of 2024 and has been on aspirin and Brilinta. Her troponin was noted to be elevated however EKG did not show acute ischemic changes and she had no complaints of chest pain. Leukocytosis 14.5, hemoglobin 9.8, hematocrit 32.2, creatinine 1.45, troponin 121.1, stool occult positive, negative flu, RSV and COVID., stable vital signs. Plan will be to admit patient for further management and treatment of acute kidney injury and anemia. Acute iron def anemia with acute blood loss Patient denies any overt bleeding, Stool occult positive. Received 2 units packed red blood cells and iron infusion (06/19) with improvement in H/H to 11.4/34.7. On aspirin and Brilinta status post TAVR and stent. Seen by GI, underwent EGD and colonoscopy. EGD showing erosive gastritis and colonoscopy is normal. GI recommended starting omeprazole 40 mg daily, holding aspirin for 1 week. Was confirmed with Cardiology okay to hold aspirin for 1 week. H/H has remained stable, patient tolerating diet. Klebsiella UTI Sensitive to Rocephin, will discharge to complete course of oral antibiotics. KATHRYN. Resolved Likely secondary to recent gastric viral illness with vomiting and poor appetite Dizziness. Resolved likely secondary to dehydration Elevated troponin no chest pain. trops flat. no ischemic changes on EKG. possible demand due to anemia, decreased clearance in setting of KATHRYN. Sirs criteria Leukocytosis likely reactive, recent GI illness, UTI. Tachycardia likely related to dehydration/hypovolemia. No sepsis/severe sepsis. Sirs resolved Time Attestation Discharge Coordination Time (in mins): 36 Quality: Safe Use of Opioids Does Pt have an Active Cancer Diagnosis on the Problem List?: No Quality: Stroke Does the patient have a stroke diagnosis?: No Physical Exam Vital Signs: Vital Signs: Last Vital Signs Temp 97.3 F 06/20/24 07:31 Pulse 81 06/20/24 07:31 Resp 16 06/20/24 07:31 BP 140/54 H 06/20/24 07:31 Pulse Ox 98 06/20/24 07:31 O2 Del Method Room Air 06/20/24 07:31 BMI result Body Mass Index 27.4 Const: General: cooperative, comfortable, no acute distress, alert and awake Nutritional Appearance: average body habitus Orientation/consciousness: patient oriented x3 Resp: Effort & Inspection: normal respiratory effort, able to speak in complete sentences, no respiratory distress and no use of accessory muscles Cardio: Rate: regular rate GI: Inspection: No distended Palpation (GI): Soft to palpation and nontender Neuro: General: patient oriented x3, moves all extremities and CN's II-XI intact bilaterally DS: Data Data Completed and Pending Pending studies at discharge: Pending at discharge 06/19/24 13:56 Surgical [PTH] Routine Labs on day of discharge: Laboratory Results - last 24 hr 06/18/24 06/20/24 13:50 06:04 WBC 9.4 RBC 4.24 Hgb 11.0 L Hct 34.1 L MCV 80.4 MCH 25.9 L MCHC 32.3 RDW 15.7 Plt Count 253 MPV 10.2 Immature Gran % (Auto) 0.5 H Neut % (Auto) 78.9 H Lymph % (Auto) 11.3 L Dickenson % (Auto) 7.5 Eos % (Auto) 1.4 Baso % (Auto) 0.4 Lymph # (Auto) 1.1 L Dickenson # (Auto) 0.7 Eos # (Auto) 0.1 Baso # (Auto) 0.0 Abs Immat Gran (auto) 0.05 H Absolute Neuts (auto) 7.4 Absolute Nucleated RBC 0.000 Nucleated RBC % (auto) 0.0 Sodium 139 Potassium 4.2 Chloride 107 Carbon Dioxide 22 Anion Gap 14 BUN 16 Creatinine 0.97 Estim Creat Clear Calc 45.2 Estimated GFR 56 Random Glucose 89 Calcium 9.5 Iron 160 TIBC 366 % Saturation 44 Unsat Iron Binding 206 Clerical Work Check No Error Found Hemolysis Bld Bag Check No in Pre and Post Icterus Blood Bag Check No in Pre and Post Pre-Trans Blood Type O POSITIVE Post-Trans Blood Type O Positive Post-Trans DARIN Poly NEGATIVE Post-Trans Add Testing TNP Discharge Plan Discharge Anticipated Discharge Date/Time: 06/20/24 11:20 Patient Disposition: Home, Self-Care Discharge Diagnosis: anemia Referrals: Francesca Squires PA-C [Primary Care Provider] - 1 Week Discharge Medications: New cefuroxime axetil 250 mg tablet 250 mg PO Q12H 3 Days Qty: 6 0RF omeprazole 40 mg Capsule,Delayed Release(Dr/Ec) 40 mg PO DAILY@0630 90 Days Qty: 90 0RF Continued atorvastatin 80 mg tablet 80 mg PO DAILY Qty: 90 8RF losartan 100 mg tablet 100 mg PO DAILY Qty: 90 8RF ezetimibe 10 mg tablet 10 mg PO DAILY Qty: 90 3RF metoprolol tartrate 50 mg tablet 50 mg PO BID Qty: 180 3RF venlafaxine 150 mg capsule,extended release 24hr 150 mg PO DAILY Qty: 90 3RF cyanocobalamin (vitamin B-12) 1,000 mcg tablet, sublingual 1,000 mcg PO DAILY solifenacin [Vesicare] 5 mg tablet 5 mg PO DAILY Qty: 90 3RF Brilinta 90 mg tablet 90 mg PO BID 90 Days Qty: 180 3RF Held aspirin [Adult Low Dose Aspirin] 81 mg tablet,delayed release (DR/EC) 81 mg PO DAILY Hold Instructions: Resume June 26 Discontinued meloxicam 15 mg tablet 15 mg PO DAILY Qty: 90 3RF Discharge Orders: Discharge Order (Routine); Ordered 06/20/24 Ordered By: Funmi Hamilton Activity on Discharge: As tolerated Stand Alone Forms: Patient Portal Discharge page Print Language: Slovak Other Ambulatory Orders: Complete Blood Count no Diff (Routine) Timeframe: 1 Week Facility: [facility] - Location: Laboratory Ordered By: Funmi Hamilton Care Plan Goals: see below Health Concerns: anemia UTI KATHRYN - resolved Plan of Treatment: EGD showed erosive gastritis-take omeprazole 40 mg daily. Outpatient follow-up with GI, hold aspirin for 1 week For urinary tract infection complete course of antibiotics Recommend repeat CBC in 1 week Assessment: see discharge summary
[2024-06-20 11:39] VITALS: BP 115/50; PULSE 96; RESP 15; TEMP 36.5; O2SAT 97
--- NOTE | 2024-06-20 11:42 | MHC.CM.PN ---
Pt is medically cleared for discharge home self-care, pts daughter will transport her home today.
== END 2024-06-20 12:23 | disposition home or self-care (01) | DRG 392 ==
LOC: HO.ED 15:45 → HO.EDOVER 16:50 → HO.IMC 19:55
PROVIDERS: Internal Medicine Gastroenterology; Physician Assistant; Registered Nurse Emergency; Admitting Provider Nurse Practitioner Acute Care; Emergency Provider Emergency Medicine; Visit Provider Physician Assistant Medical
PROC: 0DB78ZX Excision of Stomach, Pylorus, Via Natural or Artificial Opening Endoscopic, Diagnostic (ICD-10-PCS; principal; 2024-06-19 13:30)
DX: K29.70 Gastritis, unspecified, without bleeding (principal); N17.9 Acute kidney failure, unspecified; D62 Acute posthemorrhagic anemia; N39.0 Urinary tract infection, site not specified; I25.10 Atherosclerotic heart disease of native coronary artery without angina pectoris; E86.0 Dehydration; K64.8 Other hemorrhoids; R19.5 Other fecal abnormalities; B96.1 Klebsiella pneumoniae [K. pneumoniae] as the cause of diseases classified elsewhere; I10 Essential (primary) hypertension; Z20.822 Contact with and (suspected) exposure to COVID-19; Z95.2 Presence of prosthetic heart valve; Z95.5 Presence of coronary angioplasty implant and graft; Z79.02 Long term (current) use of antithrombotics/antiplatelets; Z79.82 Long term (current) use of aspirin; Z79.899 Other long term (current) drug therapy
CPT/HCPCS: 0241U; 36415; 80048; 80053; 81001; 82272; 83540; 83690; 83735; 84484; 85025; 85027; 85610; 86078; 86850; 86900; 86901; 86923; 87086; 87088; 87186; 87633; 88305; 88313; 88342; 93005; 99285; J0696; J1756; J2003; J2405; J2704; J7120; P9016

== ENCOUNTER → 2024-06-17 13:13 | Outpatient (BNV) | payer MEDICARE, SELFPAY | PROVIDERS: Admitting Provider Nurse Practitioner Acute Care; Emergency Provider Emergency Medicine; Visit Provider Internal Medicine | DX: I51.7 Cardiomegaly (principal) | CPT/HCPCS: 93010 ==

== ENCOUNTER → 2024-06-17 15:37 | Outpatient (BNV) | payer MEDICARE, SELFPAY | PROVIDERS: Admitting Provider Nurse Practitioner Acute Care; Emergency Provider Emergency Medicine; Visit Provider Nurse Practitioner Acute Care | DX: N17.9 Acute kidney failure, unspecified (principal); D64.9 Anemia, unspecified | CPT/HCPCS: 99223; 99232; 99239 ==

== ENCOUNTER 2024-06-27 09:34 | Outpatient (REF) | payer MEDICARE, SELFPAY ==
[2024-06-27 10:39] LABS: Hematocrit 37.5 % (37.0-47.0); Hemoglobin 11.5 g/dl (12.0-16.0); Mean Corpuscular HGB Conc 30.7 g/dl (31.0-35.0); Mean Corpuscular Volume 84.8 fL (80.0-98.0); Mean Platelet Volume 10.4 fL (9.4-12.3); Platelet Count 295 X10*3/uL (160-400); Red Blood Count 4.42 X10*6/uL (4.20-5.50); Red Cell Distribution Width 17.9 % (11.0-16.0); White Blood Count 8.6 X10*3/uL (4.8-10.8)
== END 2024-06-27 09:35 | disposition home or self-care (01) ==
LOC: HO.LAB 09:34
PROVIDERS: Visit Provider Physician Assistant Medical
DX: D64.9 Anemia, unspecified (principal)
CPT/HCPCS: 36415; 85027

== ENCOUNTER 2024-07-08 09:59 | Outpatient (AMB) | payer MEDICARE, SELFPAY ==
--- OUTSIDE RECORDS SUMMARY | 2024-07-08 10:24 | XMS_ITS ---
Author Organization [facility] Address [address] [place] [address] [place] [id number] Care Team Providers Care Linker Up Name Role Phone Phu SALDANA, Maximilian Primary Care Provider Tha Araujo Jr [phone] REASON FOR VISIT ANEMIA, HEMOCULT POSITIVE Encounters Encounter Location Date Provider Diagnosis [facility] [place] [address] [place], [place] [id number] 06/19/2024 Tha Jaquez Jr Plan Of Treatment Next Appt Details Provider Name:Tha espinosa Jr, 10/10/2024 02:35:00 PM, [address] [place] [address], Suite [facility], [place], [address], Progress Notes * MARCIO GONZALEZ LDOB:[birth year] (74 yo F)Acc No.[id number]:06/19/2024 COLON WITH MAC Patient:?MARCIO GONZALEZ Provider:?Tha Jaquez MD :1950???Age:74 Y???Sex:Female D ate:06/19/2024 Address:[address] [place], [place] [id number] Pcp:Maximilian Bay MD Subjective: * Chief Complaints: * ???1. ANEMIA, HEMOCULT POSIT SRI. * Medical History:? Objective: * Vitals:? Assessment: Plan: * Treatment: * * The named appointment provid er may or may not be the originator of this progress note, and it is not deemed complete until electronically signed by the appointment provider. Sign off status: Pending * Provider:?Tha Jaquez MD Date:?0 06/19/2024 Generated for Vitalyi ng/Facoltg/eTransmitting on:?07/08/2024 10:24 AM EDT
--- OUTSIDE RECORDS SUMMARY | 2024-07-08 10:24 | XMS_ITS | Patient Health Record ---
Author Organization [facility] Address [address] [facility] [address] [place] [address] Care Team Providers Care Patient Financial Coordinator Name Role Phone Phu SALDANA, Maximilian Primary Care Provider Tha Araujo Jr Results Component Value Reference Range Notes Pathology Reviewed date:06/27/2024 10:01:23 AM Interpretation: Performing Lab:[facility], [address] [place] [phone] Notes/Report: Name: David Gonzalez Age/Sex: 74/F : 1950 Unit#: [id number] Attend Dr: Funmi Hamilton Re06/17/24 Status : DIS IN Location: [facility] 467-1 Disch: 06/20/24 SPEC : [id number] RECD : 06/20/24 STATUS: ROSITA TORRES NUM: [id number] CINDI: 06/19/24-[address] [facility] [address]: Tha Jaquez MD ENTERED: 06/20/24-08 33 SP TYPE: Surgical OTHR DR: Funmi Hamilton Melinda PA-C ORDERED: HE Stain/3, Gross Micro L4, IHC, Special st. 2, H. pylori, AB/PAS Diagnosis Stomach, antrum, bio psy: Antral-type mucosa with mild chronic inactive inflammation; no Helicobacter organisms seen. Clinical History Pre-Op Dx: Iron deficiency anemia Post-Op Dx: Erosive gastritis, normal colon Microscopic Description Microscopic sections examined. No metaplastic changes are seen, supported by AB/PAS stains; no Helicobacter orga nisms are seen, supported by H. pylori immunostain. Material Received Antrum biopsy Gross Description Received in formalin labeled ?antrum biopsy is a 0.35 cm lawson irregular tissue fragment, submitted in toto in a cassette labeled A. CEDS Special studies orde red and performed: Immunostain for H. pylori; AB/PAS stains Copies To: Funmi Hamilton [address] [place] [address] Tha Jaquez MD [facility] [address] [place] [address] [address] [place] [address] Francesca Squires PA-C [facility],[address] [place] [address] CONTINUED ON NEXT PAGE Name: David Gonzalez Age/Sex: 74/F : 1950 Unit#: [id number] Attend Dr: Funmi Hamilton Re06/17/24 Status : DIS IN Location: [facility] 467-1 Disch: 06/20/24 SPEC : [id number] RECD : 06/20/24 STATUS: ROSITA TORRES NUM: [id number] CINDI: 06/19/[address] [facility] [address]: Tha Jaquez MD ENTERED: 06/20/24 33 SP TYPE: Surgical OTHR DR: Funmi Hamilton Melinda PA-C ORDERED: HE Stain/3, Gross Micro L4, IHC, Special st. 2, H. pylori, AB/PAS Copies To: (Continued) [email or web address] Signed (si gnature on file) Richard Silverio MD 06/24/24 1438 END OF REPORT Reason For Referral No Information Encounters Encounter Location Date Provider Diagnosis [facility] [place] [address] [place], [place] [phone] 06/19/2024 Tha Jaquez Jr [address] [place] [address] 06/27/2024 Tha Jaquez Jr Plan Of Treatment Next Appt Details Provider Name:Tha espinosa Jr, 10/10/2024 02:35:00 PM, [address] [place] [address], [address], [place], [address], Insurance Providers Payer Name Payer Address Payer Phone Subscriber Number Group Number Insured Name Patient Relationship to Insured Coverage Start Date Coverage End Date [employer] [address] [place] WOLF [phone] [id number] MARCIO GONZALEZ Self - patient is the insured
--- OUTSIDE RECORDS SUMMARY | 2024-07-08 10:24 | XMS_ITS ---
Author Organization [facility] Address [address] [facility] [address] [place] [address] Care Team Providers Care Progress Man Name Role Phone Phu SALDANA, Maximilian Primary Care Provider Melody Jaquez Jr, Tha Polk REASON FOR VISIT path/ waiting on pt call back Encounters Encounter Location Date Provider Diagnosis [facility] [address] [facility] [address] [place] [address] 06/27/2024 Tha Jaquez Jr Plan Of Treatment Next Appt Details Provider Name:Tha espinosa Jr, 10/10/2024 02:35:00 PM, [address] [facility] [address], [address], [place], [address], Progress Notes * MARCIO GONZALEZ LDOB:[birth year] (74 yo F)Acc No.[id number]:06/27/2024 Patient:?GEMINI GONZALEZEVELYNE Rowe :1950???Age:74 Y???Sex:Female Address:[address] [place] [address], [place], [address] * true * Date:? Generated for Vitalyi emmy/Magalie/eTransmitting on:?07/08/2024 10:24 AM EDT
--- NOTE | 2024-07-08 10:27 | MHC.PC.OV ---
Vital Signs 07/08/24 10:28 Height 5 ft 2 in Weight 146 lb 6 oz BMI 26.8 BP 132/60 Blood Pressure Location Lt brachial Position Sitting Pulse 60 Pulse Source Pulse Oximeter Temp 97.1 F Temp Source Temporal Artery Scan Pulse Oximetry (%) 97 Oxygen Delivery Method Room Air Intake Visit Reasons: [facility] 06/20 Kathryn, elevated troponin Intake Note: Patient is here for hospital discharge follow up. Patient was discharged from [facility] on 06/20/24. Home Agent Required: No Supervisor Diagnostic: Not Required per policy Accompanied by: Self / Same As Patient Allergies nitrofurantoin [Macrobid] Allergy (Unknown, Verified 07/08/24 11:01) headache Medication List - Last Reconciled 07/08/24 by Francesca Squires PA-C aspirin (Adult Low Dose Aspirin) 81 mg PO DAILY atorvastatin 80 mg PO DAILY cyanocobalamin (vitamin B-12) 1,000 mcg PO DAILY ezetimibe 10 mg PO DAILY losartan 100 mg PO DAILY metoprolol tartrate 50 mg PO BID omeprazole 40 mg PO DAILY@0630 90 days solifenacin (Vesicare) 5 mg PO DAILY ticagrelor (Brilinta) 90 mg PO BID 90 days venlafaxine ER 150 mg PO DAILY Tobacco use date assessed: 07/08/24 Fall risk assessment: No Falls in past year Last assessed Fall Risk: 07/08/24 Dental Screening Dental Screen Date: 05/09/24 HPI [facility] 06/20 Kathryn, elevated troponin HPI Details 74-year-old female with past medical history of hyperlipidemia, hypertension, PVD, coronary artery disease, mitral regurgitation, overactive bladder, history of aortic valve replacement 03/2024 last seen 04/[address] Bay coming in for hospital discharge follow up. In review of the notes, patient was seen in [facility] ED 06/17/24 for nausea and vomiting and admitted for further monitoring. Patient received 2 units PRBC for anemia 06/19/2024 underwent EGD and colonoscopy which revealed erosive gastritis recommended starting omeprazole 40 mg daily and holding aspirin x1 week and repeat CBC. Patient was found to have Klebsiella UTI given oral antibiotics to complete the course outpatient. Presenting with a follow-up visit for several ongoing medical conditions post-hospitalization. She underwent aortic valve replacement in March and coronary stent placement in February, for which she is prescribed aspirin and ticagrelor. Last month, she was hospitalized for anemia related to nausea and vomiting, resulting in erosive gastritis. Management included red blood cell transfusion and omeprazole for gastroprotection. Kidney function, previously impaired, has returned to baseline, and recent hemoglobin checks are trending positively. A urinary tract infection was resolved with antibiotics. Overall she has been improving. [facility] Medical History Aortic stenosis Mitral regurgitation S/P angiogram of extremity (11/15/18) Anemia Depression Atherosclerotic heart disease PVD (peripheral vascular disease) HTN (hypertension) CAD (coronary artery disease) Prosthetic valve dysfunction Hyperlipidemia Surgical History History of heart artery stent History of aortic valve replacement History of cataract extraction Hx of endoscopy Hx of colonoscopy S/P AVR Hx of CABG H/O left wrist surgery Family History Father Depression Mother Depression Heart disease CHF (congestive heart failure) Paternal Grandmother Cancer Other Mental health disorder Social History Household Members: None Housing: House Are you a primary managed care provider to a significant other at home: No Do you presently have visiting nurse or other home services: No Alcohol intake: never Patient Tobacco Use Status: Former Tobacco user e-Cigarette/Vaping Use: Never Used Second Hand Smoke Exposure: Yes Advance Directives Date on File: 06/17/24 service: No Current occupational status: retired Cognitive needs: No Hearing needs: No Vision needs: Yes (Reading glasses) Questionnaire PHQ-9 Over the last 2 weeks, how often have you been bothered by any of the following problems? 1. Little interest or pleasure in doing things: not at all 2. Feeling down, depressed, or hopeless: not at all 3. Trouble falling or staying asleep, or sleeping too much: not at all 4. Feeling tired or having little energy: not at all 5. Poor appetite or overeating: not at all 6. Feeling bad about yourself - or that you are a failure or have let yourself or your family down: not at all 7. Trouble concentrating on things, such as reading the newspaper or watching television: not at all 8. Moving or speaking so slowly that other people could have noticed. Or the opposite - being so fidgety or restless that you have been moving around a lot more than usual: not at all 9. Thoughts that you would be better off or of hurting yourself in some way: not at all Total score: 0 Depression Screening Interpretation: Negative Depression Screening Done: Yes Source: Developed by Drs. Dwayne Damon, Anna Austin, Master Wilson and colleagues, with an educational wil from [employer]. Thrive Questionnaire Date Thrive assessed: 07/01/24 I am a: Patient What is your living situation today?: I have a steady place to live Within the past 12 months, did the food you bought not last and you didn't have the money to get more?: Sometimes True Within the past 12 months, did you worry whether your food would run out before you got money to buy more?: Often true Do you have trouble paying for medicines?: No Do you have trouble getting transportation to medical appointments?: No Do you have trouble taking care of your child, family member or friend?: I choose not to answer this question Do you have trouble with day-to-day activities such as bathing, preparing meals, shopping, managing finances, etc.?: No Are you currently unemployed and looking for a job?: No Are you interested in more education?: No Currently or been in a relationship where the following occur: No concerns reported THRIVE Score: 2 AUDIT C Alcohol Use Questionnaire (AUDIT-C) 1. How often do you have a drink containing alcohol?: Never Total Score: 0 JOSE D-7 AMB Questionnaire JOSE D-7 Date JOSE D - 7 assessed: 05/09/24 Feeling nervous, anxious, or on edge: 0 = Not at all Not being able to stop or control worryin = Not at all Worrying too much about different things: 0 = Not at all Trouble relaxin = Not at all Being so restless that it is hard to sit still: 0 = Not at all Becoming easily annoyed or irritable: 0 = Not at all Feeling afraid as if something awful might happen: 0 = Not at all Total JOSE D-7 score (0-4 normal; 5-9 mild; 10-14 moderate; 15-21 severe): 0 Source: Developed by Drs. Dwayne Damon, Anna Austin, Master Wilson and colleagues, with an educational wil from [employer]. JOSE D-7 Assessment Billing JOSE D-7 Assessment Tool: JOSE D-7 Assessment 94644 Review of Systems Const Denies body aches, Denies chills, Denies fever(s), Denies headache(s) and Denies poor appetite Eyes Reports no additional complaints ENT Denies dizziness and Denies headache(s) Card Denies chest pain, Denies syncope, Denies edema, Denies irregular heart rhythm, Denies lightheadedness and Denies dyspnea Resp Denies cough and Denies dyspnea GI Denies abdominal pain, Denies constipation, Denies diarrhea, Denies nausea and Denies vomiting Reports no additional complaints Musc Reports no additional complaints and Denies abnormal gait Skin/Breast Reports system reviewed and no additional complaints, except as documented Neuro Denies abnormal gait, Denies dizziness, Denies syncope and Denies headache(s) Psych Reports no additional complaints Physical exam (Primary Care) Vital Signs: Last Vital Signs Temp 97.1 F 07/08/24 10:28 Pulse 60 07/08/24 10:28 BP 132/60 07/08/24 10:28 Pulse Ox 97 07/08/24 10:28 Oxygen Delivery Method Room Air 07/08/24 10:28 BMI result Body Mass Index 26.8 Tobacco/Smoking Status: Tobacco use Status Tobacco use date assessed 07/08/24 07/08/24 10:31 Patient Tobacco Use Status Former Tobacco user 07/08/24 10:31 e-Cigarette/Vaping Use Never Used 07/08/24 10:31 PHQ-9: PHQ-9 Score PHQ-9: Total score 0 07/08/24 11:01 Depression Screening Interpretation: Negative Thrive Assessment: Date of Thrive Assessment Date Thrive assessed 07/01/24 07/08/24 10:31 Currently or been in a relationship where the following occur: No concerns reported Const General: cooperative, healthy appearing, comfortable and no acute distress Orientation/consciousness: patient oriented x3 HENMT Head: Yes normocephalic Ears: hearing grossly normal bilaterally General nose exam: Normal external nose present Eyes General: appearance normal, both eyes and all related structures Conjunctivae: conjunctivae normal Neck Neck: Yes full ROM and Yes no lymphadenopathy Resp Effort & Inspection: normal respiratory effort Auscultation: clear to auscultation bilaterally, no crackles, no rales, no rhonchi and no wheezes Cardio Rate: regular rate Rhythm: regular rhythm GI Palpation (GI): Soft to palpation, not firm, nontender, no guarding and not rigid Skin General skin exam: no rashes or lesions noted Neuro General: patient oriented x3 Gait exam (Neuro): Normal gait present Extrem General: Yes normal to inspection, Yes full ROM and No edema Psych Affect: normal affect Attitude: cooperative Insight: Good insight present (Psych) Judgement: Good judgement present (Psych) Coding Level of Care Code Est Pt Level 4 (39992) Diagnoses Anemia D64.9 Anemia type: unspecified type KATHRYN (acute kidney injury) N17.9 S/P cardiac cath Z98.890 Primary hypertension I10 Hypertension type: primary hypertension Other acute gastritis, presence of bleeding unspecified K29.00 Gastritis type: other gastritis Chronicity: acute Gastritis bleeding: presence of bleeding unspecified Additional Codes JOSE D-7 Assessment Billing - JOSE D-7 Assessment Tool: JOSE D-7 Assessment 80480 ([id number]) Assessment & Plan Assessment & Plan (1) Anemia: Code(s): D64.9 - Anemia, unspecified Category: Medical Qualifiers: Anemia type: unspecified type Qualified Code(s): D64.9 - Anemia, unspecified Plan: anemia has been improving on last CBC plan to continue to monitor at this time. She has resumed ASA per d/c paperwork and will continue to follow with cardiology. (2) KATHRYN (acute kidney injury): Code(s): N17.9 - Acute kidney failure, unspecified Category: Medical Plan: Patient found to have KATHRYN while admitted which has since resolved. Advised to stay well hydrated and avoid kidney irritants. Plan to continue to monitor kidney fxn. (3) S/P cardiac cath: Comment: 03/05/2024, severe left main stenosis, 75%, lad diffuse disease in the proximal segment with patent ARENAS to LAD, left circumflex 99% ostial vein graft stenosis to the ramus, proximal circumflex 50% stenosis, RCA proximal 100% stenosis, [employer]S A[employer]ST - vein graft aorta right to the distal RCA patent, vein graft from the aorta right to the 1st RLP patent -RADHA from the osium of SVG graft to the ramus intermedius Code(s): Z98.890 - Other specified postprocedural states Category: Surgical Plan: Patient has an appt later this week with cardiology. Advised good control of blood pressure, cholesterol and blood sugars. (4) HTN (hypertension): Code(s): I10 - Essential (primary) hypertension Category: Medical Qualifiers: Hypertension type: primary hypertension Qualified Code(s): I10 - Essential (primary) hypertension Plan: Continue on current blood pressure medication. Avoid salt intake and encourage healthy diet and regular exercise. (5) Gastritis: Code(s): K29.70 - Gastritis, unspecified, without bleeding Category: Medical Qualifiers: Gastritis type: other gastritis Chronicity: acute Gastritis bleeding: presence of bleeding unspecified Qualified Code(s): K29.00 - Acute gastritis without bleeding Plan: Recently underwent EGD with colonoscopy with GI and found erosive gastritis. Patient has follow up with GI in September and advised to continue on Omeprazole until that appt. Plan The management plan includes continued monitoring of the patient's anemia, keeping her on the current medication regimen of aspirin, ticagrelor, and omeprazole. Cigar Sorter and specialist follow-up appointments are scheduled appropriately. All recent lab works are satisfactory, so no new diagnostics are planned unless indicated by future symptoms. Continuing current lifestyle practices and attending all upcoming medical appointments will be emphasized. This note was constructed using voice recognition software. While every effort has been made to ensure accuracy and doctor of pharmacy, still areas may have been included sometimes these areas may affect the content or meeting of the given symptoms. Total time spent caring for the patient today was 30 minutes. This includes time spent before the visit reviewing the chart, time spent during the visit, and time spent after the visit and documentation. Patient was informed and verbally consented to the use of an ambient scribe for clinic note documentation during this visit. Orders: Orders Complete Blood Count Auto Diff Today D64.9 - Anemia, unspecified Referrals Gastroenterology Referral K29.70 - Gastritis, unspecified, without bleeding
[2024-07-08 10:28] VITALS: BP 132/60; PULSE 60; TEMP 36.2; O2SAT 97; BMI 26.8
== END 2024-07-08 11:25 | disposition home or self-care (01) ==
DX: D64.9 Anemia, unspecified (principal); N17.9 Acute kidney failure, unspecified; Z98.890 Other specified postprocedural states; I10 Essential (primary) hypertension; K29.00 Acute gastritis without bleeding

== ENCOUNTER → 2024-07-08 09:59 | Outpatient (BNVA) | payer MEDICARE, SELFPAY | DX: I10 Essential (primary) hypertension (principal); E78.5 Hyperlipidemia, unspecified; I73.9 Peripheral vascular disease, unspecified; I25.10 Atherosclerotic heart disease of native coronary artery without angina pectoris; N32.81 Overactive bladder; D64.9 Anemia, unspecified; N17.9 Acute kidney failure, unspecified; K29.00 Acute gastritis without bleeding; Z95.2 Presence of prosthetic heart valve; Z98.890 Other specified postprocedural states | CPT/HCPCS: 96127; 99212 ==

== ENCOUNTER 2024-07-12 13:18 | Outpatient (AMB) | payer MEDICARE, SELFPAY ==
--- OUTSIDE RECORDS SUMMARY | 2024-07-12 13:22 | XMS_ITS ---
Author Organization [facility] Address [address] [place] [address] [place] [address] Care Team Providers Care Hearing Stenographer Name Role Phone Francesca Toribio Primary Care Provider Sara Jaquez Jr, Tha Unavailable [phone] REASON FOR VISIT ANEMIA, HEMOCULT POSITIVE Encounters Encounter Location Date Provider Diagnosis [facility] [address] [place], [place] [id number] 06/19/2024 Tha Jaquez Jr Plan Of Treatment Next Appt Details Provider Name:Tha espinosa Jr, 10/10/2024 02:35:00 PM, [address] [place] [address], [address], [place], [address], Progress Notes * MARCIO GONZALEZ LDOB:[birth year] (74 yo F)Acc No.[id number]:06/19/2024 COLON WITH MAC Patient:?LISA MARCIO Rowe Provider:?Tha Jaquez MD :1950???Age:74 Y???Sex:Female D ate:06/19/2024 Address:[address] [place], [place] [id number] Pcp:MOUNA Porter Subjective: * Chief Complaints: * ???1. ANEMIA, HEMOCULT POSIT SRI. * Medical History:? Objective: * Vitals:? Assessment: Plan: * Treatment: * * The named appointment provid er may or may not be the originator of this progress note, and it is not deemed complete until electronically signed by the appointment provider. Sign off status: Pending * Provider:?Tha Jaquez MD Date:?0 06/19/2024 Generated for Christian booth/Magalie/eTransmitting on:?07/12/2024 01:22 PM EDT
--- OUTSIDE RECORDS SUMMARY | 2024-07-12 13:22 | XMS_ITS | Patient Health Record ---
Author Organization [facility] Address [address] [facility] [address] [place] [address] Care Team Providers Care Grain Sacker Name Role Phone Shaw Francesca FREIRE Primary Care Provider Sara Jaquez JrTha [phone] Results Component Value Reference Range Notes Pathology Reviewed date:06/27/2024 10:01:23 AM Interpretation: Performing Lab:[facility], [address] [place] [id number] Notes/Report: Name: David Gonzalez Age/Sex: 74/F : 1950 Unit#: [id number] Attend Dr: Funmi Hamilton Re06/17/24 Status : DIS IN Location: [facility] 467-1 Disch: 06/20/24 SPEC : [id number] RECD : 06/20/2428 STATUS: ROSITA TORRES NUM: [id number] CINDI: 06/19/24-9[address] [facility] [address]: Tha Jaquez MD ENTERED: 06/20/24-08 33 [...] AB/PAS stains Copies To: Funmi Hamilton [address] [place] [address] Tha Jaquez MD [facility] [address] [place] [address] [address] [place] [address] Francesca Squires PA-C [facility] Primary Care,[address] [place] [address] CONTINUED ON NEXT PAGE Name: David Gonzalez Age/Sex: 74/F : 1950 Unit#: [id number] Attend Dr: Funmi Hamilton Re06/17/24 Status : DIS IN Location: [facility] 467-1 Disch: 06/20/24 SPEC : [id number] RECD : 06/20/24 STATUS: ROSITA TORRES NUM: [id number] CINDI: 06/19/24-13[address] [facility] [address]: Tha Jaquez MD ENTERED: 06/20/24 33 SP TYPE: Surgical OTHR DR: Funmi Hamilton Melinda PA-C ORDERED: HE Stain/3, Gross Micro L4, IHC, Special st. 2, H. pylori, AB/PAS Copies To: (Continued) [email or web address] Signed (si gnature on file) Richard Silverio MD 06/24/24 1438 END OF REPORT Reason For Referral No Information Encounters Encounter Location Date Provider Diagnosis [facility] [place] [address] [place], [place] [phone] 06/19/2024 Tha Jaquez Jr [address] [place] [address] 06/27/2024 Tha Jaquez Jr Plan Of Treatment Next Appt Details Provider Name:Tha espinosa Jr, 10/10/2024 02:35:00 PM, [address] [place] [address], [address], [place], [address], Insurance Providers Payer Name Payer Address Payer Phone Subscriber Number Group Number Insured Name Patient Relationship to Insured Coverage Start Date Coverage End Date [employer] [address] [place] WOLF [phone] [id number] MARCIO GONZALEZ Self - patient is the insured
--- OUTSIDE RECORDS SUMMARY | 2024-07-12 13:22 | XMS_ITS ---
Author Organization [facility] Address [address] [facility] [address] [facility] [address] [place] [address] Care Team Providers Care Level Designer Name Role Phone Francesca Toribio Primary Care Provider Sara Jaquez Jr, Tha [place] REASON FOR VISIT path/ waiting on pt call back Encounters Encounter Location Date Provider Diagnosis [facility] [address] [facility] [address] [place] [address] 06/27/2024 Tha Jaquez Jr Plan Of Treatment Next Appt Details Provider Name:Tha espinosa Jr, 10/10/2024 02:35:00 PM, [address] [facility] [address], [address], [place], [address], Progress Notes * MARCIO GONZALEZ LDOB:[birth year] (74 yo F)Acc No.[id number]:06/27/2024 Patient:?MARCIO GONZALEZ :1950???Age:74 Y???Sex:Female Address:[address] [place] [address], [place], [address] * true * Date:? Generated for Vitalyi emmy/Magalie/eTransmitting on:?07/12/2024 01:22 PM EDT
--- NOTE | 2024-07-12 13:28 | MHC.OFFVIS ---
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 Her medical history significant for hypertension, hyperlipidemia, coronary artery disease status post CABG x4 and AVR in 2017, most recently PCI to the SV graft to ramus on 03/05/2024, which also revealed severe bioprosthetic AV stenosis. Patient has since undergone TAVR. Today, the patient reports feeling well overall and denies any cardiac symptoms including exertional chest pain, shortness of breath, palpitations, dizziness, orthopnea, PND, leg edema, presyncope, or syncope. Patient confirms full compliance with all her medications. [facility] Medical History Aortic stenosis Mitral regurgitation S/P angiogram of extremity (11/15/18) Anemia Depression Atherosclerotic heart disease PVD (peripheral vascular disease) HTN (hypertension) CAD (coronary artery disease) Prosthetic valve dysfunction Hyperlipidemia Surgical History History of heart artery stent History of aortic valve replacement History of cataract extraction Hx of endoscopy Hx of colonoscopy S/P AVR Hx of CABG H/O left wrist surgery Family History Father Depression Mother Depression Heart disease CHF (congestive heart failure) Paternal Grandmother Cancer Other Mental health disorder Social History Household Members: None Housing: House Are you a primary senior care assistant to a significant other at home: No Do you presently have visiting nurse or other home services: No Alcohol intake: never Patient Tobacco Use Status: Former Tobacco user e-Cigarette/Vaping Use: Never Used Second Hand Smoke Exposure: Yes Advance Directives Date on File: 06/17/24 service: No Current occupational status: retired Cognitive needs: No Hearing needs: No Vision needs: Yes (Reading glasses) Review of Systems Const Denies chills, Denies fatigue, Denies fever(s), Denies frequent falls, Denies weakness, Denies weight gain and Denies weight loss ENT Denies dizziness Card Denies chest pain, Denies leg edema, Denies lightheadedness, Denies palpitations, Denies dyspnea and Denies dyspnea on exertion Resp Denies cough, Denies dyspnea and Denies dyspnea on exertion GI Denies hematochezia Musc Denies abnormal gait, Denies muscle weakness, Denies numbness, Denies radiating pain into limb and Denies tingling Neuro Denies abnormal gait, Denies dizziness, Denies frequent falls, Denies numbness, Denies tingling and Denies weakness Endo Denies fatigue and Denies palpitations Physical Exam Vital Signs: Last Vital Signs Pulse 62 07/12/24 13:29 BP 110/62 07/12/24 13:29 BMI result Body Mass Index 26.9 Const General: cooperative, healthy appearing, comfortable and no acute distress Orientation/consciousness: patient oriented x3 HEENT Head: Yes normal to inspection Neck Neck: Yes normal visual inspection, Yes trachea midline and Yes supple Chest Chest palpation & inspection: normal inspection of the chest Resp Effort & Inspection: normal respiratory effort Auscultation: clear to auscultation bilaterally, no crackles, no rales, no rhonchi and no wheezes Cardio Jugular venous distension: no JVD Palpation: normal PMI Rate: regular rate Rhythm: regular rhythm Heart sounds: S1 normal heart sound present, S2 normal heart sound present, no click, no gallops, Murmur heart sound present systolic and no rubs Peripheral pulses: Peripheral pulses 2+ throughout GI Inspection: Yes normal to inspection Palpation (GI): Soft to palpation Auscultation: normal bowel sounds Skin General skin exam: no rashes or lesions noted Neuro General: patient oriented x3 Extrem General: Yes normal to inspection, No no pedal edema and No calf tenderness Psych Appearance: grossly normal Mental Status: mental status grossly normal Speech and movement: Normal speech and movement present Assessment & Plan Assessment & Plan (1) Status post transcatheter aortic valve replacement: Code(s): Z95.2 - Presence of prosthetic heart valve Category: Surgical Plan: Patient with history of 4 vessel CABG, AVR with previous ARENAS to LAD and SVG to OM1, mid RCA, and RPL in 2017. Patient had an echo that showed severe stenosis of the AV bioprosthetic which was also confirmed by cardiac catheterization. When patient underwent the cardiac catheterization on 03/05/2024, patient had a successful PCI from the ostium of SV graft to ramus intermedius. 04/18/24-patient is now status post TAVR with Dr. Solis. 05/28/2024-patient underwent an echo study that showed hyperdynamic systolic function greater than 70%, bioprosthetic aortic valve functioning adequately, and severe mitral annular calcification with possible calcific mitral stenosis, [id number] mitral valve regurgitation. Clinically patient is stable and euvolemic. Continue aspirin and Brilinta therapy. No reported signs of bleeding. Continue metoprolol, losartan, high-dose statin and Zetia therapy. We will monitor labs periodically. (2) S/P cardiac cath: Code(s): Z98.890 - Other specified postprocedural states Category: Surgical Plan: As above. (3) CAD (coronary artery disease): Code(s): I25.10 - Atherosclerotic heart disease of [place] coronary artery without angina pectoris Category: Medical Plan: As above. (4) Hx of CABG: Comment: 06/15/2016 CABG x [address] Martin - [facility] [place] 05/2016. ARENAS to LAD and SVG to OM1, RCA and RPLV Code(s): Z95.1 - Presence of aortocoronary bypass graft Category: Surgical Plan: As above. (5) HTN (hypertension): Code(s): I10 - Essential (primary) hypertension Category: Medical Qualifiers: Hypertension type: primary hypertension Qualified Code(s): I10 - Essential (primary) hypertension Plan: Blood pressure today is well-controlled. Continue current regimen. Advised monitoring blood pressures at home, attaining a log of it. Ideally, blood pressure goal less than 130/80. Advised heart healthy diet, regular exercise, med compliance, and management of vascular risk factors. Patient will follow-up with Dr. Burns in 6 months. In the interim, patient will call the office with any concerns or change in symptoms. This note was generated using voice recognition software. While every effort has been made to ensure accuracy and proper refinery operator vapor recovery unit, there may be occasional errors that could affect the content or meaning of the described symptoms. Coding Level of Care Code Est Pt Level 4 (42280) Complex EM visit Add On G2211 Diagnoses Status post transcatheter aortic valve replacement Z95.2 S/P cardiac cath Z98.890 CAD (coronary artery disease) I25.10 Hx of CABG Z95.1 Primary hypertension I10 Hypertension type: primary hypertension Time Spent (min) 31 Comment Time spent in reviewing the chart, test results, assessment, counseling and documentation.
[2024-07-12 13:29] VITALS: BP 110/62; PULSE 62; BMI 26.9
== END 2024-07-12 13:48 | disposition home or self-care (01) ==
LOC: HO.HCS 13:19
DX: Z95.2 Presence of prosthetic heart valve (principal); Z98.890 Other specified postprocedural states; I25.10 Atherosclerotic heart disease of native coronary artery without angina pectoris; Z95.1 Presence of aortocoronary bypass graft; I10 Essential (primary) hypertension
CPT/HCPCS: 99214; G2211

== ENCOUNTER → 2024-07-12 13:18 | Outpatient (BNVA) | payer MEDICARE, SELFPAY | DX: I10 Essential (primary) hypertension (principal); E78.5 Hyperlipidemia, unspecified; I25.10 Atherosclerotic heart disease of native coronary artery without angina pectoris; Z95.1 Presence of aortocoronary bypass graft; Z95.2 Presence of prosthetic heart valve; Z98.890 Other specified postprocedural states | CPT/HCPCS: 99212 ==

== ENCOUNTER 2024-09-23 07:35 | Outpatient (REF) | payer MEDICARE, SELFPAY | END 2024-09-23 07:36 | disposition home or self-care (01) | LOC: HO.MAMMO 07:35 | DX: Z12.31 Encounter for screening mammogram for malignant neoplasm of breast (principal) | CPT/HCPCS: 77063; 77067 ==

== ENCOUNTER → 2024-09-23 08:00 | Outpatient (BNV) | payer MEDICARE, SELFPAY | PROVIDERS: Visit Provider Internal Medicine | DX: Z12.31 Encounter for screening mammogram for malignant neoplasm of breast (principal) | CPT/HCPCS: 77063; 77067 ==

== ENCOUNTER 2024-09-28 07:40 | Outpatient (REF) | payer MEDICARE, SELFPAY ==
[2024-09-28 08:06] LABS: MANUAL DIFF FLAG NO
[2024-09-28 08:34] LABS: Hematocrit 34.8 % (37.0-47.0); Hemoglobin 10.8 g/dl (12.0-16.0); Imm Gran Abs Auto 0.04 X10*3/uL (0.00-0.03); Imm Gran Pct Auto 0.5 % (0.0-0.4); Lymphocytes Absolute Auto 0.9 X10*3/uL (1.2-4.9); Mean Corpuscular HGB Conc 31.0 g/dl (31.0-35.0); Mean Corpuscular Hemoglobin 26.6 pg (27.0-33.0); Mean Corpuscular Volume 85.7 fL (80.0-98.0); NRBC Abs Auto 0.000 X10*3/uL (0.0-0.012); NRBC Pct Auto 0.0 /100WBC (0.0-0.2); Platelet Count 271 X10*3/uL (160-400); Red Blood Count 4.06 X10*6/uL (4.20-5.50); White Blood Count 8.7 X10*3/uL (4.8-10.8)
== END 2024-09-28 07:41 | disposition home or self-care (01) ==
LOC: HO.LAB 07:40
DX: D64.9 Anemia, unspecified (principal)
CPT/HCPCS: 36415; 85025

== ENCOUNTER 2024-10-08 08:10 | Outpatient (AMB) | payer MEDICARE, SELFPAY ==
--- NOTE | 2024-10-08 08:14 | MHC.PC.OV ---
Vital Signs 10/08/24 08:16 Height 5 ft 2 in Weight 145 lb 6 oz BMI 26.6 BP 120/68 Blood Pressure Location Lt brachial Position Sitting Pulse 56 Pulse Source Pulse Oximeter Temp 97.1 F Temp Source Temporal Artery Scan Pulse Oximetry (%) 98 Oxygen Delivery Method Room Air Intake Visit Reasons: f/u CAD r/s MISSY Intake Note: Patient is here today for CAD F/U. Hole Digger Operator Required: No Company Miner Blasting: Not Required per policy Accompanied by: Self / Same As Patient Allergies nitrofurantoin (Macrobid) Allergy (Unknown, Verified 10/08/24 08:30) headache Medication List - Last Reconciled 10/08/24 by Francesca Squires PA-C aspirin (Adult Low Dose Aspirin) 81 mg PO DAILY Held on 06/20/24. Instructions: Resume June 26 atorvastatin 80 mg PO DAILY cyanocobalamin (vitamin B-12) 1,000 mcg PO DAILY ezetimibe 10 mg PO DAILY losartan 100 mg PO DAILY metoprolol tartrate 50 mg PO BID omeprazole 40 mg PO DAILY@0630 90 days solifenacin (Vesicare) 5 mg PO DAILY ticagrelor (Brilinta) 90 mg PO BID 90 days venlafaxine ER 150 mg PO DAILY Tobacco use date assessed: 10/08/24 Fall risk assessment: No Falls in past year Last assessed Fall Risk: 10/08/24 Dental Screening Dental Screen Date: 05/09/24 HPI f/u CAD r/s MISSY HPI Details 74-year-old female with past medical history of hyperlipidemia, hypertension, PVD, coronary artery disease, mitral regurgitation, overactive bladder, history of aortic valve replacement 03/2024 last seen 06/2024 coming in for MISSY/ follow up. In review of the notes, patient was seen by Cardiology 06/2024 continued on Brillinta, ASA, losartan, metoprolol, statin and Zetia. Presenting with a follow-up for anemia and kidney injury, along with management of overactive bladder and preventative care. Previously hospitalized for anemia, which is stable but not significantly improved. Regular monitoring continues. She has no acute concerns today. [facility] Medical History Aortic stenosis Mitral regurgitation S/P angiogram of extremity (11/15/18) Anemia Depression Atherosclerotic heart disease PVD (peripheral vascular disease) HTN (hypertension) CAD (coronary artery disease) Prosthetic valve dysfunction Hyperlipidemia Surgical History History of heart artery stent History of aortic valve replacement History of cataract extraction Hx of endoscopy Hx of colonoscopy S/P AVR Hx of CABG H/O left wrist surgery Family History Father Depression Mother Depression Heart disease CHF (congestive heart failure) Paternal Grandmother Cancer Other Mental health disorder Social History Household Members: None Housing: House Are you a primary day care attendant to a significant other at home: No Do you presently have visiting nurse or other home services: No Alcohol intake: never Patient Tobacco Use Status: Former Tobacco user e-Cigarette/Vaping Use: Never Used Second Hand Smoke Exposure: Yes Advance Directives Date on File: 06/17/24 service: No Current occupational status: retired Cognitive needs: No Hearing needs: No Vision needs: Yes (Reading glasses) Questionnaire PHQ-9 Over the last 2 weeks, how often have you been bothered by any of the following problems? 1. Little interest or pleasure in doing things: not at all 2. Feeling down, depressed, or hopeless: not at all 3. Trouble falling or staying asleep, or sleeping too much: not at all 4. Feeling tired or having little energy: not at all 5. Poor appetite or overeating: not at all 6. Feeling bad about yourself - or that you are a failure or have let yourself or your family down: not at all 7. Trouble concentrating on things, such as reading the newspaper or watching television: not at all 8. Moving or speaking so slowly that other people could have noticed. Or the opposite - being so fidgety or restless that you have been moving around a lot more than usual: not at all 9. Thoughts that you would be better off or of hurting yourself in some way: not at all Total score: 0 Depression Screening Interpretation: Negative Depression Screening Done: Yes Source: Developed by Drs. Dwayne L. NelsonAnna chahal Kurt Kroenke and colleagues, with an educational wil from [employer]. Thrive Questionnaire Date Thrive assessed: 07/01/24 I am a: Patient What is your living situation today?: I have a steady place to live Within the past 12 months, did the food you bought not last and you didn't have the money to get more?: Sometimes True Within the past 12 months, did you worry whether your food would run out before you got money to buy more?: Often true Do you have trouble paying for medicines?: No Do you have trouble getting transportation to medical appointments?: No Do you have trouble paying your heating and electricity bill?: No Do you have trouble taking care of your child, family member or friend?: I choose not to answer this question Do you have trouble with day-to-day activities such as bathing, preparing meals, shopping, managing finances, etc.?: No Are you currently unemployed and looking for a job?: No Are you interested in more education?: No Please select the resources that you would like help with: None Currently or been in a relationship where the following occur: No concerns reported THRIVE Score: 2 JOSE D-7 AMB Questionnaire JOSE D-7 Date JOSE D - 7 assessed: 05/09/24 Source: Developed by Drs. Dwayne Damon, Master Jordan and colleagues, with an educational wil from [employer]. Review of Systems Const Denies body aches, Denies chills, Denies fever(s), Denies headache(s) and Denies poor appetite Eyes Reports no additional complaints ENT Denies dysphagia, Denies dizziness, Denies headache(s) and Denies odynophagia Card Denies chest pain, Denies syncope, Denies edema, Denies irregular heart rhythm, Denies lightheadedness and Denies dyspnea Resp Denies cough and Denies dyspnea GI Denies abdominal pain, Denies constipation, Denies dysphagia, Denies diarrhea, Denies nausea, Denies odynophagia and Denies vomiting Reports no additional complaints Musc Reports no additional complaints and Denies abnormal gait Skin/Breast Reports system reviewed and no additional complaints, except as documented Neuro Denies abnormal gait, Denies dizziness, Denies syncope and Denies headache(s) Psych Reports no additional complaints Physical exam (Primary Care) Vital Signs: Last Vital Signs Temp 97.1 F 10/08/24 08:16 Pulse 56 10/08/24 08:16 BP 120/68 10/08/24 08:16 Pulse Ox 98 10/08/24 08:16 Oxygen Delivery Method Room Air 10/08/24 08:16 BMI result Body Mass Index 26.6 Tobacco/Smoking Status: Tobacco use Status Tobacco use date assessed 10/08/24 10/08/24 08:21 Patient Tobacco Use Status Former Tobacco user 10/08/24 08:15 e-Cigarette/Vaping Use Never Used 10/08/24 08:15 PHQ-9: PHQ-9 Score PHQ-9: Total score 0 10/08/24 08:15 Depression Screening Interpretation: Negative Thrive Assessment: Date of Thrive Assessment Date Thrive assessed 07/01/24 10/08/24 08:15 Currently or been in a relationship where the following occur: No concerns reported Const General: cooperative, healthy appearing, comfortable and no acute distress Orientation/consciousness: patient oriented x3 HENMT Head: Yes normocephalic Ears: hearing grossly normal bilaterally General nose exam: Normal external nose present Eyes General: appearance normal, both eyes and all related structures Conjunctivae: conjunctivae normal Neck Neck: Yes full ROM and Yes no lymphadenopathy Resp Effort & Inspection: normal respiratory effort Auscultation: clear to auscultation bilaterally, no crackles, no rales, no rhonchi and no wheezes Cardio Rate: regular rate Rhythm: regular rhythm Skin General skin exam: no rashes or lesions noted Neuro General: patient oriented x3 Gait exam (Neuro): Normal gait present Extrem General: Yes normal to inspection, Yes full ROM and No edema Psych Affect: normal affect Attitude: cooperative Insight: Good insight present (Psych) Judgement: Good judgement present (Psych) Coding Level of Care Code Est Pt Level 3 (19683) Diagnoses Primary hypertension I10 Hypertension type: primary hypertension S/P AVR Z95.2 CAD (coronary artery disease) I25.10 PVD (peripheral vascular disease) I73.9 Hyperlipidemia E78.5 OAB (overactive bladder) N32.81 Anemia D64.9 Anemia type: unspecified type Other acute gastritis, presence of bleeding unspecified K29.00 Gastritis type: other gastritis Chronicity: acute Gastritis bleeding: presence of bleeding unspecified Assessment & Plan Assessment & Plan (1) HTN (hypertension): Code(s): I10 - Essential (primary) hypertension Category: Medical Qualifiers: Hypertension type: primary hypertension Qualified Code(s): I10 - Essential (primary) hypertension Plan: Continue on current blood pressure medication. Avoid salt intake and encourage healthy diet and regular exercise. Blood pressure well controlled today. Continue on metoprolol and losartan. (2) S/P AVR: Comment: 19 mm bioprosthetic aortic valve replacement with Trifecta bioprosthesis. Immediate postoperative mean gradient of 30 mm Hg consistent with patient prosthesis mismatch, 2017 Code(s): Z95.2 - Presence of prosthetic heart valve Category: Surgical Plan: Continue to follow up with Cardiology. (3) CAD (coronary artery disease): Code(s): I25.10 - Atherosclerotic heart disease of [place] coronary artery without angina pectoris Category: Medical Plan: For coronary artery disease she is on dual antiplatelet therapy with aspirin and Brilinta. She continues on high dose atorvastatin with Zetia for cholesterol management. She is also on losartan and metoprolol for blood pressure management. Continue to monitor blood pressure, cholesterol and blood sugars and continue to follow with Cardiology. (4) PVD (peripheral vascular disease): Comment: 11/07/2018 - left iliac stent Code(s): I73.9 - Peripheral vascular disease, unspecified Category: Medical Plan: Currently on dual antiplatelet therapy with Brilinta and aspirin. Advised good control of blood pressure and cholesterol (5) Hyperlipidemia: Code(s): E78.5 - Hyperlipidemia, unspecified Category: Medical Plan: Avoid foods that are high in cholesterol such as red meat, fried foods, eggs and baked goods. Triglyceride goal of less than 150 and LDL goal of less than 70. Continue on Zetia and atorvastatin. Last cholesterol within normal limits. I did order for updated blood work as well. (6) OAB (overactive bladder): Code(s): N32.81 - Overactive bladder Category: Medical Plan: Currently following with Urology and on VESIcare. She feels her symptoms have been improved since starting the medication and has an ultrasound scheduled for October with Urology appointment to follow in November. (7) Anemia: Code(s): D64.9 - Anemia, unspecified Category: Medical Qualifiers: Anemia type: unspecified type Qualified Code(s): D64.9 - Anemia, unspecified Plan: Anemia is stable continue to monitor blood work. (8) Gastritis: Comment: Dr. Jaquez Code(s): K29.70 - Gastritis, unspecified, without bleeding Category: Medical Qualifiers: Gastritis type: other gastritis Chronicity: acute Gastritis bleeding: presence of bleeding unspecified Qualified Code(s): K29.00 - Acute gastritis without bleeding Plan: Patient is following with Dr. Jaquez for gastritis and has a appointment this week with him. Continue on omeprazole at this time Plan The patient will continue monitoring her anemia, which remains stable, with regular blood work scheduled. Kidney function will also be monitored, given the previous injury, but current hydration and urination are normal. Management of overactive bladder with solifenacin will continue, with an ultrasound scheduled to further evaluate the condition. The patient is advised to maintain her current medication regimen, including Brilinta, aspirin, and losartan, as per ticket broker's recommendations. Preventative care includes scheduling annual blood work and a physical exam in January. The patient is encouraged to maintain her current weight and blood pressure levels. This note was constructed using voice recognition software. While every effort has been made to ensure accuracy and junior data analyst, still areas may have been included sometimes these areas may affect the content or meeting of the given symptoms. Total time spent caring for the patient today was 20 minutes. This includes time spent before the visit reviewing the chart, time spent during the visit, and time spent after the visit and documentation. Patient was informed and verbally consented to the use of an ambient scribe for clinic note documentation during this visit. Orders: Orders Vitamin D 25-OH Total Today I25.10 - Atherosclerotic heart disease of [place] coronary artery without angina pectoris, Z13.21 - Encounter for screening for nutritional disorder Lipid Panel Today E78.00 - Pure hypercholesterolemia, unspecified, I25.10 - Atherosclerotic heart disease of [place] coronary artery without angina pectoris Comprehensive Met. Panel Today I25.10 - Atherosclerotic heart disease of [place] coronary artery without angina pectoris, Z00.00 - Encounter for general adult medical examination without abnormal findings Complete Blood Count Auto Diff Today D64.9 - Anemia, unspecified, I25.10 - Atherosclerotic heart disease of [place] coronary artery without angina pectoris TSH reflex Free T4 Today I25.10 - Atherosclerotic heart disease of [place] coronary artery without angina pectoris, Z13.29 - Encounter for screening for other suspected endocrine disorder Vitamin B12 and Folate Today I25.10 - Atherosclerotic heart disease of [place] coronary artery without angina pectoris, Z13.21 - Encounter for screening for nutritional disorder
[2024-10-08 08:16] VITALS: BP 120/68; PULSE 56; TEMP 36.2; O2SAT 98; BMI 26.6
== END 2024-10-08 09:18 | disposition home or self-care (01) ==
LOC: HO.HMCH 08:11
DX: I10 Essential (primary) hypertension (principal); Z95.2 Presence of prosthetic heart valve; I25.10 Atherosclerotic heart disease of native coronary artery without angina pectoris; I73.9 Peripheral vascular disease, unspecified; E78.5 Hyperlipidemia, unspecified; N32.81 Overactive bladder; D64.9 Anemia, unspecified; K29.00 Acute gastritis without bleeding

== ENCOUNTER → 2024-10-08 08:10 | Outpatient (BNVA) | payer MEDICARE, SELFPAY | DX: I10 Essential (primary) hypertension (principal); E78.5 Hyperlipidemia, unspecified; I73.9 Peripheral vascular disease, unspecified; I25.10 Atherosclerotic heart disease of native coronary artery without angina pectoris; D64.9 Anemia, unspecified; N32.81 Overactive bladder; K29.00 Acute gastritis without bleeding; Z95.2 Presence of prosthetic heart valve | CPT/HCPCS: 96127; 99212 ==

== ENCOUNTER 2024-11-15 14:47 | Outpatient (REF) | payer MEDICARE, SELFPAY ==
--- NOTE | ~2024-11-15 | US_ITS ---
EXAMINATION: US RETROPERITONEAL LIMITED (RENAL ONLY) CLINICAL INFORMATION: Urgency of urination.. COMPARISON: 09/21/2023. TECHNIQUE: Real-time imaging of the kidneys. FINDINGS: RIGHT KIDNEY: 10.1 x 3.7 x 4.2 cm (SAG x AP x TRV). The kidney is normal in size, contour, and echogenicity. Renal cortical thickness is normal. No calculi or suspicious focal parenchymal lesions. No hydronephrosis. There is a simple cyst in the lower pole measuring 1.0 x 0.7 x 0.9 cm. LEFT KIDNEY: 9.3 x 4.5 x 2.1 cm (SAG x AP x TRV). The kidney is normal in size, contour, and echogenicity. Renal cortical thickness is normal. No calculi or focal suspicious parenchymal lesions. No hydronephrosis. There is a stable and unchanged minimally complex cyst with septation present in the lower pole measuring 1.1 x 1.0 x 0.9 cm. US/US renal BI IMPRESSION: 1. There are small stable renal cysts in each kidney. There is no hydronephrosis or mass. 2. Otherwise normal exam. Electronically signed by: Durga Martin MD 11/15/2024 03:44 PM EDT
== END 2024-11-15 14:48 | disposition home or self-care (01) ==
LOC: HO.US 14:47
PROVIDERS: Visit Provider Urology
DX: R39.15 Urgency of urination (principal); R32 Unspecified urinary incontinence; R80.9 Proteinuria, unspecified; N32.81 Overactive bladder
CPT/HCPCS: 76775

== ENCOUNTER → 2024-11-15 14:48 | Outpatient (BNV) | payer MEDICARE, SELFPAY | PROVIDERS: Visit Provider Radiology Diagnostic Radiology | DX: N28.1 Cyst of kidney, acquired (principal) | CPT/HCPCS: 76775 ==

== ENCOUNTER 2024-11-27 16:24 | Outpatient (AMB) | payer MEDICARE, SELFPAY ==
--- NOTE | 2024-11-27 16:14 | A.OFFVIS_ITS ---
Intake Visit Reasons: US Follow up Intake Note: Patient presents today via telehealth for a follow up/US * 11/15 Renal US Urology Meds- VITAMIN B-12 Allergies to Antibiotic- Macrobid(nitrofurantoin) Blood Thinner- Aspirin Curriculum Development Manager Required: No Accompanied by: Self / Same As Patient Allergies nitrofurantoin (Macrobid) Allergy (Unknown, Verified 11/27/24 16:25) headache HPI Comments Details: 11/27/24-- History of Present Illness The patient is a 74-year-old female presenting with a follow-up for renal ultrasound results and management of overactive bladder symptoms. The renal ultrasound conducted on 11/15/24 showed no kidney stones, but identified two stable bilateral renal cysts, which are not of concern and do not require monitoring. The patient has been prescribed Vesicare 5 mg daily for overactive bladder symptoms, which are currently under control. She reports no signs of urinary tract infections or other concerns at this time. Results - Renal ultrasound (11/15/24): No kidney stones; stable bilateral renal cysts. Plan 1. Overactive Bladder - Continue Vesicare 5 mg daily. - Follow-up in one year with nurse practitioner. 2. Bilateral Renal Cysts - No further monitoring required as cysts are stable and benign appearing 10/02/23--Gloria is a 73-year-old female who is here in FU for lower urinary tract symptoms of urinary incontinence and urgency. States vesicare is helping. Reviewed renal US 09/21/23--Right- renal stone 3 mm. Right renal cystic focus measuring up to 1.0 cm, simple appearing, Left renal cystic focus with septations in the lower pole -9 mm. Monitor kidneys, right renal stone, left septated cyst. UA-proteinuria. 07/17/23--Gloria is a 73-year-old female who is here as a new patient evaluation for lower urinary tract symptoms of urinary incontinence and urgency. The patient states that she has had occasional stress urinary incontinence associated with coughing for many years. However about 3-4 months ago she had an episode of urgency associated with urinary leakage. Since that episode she has had feeling of urgency as well as leakage not associated with a specific activity. She denies dysuria. I have discussed urinalysis is negative for leukocytes or blood. Protein is noted on today's urine specimen. I discussed surveillance urine culture. I have discussed trial of anticholinergic. Will prescribe VESIcare 5 mg daily. I have discussed evaluation with renal and bladder ultrasound. On follow-up if urinalysis notes persistent protein I will refer her to Nephrology. [facility] Medical History Aortic stenosis Mitral regurgitation S/P angiogram of extremity (11/15/18) Anemia Depression Atherosclerotic heart disease PVD (peripheral vascular disease) HTN (hypertension) CAD (coronary artery disease) Prosthetic valve dysfunction Hyperlipidemia Surgical History History of heart artery stent History of aortic valve replacement History of cataract extraction Hx of endoscopy Hx of colonoscopy S/P AVR Hx of CABG H/O left wrist surgery Family History Father Depression Mother Depression Heart disease CHF (congestive heart failure) Paternal Grandmother Cancer Other Mental health disorder Social History Household Members: None Housing: House Are you a primary manager critical care unit to a significant other at home: No Do you presently have visiting nurse or other home services: No Alcohol intake: never Patient Tobacco Use Status: Former Tobacco user e-Cigarette/Vaping Use: Never Used Second Hand Smoke Exposure: Yes Advance Directives Date on File: 06/17/24 service: No Current occupational status: retired Cognitive needs: No Hearing needs: No Vision needs: Yes (Reading glasses) Review of Systems Const All systems reviewed & are unremarkable except as noted in HPI and below Reports no additional complaints Eyes Reports no additional complaints ENT Reports no additional complaints Card Reports no additional complaints Resp Reports no additional complaints GI Reports no additional complaints Reports as per HPI Musc Reports no additional complaints Skin/Breast Reports system reviewed and no additional complaints, except as documented Neuro Reports no additional complaints Psych Reports no additional complaints Endo Reports no additional complaints Avtar/Lymph Reports no additional complaints Aller/Immun Reports no additional complaints Telehealth Telehealth Telehealth Platform: [employer] Location of provider rendering services: practice address Location of patient: address on file Patient Identification confirmed using: Name, : Yes Telehealth method: voice only Patient verbally consented to treatment: Yes Patient verbally consented to billing insurance company: Yes Patient informed of any privacy concerns related to visit: Yes Minutes spent on Phone/Video with Pt.: 13 Assessment & Plan Assessment & Plan (1) Urinary incontinence: Code(s): R32 - Unspecified urinary incontinence Category: Medical (2) Urinary urgency: Code(s): R39.15 - Urgency of urination Category: Medical (3) OAB (overactive bladder): Code(s): N32.81 - Overactive bladder Category: Medical (4) Bilateral renal cysts: Code(s): N28.1 - Cyst of kidney, acquired Category: Medical Plan Plan 1. Overactive Bladder - Continue Vesicare 5 mg daily. - Follow-up in one year with nurse practitioner. 2. Bilateral Renal Cysts - No further monitoring required as cysts are stable and benign appearin Medications: Refilled solifenacin (Vesicare) 5 mg PO DAILY 90 tabs 3RF Coding Level of Care Code Tele Est Pt Level 3 (88436) Diagnoses Urinary incontinence R32 Urinary urgency R39.15 OAB (overactive bladder) N32.81 Bilateral renal cysts N28.1
== END 2024-11-27 17:00 | disposition home or self-care (01) ==
LOC: HO.HUSH 16:24
PROVIDERS: Visit Provider Urology
DX: R32 Unspecified urinary incontinence (principal); R39.15 Urgency of urination; N32.81 Overactive bladder; N28.1 Cyst of kidney, acquired
CPT/HCPCS: 99213

== ENCOUNTER 2025-01-02 10:53 | Outpatient (AMB) | payer MEDICARE, SELFPAY ==
--- OUTSIDE RECORDS SUMMARY | 2024-06-19 08:30 | XMS_ITS ---
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 Name Role Phone Francesca Toribio Primary Care Provider Tha Meyer Jr Unavailable REASON FOR VISIT ANEMIA, HEMOCULT POSITIVE Encounters Encounter Location Date Provider Diagnosis [facility] [place] Inpatient [address], [place] [id number] 06/19/2024 Tha Jaquez Jr Plan Of Treatment Next Appt Details Provider Name:Tha espinosa Jr, 04/21/2025 09:40:00 AM, [address] [place] [address], [address], [place], [address], Progress Notes * RHONDAWHITLEYGEMINIMARCIO LDOB:[birth year] (74 yo F)Acc No.[id number]:06/19/2024 COLON WITH MAC Patient: MARCIO BATES Provider: Darrius Jaquez MD :1950 A ge:74 Y S ex:Female Date:06/19/2024 Address:[address] [place] [address], [facility] Pcp:MOUNA Porter Subjective: * Chief Complaints: * 1 . ANEMIA, HEMOCULT POSITIVE. * Medical History: Objective: * Vitals: Assessment: Plan: * Treatment: * * The named appointment provid er may or may not be the originator of this progress note, and it is not deemed complete until electronically signed by the appointment provider. Sign off status: Pending * Provider: Darrius Jaquez MD Date: 0 06/19/2024 Generated for Christian booth/Magalie/Musa on: 1 03/04/2024 01:16 PM EST
--- NOTE | 2025-01-02 10:55 | A.OFFVIS_ITS ---
Vital Signs 01/02/25 10:56 Height 5 ft 2 in Weight 147 lb 11.355 oz BMI 27.0 BP 122/82 Blood Pressure Location Lt brachial Position Sitting Pulse 66 Intake Visit Reasons: 6m follow up Intake Note: 6 month follow-up feeling good Gauge And Weigh Machine Adjuster Required: No Allergies nitrofurantoin (Macrobid) Allergy (Unknown, Verified 11/27/24 16:25) headache Medication List - Last Reconciled 01/02/25 by Sammy Paredes MD aspirin (Adult Low Dose Aspirin) 81 mg PO DAILY Held on 06/20/24. Instructions: Resume June 26 atorvastatin 80 mg PO DAILY cyanocobalamin (vitamin B-12) 1,000 mcg PO DAILY ezetimibe 10 mg PO DAILY losartan 100 mg PO DAILY metoprolol tartrate 50 mg PO BID omeprazole 40 mg PO DAILY@629 90 days solifenacin (Vesicare) 5 mg PO DAILY ticagrelor (Brilinta) 90 mg PO BID 90 days venlafaxine ER 150 mg PO DAILY HPI Comments Details: Gloria comes for follow-up. Patient has no new cardiac symptoms. She says she however since the valve replacement and stenting has only noted minor improvement in overall symptoms. She continues to exertional shortness of breath. No exertional chest tightness. Echocardiogram shows increase mean gradient at 22 mm Hg with moderate stenosis of the bioprosthetic valve with normally functioning valve though. This is probably related to patient prosthesis mismatch. Taking all her medications. [facility] Medical History (Updated 01/02/25 @ 12:36 by Sammy Paredes MD) Prosthetic valve dysfunction Aortic stenosis Mitral regurgitation S/P angiogram of extremity (11/15/18) Anemia Depression Atherosclerotic heart disease PVD (peripheral vascular disease) HTN (hypertension) CAD (coronary artery disease) Hyperlipidemia Surgical History (Updated 01/02/25 @ 12:36 by Sammy Paredes MD) Hx of CABG S/P cardiac cath S/P AVR Aortic valve replaced History of heart artery stent History of aortic valve replacement History of cataract extraction Hx of endoscopy Hx of colonoscopy H/O left wrist surgery Family History Father Depression Mother Depression Heart disease CHF (congestive heart failure) Paternal Grandmother Cancer Other Mental health disorder Social History Household Members: None Housing: House Are you a primary social worker palliative care to a significant other at home: No Do you presently have visiting nurse or other home services: No Alcohol intake: never Patient Tobacco Use Status: Former Tobacco user e-Cigarette/Vaping Use: Never Used Second Hand Smoke Exposure: Yes Advance Directives Date on File: 06/17/24 service: No Current occupational status: retired Cognitive needs: No Hearing needs: No Vision needs: Yes (Reading glasses) Review of Systems Const Denies chills, Denies fatigue, Denies fever(s), Denies frequent falls, Denies weakness, Denies weight gain and Denies weight loss ENT Denies dizziness Card Denies chest pain, Denies leg edema, Denies lightheadedness, Denies palpitations, Denies dyspnea, Denies dyspnea on exertion, Denies orthopnea and Denies other (loss of consciousness) Resp Denies cough, Denies dyspnea and Denies dyspnea on exertion GI Denies hematochezia and Denies change in stool character Musc Denies abnormal gait, Denies muscle weakness, Denies numbness, Denies radiating pain into limb and Denies tingling Neuro Denies abnormal gait, Denies dizziness, Denies frequent falls, Denies numbness, Denies tingling and Denies weakness Endo Denies fatigue and Denies palpitations Physical Exam Vital Signs: Last Vital Signs Pulse 66 01/02/25 10:56 BP 122/82 01/02/25 10:56 BMI result Body Mass Index 27.0 Const General: cooperative, healthy appearing, comfortable and no acute distress Orientation/consciousness: patient oriented x3 HEENT Head: Yes normal to inspection Neck Neck: Yes normal visual inspection, Yes trachea midline and Yes supple Chest Chest palpation & inspection: normal inspection of the chest Resp Effort & Inspection: normal respiratory effort Auscultation: clear to auscultation bilaterally, no crackles, no rales, no rhonchi and no wheezes Cardio Jugular venous distension: no JVD Palpation: normal PMI Rate: regular rate Rhythm: regular rhythm Heart sounds: S1 normal heart sound present, S2 normal heart sound present, no click, no gallops, Murmur heart sound present systolic mid, decrescendo and crescendo and no rubs Peripheral pulses: Peripheral pulses 2+ throughout GI Inspection: Yes normal to inspection Palpation (GI): Soft to palpation Auscultation: normal bowel sounds Skin General skin exam: no rashes or lesions noted Neuro General: patient oriented x3 Extrem General: Yes normal to inspection, No no pedal edema and No calf tenderness Psych Appearance: grossly normal Mental Status: mental status grossly normal Speech and movement: Normal speech and movement present Assessment & Plan Assessment & Plan (1) Status post transcatheter aortic valve replacement: Comment: For severe stenosis of bioprosthetic aortic valve, May 2024 Code(s): Z95.2 - Presence of prosthetic heart valve Category: Surgical Plan: Status post transcatheter aortic valve replacement with moderate stenosis most likely to patient prosthesis mismatch. Original bioprosthetic aortic valve was 19 mm which then got valve in his valve prosthesis. Mean gradient of 21 mm Hg. Will need to closely follow up. Follow-up echocardiogram on annual basis. SBE prophylaxis as per ACC/[place] guidelines. Continue lifelong aspirin therapy. Continue aggressive risk factor modification. (2) CAD (coronary artery disease): Code(s): I25.10 - Atherosclerotic heart disease of [place] coronary artery without angina pectoris Category: Medical Plan: CAD with remote coronary artery bypass grafting with in February this year undergoing stenting of the ostial venous graft. Doing well. Continue dual antiplatelet therapy uninterrupted till February of 2025 to complete 1 year. Lifelong aspirin therapy beyond that. Currently on high-intensity statin therapy along with ezetimibe therapy. Target goal LDL less than 60 mg/dL. Continue aggressive blood pressure control which is currently well optimized. (3) Mitral regurgitation: Code(s): I34.0 - Nonrheumatic mitral (valve) insufficiency Category: Medical Plan: Calcific mitral valve disease. Will need continued follow up with annual echocardiogram. Continue aggressive vascular risk factor modification. Currently not a target for interventional treatment. Will follow up in the clinic in 6 months time, sooner PRN. Thank you for allowing me to partake in her care Orders: Orders CA echo transthoracic complete 5 Months Z95.2 - Presence of prosthetic heart valve Lipid Panel Today I25.10 - Atherosclerotic heart disease of [place] coronary artery without angina pectoris Coding Level of Care Code Est Pt Level 4 (69373) Complex EM visit Add On G2211 Diagnoses Status post transcatheter aortic valve replacement Z95.2 CAD (coronary artery disease) I25.10 Mitral regurgitation I34.0
[2025-01-02 10:56] VITALS: BP 122/82; PULSE 66; BMI 27.0
--- OUTSIDE RECORDS SUMMARY | 2025-01-02 13:16 | XMS_ITS | Patient Health Record ---
Author Organization [facility] Address [address] [place] [address] Care Team Providers Care Nurses Assistant Name Role Phone Francesca Toribio Primary Care Provider Tha Meyer Jr Allergies Allergen (clinical drug ingredient) Drug/Non Drug Allergy documented on EMR Reaction Allergy Type Onset Date Status Penicillin Unknown Drug Allergy Active Results Component Value Reference Range Notes Pathology Reviewed date:06/27/2024 10:01:23 AM Interpretation: Performing Lab:[facility], [address] [place] [id number] Notes/Report: Reason For Referral No Information Medications Medication SIG (Take, Route, Fr equency, Duration) Notes Start Date End Date Status Metoprolol Tartrate Active Solifenacin Succinate Active Losartan Potassium A ctive Meloxicam Active Ticagrelor Active Ezetimibe Active Atorvastatin Calcium Active Venlafaxine HCl ER A ctive Social History Tobacco Use: Social History Observation Description Date Details (start date - stop date) Never Smoker NA - NA Tobacco Control (Standard) Question Answer Notes Tobacco use: Nonsmoker AUDIT-C (Standard) Question Answer Notes Did you have a drink containing alcohol in the p ast year? No Points 0 Interpretation Negative Problems Problem Type SNOMED Code ICD Code Onset Dates Problem Status W/U Status Risk Notes Problem Iron deficiency anemia (59910560) Iron deficiency anemia (D50.9) Active confirmed Vital Signs Blood pressure diastolic 77 mm Hg 10/10/2024 Height 62 in 10/10/2024 Blood pressure systolic 111 mm Hg 10/10/2024 Weight 147 lbs 10/10/2024 BMI 26.88 kg/m2 10/10/2024 Encounters Encounter Location Date Provider Diagnosis [facility] [address] [place] [address] [place] [id number] 06/19/2024 Tha Jaquez Jr [facility] [address] [facility] [address] [place] [phone] 10/10/2024 Tha Jaquez Jr Iron deficiency anemia D50.9 [facility] [address] [facility] [address] [place] [phone] 06/27/2024 Tha Jaquez Jr Assessments Encounter Date Diagnosis (ICD Code) Assessment Notes Treatment Notes Treatment Clinical Notes Section Notes 10/10/2024 Iron deficiency anemia (ICD-10 - D50.9) We discussed iron deficiency anemia today. We recommended follow-up laboratory studies in 1 month. She can stop omeprazole. Follow-up in the office will be in 6 months. Today's visit was 30 minutes. Plan Of Treatment Pending Test Test Name Order Date IRON + IBC (FE) 10/10/2024 FERRITIN 10/10/2024 CBC w/o DIFF 10/10/2024 Next Appt Details Provider Name:Tha espinosa Jr, 04/21/2025 09:40:00 AM, [address] [place] [address], [facility], [place], [address], Insurance Providers Payer Name Payer Address Payer Phone Subscriber Number Group Number Insured Name Patient Relationship to Insured Coverage Start Date Coverage End Date [employer] [address] [place] WOLF [phone] [id number] MARCIO GONZALEZ Self - patient is the insured Medical (General) History Medical History History ICD Code 2017 valve replacement quadruple bypass hypertension 2024 heart valve replacement -dr. sutton Upper endoscopy 06/21, erosive gastritis, no H. pylori Colonoscopy 06/21, unremarkable Surgical History Surgery Date(Month/Year) broken wrist quadruple bypass 2017 heart valve replacement 2024
== END 2025-01-02 11:23 | disposition home or self-care (01) ==
LOC: HO.HCS 10:54
PROVIDERS: Visit Provider Internal Medicine Cardiovascular Disease
DX: Z95.2 Presence of prosthetic heart valve (principal); I25.10 Atherosclerotic heart disease of native coronary artery without angina pectoris; I34.0 Nonrheumatic mitral (valve) insufficiency
CPT/HCPCS: 99214; G2211

== ENCOUNTER → 2025-01-02 10:53 | Outpatient (BNVA) | payer MEDICARE, SELFPAY | PROVIDERS: Visit Provider Internal Medicine Cardiovascular Disease | DX: I25.10 Atherosclerotic heart disease of native coronary artery without angina pectoris (principal); I34.0 Nonrheumatic mitral (valve) insufficiency; Z95.2 Presence of prosthetic heart valve | CPT/HCPCS: 99212 ==

== ENCOUNTER 2025-02-03 08:32 | Outpatient (REF) | payer MEDICARE, SELFPAY ==
[2025-02-03 08:53] LABS: MANUAL DIFF FLAG NO
[2025-02-03 09:20] LABS: Hematocrit 35.4 % (37.0-47.0); Hemoglobin 11.0 g/dl (12.0-16.0); Imm Gran Abs Auto 0.04 X10*3/uL (0.00-0.03); Imm Gran Pct Auto 0.5 % (0.0-0.4); Lymphocytes Absolute Auto 0.9 X10*3/uL (1.2-4.9); Mean Corpuscular HGB Conc 31.1 g/dl (31.0-35.0); Mean Corpuscular Hemoglobin 26.0 pg (27.0-33.0); Mean Corpuscular Volume 83.7 fL (80.0-98.0); NRBC Abs Auto 0.000 X10*3/uL (0.0-0.012); NRBC Pct Auto 0.0 /100WBC (0.0-0.2); Platelet Count 259 X10*3/uL (160-400); Red Blood Count 4.23 X10*6/uL (4.20-5.50); White Blood Count 8.9 X10*3/uL (4.8-10.8)
[2025-02-03 09:54] LABS: Cholesterol 129 mg/dL (<200); HDL Cholesterol 48 mg/dL (>40); Triglycerides 123 mg/dL (<150)
[2025-02-03 10:02] LABS: Alanine Aminotransferase 17 U/L (0-31); Albumin Level 4.2 g/dL (3.5-5.0); Alkaline Phosphatase 91 U/L (39-117); Anion Gap 13 (12-20); Aspartate Amino Transferase 23 U/L (5-31); Blood Urea Nitrogen 28 mg/dL (9-16); Calcium 9.3 mg/dL (8.4-10.2); Carbon Dioxide 24 mmol/L (22-29); Chloride 110 mmol/L (96-108); Cholesterol 129 mg/dL (<200); Estimated Glomerular Filt Rate 47; HDL Cholesterol 48 mg/dL (>40); Potassium 4.5 mmol/L (3.3-5.1); Sodium 142 mmol/L (135-145); Total Protein 7.0 g/dL (6.5-8.0); Triglycerides 120 mg/dL (<150)
[2025-02-03 10:30] LABS: Folate 9.9 ng/mL (> or = 4.0); Vitamin B12 189 pg/mL (200-900)
== END 2025-02-03 08:33 | disposition home or self-care (01) ==
LOC: HO.LAB 08:32
PROVIDERS: Internal Medicine Cardiovascular Disease
DX: Z00.00 Encounter for general adult medical examination without abnormal findings (principal); Z13.29 Encounter for screening for other suspected endocrine disorder; Z13.21 Encounter for screening for nutritional disorder; I25.10 Atherosclerotic heart disease of native coronary artery without angina pectoris; E78.00 Pure hypercholesterolemia, unspecified; D64.9 Anemia, unspecified
CPT/HCPCS: 36415; 80053; 80061; 82306; 82607; 82746; 84443; 85025

== ENCOUNTER 2025-02-10 08:05 | Outpatient (AMB) | payer MEDICARE, SELFPAY ==
--- OUTSIDE RECORDS SUMMARY | 2024-06-19 08:30 | XMS_ITS ---
Author Organization [facility] Address [address] [place] [address] [place] [id number] Care Team Providers Care Cloth Weigher Name Role Phone Francesca Toribio Primary Care Provider Tha Meyer Jr [phone] REASON FOR VISIT ANEMIA, HEMOCULT POSITIVE Encounters Encounter Location Date Provider Diagnosis [facility] [place] [address] [place], [place] [id number] 06/19/2024 Tha Jaquez Jr Plan Of Treatment Next Appt Details Provider Name:Tha espinosa Jr, 04/21/2025 09:40:00 AM, [address] [place] [address], [address], [place], [address], Progress Notes * MARCIO GONZALEZ LDOB:[birth year] (74 yo F)Acc No.[id number]:06/19/2024 COLON WITH MAC Patient: GEMINI BATESETTE Soledad Provider: Darrius Jauqez MD :1950 A ge:74 Y S ex:Female Date:06/19/2024 Address:[address] [place] [address], [facility] Pcp:MOUNA Porter Subjective: * Chief Complaints: * A NEMIA, HEMOCULT POSITIVE Billing Information: * Procedure Codes: * The named appointment provid er may or may not be the originator of this progress note, and it is not deemed complete until electronically signed by the appointment provider. Sign off status: Pending * Provider: Darrius Jaquez MD Date: 0 06/19/2024 Generated for Christian booth/Magalie/Felicityitting on: 1 04/13/2024 08:39 AM EST
--- NOTE | 2025-02-10 08:14 | A.OFFPC_ITS ---
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 Instructions: Resume June 26 atorvastatin 80 mg PO DAILY cyanocobalamin (vitamin B-12) 1,000 mcg PO DAILY ezetimibe 10 mg PO DAILY losartan 100 mg PO DAILY metoprolol tartrate 50 mg PO BID omeprazole 40 mg PO DAILY@0630 90 days solifenacin (Vesicare) 5 mg PO DAILY ticagrelor (Brilinta) 90 mg PO BID 90 days venlafaxine ER 150 mg PO DAILY Tobacco use date assessed: 10/08/24 Fall risk assessment: No Falls in past year Last assessed Fall Risk: 02/10/25 Dental Screening Dental Screen Date: 05/09/24 HPI annual exam HPI Details 74-year-old female with past medical his tory of hyperlipidemia, hypertension, PVD, coronary artery disease, mitral regurgitation, history of aortic valve replacement 03/2024, overactive bladder last seen 09/2024 coming in for annual exam. In review of the notes patient was seen by Cardiology 12/2024 annual echocardiogram was ordered and continued on dual antiplatelet therapy until 02/2025 and lifelong aspirin therapy with target LDL goal less than 60. Seen by urology 12/21 continued on VESIcare. Presenting for a follow-up visit for chronic disease management and health maintenance. The patient does not monitor her blood pressure at home, and it was noted to be elevated during the visit. She has been taking venlafaxine for a long time for depression and finds it helpful. For years, she has experienced intermittent tingling in all fingers of her right hand and variable difficulty flexing it, described as a [id number]-[id number] sensation. This is attributed to her past work in [place] which involved repetitive motions like cutting and chopping. mammo: 08/2024 eye exam: 2024 [place] DEXA: ordered colo: 05/2024 vaccines: UTD declines PCV PFSH Medical History Prosthetic valve dysfunction Aortic stenosis Mitral regurgitation S/P angiogram of extremity (11/15/18) Anemia Depression Atherosclerotic heart disease PVD (peripheral vascular disease) HTN (hypertension) CAD (coronary artery disease) Hyperlipidemia Surgical History Hx of CABG S/P cardiac cath S/P AVR Aortic valve replaced History of heart artery stent History of aortic valve replacement History of cataract extraction Hx of endoscopy Hx of colonoscopy H/O left wrist surgery Family History Father Depression Mother Depression Heart disease CHF (congestive heart failure) Paternal Grandmother Cancer Other Mental health disorder Social History Household Members: None Housing: House Are you a primary healthcare consulting manager to a significant other at home: No Do you presently have visiting nurse or other home services: No Alcohol intake: never Patient Tobacco Use Status: Former Tobacco user e-Cigarette/Vaping Use: Never Used Second Hand Smoke Exposure: Yes Advance Directives Date on File: 06/17/24 service: No Current occupational status: retired Cognitive needs: No Hearing needs: No Vision needs: Yes (Reading glasses) Questionnaire PHQ-9 Over the last 2 weeks, how often have you been bothered by any of the following problems? 1. Little interest or pleasure in doing things: not at all 2. Feeling down, depressed, or hopeless: not at all 3. Trouble falling or staying asleep, or sleeping too much: not at all 4. Feeling tired or having little energy: not at all 5. Poor appetite or overeating: not at all 6. Feeling bad about yourself - or that you are a failure or have let yourself or your family down: not at all 7. Trouble concentrating on things, such as reading the newspaper or watching television: not at all 8. Moving or speaking so slowly that other people could have noticed. Or the opposite - being so fidgety or restless that you have been moving around a lot more than usual: not at all 9. Thoughts that you would be better off or of hurting yourself in some way: not at all Total score: 0 Depression Screening Interpretation: Negative Depression Screening Done: Yes Source: Developed by Drs. Dwayne Damon, Anna Austin, Master Wilson and colleagues, with an educational wil from [employer]. Thrive Questionnaire Date Thrive assessed: 07/01/24 I am a: Patient What is your living situation today?: I have a steady place to live Within the past 12 months, did the food you bought not last and you didn't have the money to get more?: Sometimes True Within the past 12 months, did you worry whether your food would run out before you got money to buy more?: Often true Do you have trouble paying for medicines?: No Do you have trouble getting transportation to medical appointments?: No Do you have trouble paying your heating and electricity bill?: No Do you have trouble taking care of your child, family member or friend?: I choose not to answer this question Do you have trouble with day-to-day activities such as bathing, preparing meals, shopping, managing finances, etc.?: No Are you currently unemployed and looking for a job?: No Are you interested in more education?: No Please select the resources that you would like help with: None Currently or been in a relationship where the following occur: No concerns reported THRIVE Score: 2 JOSE D-7 AMB Questionnaire JOSE D-7 Date JOSE D - 7 assessed: 05/09/24 Source: Developed by Drs. Dwayne Damon, Anna Austin, Master Wilson and colleagues, with an educational wil from [employer]. Review of Systems Const Denies body aches, Denies chills, Denies fatigue, Denies fever(s), Denies headache(s) and Denies poor appetite Eyes Reports no additional complaints ENT Denies dysphagia, Denies dizziness, Denies headache(s) and Denies odynophagia Card Denies chest pain, Denies syncope, Denies edema, Denies irregular heart rhythm, Denies lightheadedness and Denies dyspnea Resp Denies cough and Denies dyspnea GI Denies abdominal pain, Denies constipation, Denies dysphagia, Denies diarrhea, Denies nausea, Denies odynophagia and Denies vomiting Reports no additional complaints Musc Reports no additional complaints and Denies abnormal gait Skin/Breast Reports system reviewed and no additional complaints, except as documented Neuro Denies abnormal gait, Denies dizziness, Denies syncope and Denies headache(s) Psych Reports no additional complaints Endo Denies fatigue Physical exam (Primary Care) Vital Signs: Last Vital Signs Temp 97.3 F 02/10/25 08:15 Pulse 52 02/10/25 08:15 Resp 14 02/10/25 08:15 BP 198/106 H 02/10/25 08:15 Pulse Ox 98 02/10/25 08:15 Oxygen Delivery Method Room Air 02/10/25 08:15 BMI result Body Mass Index 27.2 Tobacco/Smoking Status: Tobacco use Status Tobacco use date assessed 10/08/24 02/10/25 08:21 Patient Tobacco Use Status Former Tobacco user 02/10/25 08:21 e-Cigarette/Vaping Use Never Used 02/10/25 08:21 Depression Screening Interpretation: Negative Thrive Assessment: Date of Thrive Assessment Date Thrive assessed 07/01/24 02/10/25 08:21 Currently or been in a relationship where the following occur: No concerns reported Const General: cooperative, healthy appearing, comfortable and no acute distress Orientation/consciousness: patient oriented x3 HENMT Head: Yes normocephalic Ears: hearing grossly normal bilaterally, external ears normal, TM's normal bilaterally and EAC's normal General nose exam: Normal external nose present Face and sinus: Yes normal facial exam and Yes sinuses nontender Mouth: Normal oral and palatal mucosa present and tongue normal Throat: Yes posterior oropharynx normal Eyes General: appearance normal, both eyes and all related structures Conjunctivae: conjunctivae normal Pupils: Equal, round and reactive pupils present EOM: EOMs intact bilaterally and No Nystagmus present Neck Neck: Yes normal visual inspection, Yes full ROM and Yes no lymphadenopathy Chest Chest palpation & inspection: normal inspection of the chest Resp Effort & Inspection: normal respiratory effort Auscultation: clear to auscultation bilaterally, no crackles, no rales, no rhonchi, no wheezes and breath sounds present Cardio Rate: regular rate Rhythm: regular rhythm Peripheral pulses: radial pulses present and dorsalis pedis present GI Inspection: Yes normal to inspection and No Abdominal wall edema Palpation (GI): Soft to palpation, not firm and nontender Auscultation: normal bowel sounds Rectal Exam - Female: deferred General: Yes no CVA tenderness Back/Spine/Pelvis Back: no CVA tenderness Skin General skin exam: no rashes or lesions noted Neuro General: patient oriented x3 Cranial nerves: Yes Equal, round and reactive pupils present, Yes Midline tongue present, Yes Ability to bilaterally elevate shoulders present and No Nystagmus present Gait exam (Neuro): Normal gait present Extrem General: Yes normal to inspection, Yes full ROM, No no pedal edema and No edema Psych Speech and movement: Normal speech and movement present Affect: normal affect Insight: Good insight present (Psych) Judgement: Good judgement present (Psych) Coding Level of Care Code Est Pt Prev Care >65y(82060) Diagnoses Physical exam Z00.00 Primary hypertension I10 Hypertension type: primary hypertension S/P AVR Z95.2 CAD (coronary artery disease) I25.10 PVD (peripheral vascular disease) I73.9 Hyperlipidemia E78.5 OAB (overactive bladder) N32.81 Anemia D64.9 Anemia type: unspecified type Other acute gastritis, presence of bleeding unspecified K29.00 Gastritis type: other gastritis Chronicity: acute Gastritis bleeding: presence of bleeding unspecified Depression F32.9 Numbness and tingling in right hand R20.0; R20.2 Assessment & Plan Assessment & Plan (1) Physical exam: Code(s): Z00.00 - Encounter for general adult medical examination without abnormal findings Category: Medical Plan: Patient is up to date on colonoscopy and mammogram. She does have yearly eye exams with Dr. Nesbitt and next appointment is scheduled for 02/2025. She is due for DEXA which was ordered today. Blood work is up to date and has been reviewed with the patientv today. She is due for PCV and Shingles which were declined today. Healthy diet and regular exercise is encouraged. (2) HTN (hypertension): Code(s): I10 - Essential (primary) hypertension Category: Medical Qualifiers: Hypertension type: primary hypertension Qualified Code(s): I10 - Essential (primary) hypertension Plan: The patient's blood pressure was uncharacteristically high at 180/78 mmHg, despite having taken her medication about 45 minutes prior to the visit. She denied any associated symptoms such as chest pain, headaches, or vision changes. Given this is not her typical reading, the plan is for her to monitor her blood pressure at home with her own cuff. She will recheck her blood pressure later today and send a message through the patient portal with the reading. If the blood pressure remains elevated, her medications will be adjusted. (3) S/P AVR: Comment: 19 mm bioprosthetic aortic valve replacement with Trifecta bioprosthesis. Immediate postoperative mean gradient of 30 mm Hg consistent with patient prosthesis mismatch, 2017 Code(s): Z95.2 - Presence of prosthetic heart valve Category: Surgical Plan: Continue to follow up with Cardiology. (4) CAD (coronary artery disease): Code(s): I25.10 - Atherosclerotic heart disease of [place] coronary artery without angina pectoris Category: Medical Plan: For coronary artery disease she is on dual antiplatelet therapy with aspirin and Brilinta. She continues on high dose atorvastatin with Zetia for cholesterol management. She is also on losartan and metoprolol for blood pressure management. Continue to monitor blood pressure, cholesterol and blood sugars and continue to follow with Cardiology. (5) PVD (peripheral vascular disease): Comment: 11/07/2018 - left iliac stent Code(s): I73.9 - Peripheral vascular disease, unspecified Category: Medical Plan: Currently on dual antiplatelet therapy with Brilinta and aspirin. Advised good control of blood pressure and cholesterol (6) Hyperlipidemia: Code(s): E78.5 - Hyperlipidemia, unspecified Category: Medical Plan: Avoid foods that are high in cholesterol such as red meat, fried foods, eggs and baked goods. Triglyceride goal of less than 150 and LDL goal of less than 70. Continue on Zetia and atorvastatin. Last cholesterol within normal limits. (7) OAB (overactive bladder): Code(s): N32.81 - Overactive bladder Category: Medical Plan: Currently following with Urology and on VESIcare. She feels her symptoms have been improved since starting the medication. (8) Anemia: Code(s): D64.9 - Anemia, unspecified Category: Medical Qualifiers: Anemia type: unspecified type Qualified Code(s): D64.9 - Anemia, unspecified Plan: Anemia is stable continue to monitor blood work. (9) Gastritis: Comment: Dr. Luke Code(s): K29.70 - Gastritis, unspecified, without bleeding Category: Medical Qualifiers: Gastritis type: other gastritis Chronicity: acute Gastritis bleeding: presence of bleeding unspecified Qualified Code(s): K29.00 - Acute gastritis without bleeding Plan: Recently seen by Dr. luke and Omeprazole was d/c. (10) Depression: Code(s): F32.9 - Major depressive disorder, single episode, unspecified Category: Medical Plan: Continue on Venlafaxine at this time and feels good on this medication. (11) Numbness and tingling in right hand: Code(s): R20.0 - Anesthesia of skin; R20.2 - Paresthesia of skin Category: Medical Plan: The patient complains of intermittent, long-standing tingling and decreased motion in her right, dominant hand, likely due to carpal tunnel syndrome from her history of repetitive work. Physical exam showed intact nerve function, good pulses, and good blood flow to the hand. Since the symptoms are intermittent, the initial plan is conservative management. She is advised to try an jxfa-hqb-kuybnyz wrist splint, particularly at night, to reduce inflammation. If symptoms become consistent, a nerve conduction study will be considered to prevent permanent nerve damage. Plan This note was constructed using voice recognition software. While every effort has been made to ensure accuracy and chin strap sewer, still areas may have been included sometimes these areas may affect the content or meeting of the given symptoms. Total time spent caring for the patient today was 30 minutes. This includes time spent before the visit reviewing the chart, time spent during the visit, and time spent after the visit and documentation. Patient was informed and verbally consented to the use of an ambient scribe for clinic note documentation during this visit. Orders: Orders XR DEXA axial skeleton Today Z78.0 - Asymptomatic menopausal state Lipid Panel 6 Months E78.00 - Pure hypercholesterolemia, unspecified Comprehensive Met. Panel 6 Months I10 - Essential (primary) hypertension, I25.10 - Atherosclerotic heart disease of [place] coronary artery without angina pectoris Medications: Discontinued omeprazole Discontinued Reason: Patient no longer taking 40 mg PO DAILY@0630 90 days 90 caps 0RF
[2025-02-10 08:15] VITALS: BP 198/106; PULSE 52; RESP 14; TEMP 36.3; O2SAT 98; BMI 27.2
--- OUTSIDE RECORDS SUMMARY | 2025-02-10 08:40 | XMS_ITS | Patient Health Record ---
Author Organization [facility] Address [address] [place] [address] Care Team Providers Care Porcelain Turner Name Role Phone Francesca Toribio Primary Care Provider Tha Meyer Jr Allergies Allergen (clinical drug ingredient) Drug/Non Drug Allergy documented on EMR Reaction Allergy Type Onset Date Status Penicillin Unknown Drug Allergy Active Results Component Value Reference Range Notes Pathology Reviewed date:06/27/2024 10:01:23 AM Interpretation: Performing Lab:[facility], [address] [place] [id number] Notes/Report: Reason For Referral No Information Medications [...] stop date) Never Smoker NA - NA Social History Drug/Alcohol: Social Info Question Answer Notes AUDIT-C (Standard) Did you have a drink containing alcohol in the past year? No Points 0 Interpretation Negative Tobacco Use: Social Info Question Answer Notes Tobacco Control (Standard) Tobacco use: Nonsmoker Additional Details Category Social Info Options Details Miscellaneous: Marital status: Occupation: retired Problems Problem Type SNOMED Code ICD Code Onset Dates Problem Status W/U Status Risk Notes Problem Iron deficiency anemia ([id number]) Iron deficiency anemia (D50.9) Active confirmed Vital Signs Blood pressure diastolic 77 mm Hg 10/10/2024 Height 62 in 10/10/2024 Blood pressure systolic 111 mm Hg 10/10/2024 Weight 147 lbs 10/10/2024 BMI 26.88 kg/m2 10/10/2024 Encounters Encounter Location Date Provider Diagnosis [facility] [place] [address] [id number] 06/19/2024 Tha Jaquez Jr [facility] [address] [place] [id number] 10/10/2024 Tha Jaquez Jr Iron deficiency anemia D50.9 [facility] [address] [phone] 06/27/2024 Tha Jaquez Jr Assessments Encounter Date [...] DIFF 10/10/2024 Next Appt Details Provider Name:Tha Dang espinosa Jr, 04/21/2025 09:40:00 AM, [address] [place] [address], [place] [address], [place], [address], Insurance Providers Payer Name Payer Address Payer Phone Subscriber Number Group Number Insured Name Patient Relationship to Insured Coverage Start Date Coverage End Date [employer] [address] [place]F [phone] [id number] MARCIO GONZALEZ Self - patient is the insured Medical (General) History Medical History History ICD Code 2017 valve replacement quadruple bypass hypertension 2024 heart valve replacement -dr. sutton Upper endoscopy 06/21, erosive gastritis, no H. pylori Colonoscopy 06/21, unremarkable Surgical History Surgery Date(Month/Year) heart valve replacement 2024 quadruple bypass 2016 broken wrist
[2025-02-10 08:53] VITALS: BP 180/78
== END 2025-02-10 08:59 | disposition home or self-care (01) ==
LOC: HO.HMCH 08:06
DX: Z00.00 Encounter for general adult medical examination without abnormal findings (principal); I10 Essential (primary) hypertension; Z95.2 Presence of prosthetic heart valve; I25.10 Atherosclerotic heart disease of native coronary artery without angina pectoris; I73.9 Peripheral vascular disease, unspecified; E78.5 Hyperlipidemia, unspecified; N32.81 Overactive bladder; D64.9 Anemia, unspecified; K29.00 Acute gastritis without bleeding; F32.9 Major depressive disorder, single episode, unspecified; R20.0 Anesthesia of skin; R20.2 Paresthesia of skin

== ENCOUNTER → 2025-02-10 08:05 | Outpatient (BNVA) | payer MEDICARE, SELFPAY | DX: Z00.00 Encounter for general adult medical examination without abnormal findings (principal); I10 Essential (primary) hypertension; I25.10 Atherosclerotic heart disease of native coronary artery without angina pectoris; I73.9 Peripheral vascular disease, unspecified; E78.5 Hyperlipidemia, unspecified; N32.81 Overactive bladder; D64.9 Anemia, unspecified; K29.00 Acute gastritis without bleeding; F32.9 Major depressive disorder, single episode, unspecified; R20.0 Anesthesia of skin; R20.2 Paresthesia of skin; Z95.2 Presence of prosthetic heart valve | CPT/HCPCS: 96127; 99397 ==